=== PATIENT | female | born 1925 | race Caucasian/White ===

== ENCOUNTER 2017-01-02 14:26 | Inpatient (IN) | payer MEDICARE ==
[~2017-01-02] VITALS: Ht 165.1 cm; Wt 103.9 kg
[2017-01-02 14:00] VITALS: BP 158/62
[~2017-01-02 14:26] MED LIST: ACET500T68 PO; AMLO10TA2 PO; APIX5TAB PO; ASPI-482 PO; ASPI325T8 PO; CARV3.122 PO; CHOL100013 PO; DOCU50CA11 PO; FAMO20TA5 PO; GLIM2TAB2 PO; INSU100I17 SQ; IPRA3AMP NEB; LEVO112T4 PO; LEVO200T5 PO; LOSA100T6 PO; MELA3TAB2 PO; METF-620 PO; METF500T9 PO; METO25TA4 PO; OMEP20TA63 PO; POTASSIUM CHLO10 MEQ PO; RIVA10TA PO; SIMV20TA3 PO; TAMS0.4C2 PO; TRAM50TA PO; TRAZ50TA15 PO; VALS160T3 PO
[2017-01-02] MEDS ORDERED: 0.9 % SODIUM CHLORIDE 3ML DISP.SYRIN. IV PRN (18:30)
[2017-01-02] MEDS: oxyCODONE IR 5 MG TABLET PO PRN (18:31)
[2017-01-02] MEDS ORDERED: SILVER NITRATE STICK TP ONE (18:45)
[2017-01-02] MEDS ORDERED: BISACODYL 10 MG SUPP.RECT. PR PRN (18:45)
[2017-01-02] MEDS ORDERED: ACETAMINOPHEN 500 MG TABLET PO PRN (18:45)
[2017-01-02] MEDS ORDERED: DEXTROSE 50% 25 GM / 50ML DISP.SYRIN. IV PRN (18:45)
--- NOTE | 2017-01-02 18:54 | HP ---
ADMIT DATE: 01/02/2017 CHIEF COMPLAINT: Left lower extremity infection. HISTORY OF PRESENT ILLNESS: The patient is a pleasant elderly female who we have been caring for, for about a month now. She initially had an arterial occlusion on the left lower extremity. She went for emergent surgery. Postoperatively, she eventually developed complications, had to have a fasciotomy, now she has been over at the [facility] at [facility]. We have been doing aggressive wound care, but now she has developed an infection. She was sent here for treatment and consultation with Infectious Disease. PAST MEDICAL HISTORY: Chronic lower extremity venous arterial insufficiency, chronic anticoagulation, chronic pain, GERD, insomnia, depression, hypertension, hyperlipidemia, osteomyelitis, fibromyalgia, diabetes, hypothyroidism, appendectomy, cholecystectomy, total knee replacement. ALLERGIES: None. FAMILY HISTORY: Coronary artery disease. SOCIAL HISTORY: She does not drink, smoke or take drugs. MEDICATIONS: Reviewed, please refer to the MRAD. REVIEW OF SYSTEMS: GENERAL: No history of weight change, weakness or fevers. SKIN: No bruising, hair changes or rashes. EYES: No blurred, double or loss of vision. NOSE AND THROAT: No history of nosebleeds, hoarseness or sore throat. HEART: No history of palpitations, chest pain or shortness of breath on exertion. LUNGS: Denies cough, hemoptysis, wheezing or shortness of breath. GASTROINTESTINAL: Denies changes in appetite, nausea, vomiting, diarrhea or constipation. GENITOURINARY: No history of frequency, urgency, hesitancy or nocturia. NEUROLOGIC: Denies history of numbness, tingling, tremor or weakness. PSYCHIATRIC: No history of panic, anxiety or depression. ENDOCRINE: No history of heat or cold intolerance, polyuria or polydipsia. EXTREMITIES: She complains of left lower extremity pain and drain. PHYSICAL EXAMINATION: VITAL SIGNS: Stable. GENERAL: She is alert, cooperative. Her daughters are present. HEART: Normal S1, S2. LUNGS: Clear. ABDOMEN: Soft. EXTREMITIES: The left lower extremity has bandaging. There is odor of possible infection. ENDOCRINE: No thyromegaly. LYMPHATICS: No cervical nodes. HEMATOPOIETIC: No bruising. ASSESSMENT AND PLAN: Left lower extremity infection. The patient has been admitted. We will consult Infectious Disease. Consult her vascular surgeon, Dr. Decker. PT, OT, wound care, home meds. PROGNOSIS: Guarded. NIAL Sanchez DOW DO DR: Duke JOB#: [id number] / [id number]
[2017-01-02 19:00] VITALS: BP 138/82
[2017-01-02] MEDS: MORPHINE SULFATE 2 MG/ML DISP.SYRIN. IV PRN ×2 (21:37→23:36)
[2017-01-02] MEDS: IV NORMAL SALINE 1000ML BAG 1,000 ML IV SCH (21:43)
[2017-01-02] MEDS: ATORVASTATIN CALCIUM 10 MG TABLET. PO SCH (22:27)
[2017-01-02] MEDS: amLODIPine BESYLATE 5 MG TABLET PO SCH (22:28)
[2017-01-02] MEDS: LACTOBACILLUS RHAMNOSUS GG 1 CAPSULE. PO SCH (22:28)
[2017-01-02] MEDS: traZODone 50 MG TABLET. PO SCH (22:28)
[2017-01-02] MEDS: oxyCODONE ER 10 MG TAB.ER.12H PO SCH (22:28)
[2017-01-02] MEDS: DOCUSATE SODIUM 100 MG CAPSULE. PO SCH (22:28)
[2017-01-02] MEDS: METOPROLOL TART IMMED RELEASE 25 MG TABLET. PO SCH (22:29)
[2017-01-02 23:00] VITALS: BP 147/64
[2017-01-03] VITALS (11 sets, daily range): BP systolic 97–161; BP diastolic 50–92
[2017-01-03 05:13] LABS: INR 2.3 (0.8-1.1); PROTHROMBIN TIME PATIENT 24.2 SEC (11.7-14.0)
[2017-01-03] MEDS: MORPHINE SULFATE 2 MG/ML DISP.SYRIN. IV PRN ×7 (05:51→22:41)
[2017-01-03 05:59] LABS: ALBUMIN 1.4 g/dL (3.4-5.0); ALBUMIN/GLOBULIN RATIO 0.4 (1.0-1.7); CALCIUM 7.8 mg/dL (8.5-10.1); CREATININE 0.6 mg/dL (0.6-1.0); GFR 94.1; POTASSIUM 4.2 mmol/L (3.5-5.1); TOTAL BILIRUBIN 0.5 mg/dL (0.2-1.0); TOTAL PROTEIN 5.1 g/dL (6.4-8.2)
[2017-01-03] MEDS: LEVOTHYROXINE 112 MCG TABLET PO SCH (06:09)
[2017-01-03] MEDS ORDERED: ASPIRIN 325 MG TABLET PO SCH (08:00)
[2017-01-03] MEDS: oxyCODONE ER 10 MG TAB.ER.12H PO SCH ×2 (09:00→21:00)
[2017-01-03] MEDS: TAMSULOSIN 0.4 MG CAP.ER.24H. PO SCH (09:00)
[2017-01-03] MEDS: DOCUSATE SODIUM 100 MG CAPSULE. PO SCH ×2 (09:00→21:00)
[2017-01-03] MEDS: METOPROLOL TART IMMED RELEASE 25 MG TABLET. PO SCH ×2 (09:00→21:00)
[2017-01-03] MEDS: FAMOTIDINE 20 MG TABLET. PO SCH (09:00)
[2017-01-03] MEDS: LACTOBACILLUS RHAMNOSUS GG 1 CAPSULE. PO SCH ×2 (09:00→21:00)
[2017-01-03 09:26] LABS: BASO % 1 % (0-3); EOS % 1 % (0-3); HEMATOCRIT 27.9 % (36.0-47.0); HEMOGLOBIN 8.6 g/dL (12.0-15.5); LYMPH % 51 % (24-48); MEAN CORPUSCULAR HEMOGLOBIN 28 pg (25-35); MEAN CORPUSCULAR HGB CONC 31 g/dL (31-37); MEAN CORPUSCULAR VOLUME 92 fL (79-100); MONO % 7 % (0-9); NEUT % 40 % (31-73); PLATELET COUNT 314 x10^3/uL (140-400); RED BLOOD COUNT 3.03 x10^6/uL (3.50-5.40); RED CELL DISTRIBUTION WIDTH 17.8 % (11.5-14.5); WHITE BLOOD COUNT 7.8 x10^3/uL (4.0-11.0)
--- NOTE | 2017-01-03 09:56 | PDOC ---
Infectious Disease Note Vital Sign Vital Signs Vital Signs Date Time Temp Pulse Resp B/P (MAP) Pulse Ox O2 Delivery O2 Flow Rate FiO2 01/03/17 08:45 99 Nasal Cannula 2.0 01/03/17 03:00 98.1 77 20 138/88 (105) 98.1 Labs Lab Laboratory Tests Test 01/02/17 16:45 01/02/17 17:00 01/02/17 21:02 01/03/17 04:40 Glucose (Fingerstick) 166 mg/dL (70-99) 163 mg/dL (70-99) Nasal Screen MRSA (PCR) Negative (Negative) White Blood Count 7.8 x10^3/uL (4.0-11.0) Red Blood Count 3.03 x10^6/uL (3.50-5.40) Hemoglobin 8.6 g/dL (12.0-15.5) Hematocrit 27.9 % (36.0-47.0) Mean Corpuscular Volume 92 fL (79-100) Mean Corpuscular Hemoglobin 28 pg (25-35) Mean Corpuscular Hemoglobin Concent 31 g/dL (31-37) Red Cell Distribution Width 17.8 % (11.5-14.5) Platelet Count 314 x10^3/uL (140-400) Neutrophils (%) (Auto) 40 % (31-73) Lymphocytes (%) (Auto) 51 % (24-48) Monocytes (%) (Auto) 7 % (0-9) Eosinophils (%) (Auto) 1 % (0-3) Basophils (%) (Auto) 1 % (0-3) Neutrophils # (Auto) 3.1 x10^3uL (1.8-7.7) Lymphocytes # (Auto) 4.0 x10^3/uL (1.0-4.8) Monocytes # (Auto) 0.5 x10^3/uL (0.0-1.1) Eosinophils # (Auto) 0.1 x10^3/uL (0.0-0.7) Basophils # (Auto) 0.0 x10^3/uL (0.0-0.2) Prothrombin Time 24.2 SEC (11.7-14.0) Prothromb Time International Ratio 2.3 (0.8-1.1) Sodium Level 138 mmol/L (136-145) Potassium Level 4.2 mmol/L (3.5-5.1) Chloride Level 107 mmol/L (98-107) Carbon Dioxide Level 22 mmol/L (21-32) Anion Gap 9 (6-14) Blood Urea Nitrogen 19 mg/dL (7-20) Creatinine 0.6 mg/dL (0.6-1.0) Estimated GFR (Cockcroft-Gault) 94.1 BUN/Creatinine Ratio 32 (6-20) Glucose Level 121 mg/dL (70-99) Calcium Level 7.8 mg/dL (8.5-10.1) Total Bilirubin 0.5 mg/dL (0.2-1.0) Aspartate Amino Transf (AST/SGOT) 43 U/L (15-37) Alanine Aminotransferase (ALT/SGPT) 30 U/L (14-59) Alkaline Phosphatase 112 U/L (46-116) Total Protein 5.1 g/dL (6.4-8.2) Albumin 1.4 g/dL (3.4-5.0) Albumin/Globulin Ratio 0.4 (1.0-1.7) Test 01/03/17 07:27 Glucose (Fingerstick) 119 mg/dL (70-99) Objective Assessment Extensive left leg infection Left leg ischemia/necrotic mus and skin Obesity DM HTN Left fibular fracture CVA Plan Plan of Care zyvox and zosyn d/w daughter d/w Vascular surgery likely will need amputation ZAID LARSEN MD Jan 03, 2017 09:56
--- NOTE | 2017-01-03 10:34 | CONS ---
DATE OF CONSULTATION: 01/03/2017 REQUESTING PHYSICIAN: Dr. Luu. REASON FOR CONSULTATION: Left leg infection. HISTORY OF PRESENT ILLNESS: This is an 89-year-old female who has undergone significant problem lately. Right now the patient was transferred from [facility] for left ankle or leg infection, although before then she was at [facility] and she had original hemorrhagic CVA and subsequently she was in a nursing facility and then she had discoloration of the leg. She was found to have acute ischemia of the leg. The patient underwent revascularization, thrombectomy and she developed compartment syndrome, so that was filleted open. The patient then was transferred to [facility] with necrotic anterior left leg as well as necrotic muscle. The patient was getting local care and yesterday was found to have significant pus started coming out from the lower part of the wound just above the ankle, hence she was transferred. The patient has significant pus coming out from that area now, seen by Vascular Surgery and discussion of I and D versus amputation has been undergoing right now. The patient denies any nausea, vomiting, diarrhea. Denies any fever. Does have pain in the leg. Denies any chest pain, shortness of breath, abdominal pain. PAST MEDICAL HISTORY: As I mentioned, recent hemorrhagic stroke, also left leg compartment syndrome, status post fasciotomy with necrotic muscle still, also left leg ischemia, status post thrombectomy. The patient has obesity, atrial fibrillation, hypertension, hyperlipidemia, diabetes. SOCIAL HISTORY: Negative for smoking, alcohol, illicit drug use. ALLERGIES: No known drug allergies. CURRENT MEDICATIONS: Reviewed. ALLERGIES: She lists as allergic to HYDROCODONE, NAPROXEN and PROPOXYPHENE. ROS : as per HPI, rest neg. PHYSICAL EXAMINATION: GENERAL: Alert, oriented female, not in distress. VITAL SIGNS: Stable, afebrile. HEENT: NAD. NECK: Supple, no JVP, no lymphadenopathy. LUNGS: Clear. HEART: S1, S2 regular. ABDOMEN: Benign. EXTREMITIES: Right lower extremity is unremarkable. Left lower extremity has extensive wounds with the muscle visible and some necrotic muscle as well as the chente pus coming out just above the ankle into the hole that goes deeper into the lateral side. NEUROLOGIC: The patient is neurologically intact, although she is very weak and debilitated. She is not able to do anything much. LABORATORY DATA: White count is 7.8, hemoglobin 8.6, platelets are normal. BUN and creatinine is 19 and 0.6. Last times x-ray which showed tibiofibular fracture which is where right now the infection is. IMPRESSION: 1. Extensive infection of the left leg. 2. Devitalized necrotic muscle and skin. 3. Compartment syndrome, status post fasciotomy. 4. Ischemic leg, status post thrombectomy. 5. Obesity. 6. Diabetes. 7. Hypertension. 8. Atrial fibrillation. RECOMMENDATIONS: We will put her on Zosyn and Zyvox, supportive care, in detail discussion done with the patient's daughter at the bedside, probably this is not viable and would recommend amputation. Also discussed with Vascular Surgery, [employer]OR. They are also thinking that this is not salvageable and talking about possible amputation with the brother. The patient's son has the DPOA. He is on his way. We will discuss with him also. Thank you very much, Dr. Luu for giving me the opportunity to participate in this patient's care. ZAID LARSEN MD DR: DIONNE/gill JOB#: [id number] / [id number] ÁNGEL
[2017-01-03] MEDS ORDERED: PHYTONADIONE (VIT K1) IV 10 MG in IV DEXTROSE 5% 50 ML IV ONE (11:00)
[2017-01-03] MEDS ORDERED: FUROSEMIDE 40 MG/4 ML VIAL. IVP ONE (11:45)
[2017-01-03] MEDS ORDERED: PIPERACILLIN/TAZOBACTAM 3.375 GM in IV DEXTROSE 5% 50 ML IV SCH (12:00)
--- NOTE | 2017-01-03 12:13 | PDOC2 ---
JOANNA MONET PAROLE HEARING OFFICER 01/03/17 1213: CONSULT Date of Consult Date of Consult DATE: 01/03/17 TIME: 0845 Reason for Consult Reason for Consult: Infected fasciotomy wound to left lower extremity. Referring Physician Referring Physician: Dinh Luu M.D. Identification/Chief Complaint Chief Complaint Left lower leg infection with foul odor. Problems: Source Source: Caregiver (Daughter and son at bedside), Chart review, Patient History of Present Illness Reason for Visit: This is a 89-year-old elderly female known to [facility] with a history of an emergent left popliteal and tibial thromboembolectomy, left popliteal endarterectomy and a 4-compartment fasciotomy for acute left leg arterial embolic occlusion with thrombus propagation on 12/12/2016. The patient does have a history of atrial fibrillation but at the time of this acute event, anticoagulation was being held due to a recent hemorrhagic stroke. The patient was convalescing at a rehabilitation facility from her stroke as well as a left ankle fracture when she developed acute onset of left leg pain and left foot discoloration. She was taken to the operating room on an emergency basis for a limb-threatening ischemic arterial occlusion with compartment syndrome. The patient did require additional fasciotomy wound debridement in the operating room on 12/19/2016 with plans for ongoing wound vac therapy to these wounds. Anticoagulation was reinitiated. The patient was discharged to LTAC at [facility] where ongoing wound cares were being provided. The patient now presents with odorous, purulent draining left lower leg wound infections with marked tissue necrosis and pain. The patient denies having fever or chills, shortness of breath, cough, chest discomfort or chest pain, or abdominal pain. She does complain of pain to her left leg. Vascular Surgery has been consulted to assist with evaluation and planning of next steps in treatment of these wounds. The patient has been NPO since midnight. The RN reports that the patient's anticoagulation was held yesterday. Past Medical History Cardiovascular: AFIB, HTN, Hyperlipidemia Pulmonary: No pertinent hx CENTRAL NERVOUS SYSTEM: CVA (Hemorrhagic CVA October 2016) GI: GERD Heme/Onc: No pertinent hx Hepatobiliary: No pertinent hx Psych: No pertinent hx Musculoskeletal: Other (Fracture left ankle October 2016) Rheumatologic: Fibromyalgia Infectious disease: No pertinent hx Renal/: No pertinent hx Endocrine: Diabetes, Hypothyroidism Past Surgical History Past Surgical History 1. 12/12/2016 - Left popliteal and tibial selective thromboembolectomy; left popliteal endarterectomy; 4-compartment fasciotomy. 2. 12/19/2016 - left leg fasciotomy wound debridement. 3. Left total knee replacement. Family History Family History Non-contributory Social History No ALCOHOL: none Drugs: None Lives: [place] (Currently at a [facility] facily) Current Problem List Problem List 1. Peripheral arterial disease. 2. Acute cellulitis with tissue necrosis to left lower extremity. 3. Morbid obesity. 4. Fracture of left ankle. 5. Severe lymphedema. Current Medications Current Medications Current Medications Oxycodone HCl (Roxicodone) 5 mg PRN Q4HRS PRN PO PAIN Last administered on 18:31; Start 01/02/17 at 18:15 Oxycodone HCl (OxyCONTIN) 10 mg Q12HR PO Last administered on 01/02/17 22:28 ; Start 01/02/17 at 21:00 Amlodipine Besylate (Norvasc) 5 mg HS PO Last administered on 01/02/17 22:28 ; Start 01/02/17 at 21:00 Tamsulosin HCl (Flomax) 0.4 mg DAILY PO ; Start 01/03/17 at 09:00 Polyethylene Glycol (miraLAX PACKET) 17 gm PRN DAILY PRN PO CONSTIPATION; Start 01/02/17 at 18:30 Ondansetron HCl (Zofran) 4 mg PRN Q6HRS PRN IV NAUSEA/VOMITING; Start at 18:30 Lorazepam (Ativan) 2 mg PRN Q12HR PRN IV ANXIETY / AGITATION; Start 01/02/17 at 18:30 Metoprolol Tartrate (Lopressor) 25 mg BID PO Last administered on 01/02/17 22 :29; Start 01/02/17 at 21:00 Silver Nitrate/ Potassium Nitrate 1 each 1X ONCE TP ; Start 01/02/17 at 18:45 ; Stop 01/02/17 at 18:46; Status DC Famotidine (Pepcid) 20 mg DAILY PO ; Start 01/03/17 at 09:00 Trazodone HCl (Desyrel) 50 mg QHS PO Last administered on 01/02/17 22:28; Start 01/02/17 at 21:00 Levothyroxine Sodium (Synthroid) 112 mcg DAILY07 PO ; Start 01/03/17 at 07:00 Lactobacillus Rhamnosus (Culturelle) 1 cap BID PO Last administered on 22:28; Start 01/02/17 at 21:00 Sodium Chloride 1,000 ml @ 50 mls/hr Q20H IV Last administered on 01/02/17 21:43; Start 01/02/17 at 19:00 Sodium Chloride (Normal Saline Flush 3ml) 10 ml PRN Q12HRS PRN IV AFTER MEDS AND BLOOD DRAWS; Start 01/02/17 at 18:30 Insulin Aspart (NovoLOG) 0-9 UNITS TIDWMEALS SQ ; Start 01/03/17 at 19:00 Dextrose (Dextrose 50%-Water Syringe) 12.5 gm PRN Q15MIN PRN IV SEE COMMENTS; Start 01/02/17 at 18:45 Docusate Sodium (Colace) 100 mg BID PO Last administered on 01/02/17 22:28; Start 01/02/17 at 21:00 Bisacodyl (Dulcolax Supp) 10 mg PRN DAILY PRN ID CONSTIPATION; Start 01/02/17 at 18:45 Atorvastatin Calcium (Lipitor) 10 mg QHS PO Last administered on 01/02/17 22: 27; Start 01/02/17 at 21:00 Aspirin (Lucas Aspirin) 325 mg DAILYWBKFT PO ; Start 01/03/17 at 08:00 Acetaminophen (Tylenol) 500 mg PRN Q6HRS PRN PO MILD PAIN / TEMP; Start at 18:45 Morphine Sulfate 2 mg PRN Q2HR PRN IV PAIN Last administered on 01/03/17 09: 34; Start 01/02/17 at 21:15 Morphine Sulfate 4 mg PRN Q2HR PRN IV PAIN; Start 01/02/17 at 21:15 Piperacillin Sod/ Tazobactam Sod 3.375 gm/Dextrose 50 ml @ 100 mls/hr Q6HRS IV ; Start 01/03/17 at 12:00; Status UNV Linezolid 300 ml @ 300 mls/hr Q12HR IV ; Start 01/03/17 at 11:00 Phytonadione 10 mg/Dextrose 51 ml @ 102 mls/hr 1X ONCE IV ; Start 01/03/17 at 11:00; Stop 01/03/17 at 11:29 Piperacillin Sod/ Tazobactam Sod (Zosyn) 3.375 gm Q6HRS IVP ; Start 01/03/17 at 12:00 Active Scripts Active Tramadol Hcl 50 Mg Tablet 50 Mg PO PRN Q6HRS PRN Reported Novolog Flexpen (Insulin Aspart) 100 Unit/1 Ml Insuln.pen 1 Unit SQ PRN TID PRN Duoneb 0.5-3(2.5) Mg/3 Ml (Albuterol/Ipratropium) 3 Ml Ampul.neb 3 Ml NEB PRN Q4HRS PRN Famotidine 20 Mg Tablet 20 Mg PO HS Trazodone Hcl 50 Mg Tablet 1 Tab PO QHS Tamsulosin Hcl 0.4 Mg Cap.er.24h 0.4 Mg PO DAILY Metoprolol Tartrate 25 Mg Tablet 1 Tab PO BID Melatonin 3 Mg Tablet 1 Tab PO QHS Losartan Potassium 100 Mg Tablet 100 Mg PO DAILY Colace Clear (Docusate Sodium) 50 Mg Capsule 50 Mg PO PRN DAILY PRN Aspirin 325 Mg Tablet 1 Tab PO DAILY Acetaminophen 500 Mg Tablet 500 Mg PO PRN Q6HRS PRN Vitamin D (Cholecalciferol (Vitamin D3)) 1,000 Unit Capsule 1 Cap PO DAILY Levothyroxine Sodium 112 Mcg Tablet 2 Tab PO HS Xarelto (Rivaroxaban) 10 Mg Tablet 1 Tab PO DAILY Prilosec Otc (Omeprazole Magnesium) 20 Mg Tablet.dr 1 Tab PO DAILY Metformin Hcl Er (Metformin Hcl) 500 Mg Tab.er.24h 500 Mg PO BIDWMEALS Amlodipine Besylate 10 Mg Tablet 10 Mg PO HS Simvastatin 20 Mg Tablet 20 Mg PO HS Glimepiride 2 Mg Tablet 2 Mg PO DAILY Carvedilol 3.125 Mg Tablet 6.25 Mg PO BID Potassium Chloride 10 Meq Capsule.er 20 Meq PO DAILY Allergies Allergies: Coded Allergies: propoxyphene (Verified Allergy, Severe, 12/19/16) hydrocodone (Verified Allergy, Intermediate, 12/19/16) naproxen (Verified Allergy, Intermediate, 12/19/16) trimethobenzamide (Verified Allergy, Intermediate, 12/19/16) ROS General: No: Chills, Night Sweats, Appetite HEENT: No: Heacaches, Visual Changes, Hearing change, Sore Throat Respiratory: No: Cough, Shortness of breath, Wheezing Cardiovascular: yes Edema (generalized severe edmea, especially to all extremities.), No Chest Pain, No Palpitations, No Lt Headedness, No Other Gastrointestinal: No Nausea, No Vomiting, No Abdominal Pain, No Diarrhea, No Constipation Genitourinary: YES Urgency, YES Other (Chronic kellogg catheter from LTAC) Musculoskeletal: Yes Pain In: (Left lower leg), Yes Swelling In: (Generalized, especially in bilateral arms and legs) Skin: Yes Other (Odorous and draining wounds to left lower extremity.) Physical Exam General: Alert, Oriented X3, Cooperative, mild distress (Pain in left lower extremity) HEENT: Atraumatic, PERRLA Lungs: Normal air movement, Other (Crackles to left lung base. Otherwise, clear and without wheezing. Supplemental oxygen intact.) Heart: Normal S1, Normal S2, No murmurs, Other (Irregularly irregular) Abdomen: Normal bowel sounds, Soft, No tenderness Extremities: Other (Severe generalized edema. Palpable bilateral radial pulses. Palpable right femoral pulse. Not able to palpate left femoral pulse. Doppled monophasic left femoral, dorsalis pedal and post tibial pulses.) Skin: Other (Extremely foul odor to left lower extremity wounds. Purulent, copious drainage present and easily expressed from distal portion of fasciotomy wound. Necrotic, brown tissue in the majority of the base of the anterior fasciotomy wound with muscle tissue loss. Bulging muscle present from upper portion of lateral fasciotomy wound. Medial fasciotomy with moderate slough tissue in bed of wound but tissue is more healthy-appearing. Left thigh surgical incision intact and healing. Weeping serous fluid from tissues of bilateral hands.) MUSCULOSKELETAL: Other (Left ankle unstable and cracks when moved to reposition left leg/foot.) Vitals VITALS Vital Signs Date Time Temp Pulse Resp B/P (MAP) Pulse Ox O2 Delivery O2 Flow Rate FiO2 01/03/17 09:34 99 Nasal Cannula 2.0 01/03/17 07:00 97.7 86 18 97/65 (76) 97.7 Labs Labs Laboratory Tests Test 01/02/17 16:45 01/02/17 17:00 01/02/17 21:02 01/03/17 04:40 Glucose (Fingerstick) 166 mg/dL (70-99) 163 mg/dL (70-99) Nasal Screen MRSA (PCR) Negative (Negative) White Blood Count 7.8 x10^3/uL (4.0-11.0) Red Blood Count 3.03 x10^6/uL (3.50-5.40) Hemoglobin 8.6 g/dL (12.0-15.5) Hematocrit 27.9 % (36.0-47.0) Mean Corpuscular Volume 92 fL (79-100) Mean Corpuscular Hemoglobin 28 pg (25-35) Mean Corpuscular Hemoglobin Concent 31 g/dL (31-37) Red Cell Distribution Width 17.8 % (11.5-14.5) Platelet Count 314 x10^3/uL (140-400) Neutrophils (%) (Auto) 40 % (31-73) Lymphocytes (%) (Auto) 51 % (24-48) Monocytes (%) (Auto) 7 % (0-9) Eosinophils (%) (Auto) 1 % (0-3) Basophils (%) (Auto) 1 % (0-3) Neutrophils # (Auto) 3.1 x10^3uL (1.8-7.7) Lymphocytes # (Auto) 4.0 x10^3/uL (1.0-4.8) Monocytes # (Auto) 0.5 x10^3/uL (0.0-1.1) Eosinophils # (Auto) 0.1 x10^3/uL (0.0-0.7) Basophils # (Auto) 0.0 x10^3/uL (0.0-0.2) Prothrombin Time 24.2 SEC (11.7-14.0) Prothromb Time International Ratio 2.3 (0.8-1.1) Sodium Level 138 mmol/L (136-145) Potassium Level 4.2 mmol/L (3.5-5.1) Chloride Level 107 mmol/L (98-107) Carbon Dioxide Level 22 mmol/L (21-32) Anion Gap 9 (6-14) Blood Urea Nitrogen 19 mg/dL (7-20) Creatinine 0.6 mg/dL (0.6-1.0) Estimated GFR (Cockcroft-Gault) 94.1 BUN/Creatinine Ratio 32 (6-20) Glucose Level 121 mg/dL (70-99) Uric Acid 4.9 mg/dL (2.6-6.0) Calcium Level 7.8 mg/dL (8.5-10.1) Total Bilirubin 0.5 mg/dL (0.2-1.0) Aspartate Amino Transf (AST/SGOT) 43 U/L (15-37) Alanine Aminotransferase (ALT/SGPT) 30 U/L (14-59) Alkaline Phosphatase 112 U/L (46-116) Total Protein 5.1 g/dL (6.4-8.2) Albumin 1.4 g/dL (3.4-5.0) Albumin/Globulin Ratio 0.4 (1.0-1.7) Test 01/03/17 07:27 Glucose (Fingerstick) 119 mg/dL (70-99) Laboratory Tests Test 01/02/17 16:45 01/02/17 17:00 01/02/17 21:02 01/03/17 04:40 Glucose (Fingerstick) 166 mg/dL (70-99) 163 mg/dL (70-99) Nasal Screen MRSA (PCR) Negative (Negative) White Blood Count 7.8 x10^3/uL (4.0-11.0) Red Blood Count 3.03 x10^6/uL (3.50-5.40) Hemoglobin 8.6 g/dL (12.0-15.5) Hematocrit 27.9 % (36.0-47.0) Mean Corpuscular Volume 92 fL (79-100) Mean Corpuscular Hemoglobin 28 pg (25-35) Mean Corpuscular Hemoglobin Concent 31 g/dL (31-37) Red Cell Distribution Width 17.8 % (11.5-14.5) Platelet Count 314 x10^3/uL (140-400) Neutrophils (%) (Auto) 40 % (31-73) Lymphocytes (%) (Auto) 51 % (24-48) Monocytes (%) (Auto) 7 % (0-9) Eosinophils (%) (Auto) 1 % (0-3) Basophils (%) (Auto) 1 % (0-3) Neutrophils # (Auto) 3.1 x10^3uL (1.8-7.7) Lymphocytes # (Auto) 4.0 x10^3/uL (1.0-4.8) Monocytes # (Auto) 0.5 x10^3/uL (0.0-1.1) Eosinophils # (Auto) 0.1 x10^3/uL (0.0-0.7) Basophils # (Auto) 0.0 x10^3/uL (0.0-0.2) Prothrombin Time 24.2 SEC (11.7-14.0) Prothromb Time International Ratio 2.3 (0.8-1.1) Sodium Level 138 mmol/L (136-145) Potassium Level 4.2 mmol/L (3.5-5.1) Chloride Level 107 mmol/L (98-107) Carbon Dioxide Level 22 mmol/L (21-32) Anion Gap 9 (6-14) Blood Urea Nitrogen 19 mg/dL (7-20) Creatinine 0.6 mg/dL (0.6-1.0) Estimated GFR (Cockcroft-Gault) 94.1 BUN/Creatinine Ratio 32 (6-20) Glucose Level 121 mg/dL (70-99) Uric Acid 4.9 mg/dL (2.6-6.0) Calcium Level 7.8 mg/dL (8.5-10.1) Total Bilirubin 0.5 mg/dL (0.2-1.0) Aspartate Amino Transf (AST/SGOT) 43 U/L (15-37) Alanine Aminotransferase (ALT/SGPT) 30 U/L (14-59) Alkaline Phosphatase 112 U/L (46-116) Total Protein 5.1 g/dL (6.4-8.2) Albumin 1.4 g/dL (3.4-5.0) Albumin/Globulin Ratio 0.4 (1.0-1.7) Test 01/03/17 07:27 Glucose (Fingerstick) 119 mg/dL (70-99) Assessment/Plan Assessment/Plan 1. Severe infection of the left lower leg with necrotic tissue of muscle and skin, purulent drainage and foul odor. Left lower leg appears to be non- viable. The patient is non-weight bearing to the left leg due to a fractured ankle from a fall when the patient had her stroke. This ankle is quite unstable with movement, and most likely, with suspected osteomyelitis. Recommendation has been made for a left above-knee amputation. The patient has a previous history of a left knee replacement and the tissue involved in previous fasciotomy wounds and thrombectomy incisions most likely compromise adequate healthy tissue to perform a below-knee amputation. The patient, in the presence of her son and daughter, has agreed to proceed with amputation. At this time, surgery is scheduled for [address] Monet's evaluation and pending the ability to reverse anticoagulation. The patient and family were also given the option of palliative care. They declined this option and want to proceed with surgery. 2. Peripheral arterial disease with acute limb-threatening arterial thrombosis requiring emergent left popliteal and tibial thromboembolectomy and popliteal endarterectomy. Will obtain an arterial doppler to left upper leg only to evaluate arterial circulation to ensure incisional healing for amputation. 3. Atrial fibrillation on anticoagulation. Admission INR 2.3. Anticoagulation was held yesterday. FFP has been ordered to reverse INR for anticipation of surgery, hopefully today. 4. Agree with Infectious Disease Consultation to assist with antibiotic selection. Wound culture of purulent drainage has been obtained and sent prior to the agreement to proceed with amputation. 5. Obesity. Concerning for patient's operative and recovery risk. Will require PT/OT therapy and rehabilitation services. 6. Severe generalized edema with suspected malnutrition with low protein stores. Patient's weight is noted to be nearly 50 pounds higher than her previous admission. She has serous weeping from her tissues, including hands. Will give Lasix IV x1 and continue to monitor. Most likely will require dietary consultation to maximize nutrition for healing once patient able to resume a diet. 7. Hypertension. Stable on oral antihypertensive medications. Thank you for the opportunity to participate in the care of this patient. Dr. Monet will provide further evaluation and recommendations as we work through these issues. GURWINDER OMNET MD 01/03/17 1621: CONSULT Allergies Allergies: Coded Allergies: propoxyphene (Verified Allergy, Severe, 12/19/16) hydrocodone (Verified Allergy, Intermediate, 12/19/16) naproxen (Verified Allergy, Intermediate, 12/19/16) trimethobenzamide (Verified Allergy, Intermediate, 12/19/16) Assessment/Plan Assessment/Plan Agree with above assessment and plan for a left AK amputation Will need PCs, FFP and repeat labs in order to procede safely, This will take time. Now that pt. has an IV can draw lab and give products The lt AK amputation has been rescheduled for late tomorrow to be done by myself or Dr. Michaels, pt. agreeable to procede JOANNA MONET APRN Jan 03, 2017 12:13 GURWINDER MONET MD Jan 03, 2017 16:21
--- NOTE | 2017-01-03 12:20 | RAD ---
Left lower extremity arterial duplex ultrasound 01/03/2017 Indication: Up coming left [id number] amputation. Evaluate circulation Comparison study: Left lower extremity arterial duplex ultrasound 12/13/2016. Discussion: Ultrasound evaluation of the left upper extremity is performed including color Doppler imaging spectral analysis. Diffuse atherosclerotic vascular disease is noted. Monophasic flow is seen in the left common femoral artery which can be the result of inflow disease/aortoiliac stenosis. Profunda artery is grossly patent. The proximal and mid left superficial femoral artery are patent. The distal SFA demonstrates some visual narrowing and monophasic flow. No definitive focal area of increased velocity suggesting a focal hemodynamically significant stenosis is identified. Impression: 1.Monophasic flow throughout the left lower extremity. Aortoiliac stenosis not excluded. If concern persists consider CTA 2. Probable mild narrowing of the distal SFA.
[2017-01-03 12:33] LABS: % EOS 2 % (0-5); ANISOCYTOSIS SLIGHT; PLT ESTIMATE ADEQUATE (ADEQUATE)
[2017-01-03 12:36] LABS: BURR CELLS FEW; HYPOCHROMIA SLIGHT
[2017-01-03] MEDS: PIPERACILLIN/TAZO IV Push 3.375 GM VIAL. IVP SCH ×2 (12:58→20:23)
--- NOTE | 2017-01-03 13:10 | PDOC ---
PROGRESS NOTES Chief Complaint Chief Complaint 1. Extensive infection of the left leg. hx fasciitis, fasciotomy 2. Devitalized necrotic muscle and skin. 3. Compartment syndrome, status post fasciotomy. 4. Ischemic leg, status post thrombectomy. 5. Obesity. 6. Diabetes. 7. Hypertension. 8. Atrial fibrillation on AC, therapeutic INR History of Present Illness History of Present Illness SMiles, family at bedside Dw VAsc sx, needs AKA today INR 2,3 VS ok WOund foul smelling, lost of weeping dc 50 lbs more in terms of weight compared to last hopsital dc GOt vitamin K and LAsix c/o vasc sx PLAN: STat FFP 2 units now then FFP 1 hr after NPO FOllow cx, labs post op, supportive care\ Family and pt does not want to go palliative and opted for AKA Vitals Vitals Vital Signs Date Time Temp Pulse Resp B/P (MAP) Pulse Ox O2 Delivery O2 Flow Rate FiO2 01/03/17 11:45 97.9 90 18 156/92 (113) 98 Room Air 97.9 01/03/17 11:44 2.0 Physical Exam General: Alert, Oriented X3, Cooperative, mild distress (Pain in left lower extremity) Heart: Normal S1, Normal S2, No murmurs, Other (Irregularly irregular) Lungs: Clear Abdomen: Normal bowel sounds, Soft, No tenderness Extremities: Other (Severe generalized edema. Palpable bilateral radial pulses. Palpable right femoral pulse. Not able to palpate left femoral pulse. Doppled monophasic left femoral, dorsalis pedal and post tibial pulses.) Skin: Other (Extremely foul odor to left lower extremity wounds. Purulent, copious drainage present and easily expressed from distal portion of fasciotomy wound. Necrotic, brown tissue in the majority of the base of the anterior fasciotomy wound with muscle tissue loss. Bulging muscle present from upper portion of lateral fasciotomy wound. Medial fasciotomy with moderate slough tissue in bed of wound but tissue is more healthy-appearing. Left thigh surgical incision intact and healing. Weeping serous fluid from tissues of bilateral hands.) Labs LABS Laboratory Tests Test 01/02/17 16:45 01/02/17 17:00 01/02/17 21:02 01/03/17 04:40 Glucose (Fingerstick) 166 mg/dL (70-99) 163 mg/dL (70-99) Nasal Screen MRSA (PCR) Negative (Negative) White Blood Count 7.8 x10^3/uL (4.0-11.0) Red Blood Count 3.03 x10^6/uL (3.50-5.40) Hemoglobin 8.6 g/dL (12.0-15.5) Hematocrit 27.9 % (36.0-47.0) Mean Corpuscular Volume 92 fL (79-100) Mean Corpuscular Hemoglobin 28 pg (25-35) Mean Corpuscular Hemoglobin Concent 31 g/dL (31-37) Red Cell Distribution Width 17.8 % (11.5-14.5) Platelet Count 314 x10^3/uL (140-400) Neutrophils (%) (Auto) 40 % (31-73) Lymphocytes (%) (Auto) 51 % (24-48) Monocytes (%) (Auto) 7 % (0-9) Eosinophils (%) (Auto) 1 % (0-3) Basophils (%) (Auto) 1 % (0-3) Neutrophils # (Auto) 3.1 x10^3uL (1.8-7.7) Lymphocytes # (Auto) 4.0 x10^3/uL (1.0-4.8) Monocytes # (Auto) 0.5 x10^3/uL (0.0-1.1) Eosinophils # (Auto) 0.1 x10^3/uL (0.0-0.7) Basophils # (Auto) 0.0 x10^3/uL (0.0-0.2) Segmented Neutrophils % 57 % (35-66) Lymphocytes % 40 % (24-48) Monocytes % 1 % (0-10) Eosinophils % 2 % (0-5) Platelet Estimate Adequate (ADEQUATE) Hypochromasia Slight Anisocytosis Slight Imperial Cells Few Prothrombin Time 24.2 SEC (11.7-14.0) Prothromb Time International Ratio 2.3 (0.8-1.1) Sodium Level 138 mmol/L (136-145) Potassium Level 4.2 mmol/L (3.5-5.1) Chloride Level 107 mmol/L (98-107) Carbon Dioxide Level 22 mmol/L (21-32) Anion Gap 9 (6-14) Blood Urea Nitrogen 19 mg/dL (7-20) Creatinine 0.6 mg/dL (0.6-1.0) Estimated GFR (Cockcroft-Gault) 94.1 BUN/Creatinine Ratio 32 (6-20) Glucose Level 121 mg/dL (70-99) Uric Acid 4.9 mg/dL (2.6-6.0) Calcium Level 7.8 mg/dL (8.5-10.1) Total Bilirubin 0.5 mg/dL (0.2-1.0) Aspartate Amino Transf (AST/SGOT) 43 U/L (15-37) Alanine Aminotransferase (ALT/SGPT) 30 U/L (14-59) Alkaline Phosphatase 112 U/L (46-116) Total Protein 5.1 g/dL (6.4-8.2) Albumin 1.4 g/dL (3.4-5.0) Albumin/Globulin Ratio 0.4 (1.0-1.7) Test 01/03/17 07:27 01/03/17 12:05 Glucose (Fingerstick) 119 mg/dL (70-99) 119 mg/dL (70-99) Review of Systems Review of Systems leg pains, all else is neg Comment Review of Relevant I have reviewed the following items madhav (where applicable) has been applied. Labs Laboratory Tests Test 01/02/17 16:45 01/02/17 17:00 01/02/17 21:02 01/03/17 04:40 Glucose (Fingerstick) 166 mg/dL (70-99) 163 mg/dL (70-99) Nasal Screen MRSA (PCR) Negative (Negative) White Blood Count 7.8 x10^3/uL (4.0-11.0) Red Blood Count 3.03 x10^6/uL (3.50-5.40) Hemoglobin 8.6 g/dL (12.0-15.5) Hematocrit 27.9 % (36.0-47.0) Mean Corpuscular Volume 92 fL (79-100) Mean Corpuscular Hemoglobin 28 pg (25-35) Mean Corpuscular Hemoglobin Concent 31 g/dL (31-37) Red Cell Distribution Width 17.8 % (11.5-14.5) Platelet Count 314 x10^3/uL (140-400) Neutrophils (%) (Auto) 40 % (31-73) Lymphocytes (%) (Auto) 51 % (24-48) Monocytes (%) (Auto) 7 % (0-9) Eosinophils (%) (Auto) 1 % (0-3) Basophils (%) (Auto) 1 % (0-3) Neutrophils # (Auto) 3.1 x10^3uL (1.8-7.7) Lymphocytes # (Auto) 4.0 x10^3/uL (1.0-4.8) Monocytes # (Auto) 0.5 x10^3/uL (0.0-1.1) Eosinophils # (Auto) 0.1 x10^3/uL (0.0-0.7) Basophils # (Auto) 0.0 x10^3/uL (0.0-0.2) Segmented Neutrophils % 57 % (35-66) Lymphocytes % 40 % (24-48) Monocytes % 1 % (0-10) Eosinophils % 2 % (0-5) Platelet Estimate Adequate (ADEQUATE) Hypochromasia Slight Anisocytosis Slight Imperial Cells Few Prothrombin Time 24.2 SEC (11.7-14.0) Prothromb Time International Ratio 2.3 (0.8-1.1) Sodium Level 138 mmol/L (136-145) Potassium Level 4.2 mmol/L (3.5-5.1) Chloride Level 107 mmol/L (98-107) Carbon Dioxide Level 22 mmol/L (21-32) Anion Gap 9 (6-14) Blood Urea Nitrogen 19 mg/dL (7-20) Creatinine 0.6 mg/dL (0.6-1.0) Estimated GFR (Cockcroft-Gault) 94.1 BUN/Creatinine Ratio 32 (6-20) Glucose Level 121 mg/dL (70-99) Uric Acid 4.9 mg/dL (2.6-6.0) Calcium Level 7.8 mg/dL (8.5-10.1) Total Bilirubin 0.5 mg/dL (0.2-1.0) Aspartate Amino Transf (AST/SGOT) 43 U/L (15-37) Alanine Aminotransferase (ALT/SGPT) 30 U/L (14-59) Alkaline Phosphatase 112 U/L (46-116) Total Protein 5.1 g/dL (6.4-8.2) Albumin 1.4 g/dL (3.4-5.0) Albumin/Globulin Ratio 0.4 (1.0-1.7) Test 01/03/17 07:27 01/03/17 12:05 Glucose (Fingerstick) 119 mg/dL (70-99) 119 mg/dL (70-99) Laboratory Tests Test 01/02/17 16:45 01/02/17 17:00 01/02/17 21:02 01/03/17 04:40 Glucose (Fingerstick) 166 mg/dL (70-99) 163 mg/dL (70-99) Nasal Screen MRSA (PCR) Negative (Negative) White Blood Count 7.8 x10^3/uL (4.0-11.0) Red Blood Count 3.03 x10^6/uL (3.50-5.40) Hemoglobin 8.6 g/dL (12.0-15.5) Hematocrit 27.9 % (36.0-47.0) Mean Corpuscular Volume 92 fL (79-100) Mean Corpuscular Hemoglobin 28 pg (25-35) Mean Corpuscular Hemoglobin Concent 31 g/dL (31-37) Red Cell Distribution Width 17.8 % (11.5-14.5) Platelet Count 314 x10^3/uL (140-400) Neutrophils (%) (Auto) 40 % (31-73) Lymphocytes (%) (Auto) 51 % (24-48) Monocytes (%) (Auto) 7 % (0-9) Eosinophils (%) (Auto) 1 % (0-3) Basophils (%) (Auto) 1 % (0-3) Neutrophils # (Auto) 3.1 x10^3uL (1.8-7.7) Lymphocytes # (Auto) 4.0 x10^3/uL (1.0-4.8) Monocytes # (Auto) 0.5 x10^3/uL (0.0-1.1) Eosinophils # (Auto) 0.1 x10^3/uL (0.0-0.7) Basophils # (Auto) 0.0 x10^3/uL (0.0-0.2) Segmented Neutrophils % 57 % (35-66) Lymphocytes % 40 % (24-48) Monocytes % 1 % (0-10) Eosinophils % 2 % (0-5) Platelet Estimate Adequate (ADEQUATE) Hypochromasia Slight Anisocytosis Slight Thor Cells Few Prothrombin Time 24.2 SEC (11.7-14.0) Prothromb Time International Ratio 2.3 (0.8-1.1) Sodium Level 138 mmol/L (136-145) Potassium Level 4.2 mmol/L (3.5-5.1) Chloride Level 107 mmol/L (98-107) Carbon Dioxide Level 22 mmol/L (21-32) Anion Gap 9 (6-14) Blood Urea Nitrogen 19 mg/dL (7-20) Creatinine 0.6 mg/dL (0.6-1.0) Estimated GFR (Cockcroft-Gault) 94.1 BUN/Creatinine Ratio 32 (6-20) Glucose Level 121 mg/dL (70-99) Uric Acid 4.9 mg/dL (2.6-6.0) Calcium Level 7.8 mg/dL (8.5-10.1) Total Bilirubin 0.5 mg/dL (0.2-1.0) Aspartate Amino Transf (AST/SGOT) 43 U/L (15-37) Alanine Aminotransferase (ALT/SGPT) 30 U/L (14-59) Alkaline Phosphatase 112 U/L (46-116) Total Protein 5.1 g/dL (6.4-8.2) Albumin 1.4 g/dL (3.4-5.0) Albumin/Globulin Ratio 0.4 (1.0-1.7) Test 01/03/17 07:27 01/03/17 12:05 Glucose (Fingerstick) 119 mg/dL (70-99) 119 mg/dL (70-99) Medications Current Medications Oxycodone HCl (Roxicodone) 5 mg PRN Q4HRS PRN PO PAIN Last administered on 18:31; Start 01/02/17 at 18:15 Oxycodone HCl (OxyCONTIN) 10 mg Q12HR PO Last administered on 01/02/17 22:28 ; Start 01/02/17 at 21:00 Amlodipine Besylate (Norvasc) 5 mg HS PO Last administered on 01/02/17 22:28 ; Start 01/02/17 at 21:00 Tamsulosin HCl (Flomax) 0.4 mg DAILY PO ; Start 01/03/17 at 09:00 Polyethylene Glycol (miraLAX PACKET) 17 gm PRN DAILY PRN PO CONSTIPATION; Start 01/02/17 at 18:30 Ondansetron HCl (Zofran) 4 mg PRN Q6HRS PRN IV NAUSEA/VOMITING; Start at 18:30 Lorazepam (Ativan) 2 mg PRN Q12HR PRN IV ANXIETY / AGITATION; Start 01/02/17 at 18:30 Metoprolol Tartrate (Lopressor) 25 mg BID PO Last administered on 01/02/17 22 :29; Start 01/02/17 at 21:00 Silver Nitrate/ Potassium Nitrate 1 each 1X ONCE TP ; Start 01/02/17 at 18:45 ; Stop 01/02/17 at 18:46; Status DC Famotidine (Pepcid) 20 mg DAILY PO ; Start 01/03/17 at 09:00 Trazodone HCl (Desyrel) 50 mg QHS PO Last administered on 01/02/17 22:28; Start 01/02/17 at 21:00 Levothyroxine Sodium (Synthroid) 112 mcg DAILY07 PO ; Start 01/03/17 at 07:00 Lactobacillus Rhamnosus (Culturelle) 1 cap BID PO Last administered on 22:28; Start 01/02/17 at 21:00 Sodium Chloride 1,000 ml @ 50 mls/hr Q20H IV Last administered on 01/02/17 21:43; Start 01/02/17 at 19:00 Sodium Chloride (Normal Saline Flush 3ml) 10 ml PRN Q12HRS PRN IV AFTER MEDS AND BLOOD DRAWS; Start 01/02/17 at 18:30 Insulin Aspart (NovoLOG) 0-9 UNITS TIDWMEALS SQ ; Start 01/03/17 at 19:00 Dextrose (Dextrose 50%-Water Syringe) 12.5 gm PRN Q15MIN PRN IV SEE COMMENTS; Start 01/02/17 at 18:45 Docusate Sodium (Colace) 100 mg BID PO Last administered on 01/02/17 22:28; Start 01/02/17 at 21:00 Bisacodyl (Dulcolax Supp) 10 mg PRN DAILY PRN OK CONSTIPATION; Start 01/02/17 at 18:45 Atorvastatin Calcium (Lipitor) 10 mg QHS PO Last administered on 01/02/17 22: 27; Start 01/02/17 at 21:00 Aspirin (Lucas Aspirin) 325 mg DAILYWBKFT PO ; Start 01/03/17 at 08:00 Acetaminophen (Tylenol) 500 mg PRN Q6HRS PRN PO MILD PAIN / TEMP; Start at 18:45 Morphine Sulfate 2 mg PRN Q2HR PRN IV PAIN Last administered on 01/03/17 11: 44; Start 01/02/17 at 21:15 Morphine Sulfate 4 mg PRN Q2HR PRN IV PAIN; Start 01/02/17 at 21:15 Piperacillin Sod/ Tazobactam Sod 3.375 gm/Dextrose 50 ml @ 100 mls/hr Q6HRS IV ; Start 01/03/17 at 12:00; Status UNV Linezolid 300 ml @ 300 mls/hr Q12HR IV Last administered on 01/03/17 11:45; Start 01/03/17 at 11:00 Phytonadione 10 mg/Dextrose 51 ml @ 102 mls/hr 1X ONCE IV ; Start 01/03/17 at 11:00; Stop 01/03/17 at 11:00; Status DC Piperacillin Sod/ Tazobactam Sod (Zosyn) 3.375 gm Q6HRS IVP Last administered on 01/03/17 12:58; Start 01/03/17 at 12:00 Furosemide (Lasix) 40 mg 1X ONCE IVP Last administered on 01/03/17 11:44; Start 01/03/17 at 11:45; Stop 01/03/17 at 11:46; Status DC Active Scripts Active Tramadol Hcl 50 Mg Tablet 50 Mg PO PRN Q6HRS PRN Reported Novolog Flexpen (Insulin Aspart) 100 Unit/1 Ml Insuln.pen 1 Unit SQ PRN TID PRN Duoneb 0.5-3(2.5) Mg/3 Ml (Albuterol/Ipratropium) 3 Ml Ampul.neb 3 Ml NEB PRN Q4HRS PRN Famotidine 20 Mg Tablet 20 Mg PO HS Trazodone Hcl 50 Mg Tablet 1 Tab PO QHS Tamsulosin Hcl 0.4 Mg Cap.er.24h 0.4 Mg PO DAILY Metoprolol Tartrate 25 Mg Tablet 1 Tab PO BID Melatonin 3 Mg Tablet 1 Tab PO QHS Losartan Potassium 100 Mg Tablet 100 Mg PO DAILY Colace Clear (Docusate Sodium) 50 Mg Capsule 50 Mg PO PRN DAILY PRN Aspirin 325 Mg Tablet 1 Tab PO DAILY Acetaminophen 500 Mg Tablet 500 Mg PO PRN Q6HRS PRN Vitamin D (Cholecalciferol (Vitamin D3)) 1,000 Unit Capsule 1 Cap PO DAILY Levothyroxine Sodium 112 Mcg Tablet 2 Tab PO HS Xarelto (Rivaroxaban) 10 Mg Tablet 1 Tab PO DAILY Prilosec Otc (Omeprazole Magnesium) 20 Mg Tablet.dr 1 Tab PO DAILY Metformin Hcl Er (Metformin Hcl) 500 Mg Tab.er.24h 500 Mg PO BIDWMEALS Amlodipine Besylate 10 Mg Tablet 10 Mg PO HS Simvastatin 20 Mg Tablet 20 Mg PO HS Glimepiride 2 Mg Tablet 2 Mg PO DAILY Carvedilol 3.125 Mg Tablet 6.25 Mg PO BID Potassium Chloride 10 Meq Capsule.er 20 Meq PO DAILY Vitals/I & O Vital Sign - Last 24 Hours 01/02/17 01/02/17 01/02/17 01/02/17 14:00 14:00 14:40 18:31 Temp 96.1 96.1 96.1 96.1 Pulse 74 74 Resp 18 18 B/P (MAP) 158/62 (94) 158/62 (94) Pulse Ox 94 94 94 O2 Delivery Room Air Room Air Nasal Cannula Nasal Cannula O2 Flow Rate 2.0 2.0 01/02/17 01/02/17 01/02/17 01/02/17 19:00 19:20 19:50 21:37 Temp 98.3 98.3 Pulse 72 Resp 18 B/P (MAP) 138/82 (100) Pulse Ox 95 94 O2 Delivery Room Air Nasal Cannula Nasal Cannula Room Air O2 Flow Rate 2.0 2.0 01/02/17 01/02/17 01/02/17 01/02/17 22:28 22:28 22:29 23:00 Temp 98.4 98.4 Pulse 72 72 75 Resp 18 B/P (MAP) 138/82 138/82 147/64 (91) Pulse Ox 97 O2 Delivery Nasal Cannula Room Air 01/02/17 01/03/17 01/03/17 01/03/17 23:36 02:12 03:00 05:51 Temp 98.1 98.1 Pulse 77 Resp 20 B/P (MAP) 138/88 (105) Pulse Ox 99 O2 Delivery Room Air Nasal Cannula Room Air Nasal Cannula 01/03/17 01/03/17 01/03/17 01/03/17 07:00 07:30 08:45 09:34 Temp 97.7 97.7 Pulse 86 Resp 18 B/P (MAP) 97/65 (76) Pulse Ox 94 99 99 O2 Delivery Room Air Nasal Cannula Nasal Cannula Nasal Cannula O2 Flow Rate 2.0 2.0 2.0 01/03/17 01/03/17 01/03/17 10:15 11:44 11:45 Temp 97.9 97.9 Pulse 90 Resp 18 B/P (MAP) 156/92 (113) Pulse Ox 99 99 98 O2 Delivery Nasal Cannula Nasal Cannula Room Air O2 Flow Rate 2.0 2.0 Intake and Output 01/02/17 01/02/17 01/03/17 15:00 23:00 07:00 Intake Total 520 ml Output Total 240 ml 550 ml Balance -240 ml -30 ml THEODORA CHRISTIANSEN MD Jan 03, 2017 13:10
[2017-01-03] MEDS ORDERED: LIDOCAINE 1% / SOD BICARB 8.4% 20 ML VIAL. IJ ONE ×3 (14:59→15:45)
--- NOTE | 2017-01-03 16:08 | RAD ---
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 Informed consent was obtained. A timeout procedure was performed. All elements of maximal sterile barrier technique including the use of a cap, mask, sterile gown, sterile gloves, large sterile sheet, appropriate hand hygiene, and 2% chlorhexidine for cutaneous antisepsis (or acceptable alternative antiseptic per current guidelines) were followed for this procedure. The patient was prepped and draped in the usual sterile fashion. Ultrasound interrogation of the right neck revealed patency and compressibility of the right internal jugular vein. A 21-gauge micropuncture was then used to gain access to this vein under ultrasound guidance. A hard copy ultrasound image was recorded. A guidewire was advanced centrally. 5 Macedonian sheath was placed. Over a wire following dilatation, a triple-lumen central venous catheter was advanced centrally. Catheter was found to flush and aspirate normally. Fluoroscopic imaging confirmed position with tip at the cavoatrial junction. Catheter secured in place and a sterile dressing was applied. No immediate complications were identified. Fluoroscopy time 0.1 MINUTES Dose area product 1 Gycm2 Impression: Successful fluoroscopically and ultrasound-guided placement of right internal jugular triple-lumen central venous catheter
--- NOTE | 2017-01-03 16:23 | PDOC ---
Provider Note Provider Note Vascular F/U Wrote addendum to Nimisha Youngblood's consult Agree, surgery rescheduled for late tomorrow in order to get coags , Hct, etc. in shape for the surgery now that pt. has a central line for access. GURWINDER YOUNGBLOOD MD Jan 03, 2017 16:23
[2017-01-03] MEDS ORDERED: PHYTONADIONE 10 MG/ML AMPUL. SQ ONE (16:30)
[2017-01-03 17:26] LABS: INR 2.2 (0.8-1.1); PROTHROMBIN TIME PATIENT 23.2 SEC (11.7-14.0)
[2017-01-03] MEDS: INSULIN ASPART 300 UNITS/3 ML INSULN.PEN SQ SCH (19:00)
[2017-01-03] MEDS: amLODIPine BESYLATE 5 MG TABLET PO SCH (21:00)
[2017-01-03] MEDS: traZODone 50 MG TABLET. PO SCH (21:00)
[2017-01-03] MEDS: ATORVASTATIN CALCIUM 10 MG TABLET. PO SCH (21:00)
[2017-01-03] MEDS ORDERED: MORPHINE SULFATE 4 MG/ML DISP.SYRIN. IV PRN (23:30)
[2017-01-04] VITALS (22 sets, daily range): BP systolic 110–151; BP diastolic 39–86
[2017-01-04] MEDS: MORPHINE SULFATE 4 MG/ML DISP.SYRIN. IV PRN ×8 (00:01→21:34)
[2017-01-04 00:07] LABS: PROTHROMBIN TIME PATIENT 21.7 SEC (11.7-14.0)
[2017-01-04] MEDS: PIPERACILLIN/TAZO IV Push 3.375 GM VIAL. IVP SCH ×4 (01:28→20:53)
[2017-01-04 05:18] LABS: INR 1.8 (0.8-1.1); PROTHROMBIN TIME PATIENT 19.9 SEC (11.7-14.0)
[2017-01-04] MEDS: IV NORMAL SALINE 1000ML BAG 1,000 ML IV SCH ×2 (05:30→21:05)
[2017-01-04 06:11] LABS: CALCIUM 7.7 mg/dL (8.5-10.1); CREATININE 0.5 mg/dL (0.6-1.0); GFR 116.2; POTASSIUM 3.7 mmol/L (3.5-5.1)
[2017-01-04 06:13] LABS: BASO % 0 % (0-3); EOS % 2 % (0-3); HEMATOCRIT 24.4 % (36.0-47.0); HEMOGLOBIN 7.5 g/dL (12.0-15.5); LYMPH # 3.2 x10^3/uL (1.0-4.8); LYMPH % 48 % (24-48); MEAN CORPUSCULAR HEMOGLOBIN 28 pg (25-35); MEAN CORPUSCULAR HGB CONC 31 g/dL (31-37); MEAN CORPUSCULAR VOLUME 91 fL (79-100); MONO % 7 % (0-9); NEUT % 43 % (31-73); PLATELET COUNT 270 x10^3/uL (140-400); RED BLOOD COUNT 2.69 x10^6/uL (3.50-5.40); RED CELL DISTRIBUTION WIDTH 16.7 % (11.5-14.5); WHITE BLOOD COUNT 6.5 x10^3/uL (4.0-11.0)
[2017-01-04] MEDS: LEVOTHYROXINE 112 MCG TABLET PO SCH ×2 (07:00→21:18)
[2017-01-04] MEDS ORDERED: ONDANSETRON PF 4 MG/2 ML VIAL. IV PRN (07:00)
[2017-01-04] MEDS ORDERED: IV RINGERS,LACTATED 1000ML 1,000 ML IV SCH (07:00)
[2017-01-04] MEDS ORDERED: PROCHLORPERAZINE 10 MG/2 ML VIAL. IV PRN (07:00)
[2017-01-04] MEDS ORDERED: fentaNYL PF VIAL 100 MCG/2 ML VIAL IV PRN ×2 (07:00)
[2017-01-04] MEDS ORDERED: LIDOCAINE 1% PF 2 ML VIAL. ID PRN (07:00)
[2017-01-04] MEDS: LACTOBACILLUS RHAMNOSUS GG 1 CAPSULE. PO SCH ×2 (07:59→21:17)
[2017-01-04] MEDS: TAMSULOSIN 0.4 MG CAP.ER.24H. PO SCH (07:59)
[2017-01-04] MEDS: DOCUSATE SODIUM 100 MG CAPSULE. PO SCH ×3 (07:59→21:16)
[2017-01-04] MEDS: FAMOTIDINE 20 MG TABLET. PO SCH ×2 (07:59→21:17)
[2017-01-04] MEDS: INSULIN ASPART 300 UNITS/3 ML INSULN.PEN SQ SCH ×3 (08:00→18:22)
[2017-01-04] MEDS ORDERED: IPRATRPIUM/ALBUTEROL 0.5/2.5MG 3 ML NEBU. NEB PRN (08:00)
[2017-01-04] MEDS ORDERED: ACETAMINOPHEN 500 MG TABLET PO PRN (08:00)
[2017-01-04] MEDS: POTASSIUM CHLORIDE 20 MEQ TABLET.ER. PO SCH (08:30)
--- NOTE | 2017-01-04 08:36 | PDOC ---
PROGRESS NOTES Chief Complaint Chief Complaint 1. Extensive infection of the left leg. hx fasciitis, fasciotomy 2. Devitalized necrotic muscle and skin. 3. Compartment syndrome, status post fasciotomy. 4. Ischemic leg, status post thrombectomy. 5. Obesity. 6. Diabetes. 7. Hypertension. 8. Atrial fibrillation on AC, therapeutic INR History of Present Illness History of Present Illness INR 1.8 after 2 FFP and VItamin K IV and vitamin K 10 SQ SMiles, no pain, VS ok SOn at bedside PLAN: TRansfsue 1 more FFP (was on xarelto prior to admit for a fib) OR 4 pm later POst or labs Dw RN and son Vitals Vitals Vital Signs Date Time Temp Pulse Resp B/P (MAP) Pulse Ox O2 Delivery O2 Flow Rate FiO2 01/04/17 07:00 97.9 63 18 151/60 (90) 94 Nasal Cannula 2.0 97.9 Physical Exam General: Alert, Oriented X3, Cooperative, mild distress (Pain in left lower extremity) Heart: Normal S1, Normal S2, No murmurs, Other (Irregularly irregular) Lungs: Clear Abdomen: Normal bowel sounds, Soft, No tenderness Extremities: Other (Severe generalized edema. Palpable bilateral radial pulses. Palpable right femoral pulse. Not able to palpate left femoral pulse. Doppled monophasic left femoral, dorsalis pedal and post tibial pulses.) Skin: Other (Extremely foul odor to left lower extremity wounds. Purulent, copious drainage present and easily expressed from distal portion of fasciotomy wound. Necrotic, brown tissue in the majority of the base of the anterior fasciotomy wound with muscle tissue loss. Bulging muscle present from upper portion of lateral fasciotomy wound. Medial fasciotomy with moderate slough tissue in bed of wound but tissue is more healthy-appearing. Left thigh surgical incision intact and healing. Weeping serous fluid from tissues of bilateral hands.) Labs LABS Laboratory Tests Test 01/03/17 12:05 01/03/17 17:05 01/03/17 18:06 01/03/17 20:40 Glucose (Fingerstick) 119 mg/dL (70-99) 110 mg/dL (70-99) 107 mg/dL (70-99) Prothrombin Time 23.2 SEC (11.7-14.0) Prothromb Time International Ratio 2.2 (0.8-1.1) Test 01/03/17 23:45 01/04/17 04:43 01/04/17 05:35 01/04/17 07:40 Prothrombin Time 21.7 SEC (11.7-14.0) 19.9 SEC (11.7-14.0) Prothromb Time International Ratio 2.0 (0.8-1.1) 1.8 (0.8-1.1) White Blood Count 6.5 x10^3/uL (4.0-11.0) Red Blood Count 2.69 x10^6/uL (3.50-5.40) Hemoglobin 7.5 g/dL (12.0-15.5) Hematocrit 24.4 % (36.0-47.0) Mean Corpuscular Volume 91 fL (79-100) Mean Corpuscular Hemoglobin 28 pg (25-35) Mean Corpuscular Hemoglobin Concent 31 g/dL (31-37) Red Cell Distribution Width 16.7 % (11.5-14.5) Platelet Count 270 x10^3/uL (140-400) Neutrophils (%) (Auto) 43 % (31-73) Lymphocytes (%) (Auto) 48 % (24-48) Monocytes (%) (Auto) 7 % (0-9) Eosinophils (%) (Auto) 2 % (0-3) Basophils (%) (Auto) 0 % (0-3) Neutrophils # (Auto) 2.8 x10^3uL (1.8-7.7) Lymphocytes # (Auto) 3.2 x10^3/uL (1.0-4.8) Monocytes # (Auto) 0.5 x10^3/uL (0.0-1.1) Eosinophils # (Auto) 0.1 x10^3/uL (0.0-0.7) Basophils # (Auto) 0.0 x10^3/uL (0.0-0.2) Sodium Level 142 mmol/L (136-145) Potassium Level 3.7 mmol/L (3.5-5.1) Chloride Level 108 mmol/L (98-107) Carbon Dioxide Level 29 mmol/L (21-32) Anion Gap 5 (6-14) Blood Urea Nitrogen 16 mg/dL (7-20) Creatinine 0.5 mg/dL (0.6-1.0) Estimated GFR (Cockcroft-Gault) 116.2 Glucose Level 92 mg/dL (70-99) Calcium Level 7.7 mg/dL (8.5-10.1) Glucose (Fingerstick) 91 mg/dL (70-99) Review of Systems Review of Systems denies 14 pt reviewed with him Comment Review of Relevant I have reviewed the following items madhav (where applicable) has been applied. Labs Laboratory Tests Test 01/02/17 16:45 01/02/17 17:00 01/02/17 21:02 01/03/17 04:40 Glucose (Fingerstick) 166 mg/dL (70-99) 163 mg/dL (70-99) Nasal Screen MRSA (PCR) Negative (Negative) White Blood Count 7.8 x10^3/uL (4.0-11.0) Red Blood Count 3.03 x10^6/uL (3.50-5.40) Hemoglobin 8.6 g/dL (12.0-15.5) Hematocrit 27.9 % (36.0-47.0) Mean Corpuscular Volume 92 fL (79-100) Mean Corpuscular Hemoglobin 28 pg (25-35) Mean Corpuscular Hemoglobin Concent 31 g/dL (31-37) Red Cell Distribution Width 17.8 % (11.5-14.5) Platelet Count 314 x10^3/uL (140-400) Neutrophils (%) (Auto) 40 % (31-73) Lymphocytes (%) (Auto) 51 % (24-48) Monocytes (%) (Auto) 7 % (0-9) Eosinophils (%) (Auto) 1 % (0-3) Basophils (%) (Auto) 1 % (0-3) Neutrophils # (Auto) 3.1 x10^3uL (1.8-7.7) Lymphocytes # (Auto) 4.0 x10^3/uL (1.0-4.8) Monocytes # (Auto) 0.5 x10^3/uL (0.0-1.1) Eosinophils # (Auto) 0.1 x10^3/uL (0.0-0.7) Basophils # (Auto) 0.0 x10^3/uL (0.0-0.2) Segmented Neutrophils % 57 % (35-66) Lymphocytes % 40 % (24-48) Monocytes % 1 % (0-10) Eosinophils % 2 % (0-5) Platelet Estimate Adequate (ADEQUATE) Hypochromasia Slight Anisocytosis Slight [place] Cells Few Prothrombin Time 24.2 SEC (11.7-14.0) Prothromb Time International Ratio 2.3 (0.8-1.1) Sodium Level 138 mmol/L (136-145) Potassium Level 4.2 mmol/L (3.5-5.1) Chloride Level 107 mmol/L (98-107) Carbon Dioxide Level 22 mmol/L (21-32) Anion Gap 9 (6-14) Blood Urea Nitrogen 19 mg/dL (7-20) Creatinine 0.6 mg/dL (0.6-1.0) Estimated GFR (Cockcroft-Gault) 94.1 BUN/Creatinine Ratio 32 (6-20) Glucose Level 121 mg/dL (70-99) Uric Acid 4.9 mg/dL (2.6-6.0) Calcium Level 7.8 mg/dL (8.5-10.1) Total Bilirubin 0.5 mg/dL (0.2-1.0) Aspartate Amino Transf (AST/SGOT) 43 U/L (15-37) Alanine Aminotransferase (ALT/SGPT) 30 U/L (14-59) Alkaline Phosphatase 112 U/L (46-116) Total Protein 5.1 g/dL (6.4-8.2) Albumin 1.4 g/dL (3.4-5.0) Albumin/Globulin Ratio 0.4 (1.0-1.7) Test 01/03/17 07:27 01/03/17 12:05 01/03/17 17:05 01/03/17 18:06 Glucose (Fingerstick) 119 mg/dL (70-99) 119 mg/dL (70-99) 110 mg/dL (70-99) Prothrombin Time 23.2 SEC (11.7-14.0) Prothromb Time International Ratio 2.2 (0.8-1.1) Test 01/03/17 20:40 01/03/17 23:45 01/04/17 04:43 01/04/17 05:35 Glucose (Fingerstick) 107 mg/dL (70-99) Prothrombin Time 21.7 SEC (11.7-14.0) 19.9 SEC (11.7-14.0) Prothromb Time International Ratio 2.0 (0.8-1.1) 1.8 (0.8-1.1) White Blood Count 6.5 x10^3/uL (4.0-11.0) Red Blood Count 2.69 x10^6/uL (3.50-5.40) Hemoglobin 7.5 g/dL (12.0-15.5) Hematocrit 24.4 % (36.0-47.0) Mean Corpuscular Volume 91 fL (79-100) Mean Corpuscular Hemoglobin 28 pg (25-35) Mean Corpuscular Hemoglobin Concent 31 g/dL (31-37) Red Cell Distribution Width 16.7 % (11.5-14.5) Platelet Count 270 x10^3/uL (140-400) Neutrophils (%) (Auto) 43 % (31-73) Lymphocytes (%) (Auto) 48 % (24-48) Monocytes (%) (Auto) 7 % (0-9) Eosinophils (%) (Auto) 2 % (0-3) Basophils (%) (Auto) 0 % (0-3) Neutrophils # (Auto) 2.8 x10^3uL (1.8-7.7) Lymphocytes # (Auto) 3.2 x10^3/uL (1.0-4.8) Monocytes # (Auto) 0.5 x10^3/uL (0.0-1.1) Eosinophils # (Auto) 0.1 x10^3/uL (0.0-0.7) Basophils # (Auto) 0.0 x10^3/uL (0.0-0.2) Sodium Level 142 mmol/L (136-145) Potassium Level 3.7 mmol/L (3.5-5.1) Chloride Level 108 mmol/L (98-107) Carbon Dioxide Level 29 mmol/L (21-32) Anion Gap 5 (6-14) Blood Urea Nitrogen 16 mg/dL (7-20) Creatinine 0.5 mg/dL (0.6-1.0) Estimated GFR (Cockcroft-Gault) 116.2 Glucose Level 92 mg/dL (70-99) Calcium Level 7.7 mg/dL (8.5-10.1) Test 01/04/17 07:40 Glucose (Fingerstick) 91 mg/dL (70-99) Laboratory Tests Test 01/03/17 12:05 01/03/17 17:05 01/03/17 18:06 01/03/17 20:40 Glucose (Fingerstick) 119 mg/dL (70-99) 110 mg/dL (70-99) 107 mg/dL (70-99) Prothrombin Time 23.2 SEC (11.7-14.0) Prothromb Time International Ratio 2.2 (0.8-1.1) Test 01/03/17 23:45 01/04/17 04:43 01/04/17 05:35 01/04/17 07:40 Prothrombin Time 21.7 SEC (11.7-14.0) 19.9 SEC (11.7-14.0) Prothromb Time International Ratio 2.0 (0.8-1.1) 1.8 (0.8-1.1) White Blood Count 6.5 x10^3/uL (4.0-11.0) Red Blood Count 2.69 x10^6/uL (3.50-5.40) Hemoglobin 7.5 g/dL (12.0-15.5) Hematocrit 24.4 % (36.0-47.0) Mean Corpuscular Volume 91 fL (79-100) Mean Corpuscular Hemoglobin 28 pg (25-35) Mean Corpuscular Hemoglobin Concent 31 g/dL (31-37) Red Cell Distribution Width 16.7 % (11.5-14.5) Platelet Count 270 x10^3/uL (140-400) Neutrophils (%) (Auto) 43 % (31-73) Lymphocytes (%) (Auto) 48 % (24-48) Monocytes (%) (Auto) 7 % (0-9) Eosinophils (%) (Auto) 2 % (0-3) Basophils (%) (Auto) 0 % (0-3) Neutrophils # (Auto) 2.8 x10^3uL (1.8-7.7) Lymphocytes # (Auto) 3.2 x10^3/uL (1.0-4.8) Monocytes # (Auto) 0.5 x10^3/uL (0.0-1.1) Eosinophils # (Auto) 0.1 x10^3/uL (0.0-0.7) Basophils # (Auto) 0.0 x10^3/uL (0.0-0.2) Sodium Level 142 mmol/L (136-145) Potassium Level 3.7 mmol/L (3.5-5.1) Chloride Level 108 mmol/L (98-107) Carbon Dioxide Level 29 mmol/L (21-32) Anion Gap 5 (6-14) Blood Urea Nitrogen 16 mg/dL (7-20) Creatinine 0.5 mg/dL (0.6-1.0) Estimated GFR (Cockcroft-Gault) 116.2 Glucose Level 92 mg/dL (70-99) Calcium Level 7.7 mg/dL (8.5-10.1) Glucose (Fingerstick) 91 mg/dL (70-99) Microbiology 01/03/17 Gram Stain - Final, Complete Medications Current Medications Oxycodone HCl (Roxicodone) 5 mg PRN Q4HRS PRN PO PAIN Last administered on 18:31; Start 01/02/17 at 18:15 Oxycodone HCl (OxyCONTIN) 10 mg Q12HR PO Last administered on 01/02/17 22:28 ; Start 01/02/17 at 21:00 Amlodipine Besylate (Norvasc) 5 mg HS PO Last administered on 01/02/17 22:28 ; Start 01/02/17 at 21:00; Stop 01/04/17 at 08:03; Status DC Tamsulosin HCl (Flomax) 0.4 mg DAILY PO ; Start 01/03/17 at 09:00 Polyethylene Glycol (miraLAX PACKET) 17 gm PRN DAILY PRN PO CONSTIPATION; Start 01/02/17 at 18:30 Ondansetron HCl (Zofran) 4 mg PRN Q6HRS PRN IV NAUSEA/VOMITING; Start at 18:30 Lorazepam (Ativan) 2 mg PRN Q12HR PRN IV ANXIETY / AGITATION; Start 01/02/17 at 18:30 Metoprolol Tartrate (Lopressor) 25 mg BID PO Last administered on 01/02/17 22 :29; Start 01/02/17 at 21:00; Stop 01/04/17 at 08:03; Status DC Silver Nitrate/ Potassium Nitrate 1 each 1X ONCE TP ; Start 01/02/17 at 18:45 ; Stop 01/02/17 at 18:46; Status DC Famotidine (Pepcid) 20 mg DAILY PO ; Start 01/03/17 at 09:00; Stop 01/04/17 at 08:05; Status DC Trazodone HCl (Desyrel) 50 mg QHS PO Last administered on 01/02/17 22:28; Start 01/02/17 at 21:00; Stop 01/04/17 at 08:04; Status DC Levothyroxine Sodium (Synthroid) 112 mcg DAILY07 PO ; Start 01/03/17 at 07:00; Stop 01/04/17 at 08:05; Status DC Lactobacillus Rhamnosus (Culturelle) 1 cap BID PO Last administered on 22:28; Start 01/02/17 at 21:00 Sodium Chloride 1,000 ml @ 75 mls/hr [id number] IV Last administered on 05:30; Start 01/02/17 at 19:00 Sodium Chloride (Normal Saline Flush 3ml) 10 ml PRN Q12HRS PRN IV AFTER MEDS AND BLOOD DRAWS; Start 01/02/17 at 18:30 Insulin Aspart (NovoLOG) 0-9 UNITS TIDWMEALS SQ ; Start 01/03/17 at 19:00 Dextrose (Dextrose 50%-Water Syringe) 12.5 gm PRN Q15MIN PRN IV SEE COMMENTS; Start 01/02/17 at 18:45 Docusate Sodium (Colace) 100 mg BID PO Last administered on 01/02/17 22:28; Start 01/02/17 at 21:00 Bisacodyl (Dulcolax Supp) 10 mg PRN DAILY PRN [place] CONSTIPATION; Start 01/02/17 at 18:45 Atorvastatin Calcium (Lipitor) 10 mg QHS PO Last administered on 01/02/17 22: 27; Start 01/02/17 at 21:00 Aspirin (Lucas Aspirin) 325 mg DAILYWBKFT PO ; Start 01/03/17 at 08:00; Stop 01/03/17 at 16:35; Status DC Acetaminophen (Tylenol) 500 mg PRN Q6HRS PRN PO MILD PAIN / TEMP; Start at 18:45 Morphine Sulfate 2 mg PRN Q2HR PRN IV PAIN Last administered on 01/03/17 22: 41; Start 01/02/17 at 21:15; Stop 01/03/17 at 23:26; Status DC Morphine Sulfate 4 mg PRN Q2HR PRN IV PAIN Last administered on 01/03/17 20: 22; Start 01/02/17 at 21:15; Stop 01/03/17 at 23:56; Status DC Piperacillin Sod/ Tazobactam Sod 3.375 gm/Dextrose 50 ml @ 100 mls/hr Q6HRS IV ; Start 01/03/17 at 12:00; Status UNV Linezolid 300 ml @ 300 mls/hr Q12HR IV Last administered on 01/03/17 22:22; Start 01/03/17 at 11:00 Phytonadione 10 mg/Dextrose 51 ml @ 102 mls/hr 1X ONCE IV ; Start 01/03/17 at 11:00; Stop 01/03/17 at 11:00; Status DC Piperacillin Sod/ Tazobactam Sod (Zosyn) 3.375 gm Q6HRS IVP Last administered on 01/04/17 05:27; Start 01/03/17 at 12:00 Furosemide (Lasix) 40 mg 1X ONCE IVP Last administered on 01/03/17 11:44; Start 01/03/17 at 11:45; Stop 01/03/17 at 11:46; Status DC Lidocaine/Sodium Bicarbonate (Buffered Lidocaine 1%) 3 ml 1X ONCE IJ Last administered on 01/03/17 15:57; Start 01/03/17 at 15:30; Stop 01/03/17 at 15 :31; Status DC Lidocaine/Sodium Bicarbonate (Buffered Lidocaine 1%) 3 ml 1X ONCE IJ ; Start 01/03/17 at 15:45; Stop 01/03/17 at 15:46; Status DC Phytonadione (Vitamin K Ampule) 10 mg 1X ONCE SQ Last administered on 17:56; Start 01/03/17 at 16:30; Stop 01/03/17 at 16:35; Status DC Ondansetron HCl (Zofran) 4 mg PRN Q6HRS PRN IV NAUSEA/VOMITING; Start at 07:00; Stop 01/05/17 at 06:59 Fentanyl Citrate (Fentanyl 2ml Vial) 25 mcg PRN Q5MIN PRN IV MILD PAIN; Start 01/04/17 at 07:00; Stop 01/05/17 at 06:59 Fentanyl Citrate (Fentanyl 2ml Vial) 50 mcg PRN Q5MIN PRN IV MODERATE PAIN; Start 01/04/17 at 07:00; Stop 01/05/17 at 06:59 Ringer's Solution 1,000 ml @ 30 mls/hr Q24H IV ; Start 01/04/17 at 07:00; Stop 01/04/17 at 18:59 Lidocaine HCl (Xylocaine-Mpf 1% Vial) 2 ml PRN 1X PRN ID PRIOR TO IV START; Start 01/04/17 at 07:00; Stop 01/05/17 at 06:59 Prochlorperazine Edisylate (Compazine) 5 mg PACU PRN PRN IV NAUSEA, MRX1; Start 01/04/17 at 07:00; Stop 01/05/17 at 06:59 Morphine Sulfate 2 mg PRN Q2HR PRN IV PAIN; Start 01/03/17 at 23:30 Morphine Sulfate 4 mg PRN Q2HR PRN IV PAIN Last administered on 01/04/17t 06: 27; Start 01/03/17 at 23:56 Acetaminophen (Tylenol) 500 mg PRN Q6HRS PRN PO MILD PAIN; Start 01/04/17 at 08:00 Amlodipine Besylate (Norvasc) 10 mg HS PO ; Start 01/04/17 at 21:00 Carvedilol (Coreg) 6.25 mg BIDWMEALS PO ; Start 01/04/17 at 09:00; Status Cancel Famotidine (Pepcid) 20 mg HS PO ; Start 01/04/17 at 21:00 Albuterol/ Ipratropium (Duoneb) 3 ml PRN Q4HRS PRN NEB SHORTNESS OF BREATH; Start 01/04/17 at 08:00 Levothyroxine Sodium (Synthroid) 224 mcg HS PO ; Start 01/04/17 at 21:00 Metoprolol Tartrate (Lopressor) 25 mg BID PO ; Start 01/04/17 at 09:00; Status Cancel Simvastatin (Zocor) 20 mg HS PO ; Start 01/04/17 at 21:00; Status UNV Tamsulosin HCl (Flomax) 0.4 mg DAILY PO ; Start 01/04/17 at 09:00; Status UNV Tramadol HCl (Ultram) 50 mg PRN Q6HRS PRN PO PAIN; Start 01/04/17 at 08:00 Trazodone HCl (Desyrel) 50 mg QHS PO ; Start 01/04/17 at 21:00 Vitamin D (Vitamin D3) 1,000 unit DAILY PO ; Start 01/04/17 at 09:00 Docusate Sodium (Colace) 100 mg PRN DAILY PRN PO CONSTIPATION; Start 01/04/17 at 09:00 Losartan Potassium (Cozaar) 100 mg DAILY PO ; Start 01/04/17 at 09:00 Non-Formulary Medication 1 tab QHS PO ; Start 01/04/17 at 21:00; Status UNV Non-Formulary Medication 1 tab DAILY PO ; Start 01/04/17 at 09:00; Status UNV Potassium Chloride (Klor-Con) 20 meq DAILYWBKFT PO ; Start 01/04/17 at 08:30 Carvedilol (Coreg) 6.25 mg BIDWMEALS PO ; Start 01/04/17 at 09:00 Active Scripts Active Tramadol Hcl 50 Mg Tablet 50 Mg PO PRN Q6HRS PRN Reported Novolog Flexpen (Insulin Aspart) 100 Unit/1 Ml Insuln.pen 1 Unit SQ PRN TID PRN Duoneb 0.5-3(2.5) Mg/3 Ml (Albuterol/Ipratropium) 3 Ml Ampul.neb 3 Ml NEB PRN Q4HRS PRN Famotidine 20 Mg Tablet 20 Mg PO HS Trazodone Hcl 50 Mg Tablet 1 Tab PO QHS Tamsulosin Hcl 0.4 Mg Cap.er.24h 0.4 Mg PO DAILY Melatonin 3 Mg Tablet 1 Tab PO QHS Losartan Potassium 100 Mg Tablet 100 Mg PO DAILY Colace Clear (Docusate Sodium) 50 Mg Capsule 50 Mg PO PRN DAILY PRN Aspirin 325 Mg Tablet 1 Tab PO DAILY Acetaminophen 500 Mg Tablet 500 Mg PO PRN Q6HRS PRN Vitamin D (Cholecalciferol (Vitamin D3)) 1,000 Unit Capsule 1 Cap PO DAILY Levothyroxine Sodium 112 Mcg Tablet 2 Tab PO HS Xarelto (Rivaroxaban) 10 Mg Tablet 1 Tab PO DAILY Prilosec Otc (Omeprazole Magnesium) 20 Mg Tablet.dr 1 Tab PO DAILY Metformin Hcl Er (Metformin Hcl) 500 Mg Tab.er.24h 500 Mg PO BIDWMEALS Amlodipine Besylate 10 Mg Tablet 10 Mg PO HS Simvastatin 20 Mg Tablet 20 Mg PO HS Glimepiride 2 Mg Tablet 2 Mg PO DAILY Carvedilol 3.125 Mg Tablet 6.25 Mg PO BID Potassium Chloride 10 Meq Capsule.er 20 Meq PO DAILY Vitals/I & O Vital Sign - Last 24 Hours 01/03/17 01/03/17 01/03/17 01/03/17 08:45 09:34 11:44 11:45 Temp 97.9 97.9 Pulse 90 Resp 18 B/P (MAP) 156/92 (113) Pulse Ox 99 99 99 98 O2 Delivery Nasal Cannula Nasal Cannula Nasal Cannula Room Air O2 Flow Rate 2.0 2.0 2.0 01/03/17 01/03/17 01/03/17 01/03/17 12:10 16:46 19:00 20:00 Temp 98.7 98.7 98.7 98.7 Pulse 100 100 Resp 18 18 B/P (MAP) 148/78 (101) 148/78 Pulse Ox 98 98 96 O2 Delivery Nasal Cannula Nasal Cannula Room Air O2 Flow Rate 2.0 2.0 01/03/17 01/03/17 01/03/17 01/03/17 20:05 20:15 20:22 20:30 Temp 98.1 97.7 98.1 97.7 Pulse 90 82 Resp 18 20 B/P (MAP) 161/82 145/78 Pulse Ox 96 O2 Delivery Nasal Cannula Nasal Cannula O2 Flow Rate 2.0 2.0 01/03/17 01/03/17 01/03/17 01/03/17 20:45 21:00 22:00 22:41 Temp 97.7 97.6 97.6 97.7 97.6 97.6 Pulse 83 80 83 Resp 18 18 18 18 B/P (MAP) 139/80 136/78 136/76 O2 Delivery Nasal Cannula O2 Flow Rate 2.0 01/03/17 01/04/17 01/04/17 11/22/17 23:00 00:01 00:04 01:00 Temp 97.5 97.5 97.7 97.5 97.5 97.7 Pulse 71 71 80 Resp 18 20 18 20 B/P (MAP) 142/50 (80) 142/50 (80) 127/40 Pulse Ox 92 92 O2 Delivery Room Air Nasal Cannula Room Air 01/04/17 01/04/17 01/04/17 01/04/17 01:15 01:23 01:30 01:45 Temp 97.6 97.6 97.7 97.6 97.6 97.6 97.7 97.6 Pulse 82 66 80 75 Resp 18 18 18 20 B/P (MAP) 127/52 126/39 (68) 126/39 132/75 Pulse Ox 96 O2 Delivery Room Air 01/04/17 01/04/17 01/04/17 01/04/17 02:00 02:09 03:00 03:00 Temp 97.7 97.5 97.5 97.7 97.5 97.5 Pulse 76 69 69 Resp 18 18 18 B/P (MAP) 129/69 137/41 137/41 (73) Pulse Ox 97 O2 Delivery Nasal Cannula Room Air 01/04/17 01/04/17 01/04/17 01/04/17 04:22 06:27 07:00 07:00 Temp 97.9 97.9 Pulse 63 Resp 18 18 18 18 B/P (MAP) 151/60 (90) Pulse Ox 94 O2 Delivery Nasal Cannula Nasal Cannula Nasal Cannula Nasal Cannula O2 Flow Rate 2.0 2.0 Intake and Output 01/03/17 01/03/17 01/04/17 15:00 23:00 07:00 Intake Total 100 ml 1078.3 ml Output Total 1100 ml 350 ml Balance -1000 ml 728.3 ml Nutrition Consultation Dietary Evaluation: Recommendations by RD: Increase Calorie Intake, Protein supplementation Comments: added ensure supplements to diet order with hx poor po intake since stroke pt to have surgery soon, may need ppn , will monitor Expected Outcomes/Goals: to meet > 75% est nutr needs Malnutrition Findings: Malnutrition related to morbid: Weight 200% of ideal wt Malnutrition related to morbid: Yes Weight Status: Morbidly Obese THEODORA CHRISTIANSEN MD Jan 04, 2017 08:36
[2017-01-04] MEDS: CHOLECALCIFEROL (VITAMIN D3) 1,000 UNIT TABLET PO SCH (08:46)
[2017-01-04] MEDS ORDERED: METOPROLOL TART IMMED RELEASE 25 MG TABLET. PO SCH (09:00)
[2017-01-04] MEDS ORDERED: TAMSULOSIN 0.4 MG CAP.ER.24H. PO SCH (09:00)
[2017-01-04] MEDS ORDERED: DOCUSATE SODIUM 100 MG CAPSULE. PO PRN (09:00)
[2017-01-04] MEDS ORDERED: NON FORMULARY ITEM (Omeprazole Magnesium (Prilosec Otc) 1 TAB) PO SCH (09:00)
[2017-01-04] MEDS ORDERED: CARVEDILOL 6.25 MG TABLET. PO SCH (09:00)
--- NOTE | 2017-01-04 09:02 | PDOC ---
Infectious Disease Note Subjective Subjective feeling better, surgery today ROS ROS GEN: Denies fevers, chills, sweats HEENT: Denies blurred vision, sore throat CV: Denies chest pain RESP: Denies shortness of air, cough GI: Denies n/v/d NEURO: Denies confusion, dizziness Vital Sign Vital Signs Vital Signs Date Time Temp Pulse Resp B/P (MAP) Pulse Ox O2 Delivery O2 Flow Rate FiO2 01/04/17 07:00 97.9 63 18 151/60 (90) 94 Nasal Cannula 2.0 97.9 Physical Exam PHYSICAL EXAM GENERAL: Alert, oriented female, not in distress. VITAL SIGNS: Stable, afebrile. HEENT: NAD. NECK: Supple, no JVP, no lymphadenopathy. LUNGS: Clear. HEART: S1, S2 regular. ABDOMEN: Benign. EXTREMITIES: Right lower extremity is unremarkable. Left lower extremity has extensive wounds with the muscle visible and some necrotic muscle as well as the chente pus coming out just above the ankle into the hole that goes deeper into the lateral side. NEUROLOGIC: The patient is neurologically intact, although she is very weak and debilitated. She is not able to do anything much. Labs Lab Laboratory Tests Test 01/03/17 12:05 01/03/17 17:05 01/03/17 18:06 01/03/17 20:40 Glucose (Fingerstick) 119 mg/dL (70-99) 110 mg/dL (70-99) 107 mg/dL (70-99) Prothrombin Time 23.2 SEC (11.7-14.0) Prothromb Time International Ratio 2.2 (0.8-1.1) Test 01/03/17 23:45 01/04/17 04:43 01/04/17 05:35 01/04/17 07:40 Prothrombin Time 21.7 SEC (11.7-14.0) 19.9 SEC (11.7-14.0) Prothromb Time International Ratio 2.0 (0.8-1.1) 1.8 (0.8-1.1) White Blood Count 6.5 x10^3/uL (4.0-11.0) Red Blood Count 2.69 x10^6/uL (3.50-5.40) Hemoglobin 7.5 g/dL (12.0-15.5) Hematocrit 24.4 % (36.0-47.0) Mean Corpuscular Volume 91 fL (79-100) Mean Corpuscular Hemoglobin 28 pg (25-35) Mean Corpuscular Hemoglobin Concent 31 g/dL (31-37) Red Cell Distribution Width 16.7 % (11.5-14.5) Platelet Count 270 x10^3/uL (140-400) Neutrophils (%) (Auto) 43 % (31-73) Lymphocytes (%) (Auto) 48 % (24-48) Monocytes (%) (Auto) 7 % (0-9) Eosinophils (%) (Auto) 2 % (0-3) Basophils (%) (Auto) 0 % (0-3) Neutrophils # (Auto) 2.8 x10^3uL (1.8-7.7) Lymphocytes # (Auto) 3.2 x10^3/uL (1.0-4.8) Monocytes # (Auto) 0.5 x10^3/uL (0.0-1.1) Eosinophils # (Auto) 0.1 x10^3/uL (0.0-0.7) Basophils # (Auto) 0.0 x10^3/uL (0.0-0.2) Sodium Level 142 mmol/L (136-145) Potassium Level 3.7 mmol/L (3.5-5.1) Chloride Level 108 mmol/L (98-107) Carbon Dioxide Level 29 mmol/L (21-32) Anion Gap 5 (6-14) Blood Urea Nitrogen 16 mg/dL (7-20) Creatinine 0.5 mg/dL (0.6-1.0) Estimated GFR (Cockcroft-Gault) 116.2 Glucose Level 92 mg/dL (70-99) Calcium Level 7.7 mg/dL (8.5-10.1) Glucose (Fingerstick) 91 mg/dL (70-99) Micro GRAM STAIN Final WBCS MODERATE RBCS MODERATE GRAM POSITIVE COCCI MANY COMMENTS MOD GRAM NEG COCCI-BACILLI Objective Assessment Extensive left leg infection Left leg ischemia/necrotic muscle and skin Obesity DM HTN Left fibular fracture CVA Plan Plan of Care zyvox and zosyn d/w son d/w Vascular surgery amputation planned for today ZAID LARSEN MD Jan 04, 2017 09:02
[2017-01-04] MEDS: LOSARTAN POTASSIUM 50 MG TABLET. PO SCH (09:22)
[2017-01-04] MEDS: oxyCODONE ER 10 MG TAB.ER.12H PO SCH ×2 (09:22→21:17)
[2017-01-04] MEDS: CARVEDILOL 6.25 MG TABLET. PO SCH ×2 (09:23→21:18)
[2017-01-04 13:57] LABS: INR 1.6 (0.8-1.1); PROTHROMBIN TIME PATIENT 17.9 SEC (11.7-14.0)
[2017-01-04] MEDS ORDERED: IOHEXOL 300 MG/ML 100ML VIAL. ONE (13:57)
[2017-01-04] MEDS ORDERED: HEPARIN SODIUM 5,000 UNIT in IV NORMAL SALINE 500ML BAG 500 ML IRR ONE (14:30)
[2017-01-04] MEDS ORDERED: DEXAMETHASONE SOD PHOS 20 MG/5 ML VIAL. ONE (14:49)
[2017-01-04] MEDS ORDERED: ONDANSETRON PF 4 MG/2 ML VIAL. ONE (14:49)
[2017-01-04] MEDS ORDERED: LIDOCAINE 2% PF Vial for OR 5 ML VIAL. ONE (14:49)
[2017-01-04] MEDS ORDERED: fentaNYL PF VIAL 100 MCG/2 ML VIAL ONE (14:49)
[2017-01-04] MEDS ORDERED: PROPOFOL 20 ML IV ONE (14:49)
[2017-01-04] MEDS ORDERED: ALBUMIN HUMAN 25% 100 ML IV ONE ×2 (16:00)
[2017-01-04] MEDS ORDERED: FUROSEMIDE 40 MG/4 ML VIAL. IVP ONE (16:00)
[2017-01-04] MEDS ORDERED: FUROSEMIDE 20 MG/2 ML VIAL. ONE (16:30)
[2017-01-04] MEDS ORDERED: SEVOFLURANE > 120 MINUTES. IH ONE (17:42)
--- NOTE | 2017-01-04 18:29 | PDOC ---
BRIEF OPERATIVE NOTE Date: Jan 04, 2017 Pre-Op Diagnosis Non healable lt lower , morbid obesity, edema, PVD Post-Op Diagnosis same Procedure Performed Lt AK amputation Surgeon Jessica Youngblood Upper Extremity Surgeon Merle Anesthesiologist Celestino Anesthesia Type: General Blood Loss 200 Specimens Obtained lt lower leg Findings good pulse in lt SFA Complications none Operative Note 1JP drain GURWINDER YOUNGBLOOD MD Jan 04, 2017 18:29
[2017-01-04] MEDS ORDERED: FUROSEMIDE 20 MG/2 ML VIAL. IVP ONE (18:45)
--- NOTE | 2017-01-04 19:09 | OP ---
DATE OF SURGERY: 01/04/2017 PREOPERATIVE DIAGNOSES: Necrotic and nonhealable left lower extremity with severe peripheral vascular disease, status post thrombectomies and fasciotomies plus left ankle fracture. Morbid obesity and severe diffuse and especially left lower extremity edema. POSTOPERATIVE DIAGNOSES: Necrotic and nonhealable left lower extremity with severe peripheral vascular disease, status post thrombectomies and fasciotomies plus left ankle fracture. Morbid obesity and severe diffuse and especially left lower extremity edema. PROCEDURE PERFORMED: Left above knee amputation. SURGEON: See Youngblood MD ANESTHETIC: General. INDICATIONS: This is a morbidly obese female who had ischemic leg, developed a month or so ago, had to have fasciotomies and thrombectomies and then when she went to rehab, she fell and fractured her left ankle. She was readmitted with necrosis of the muscle bed, all fasciotomy sites and a severe infection in the lower leg. She also had severe edema. DESCRIPTION OF THE PROCEDURE: After general endotracheal anesthetic, prepping and draping, a fish mouth type incision was made around the lower left thigh. The surgery was extremely made more difficult because of her morbid obesity state, her adipose tissue between the skin and the anterior muscles at least 4 or 5 inches deep and the edema which made cautery dissection very difficult as well. Subcutaneous tissue eventually divided circumferentially with a cautery and crossing veins divided between Hemoclips. The fascia was also divided circumferentially. The anterior compartment muscles were divided with the cautery and some of the crossing vessels there were also controlled with Hemoclips. The femur was identified, exposed. The saw was used to cut through the femur. The bone hook was then used to angulate the leg anteriorly while the posterior muscle structures were divided with the cautery clamping the major vessels between Hemoclips and then dividing the rest of the tissue with a knife. The leg was then removed from the field and pressure was held with a lap pad to control bleeding and then the clamped vessels were controlled with Vicryl suture ligatures. The femoral artery there had a strong pulse and so I did not feel there was a need to do any further evaluation of that. Other bleeding areas controlled with cautery or Hemoclips or the Vicryl suture ligatures. The wound was then irrigated. A 10 mm Tom-Castillo drain placed into the wound and brought through a separate stab incision. The incision was irrigated and closed with subcutaneous and fascial reapproximation with interrupted 2-0 Vicryl and then richard for the skin. Sterile dressings were applied. She tolerated the procedure well. EBL, a couple 100 mL. She left the operating room in a stable condition, extubated. SEE YOUNGBLOOD MD DR: BRONSON/gill JOB#: [id number] / [id number]
[2017-01-04] MEDS ORDERED: SIMVASTATIN 20 MG TABLET PO SCH (21:00)
[2017-01-04] MEDS ORDERED: NON FORMULARY ITEM (Melatonin 1 TAB) PO SCH (21:00)
[2017-01-04] MEDS: amLODIPine BESYLATE 10 MG TABLET PO SCH (21:17)
[2017-01-04] MEDS: ATORVASTATIN CALCIUM 10 MG TABLET. PO SCH (21:17)
[2017-01-04] MEDS: traZODone 50 MG TABLET. PO SCH (21:22)
[2017-01-05] MEDS: PIPERACILLIN/TAZO IV Push 3.375 GM VIAL. IVP SCH ×4 (00:07→17:11)
[2017-01-05 03:12] VITALS: BP 144/62
[2017-01-05] MEDS: MORPHINE SULFATE 4 MG/ML DISP.SYRIN. IV PRN ×5 (04:13→22:28)
[2017-01-05 04:54] LABS: BASO % 0 % (0-3); EOS % 0 % (0-3); HEMATOCRIT 28.3 % (36.0-47.0); HEMOGLOBIN 9.1 g/dL (12.0-15.5); LYMPH # 2.7 x10^3/uL (1.0-4.8); LYMPH % 37 % (24-48); MEAN CORPUSCULAR HEMOGLOBIN 29 pg (25-35); MEAN CORPUSCULAR HGB CONC 32 g/dL (31-37); MEAN CORPUSCULAR VOLUME 90 fL (79-100); MONO % 3 % (0-9); NEUT % 60 % (31-73); PLATELET COUNT 224 x10^3/uL (140-400); RED BLOOD COUNT 3.16 x10^6/uL (3.50-5.40); RED CELL DISTRIBUTION WIDTH 17.2 % (11.5-14.5); WHITE BLOOD COUNT 7.3 x10^3/uL (4.0-11.0)
[2017-01-05 05:02] LABS: INR 1.5 (0.8-1.1); PROTHROMBIN TIME PATIENT 16.8 SEC (11.7-14.0)
[2017-01-05 05:42] LABS: CALCIUM 7.4 mg/dL (8.5-10.1); CREATININE 0.7 mg/dL (0.6-1.0); GFR 78.8; POTASSIUM 3.6 mmol/L (3.5-5.1)
[2017-01-05] MEDS ORDERED: 0.9 % SODIUM CHLORIDE 10 ML DISP.SYRIN. IV PRN (05:45)
[2017-01-05 07:00] VITALS: BP 118/85
[2017-01-05] MEDS: oxyCODONE IR 5 MG TABLET PO PRN ×4 (07:22→22:28)
--- NOTE | 2017-01-05 07:50 | PDOC ---
Infectious Disease Note Subjective Subjective feeling better, does have leg pain ROS ROS GEN: Denies fevers, chills, sweats HEENT: Denies blurred vision, sore throat CV: Denies chest pain RESP: Denies shortness of air, cough GI: Denies n/v/d NEURO: Denies confusion, dizziness Vital Sign Vital Signs Vital Signs Date Time Temp Pulse Resp B/P (MAP) Pulse Ox O2 Delivery O2 Flow Rate FiO2 01/05/17 07:22 20 95 Nasal Cannula 2.0 01/05/17 03:12 97.6 49 144/62 (89) 97.6 Physical Exam PHYSICAL EXAM GENERAL: NAD, Alert HEENT: PERRL, OC/OP NECK: Supple, no JVD, no LN LUNGS: Clear HEART: S1S2, no gallop, no murmur ABD: Soft, NT, no organomegaly, no rebound EXT: No edema, no cyanosis,, left AKA [employer]: Alert, oriented x 3, no focal neurologic deficit SKIN: No rash IV: ok Labs Lab Laboratory Tests Test 01/04/17 11:07 01/04/17 13:40 01/04/17 15:55 01/04/17 18:21 Glucose (Fingerstick) 111 mg/dL (70-99) 99 mg/dL (70-99) 105 mg/dL (70-99) Prothrombin Time 17.9 SEC (11.7-14.0) Prothromb Time International Ratio 1.6 (0.8-1.1) Test 01/04/17 20:51 01/05/17 04:45 Glucose (Fingerstick) 127 mg/dL (70-99) White Blood Count 7.3 x10^3/uL (4.0-11.0) Red Blood Count 3.16 x10^6/uL (3.50-5.40) Hemoglobin 9.1 g/dL (12.0-15.5) Hematocrit 28.3 % (36.0-47.0) Mean Corpuscular Volume 90 fL (79-100) Mean Corpuscular Hemoglobin 29 pg (25-35) Mean Corpuscular Hemoglobin Concent 32 g/dL (31-37) Red Cell Distribution Width 17.2 % (11.5-14.5) Platelet Count 224 x10^3/uL (140-400) Neutrophils (%) (Auto) 60 % (31-73) Lymphocytes (%) (Auto) 37 % (24-48) Monocytes (%) (Auto) 3 % (0-9) Eosinophils (%) (Auto) 0 % (0-3) Basophils (%) (Auto) 0 % (0-3) Neutrophils # (Auto) 4.4 x10^3uL (1.8-7.7) Lymphocytes # (Auto) 2.7 x10^3/uL (1.0-4.8) Monocytes # (Auto) 0.2 x10^3/uL (0.0-1.1) Eosinophils # (Auto) 0.0 x10^3/uL (0.0-0.7) Basophils # (Auto) 0.0 x10^3/uL (0.0-0.2) Prothrombin Time 16.8 SEC (11.7-14.0) Prothromb Time International Ratio 1.5 (0.8-1.1) Sodium Level 143 mmol/L (136-145) Potassium Level 3.6 mmol/L (3.5-5.1) Chloride Level 107 mmol/L (98-107) Carbon Dioxide Level 25 mmol/L (21-32) Anion Gap 11 (6-14) Blood Urea Nitrogen 16 mg/dL (7-20) Creatinine 0.7 mg/dL (0.6-1.0) Estimated GFR (Cockcroft-Gault) 78.8 Glucose Level 175 mg/dL (70-99) Calcium Level 7.4 mg/dL (8.5-10.1) Micro GRAM STAIN Final WBCS MODERATE RBCS MODERATE GRAM POSITIVE COCCI MANY COMMENTS MOD GRAM NEG COCCI-BACILLI Objective Assessment Extensive left leg infection s/p AKA Left leg ischemia/necrotic muscle and skin Obesity DM HTN Left fibular fracture CVA Plan Plan of Care zyvox and zosyn d/w son soon to d/c antibiotics ZAID LARSEN MD Jan 05, 2017 07:49
[2017-01-05] MEDS: CARVEDILOL 6.25 MG TABLET. PO SCH ×2 (08:00→16:15)
[2017-01-05] MEDS: INSULIN ASPART 300 UNITS/3 ML INSULN.PEN SQ SCH ×3 (08:00→17:10)
--- NOTE | 2017-01-05 08:09 | PDOC ---
Provider Note Provider Note POD # 1 Post op lt AK amp. Pt. alert seems comfortable Dressing dry. little out drain Rooke boot on rt. leg as ordered Lab: H/H 9.1/, Pt 16.8, INR 1.5. K 3.6. Creat. 0.7 Imp: doing well Plan: SS eval for placement OK to restart coumadin GURWINDER MONET MD Jan 05, 2017 08:09
[2017-01-05] MEDS: IV NORMAL SALINE 1000ML BAG 1,000 ML IV SCH ×2 (09:31→20:52)
[2017-01-05] MEDS: LOSARTAN POTASSIUM 50 MG TABLET. PO SCH (09:34)
[2017-01-05] MEDS: TAMSULOSIN 0.4 MG CAP.ER.24H. PO SCH (09:34)
[2017-01-05] MEDS: POTASSIUM CHLORIDE 20 MEQ TABLET.ER. PO SCH (09:34)
[2017-01-05] MEDS: LACTOBACILLUS RHAMNOSUS GG 1 CAPSULE. PO SCH ×2 (09:35→20:50)
[2017-01-05] MEDS: DOCUSATE SODIUM 100 MG CAPSULE. PO SCH ×2 (09:35→20:51)
[2017-01-05] MEDS: CHOLECALCIFEROL (VITAMIN D3) 1,000 UNIT TABLET PO SCH (09:35)
[2017-01-05] MEDS: oxyCODONE ER 10 MG TAB.ER.12H PO SCH ×2 (09:36→20:51)
[2017-01-05 11:10] VITALS: BP 128/53
--- NOTE | 2017-01-05 11:14 | PDOC ---
PROGRESS NOTES Chief Complaint Chief Complaint 1. Extensive infection of the left leg. hx fasciitis, fasciotomy 2. Devitalized necrotic muscle and skin. 3. Compartment syndrome, status post fasciotomy. 4. Ischemic leg, status post thrombectomy. 5. Obesity. 6. Diabetes. 7. Hypertension. 8. Atrial fibrillation on AC, therapeutic INR History of Present Illness History of Present Illness Pt. seen and examined at bedside pt denies any pain and says she feels better today Incision C/D/I, s/p AK amputation INR 1.5 and PT 16.8 today, FFPx3 and Vit. K IV and vitamin K 10 SQ Vitals Vitals Vital Signs Date Time Temp Pulse Resp B/P (MAP) Pulse Ox O2 Delivery O2 Flow Rate FiO2 01/05/17 09:36 20 95 Nasal Cannula 2.0 01/05/17 09:34 65 118/85 01/05/17 07:00 97.3 97.3 Physical Exam General: Alert, Oriented X3, Cooperative, No acute distress Heart: Normal S1, Normal S2, No murmurs, Other (Irregularly irregular) Lungs: Clear, Other (No wheezes or crackles ) Abdomen: Normal bowel sounds, Soft, No tenderness Extremities: Other (Generalized edema. Palpable bilateral radial pulses. ) Skin: No rashes, Other ( Left thigh surgical incision intact and healing. ) Labs LABS Laboratory Tests Test 01/04/17 13:40 01/04/17 15:55 01/04/17 18:21 01/04/17 20:51 Prothrombin Time 17.9 SEC (11.7-14.0) Prothromb Time International Ratio 1.6 (0.8-1.1) Glucose (Fingerstick) 99 mg/dL (70-99) 105 mg/dL (70-99) 127 mg/dL (70-99) Test 01/05/17 04:45 01/05/17 08:03 White Blood Count 7.3 x10^3/uL (4.0-11.0) Red Blood Count 3.16 x10^6/uL (3.50-5.40) Hemoglobin 9.1 g/dL (12.0-15.5) Hematocrit 28.3 % (36.0-47.0) Mean Corpuscular Volume 90 fL (79-100) Mean Corpuscular Hemoglobin 29 pg (25-35) Mean Corpuscular Hemoglobin Concent 32 g/dL (31-37) Red Cell Distribution Width 17.2 % (11.5-14.5) Platelet Count 224 x10^3/uL (140-400) Neutrophils (%) (Auto) 60 % (31-73) Lymphocytes (%) (Auto) 37 % (24-48) Monocytes (%) (Auto) 3 % (0-9) Eosinophils (%) (Auto) 0 % (0-3) Basophils (%) (Auto) 0 % (0-3) Neutrophils # (Auto) 4.4 x10^3uL (1.8-7.7) Lymphocytes # (Auto) 2.7 x10^3/uL (1.0-4.8) Monocytes # (Auto) 0.2 x10^3/uL (0.0-1.1) Eosinophils # (Auto) 0.0 x10^3/uL (0.0-0.7) Basophils # (Auto) 0.0 x10^3/uL (0.0-0.2) Prothrombin Time 16.8 SEC (11.7-14.0) Prothromb Time International Ratio 1.5 (0.8-1.1) Sodium Level 143 mmol/L (136-145) Potassium Level 3.6 mmol/L (3.5-5.1) Chloride Level 107 mmol/L (98-107) Carbon Dioxide Level 25 mmol/L (21-32) Anion Gap 11 (6-14) Blood Urea Nitrogen 16 mg/dL (7-20) Creatinine 0.7 mg/dL (0.6-1.0) Estimated GFR (Cockcroft-Gault) 78.8 Glucose Level 175 mg/dL (70-99) Calcium Level 7.4 mg/dL (8.5-10.1) Glucose (Fingerstick) 158 mg/dL (70-99) Review of Systems Review of Systems Denies any F/C or N/V. Assessment and Plan Assessmemt and Plan Assessment: 1. Extensive infection of the left leg. hx fasciitis, fasciotomy 2. Devitalized necrotic muscle and skin. 3. Compartment syndrome, status post fasciotomy. 4. Ischemic leg, status post thrombectomy. 5. Obesity. 6. Diabetes. 7. Hypertension. 8. Atrial fibrillation on AC, therapeutic INR Plan: Continue wound care Continue abx per ID Continue home medications Recheck labs in am PT/OT consulted Problems: Comment Review of Relevant I have reviewed the following items madhav (where applicable) has been applied. Labs Laboratory Tests Test 01/03/17 12:05 01/03/17 17:05 01/03/17 18:06 01/03/17 20:40 Glucose (Fingerstick) 119 mg/dL (70-99) 110 mg/dL (70-99) 107 mg/dL (70-99) Prothrombin Time 23.2 SEC (11.7-14.0) Prothromb Time International Ratio 2.2 (0.8-1.1) Test 01/03/17 23:45 01/04/17 04:43 01/04/17 05:35 01/04/17 07:40 Prothrombin Time 21.7 SEC (11.7-14.0) 19.9 SEC (11.7-14.0) Prothromb Time International Ratio 2.0 (0.8-1.1) 1.8 (0.8-1.1) White Blood Count 6.5 x10^3/uL (4.0-11.0) Red Blood Count 2.69 x10^6/uL (3.50-5.40) Hemoglobin 7.5 g/dL (12.0-15.5) Hematocrit 24.4 % (36.0-47.0) Mean Corpuscular Volume 91 fL (79-100) Mean Corpuscular Hemoglobin 28 pg (25-35) Mean Corpuscular Hemoglobin Concent 31 g/dL (31-37) Red Cell Distribution Width 16.7 % (11.5-14.5) Platelet Count 270 x10^3/uL (140-400) Neutrophils (%) (Auto) 43 % (31-73) Lymphocytes (%) (Auto) 48 % (24-48) Monocytes (%) (Auto) 7 % (0-9) Eosinophils (%) (Auto) 2 % (0-3) Basophils (%) (Auto) 0 % (0-3) Neutrophils # (Auto) 2.8 x10^3uL (1.8-7.7) Lymphocytes # (Auto) 3.2 x10^3/uL (1.0-4.8) Monocytes # (Auto) 0.5 x10^3/uL (0.0-1.1) Eosinophils # (Auto) 0.1 x10^3/uL (0.0-0.7) Basophils # (Auto) 0.0 x10^3/uL (0.0-0.2) Sodium Level 142 mmol/L (136-145) Potassium Level 3.7 mmol/L (3.5-5.1) Chloride Level 108 mmol/L (98-107) Carbon Dioxide Level 29 mmol/L (21-32) Anion Gap 5 (6-14) Blood Urea Nitrogen 16 mg/dL (7-20) Creatinine 0.5 mg/dL (0.6-1.0) Estimated GFR (Cockcroft-Gault) 116.2 Glucose Level 92 mg/dL (70-99) Calcium Level 7.7 mg/dL (8.5-10.1) Glucose (Fingerstick) 91 mg/dL (70-99) Test 01/04/17 11:07 01/04/17 13:40 01/04/17 15:55 01/04/17 18:21 Glucose (Fingerstick) 111 mg/dL (70-99) 99 mg/dL (70-99) 105 mg/dL (70-99) Prothrombin Time 17.9 SEC (11.7-14.0) Prothromb Time International Ratio 1.6 (0.8-1.1) Test 01/04/17 20:51 01/05/17 04:45 01/05/17 08:03 Glucose (Fingerstick) 127 mg/dL (70-99) 158 mg/dL (70-99) White Blood Count 7.3 x10^3/uL (4.0-11.0) Red Blood Count 3.16 x10^6/uL (3.50-5.40) Hemoglobin 9.1 g/dL (12.0-15.5) Hematocrit 28.3 % (36.0-47.0) Mean Corpuscular Volume 90 fL (79-100) Mean Corpuscular Hemoglobin 29 pg (25-35) Mean Corpuscular Hemoglobin Concent 32 g/dL (31-37) Red Cell Distribution Width 17.2 % (11.5-14.5) Platelet Count 224 x10^3/uL (140-400) Neutrophils (%) (Auto) 60 % (31-73) Lymphocytes (%) (Auto) 37 % (24-48) Monocytes (%) (Auto) 3 % (0-9) Eosinophils (%) (Auto) 0 % (0-3) Basophils (%) (Auto) 0 % (0-3) Neutrophils # (Auto) 4.4 x10^3uL (1.8-7.7) Lymphocytes # (Auto) 2.7 x10^3/uL (1.0-4.8) Monocytes # (Auto) 0.2 x10^3/uL (0.0-1.1) Eosinophils # (Auto) 0.0 x10^3/uL (0.0-0.7) Basophils # (Auto) 0.0 x10^3/uL (0.0-0.2) Prothrombin Time 16.8 SEC (11.7-14.0) Prothromb Time International Ratio 1.5 (0.8-1.1) Sodium Level 143 mmol/L (136-145) Potassium Level 3.6 mmol/L (3.5-5.1) Chloride Level 107 mmol/L (98-107) Carbon Dioxide Level 25 mmol/L (21-32) Anion Gap 11 (6-14) Blood Urea Nitrogen 16 mg/dL (7-20) Creatinine 0.7 mg/dL (0.6-1.0) Estimated GFR (Cockcroft-Gault) 78.8 Glucose Level 175 mg/dL (70-99) Calcium Level 7.4 mg/dL (8.5-10.1) Laboratory Tests Test 01/04/17 13:40 01/04/17 15:55 01/04/17 18:21 01/04/17 20:51 Prothrombin Time 17.9 SEC (11.7-14.0) Prothromb Time International Ratio 1.6 (0.8-1.1) Glucose (Fingerstick) 99 mg/dL (70-99) 105 mg/dL (70-99) 127 mg/dL (70-99) Test 01/05/17 04:45 01/05/17 08:03 White Blood Count 7.3 x10^3/uL (4.0-11.0) Red Blood Count 3.16 x10^6/uL (3.50-5.40) Hemoglobin 9.1 g/dL (12.0-15.5) Hematocrit 28.3 % (36.0-47.0) Mean Corpuscular Volume 90 fL (79-100) Mean Corpuscular Hemoglobin 29 pg (25-35) Mean Corpuscular Hemoglobin Concent 32 g/dL (31-37) Red Cell Distribution Width 17.2 % (11.5-14.5) Platelet Count 224 x10^3/uL (140-400) Neutrophils (%) (Auto) 60 % (31-73) Lymphocytes (%) (Auto) 37 % (24-48) Monocytes (%) (Auto) 3 % (0-9) Eosinophils (%) (Auto) 0 % (0-3) Basophils (%) (Auto) 0 % (0-3) Neutrophils # (Auto) 4.4 x10^3uL (1.8-7.7) Lymphocytes # (Auto) 2.7 x10^3/uL (1.0-4.8) Monocytes # (Auto) 0.2 x10^3/uL (0.0-1.1) Eosinophils # (Auto) 0.0 x10^3/uL (0.0-0.7) Basophils # (Auto) 0.0 x10^3/uL (0.0-0.2) Prothrombin Time 16.8 SEC (11.7-14.0) Prothromb Time International Ratio 1.5 (0.8-1.1) Sodium Level 143 mmol/L (136-145) Potassium Level 3.6 mmol/L (3.5-5.1) Chloride Level 107 mmol/L (98-107) Carbon Dioxide Level 25 mmol/L (21-32) Anion Gap 11 (6-14) Blood Urea Nitrogen 16 mg/dL (7-20) Creatinine 0.7 mg/dL (0.6-1.0) Estimated GFR (Cockcroft-Gault) 78.8 Glucose Level 175 mg/dL (70-99) Calcium Level 7.4 mg/dL (8.5-10.1) Glucose (Fingerstick) 158 mg/dL (70-99) Microbiology 01/03/17 Gram Stain - Final, Complete Medications Current Medications Oxycodone HCl (Roxicodone) 5 mg PRN Q4HRS PRN PO PAIN Last administered on 07:22; Start 01/02/17 at 18:15 Oxycodone HCl (OxyCONTIN) 10 mg Q12HR PO Last administered on 01/05/17 09:36 ; Start 01/02/17 at 21:00 Amlodipine Besylate (Norvasc) 5 mg HS PO Last administered on 01/02/17 22:28 ; Start 01/02/17 at 21:00; Stop 01/04/17 at 08:03; Status DC Tamsulosin HCl (Flomax) 0.4 mg DAILY PO Last administered on 01/05/17 09:34; Start 01/03/17 at 09:00 Polyethylene Glycol (miraLAX PACKET) 17 gm PRN DAILY PRN PO CONSTIPATION; Start 01/02/17 at 18:30 Ondansetron HCl (Zofran) 4 mg PRN Q6HRS PRN IV NAUSEA/VOMITING; Start at 18:30 Lorazepam (Ativan) 2 mg PRN Q12HR PRN IV ANXIETY / AGITATION; Start 01/02/17 at 18:30 Metoprolol Tartrate (Lopressor) 25 mg BID PO Last administered on 01/02/17 22 :29; Start 01/02/17 at 21:00; Stop 01/04/17 at 08:03; Status DC Silver Nitrate/ Potassium Nitrate 1 each 1X ONCE TP ; Start 01/02/17 at 18:45 ; Stop 01/02/17 at 18:46; Status DC Famotidine (Pepcid) 20 mg DAILY PO ; Start 01/03/17 at 09:00; Stop 01/04/17 at 08:05; Status DC Trazodone HCl (Desyrel) 50 mg QHS PO Last administered on 01/02/17 22:28; Start 01/02/17 at 21:00; Stop 01/04/17 at 08:04; Status DC Levothyroxine Sodium (Synthroid) 112 mcg DAILY07 PO ; Start 01/03/17 at 07:00; Stop 01/04/17 at 08:05; Status DC Lactobacillus Rhamnosus (Culturelle) 1 cap BID PO Last administered on 09:35; Start 01/02/17 at 21:00 Sodium Chloride 1,000 ml @ 75 mls/hr [id number] IV Last administered on 09:31; Start 01/02/17 at 19:00 Sodium Chloride (Normal Saline Flush 3ml) 10 ml PRN Q12HRS PRN IV AFTER MEDS AND BLOOD DRAWS; Start 01/02/17 at 18:30; Stop 01/05/17 at 05:38; Status DC Insulin Aspart (NovoLOG) 0-9 UNITS TIDWMEALS SQ ; Start 01/03/17 at 19:00 Dextrose (Dextrose 50%-Water Syringe) 12.5 gm PRN Q15MIN PRN IV SEE COMMENTS; Start 01/02/17 at 18:45 Docusate Sodium (Colace) 100 mg BID PO Last administered on 01/05/17 09:35; Start 01/02/17 at 21:00 Bisacodyl (Dulcolax Supp) 10 mg PRN DAILY PRN MS CONSTIPATION; Start 01/02/17 at 18:45 Atorvastatin Calcium (Lipitor) 10 mg QHS PO Last administered on 01/04/17 21: 17; Start 01/02/17 at 21:00 Aspirin (Lucas Aspirin) 325 mg DAILYWBKFT PO ; Start 01/03/17 at 08:00; Stop 01/03/17 at 16:35; Status DC Acetaminophen (Tylenol) 500 mg PRN Q6HRS PRN PO MILD PAIN / TEMP; Start at 18:45; Stop 01/04/17 at 12:28; Status DC Morphine Sulfate 2 mg PRN Q2HR PRN IV PAIN Last administered on 01/03/17 22: 41; Start 01/02/17 at 21:15; Stop 01/03/17 at 23:26; Status DC Morphine Sulfate 4 mg PRN Q2HR PRN IV PAIN Last administered on 01/03/17 20: 22; Start 01/02/17 at 21:15; Stop 01/03/17 at 23:56; Status DC Piperacillin Sod/ Tazobactam Sod 3.375 gm/Dextrose 50 ml @ 100 mls/hr Q6HRS IV ; Start 01/03/17 at 12:00; Status UNV Linezolid 300 ml @ 300 mls/hr Q12HR IV Last administered on 01/05/17 09:31; Start 01/03/17 at 11:00 Phytonadione 10 mg/Dextrose 51 ml @ 102 mls/hr 1X ONCE IV ; Start 01/03/17 at 11:00; Stop 01/03/17 at 11:00; Status DC Piperacillin Sod/ Tazobactam Sod (Zosyn) 3.375 gm Q6HRS IVP Last administered on 01/05/17 05:10; Start 01/03/17 at 12:00 Furosemide (Lasix) 40 mg 1X ONCE IVP Last administered on 01/03/17 11:44; Start 01/03/17 at 11:45; Stop 01/03/17 at 11:46; Status DC Lidocaine/Sodium Bicarbonate (Buffered Lidocaine 1%) 3 ml 1X ONCE IJ Last administered on 01/03/17 15:57; Start 01/03/17 at 15:30; Stop 01/03/17 at 15 :31; Status DC Lidocaine/Sodium Bicarbonate (Buffered Lidocaine 1%) 3 ml 1X ONCE IJ ; Start 01/03/17 at 15:45; Stop 01/03/17 at 15:46; Status DC Phytonadione (Vitamin K Ampule) 10 mg 1X ONCE SQ Last administered on 17:56; Start 01/03/17 at 16:30; Stop 01/03/17 at 16:35; Status DC Ondansetron HCl (Zofran) 4 mg PRN Q6HRS PRN IV NAUSEA/VOMITING; Start at 07:00; Stop 01/05/17 at 06:59; Status DC Fentanyl Citrate (Fentanyl 2ml Vial) 25 mcg PRN Q5MIN PRN IV MILD PAIN; Start 01/04/17 at 07:00; Stop 01/05/17 at 06:59; Status DC Fentanyl Citrate (Fentanyl 2ml Vial) 50 mcg PRN Q5MIN PRN IV MODERATE PAIN; Start 01/04/17 at 07:00; Stop 01/05/17 at 06:59; Status DC Ringer's Solution 1,000 ml @ 30 mls/hr Q24H IV Last administered on 09:24; Start 01/04/17 at 07:00; Stop 01/04/17 at 18:59; Status DC Lidocaine HCl (Xylocaine-Mpf 1% Vial) 2 ml PRN 1X PRN ID PRIOR TO IV START; Start 01/04/17 at 07:00; Stop 01/05/17 at 06:59; Status DC Prochlorperazine Edisylate (Compazine) 5 mg PACU PRN PRN IV NAUSEA, MRX1; Start 01/04/17 at 07:00; Stop 01/05/17 at 06:59; Status DC Morphine Sulfate 2 mg PRN Q2HR PRN IV PAIN; Start 01/03/17 at 23:30 Morphine Sulfate 4 mg PRN Q2HR PRN IV PAIN Last administered on 01/05/17 06: 18; Start 01/03/17 at 23:56 Acetaminophen (Tylenol) 500 mg PRN Q6HRS PRN PO MILD PAIN; Start 01/04/17 at 08:00 Amlodipine Besylate (Norvasc) 10 mg HS PO Last administered on 01/04/17 21:17 ; Start 01/04/17 at 21:00 Carvedilol (Coreg) 6.25 mg BIDWMEALS PO ; Start 01/04/17 at 09:00; Status Cancel Famotidine (Pepcid) 20 mg HS PO Last administered on 01/04/17 21:17; Start 01/04/17 at 21:00 Albuterol/ Ipratropium (Duoneb) 3 ml PRN Q4HRS PRN NEB SHORTNESS OF BREATH; Start 01/04/17 at 08:00 Levothyroxine Sodium (Synthroid) 224 mcg HS PO Last administered on 01/04/17 21:18; Start 01/04/17 at 21:00 Metoprolol Tartrate (Lopressor) 25 mg BID PO ; Start 01/04/17 at 09:00; Status Cancel Simvastatin (Zocor) 20 mg HS PO ; Start 01/04/17 at 21:00; Status UNV Tamsulosin HCl (Flomax) 0.4 mg DAILY PO ; Start 01/04/17 at 09:00; Status UNV Tramadol HCl (Ultram) 50 mg PRN Q6HRS PRN PO PAIN; Start 01/04/17 at 08:00 Trazodone HCl (Desyrel) 50 mg QHS PO Last administered on 01/04/17 21:22; Start 01/04/17 at 21:00 Vitamin D (Vitamin D3) 1,000 unit DAILY PO Last administered on 01/05/17 09: 35; Start 01/04/17 at 09:00 Docusate Sodium (Colace) 100 mg PRN DAILY PRN PO CONSTIPATION; Start 01/04/17 at 09:00 Losartan Potassium (Cozaar) 100 mg DAILY PO Last administered on 01/05/17 09: 34; Start 01/04/17 at 09:00 Non-Formulary Medication 1 tab QHS PO ; Start 01/04/17 at 21:00; Status UNV Non-Formulary Medication 1 tab DAILY PO ; Start 01/04/17 at 09:00; Status UNV Potassium Chloride (Klor-Con) 20 meq DAILYWBKFT PO Last administered on 09:34; Start 01/04/17 at 08:30 Carvedilol (Coreg) 6.25 mg BIDWMEALS PO Last administered on 01/04/17 21:18; Start 01/04/17 at 09:00 Cefazolin Sodium 1 gm/Sodium Chloride 500 ml @ 500 mls/hr 1X PERIOP ONCE IRR Last administered on 01/04/17 16:38; Start 01/04/17 at 14:30; Stop 01/04/17 at 15:29; Status DC Heparin Sodium (Porcine) 5000 unit/Sodium Chloride 505 ml @ 505 mls/hr 1X PERIOP ONCE IRR Last administered on 01/04/17 16:38; Start 01/04/17 at 14: 30; Stop 01/04/17 at 15:29; Status DC Furosemide (Lasix) 40 mg 1X ONCE IVP ; Start 01/04/17 at 16:00; Stop at 16:01; Status DC Albumin Human 100 ml @ 100 mls/hr 1X ONCE IV Last administered on 01/04/17 18:52; Start 01/04/17 at 16:00; Stop 01/04/17 at 16:59; Status DC Albumin Human 100 ml @ 100 mls/hr 1X ONCE IV Last administered on 01/04/17 19:16; Start 01/04/17 at 16:00; Stop 01/04/17 at 16:59; Status DC Furosemide (Lasix) 20 mg 1X ONCE IVP Last administered on 01/04/17t 21:16; Start 01/04/17 at 18:45; Stop 01/04/17 at 18:46; Status DC Sodium Chloride (Normal Saline Flush) 10 ml QSHIFT PRN IV AFTER MEDS AND BLOOD DRAWS; Start 01/05/17 at 05:45 Active Scripts Active Tramadol Hcl 50 Mg Tablet 50 Mg PO PRN Q6HRS PRN Reported Novolog Flexpen (Insulin Aspart) 100 Unit/1 Ml Insuln.pen 1 Unit SQ PRN TID PRN Duoneb 0.5-3(2.5) Mg/3 Ml (Albuterol/Ipratropium) 3 Ml Ampul.neb 3 Ml NEB PRN Q4HRS PRN Famotidine 20 Mg Tablet 20 Mg PO HS Trazodone Hcl 50 Mg Tablet 1 Tab PO QHS Tamsulosin Hcl 0.4 Mg Cap.er.24h 0.4 Mg PO DAILY Melatonin 3 Mg Tablet 1 Tab PO QHS Losartan Potassium 100 Mg Tablet 100 Mg PO DAILY Colace Clear (Docusate Sodium) 50 Mg Capsule 50 Mg PO PRN DAILY PRN Aspirin 325 Mg Tablet 1 Tab PO DAILY Acetaminophen 500 Mg Tablet 500 Mg PO PRN Q6HRS PRN Vitamin D (Cholecalciferol (Vitamin D3)) 1,000 Unit Capsule 1 Cap PO DAILY Levothyroxine Sodium 112 Mcg Tablet 2 Tab PO HS Xarelto (Rivaroxaban) 10 Mg Tablet 1 Tab PO DAILY Prilosec Otc (Omeprazole Magnesium) 20 Mg Tablet.dr 1 Tab PO DAILY Metformin Hcl Er (Metformin Hcl) 500 Mg Tab.er.24h 500 Mg PO BIDWMEALS Amlodipine Besylate 10 Mg Tablet 10 Mg PO HS Simvastatin 20 Mg Tablet 20 Mg PO HS Glimepiride 2 Mg Tablet 2 Mg PO DAILY Carvedilol 3.125 Mg Tablet 6.25 Mg PO BID Potassium Chloride 10 Meq Capsule.er 20 Meq PO DAILY Vitals/I & O Vital Sign - Last 24 Hours 01/04/17 01/04/17 01/04/17 01/04/17 11:15 12:10 14:20 14:56 Temp 97.2 97.5 97.8 97.2 97.5 97.8 Pulse 57 67 59 Resp 16 16 18 B/P (MAP) 125/67 110/46 135/42 (73) Pulse Ox 95 O2 Delivery Nasal Cannula Nasal Cannula O2 Flow Rate 2.0 2.0 01/04/17 01/04/17 01/04/17 01/04/17 15:00 15:20 15:45 18:07 Temp 97.5 97.7 97.7 97.5 97.7 97.7 Pulse 51 59 56 Resp 16 20 20 B/P (MAP) 123/41 117/49 111/46 Pulse Ox 96 O2 Delivery Nasal Cannula Mask O2 Flow Rate 3 10 01/04/17 01/04/17 01/04/17 01/04/17 18:07 18:30 18:45 19:00 Pulse 54 58 56 91 Resp 20 18 20 20 B/P (MAP) 116/57 133/65 153/70 173/91 Pulse Ox 99 98 98 96 O2 Delivery Simple Mask Nasal Cannula Nasal Cannula Nasal Cannula O2 Flow Rate 10 3 3 3 01/04/17 01/04/17 01/04/17 01/04/17 19:15 19:15 19:30 19:55 Temp 98.7 98.5 98.7 98.5 Pulse 60 65 60 Resp 20 20 20 B/P (MAP) 145/65 186/73 145/86 (105) Pulse Ox 96 96 95 O2 Delivery Nasal Cannula Nasal Cannula Nasal Cannula Nasal Cannula O2 Flow Rate 3 3 3 2.0 01/04/17 01/04/17 01/04/17 01/04/17 20:00 20:09 20:10 20:40 Temp 98.5 98.5 Pulse 78 56 62 Resp 20 20 20 B/P (MAP) 145/86 (105) 151/70 (97) 127/50 (75) Pulse Ox 95 97 94 O2 Delivery Nasal Cannula Nasal Cannula Nasal Cannula Nasal Cannula O2 Flow Rate 2.0 2.0 2.0 2.0 01/04/17 01/04/17 01/04/17 01/04/17 21:17 21:17 21:18 21:34 Pulse 56 56 Resp 20 20 B/P (MAP) 154/66 154/66 Pulse Ox 95 95 O2 Delivery Nasal Cannula Nasal Cannula O2 Flow Rate 2.0 2.0 01/04/17 01/04/17 01/05/17 01/05/17 21:40 23:18 01:17 03:12 Temp 97.6 97.6 97.6 97.6 Pulse 66 63 49 Resp 20 20 20 20 B/P (MAP) 149/67 (94) 134/61 (85) 144/62 (89) Pulse Ox 93 95 95 O2 Delivery Nasal Cannula Nasal Cannula Nasal Cannula Nasal Cannula O2 Flow Rate 2.0 2.0 2.0 2.0 01/05/17 01/05/17 01/05/17 01/05/17 04:13 06:18 06:48 07:00 Temp 97.3 97.3 Pulse 65 Resp 20 20 20 16 B/P (MAP) 118/85 (96) Pulse Ox 95 95 95 96 O2 Delivery Nasal Cannula Nasal Cannula Nasal Cannula Nasal Cannula O2 Flow Rate 2.0 2.0 2.0 2.0 01/05/17 01/05/17 01/05/17 01/05/17 07:22 08:00 08:25 09:34 Pulse 65 65 Resp 20 20 B/P (MAP) 118/85 118/85 Pulse Ox 95 95 O2 Delivery Nasal Cannula Nasal Cannula O2 Flow Rate 2.0 2.0 01/05/17 09:36 Resp 20 Pulse Ox 95 O2 Delivery Nasal Cannula O2 Flow Rate 2.0 Intake and Output 01/04/17 01/04/17 01/05/17 15:00 23:00 07:00 Intake Total 624 ml 2400 ml 130 ml Output Total 235 ml 155 ml Balance 624 ml 2165 ml -25 ml Nutrition Consultation Dietary Evaluation: Recommendations by RD: Increase Calorie Intake, Protein supplementation Comments: added ensure supplements to diet order with hx poor po intake since stroke pt to have surgery soon, may need ppn , will monitor Expected Outcomes/Goals: to meet > 75% est nutr needs Malnutrition Findings: Malnutrition related to morbid: Weight 200% of ideal wt Malnutrition related to morbid: Yes Weight Status: Morbidly Obese MANDI DOW III DO Jan 05, 2017 11:14
[2017-01-05 15:30] VITALS: BP 108/51
[2017-01-05] MEDS ORDERED: WARFARIN 5 MG TABLET. PO ONE (17:00)
[2017-01-05 19:00] VITALS: BP 98/62
[2017-01-05] MEDS: traZODone 50 MG TABLET. PO SCH (20:50)
[2017-01-05] MEDS: amLODIPine BESYLATE 10 MG TABLET PO SCH (20:50)
[2017-01-05] MEDS: FAMOTIDINE 20 MG TABLET. PO SCH (20:50)
[2017-01-05] MEDS: ATORVASTATIN CALCIUM 10 MG TABLET. PO SCH (20:50)
[2017-01-05] MEDS: LEVOTHYROXINE 112 MCG TABLET PO SCH (20:50)
[2017-01-05 23:00] VITALS: BP 113/52
[2017-01-06] MEDS: PIPERACILLIN/TAZO IV Push 3.375 GM VIAL. IVP SCH ×5 (00:31→23:09)
[2017-01-06] MEDS: MORPHINE SULFATE 4 MG/ML DISP.SYRIN. IV PRN ×4 (01:29→19:44)
[2017-01-06 03:00] VITALS: BP 112/58
[2017-01-06 06:03] LABS: BASO % 1 % (0-3); EOS % 1 % (0-3); HEMATOCRIT 29.1 % (36.0-47.0); HEMOGLOBIN 9.5 g/dL (12.0-15.5); LYMPH # 2.4 x10^3/uL (1.0-4.8); LYMPH % 37 % (24-48); MEAN CORPUSCULAR HEMOGLOBIN 29 pg (25-35); MEAN CORPUSCULAR HGB CONC 33 g/dL (31-37); MEAN CORPUSCULAR VOLUME 89 fL (79-100); MONO % 6 % (0-9); NEUT % 56 % (31-73); PLATELET COUNT 209 x10^3/uL (140-400); RED BLOOD COUNT 3.27 x10^6/uL (3.50-5.40); RED CELL DISTRIBUTION WIDTH 16.7 % (11.5-14.5); WHITE BLOOD COUNT 6.5 x10^3/uL (4.0-11.0)
--- NOTE | 2017-01-06 06:04 | PDOC ---
Provider Note Provider Note AF VSS awake left AKA dressing dry, NICA in place with serosanginous fluid, no bleeding A/P POD#2 left AKA - will change dressing tomorrow - will leave drain 1-2 more days - antibiotics IV per ID BRET CONLEY MD Jan 06, 2017 06:04
[2017-01-06 06:12] LABS: CREATININE 0.7 mg/dL (0.6-1.0); GFR 78.8; POTASSIUM 3.1 mmol/L (3.5-5.1)
[2017-01-06 07:00] VITALS: BP 126/52
[2017-01-06] MEDS: INSULIN ASPART 300 UNITS/3 ML INSULN.PEN SQ SCH ×3 (08:00→17:00)
[2017-01-06 08:04] LABS: INR 1.7 (0.8-1.1); PROTHROMBIN TIME PATIENT 19.1 SEC (11.7-14.0)
--- NOTE | 2017-01-06 08:29 | PDOC ---
PROGRESS NOTES Chief Complaint Chief Complaint Left leg infection Ischemic leg Compartment syndrome Obesity Diabetes Hypertension Atrial fibrillation History of Present Illness History of Present Illness Pt. was seen at the bedside. She was laying down, dressed in hospital attire, in moderate distress from pain in her back from moving around. Vitals Vitals Vital Signs Date Time Temp Pulse Resp B/P (MAP) Pulse Ox O2 Delivery O2 Flow Rate FiO2 01/06/17 07:00 97.4 56 16 126/52 (76) 95 Nasal Cannula 2.0 97.4 Physical Exam Physical Exam Eyes: PERRL, sclera anicteric General: Alert, Cooperative, moderate distress Heart: Regular rate (Distant S1 and S2), Normal S1, Normal S2, No murmurs Lungs: Clear, Other (No wheezes or crackles ) Abdomen: Soft, No tenderness Extremities: Other (Generalized non-pitting edema, more prominent in her left arm) Skin: No rashes, Other (pale) Labs LABS Laboratory Tests Test 01/05/17 11:46 01/05/17 16:20 01/05/17 21:15 01/06/17 05:45 Glucose (Fingerstick) 217 mg/dL (70-99) 204 mg/dL (70-99) 111 mg/dL (70-99) White Blood Count 6.5 x10^3/uL (4.0-11.0) Red Blood Count 3.27 x10^6/uL (3.50-5.40) Hemoglobin 9.5 g/dL (12.0-15.5) Hematocrit 29.1 % (36.0-47.0) Mean Corpuscular Volume 89 fL (79-100) Mean Corpuscular Hemoglobin 29 pg (25-35) Mean Corpuscular Hemoglobin Concent 33 g/dL (31-37) Red Cell Distribution Width 16.7 % (11.5-14.5) Platelet Count 209 x10^3/uL (140-400) Neutrophils (%) (Auto) 56 % (31-73) Lymphocytes (%) (Auto) 37 % (24-48) Monocytes (%) (Auto) 6 % (0-9) Eosinophils (%) (Auto) 1 % (0-3) Basophils (%) (Auto) 1 % (0-3) Neutrophils # (Auto) 3.6 x10^3uL (1.8-7.7) Lymphocytes # (Auto) 2.4 x10^3/uL (1.0-4.8) Monocytes # (Auto) 0.4 x10^3/uL (0.0-1.1) Eosinophils # (Auto) 0.0 x10^3/uL (0.0-0.7) Basophils # (Auto) 0.0 x10^3/uL (0.0-0.2) Sodium Level 142 mmol/L (136-145) Potassium Level 3.1 mmol/L (3.5-5.1) Chloride Level 108 mmol/L (98-107) Carbon Dioxide Level 28 mmol/L (21-32) Anion Gap 6 (6-14) Blood Urea Nitrogen 16 mg/dL (7-20) Creatinine 0.7 mg/dL (0.6-1.0) Estimated GFR (Cockcroft-Gault) 78.8 Glucose Level 86 mg/dL (70-99) Calcium Level 7.0 mg/dL (8.5-10.1) Test 01/06/17 07:20 01/06/17 08:11 Prothrombin Time 19.1 SEC (11.7-14.0) Prothromb Time International Ratio 1.7 (0.8-1.1) Glucose (Fingerstick) 83 mg/dL (70-99) Review of Systems Review of Systems Admits to back/neck/rt-sided face pain. Denies chest pain and shortness of breath. Assessment and Plan Assessmemt and Plan ASSESSMENT: Left leg infection Ischemic leg Compartment syndrome Obesity Diabetes Hypertension Atrial fibrillation PLAN: Discussed with RN Consult Pulmonology for chronic cough Hold carvedilol Continue Wu Consult PT/OT Problems: Comment Review of Relevant I have reviewed the following items madhav (where applicable) has been applied. Labs Laboratory Tests Test 01/04/17 11:07 01/04/17 13:40 01/04/17 15:55 01/04/17 18:21 Glucose (Fingerstick) 111 mg/dL (70-99) 99 mg/dL (70-99) 105 mg/dL (70-99) Prothrombin Time 17.9 SEC (11.7-14.0) Prothromb Time International Ratio 1.6 (0.8-1.1) Test 01/04/17 20:51 01/05/17 04:45 01/05/17 08:03 01/05/17 11:46 Glucose (Fingerstick) 127 mg/dL (70-99) 158 mg/dL (70-99) 217 mg/dL (70-99) White Blood Count 7.3 x10^3/uL (4.0-11.0) Red Blood Count 3.16 x10^6/uL (3.50-5.40) Hemoglobin 9.1 g/dL (12.0-15.5) Hematocrit 28.3 % (36.0-47.0) Mean Corpuscular Volume 90 fL (79-100) Mean Corpuscular Hemoglobin 29 pg (25-35) Mean Corpuscular Hemoglobin Concent 32 g/dL (31-37) Red Cell Distribution Width 17.2 % (11.5-14.5) Platelet Count 224 x10^3/uL (140-400) Neutrophils (%) (Auto) 60 % (31-73) Lymphocytes (%) (Auto) 37 % (24-48) Monocytes (%) (Auto) 3 % (0-9) Eosinophils (%) (Auto) 0 % (0-3) Basophils (%) (Auto) 0 % (0-3) Neutrophils # (Auto) 4.4 x10^3uL (1.8-7.7) Lymphocytes # (Auto) 2.7 x10^3/uL (1.0-4.8) Monocytes # (Auto) 0.2 x10^3/uL (0.0-1.1) Eosinophils # (Auto) 0.0 x10^3/uL (0.0-0.7) Basophils # (Auto) 0.0 x10^3/uL (0.0-0.2) Prothrombin Time 16.8 SEC (11.7-14.0) Prothromb Time International Ratio 1.5 (0.8-1.1) Sodium Level 143 mmol/L (136-145) Potassium Level 3.6 mmol/L (3.5-5.1) Chloride Level 107 mmol/L (98-107) Carbon Dioxide Level 25 mmol/L (21-32) Anion Gap 11 (6-14) Blood Urea Nitrogen 16 mg/dL (7-20) Creatinine 0.7 mg/dL (0.6-1.0) Estimated GFR (Cockcroft-Gault) 78.8 Glucose Level 175 mg/dL (70-99) Calcium Level 7.4 mg/dL (8.5-10.1) Test 01/05/17 16:20 01/05/17 21:15 01/06/17 05:45 01/06/17 07:20 Glucose (Fingerstick) 204 mg/dL (70-99) 111 mg/dL (70-99) White Blood Count 6.5 x10^3/uL (4.0-11.0) Red Blood Count 3.27 x10^6/uL (3.50-5.40) Hemoglobin 9.5 g/dL (12.0-15.5) Hematocrit 29.1 % (36.0-47.0) Mean Corpuscular Volume 89 fL (79-100) Mean Corpuscular Hemoglobin 29 pg (25-35) Mean Corpuscular Hemoglobin Concent 33 g/dL (31-37) Red Cell Distribution Width 16.7 % (11.5-14.5) Platelet Count 209 x10^3/uL (140-400) Neutrophils (%) (Auto) 56 % (31-73) Lymphocytes (%) (Auto) 37 % (24-48) Monocytes (%) (Auto) 6 % (0-9) Eosinophils (%) (Auto) 1 % (0-3) Basophils (%) (Auto) 1 % (0-3) Neutrophils # (Auto) 3.6 x10^3uL (1.8-7.7) Lymphocytes # (Auto) 2.4 x10^3/uL (1.0-4.8) Monocytes # (Auto) 0.4 x10^3/uL (0.0-1.1) Eosinophils # (Auto) 0.0 x10^3/uL (0.0-0.7) Basophils # (Auto) 0.0 x10^3/uL (0.0-0.2) Sodium Level 142 mmol/L (136-145) Potassium Level 3.1 mmol/L (3.5-5.1) Chloride Level 108 mmol/L (98-107) Carbon Dioxide Level 28 mmol/L (21-32) Anion Gap 6 (6-14) Blood Urea Nitrogen 16 mg/dL (7-20) Creatinine 0.7 mg/dL (0.6-1.0) Estimated GFR (Cockcroft-Gault) 78.8 Glucose Level 86 mg/dL (70-99) Calcium Level 7.0 mg/dL (8.5-10.1) Prothrombin Time 19.1 SEC (11.7-14.0) Prothromb Time International Ratio 1.7 (0.8-1.1) Test 01/06/17 08:11 Glucose (Fingerstick) 83 mg/dL (70-99) Laboratory Tests Test 01/05/17 11:46 01/05/17 16:20 01/05/17 21:15 01/06/17 05:45 Glucose (Fingerstick) 217 mg/dL (70-99) 204 mg/dL (70-99) 111 mg/dL (70-99) White Blood Count 6.5 x10^3/uL (4.0-11.0) Red Blood Count 3.27 x10^6/uL (3.50-5.40) Hemoglobin 9.5 g/dL (12.0-15.5) Hematocrit 29.1 % (36.0-47.0) Mean Corpuscular Volume 89 fL (79-100) Mean Corpuscular Hemoglobin 29 pg (25-35) Mean Corpuscular Hemoglobin Concent 33 g/dL (31-37) Red Cell Distribution Width 16.7 % (11.5-14.5) Platelet Count 209 x10^3/uL (140-400) Neutrophils (%) (Auto) 56 % (31-73) Lymphocytes (%) (Auto) 37 % (24-48) Monocytes (%) (Auto) 6 % (0-9) Eosinophils (%) (Auto) 1 % (0-3) Basophils (%) (Auto) 1 % (0-3) Neutrophils # (Auto) 3.6 x10^3uL (1.8-7.7) Lymphocytes # (Auto) 2.4 x10^3/uL (1.0-4.8) Monocytes # (Auto) 0.4 x10^3/uL (0.0-1.1) Eosinophils # (Auto) 0.0 x10^3/uL (0.0-0.7) Basophils # (Auto) 0.0 x10^3/uL (0.0-0.2) Sodium Level 142 mmol/L (136-145) Potassium Level 3.1 mmol/L (3.5-5.1) Chloride Level 108 mmol/L (98-107) Carbon Dioxide Level 28 mmol/L (21-32) Anion Gap 6 (6-14) Blood Urea Nitrogen 16 mg/dL (7-20) Creatinine 0.7 mg/dL (0.6-1.0) Estimated GFR (Cockcroft-Gault) 78.8 Glucose Level 86 mg/dL (70-99) Calcium Level 7.0 mg/dL (8.5-10.1) Test 01/06/17 07:20 01/06/17 08:11 Prothrombin Time 19.1 SEC (11.7-14.0) Prothromb Time International Ratio 1.7 (0.8-1.1) Glucose (Fingerstick) 83 mg/dL (70-99) Microbiology 01/03/17 Gram Stain - Final, Complete Medications Current Medications Oxycodone HCl (Roxicodone) 5 mg PRN Q4HRS PRN PO PAIN Last administered on 22:28; Start 01/02/17 at 18:15 Oxycodone HCl (OxyCONTIN) 10 mg Q12HR PO Last administered on 01/05/17 20:51 ; Start 01/02/17 at 21:00 Amlodipine Besylate (Norvasc) 5 mg HS PO Last administered on 01/02/17 22:28 ; Start 01/02/17 at 21:00; Stop 01/04/17 at 08:03; Status DC Tamsulosin HCl (Flomax) 0.4 mg DAILY PO Last administered on 01/05/17 09:34; Start 01/03/17 at 09:00 Polyethylene Glycol (miraLAX PACKET) 17 gm PRN DAILY PRN PO CONSTIPATION; Start 01/02/17 at 18:30 Ondansetron HCl (Zofran) 4 mg PRN Q6HRS PRN IV NAUSEA/VOMITING; Start at 18:30 Lorazepam (Ativan) 2 mg PRN Q12HR PRN IV ANXIETY / AGITATION Last administered on 01/06/17 03:14; Start 01/02/17 at 18:30 Metoprolol Tartrate (Lopressor) 25 mg BID PO Last administered on 01/02/17 22 :29; Start 01/02/17 at 21:00; Stop 01/04/17 at 08:03; Status DC Silver Nitrate/ Potassium Nitrate 1 each 1X ONCE TP ; Start 01/02/17 at 18:45 ; Stop 01/02/17 at 18:46; Status DC Famotidine (Pepcid) 20 mg DAILY PO ; Start 01/03/17 at 09:00; Stop 01/04/17 at 08:05; Status DC Trazodone HCl (Desyrel) 50 mg QHS PO Last administered on 01/02/17 22:28; Start 01/02/17 at 21:00; Stop 01/04/17 at 08:04; Status DC Levothyroxine Sodium (Synthroid) 112 mcg DAILY07 PO ; Start 01/03/17 at 07:00; Stop 01/04/17 at 08:05; Status DC Lactobacillus Rhamnosus (Culturelle) 1 cap BID PO Last administered on 20:50; Start 01/02/17 at 21:00 Sodium Chloride 1,000 ml @ 75 mls/hr [id number] IV Last administered on 20:52; Start 01/02/17 at 19:00 Sodium Chloride (Normal Saline Flush 3ml) 10 ml PRN Q12HRS PRN IV AFTER MEDS AND BLOOD DRAWS; Start 01/02/17 at 18:30; Stop 01/05/17 at 05:38; Status DC Insulin Aspart (NovoLOG) 0-9 UNITS TIDWMEALS SQ Last administered on 17:10; Start 01/03/17 at 19:00 Dextrose (Dextrose 50%-Water Syringe) 12.5 gm PRN Q15MIN PRN IV SEE COMMENTS; Start 01/02/17 at 18:45 Docusate Sodium (Colace) 100 mg BID PO Last administered on 01/05/17 20:51; Start 01/02/17 at 21:00 Bisacodyl (Dulcolax Supp) 10 mg PRN DAILY PRN NV CONSTIPATION; Start 01/02/17 at 18:45 Atorvastatin Calcium (Lipitor) 10 mg QHS PO Last administered on 01/05/17 20: 50; Start 01/02/17 at 21:00 Aspirin (Lucas Aspirin) 325 mg DAILYWBKFT PO ; Start 01/03/17 at 08:00; Stop 01/03/17 at 16:35; Status DC Acetaminophen (Tylenol) 500 mg PRN Q6HRS PRN PO MILD PAIN / TEMP; Start at 18:45; Stop 01/04/17 at 12:28; Status DC Morphine Sulfate 2 mg PRN Q2HR PRN IV PAIN Last administered on 01/03/17 22: 41; Start 01/02/17 at 21:15; Stop 01/03/17 at 23:26; Status DC Morphine Sulfate 4 mg PRN Q2HR PRN IV PAIN Last administered on 01/03/17 20: 22; Start 01/02/17 at 21:15; Stop 01/03/17 at 23:56; Status DC Piperacillin Sod/ Tazobactam Sod 3.375 gm/Dextrose 50 ml @ 100 mls/hr Q6HRS IV ; Start 01/03/17 at 12:00; Status UNV Linezolid 300 ml @ 300 mls/hr Q12HR IV Last administered on 01/05/17 20:49; Start 01/03/17 at 11:00 Phytonadione 10 mg/Dextrose 51 ml @ 102 mls/hr 1X ONCE IV ; Start 01/03/17 at 11:00; Stop 01/03/17 at 11:00; Status DC Piperacillin Sod/ Tazobactam Sod (Zosyn) 3.375 gm Q6HRS IVP Last administered on 01/06/17 06:00; Start 01/03/17 at 12:00 Furosemide (Lasix) 40 mg 1X ONCE IVP Last administered on 01/03/17 11:44; Start 01/03/17 at 11:45; Stop 01/03/17 at 11:46; Status DC Lidocaine/Sodium Bicarbonate (Buffered Lidocaine 1%) 3 ml 1X ONCE IJ Last administered on 01/03/17 15:57; Start 01/03/17 at 15:30; Stop 01/03/17 at 15 :31; Status DC Lidocaine/Sodium Bicarbonate (Buffered Lidocaine 1%) 3 ml 1X ONCE IJ ; Start 01/03/17 at 15:45; Stop 01/03/17 at 15:46; Status DC Phytonadione (Vitamin K Ampule) 10 mg 1X ONCE SQ Last administered on 17:56; Start 01/03/17 at 16:30; Stop 01/03/17 at 16:35; Status DC Ondansetron HCl (Zofran) 4 mg PRN Q6HRS PRN IV NAUSEA/VOMITING; Start at 07:00; Stop 01/05/17 at 06:59; Status DC Fentanyl Citrate (Fentanyl 2ml Vial) 25 mcg PRN Q5MIN PRN IV MILD PAIN; Start 01/04/17 at 07:00; Stop 01/05/17 at 06:59; Status DC Fentanyl Citrate (Fentanyl 2ml Vial) 50 mcg PRN Q5MIN PRN IV MODERATE PAIN; Start 01/04/17 at 07:00; Stop 01/05/17 at 06:59; Status DC Ringer's Solution 1,000 ml @ 30 mls/hr Q24H IV Last administered on 09:24; Start 01/04/17 at 07:00; Stop 01/04/17 at 18:59; Status DC Lidocaine HCl (Xylocaine-Mpf 1% Vial) 2 ml PRN 1X PRN ID PRIOR TO IV START; Start 01/04/17 at 07:00; Stop 01/05/17 at 06:59; Status DC Prochlorperazine Edisylate (Compazine) 5 mg PACU PRN PRN IV NAUSEA, MRX1; Start 01/04/17 at 07:00; Stop 01/05/17 at 06:59; Status DC Morphine Sulfate 2 mg PRN Q2HR PRN IV PAIN; Start 01/03/17 at 23:30 Morphine Sulfate 4 mg PRN Q2HR PRN IV PAIN Last administered on 01/06/17 01: 29; Start 01/03/17 at 23:56 Acetaminophen (Tylenol) 500 mg PRN Q6HRS PRN PO MILD PAIN; Start 01/04/17 at 08:00 Amlodipine Besylate (Norvasc) 10 mg HS PO Last administered on 01/04/17 21:17 ; Start 01/04/17 at 21:00 Carvedilol (Coreg) 6.25 mg BIDWMEALS PO ; Start 01/04/17 at 09:00; Status Cancel Famotidine (Pepcid) 20 mg HS PO Last administered on 01/05/17 20:50; Start 01/04/17 at 21:00 Albuterol/ Ipratropium (Duoneb) 3 ml PRN Q4HRS PRN NEB SHORTNESS OF BREATH; Start 01/04/17 at 08:00 Levothyroxine Sodium (Synthroid) 224 mcg HS PO Last administered on 01/05/17 20:50; Start 01/04/17 at 21:00 Metoprolol Tartrate (Lopressor) 25 mg BID PO ; Start 01/04/17 at 09:00; Status Cancel Simvastatin (Zocor) 20 mg HS PO ; Start 01/04/17 at 21:00; Status UNV Tamsulosin HCl (Flomax) 0.4 mg DAILY PO ; Start 01/04/17 at 09:00; Status UNV Tramadol HCl (Ultram) 50 mg PRN Q6HRS PRN PO PAIN; Start 01/04/17 at 08:00 Trazodone HCl (Desyrel) 50 mg QHS PO Last administered on 01/05/17 20:50; Start 01/04/17 at 21:00 Vitamin D (Vitamin D3) 1,000 unit DAILY PO Last administered on 01/05/17 09: 35; Start 01/04/17 at 09:00 Docusate Sodium (Colace) 100 mg PRN DAILY PRN PO CONSTIPATION; Start 01/04/17 at 09:00 Losartan Potassium (Cozaar) 100 mg DAILY PO Last administered on 01/05/17 09: 34; Start 01/04/17 at 09:00 Non-Formulary Medication 1 tab QHS PO ; Start 01/04/17 at 21:00; Status UNV Non-Formulary Medication 1 tab DAILY PO ; Start 01/04/17 at 09:00; Status UNV Potassium Chloride (Klor-Con) 20 meq DAILYWBKFT PO Last administered on 09:34; Start 01/04/17 at 08:30 Carvedilol (Coreg) 6.25 mg BIDWMEALS PO Last administered on 01/04/17 21:18; Start 01/04/17 at 09:00 Cefazolin Sodium 1 gm/Sodium Chloride 500 ml @ 500 mls/hr 1X PERIOP ONCE IRR Last administered on 01/04/17 16:38; Start 01/04/17 at 14:30; Stop 01/04/17 at 15:29; Status DC Heparin Sodium (Porcine) 5000 unit/Sodium Chloride 505 ml @ 505 mls/hr 1X PERIOP ONCE IRR Last administered on 01/04/17 16:38; Start 01/04/17 at 14: 30; Stop 01/04/17 at 15:29; Status DC Furosemide (Lasix) 40 mg 1X ONCE IVP ; Start 01/04/17 at 16:00; Stop at 16:01; Status DC Albumin Human 100 ml @ 100 mls/hr 1X ONCE IV Last administered on 01/04/17 18:52; Start 01/04/17 at 16:00; Stop 01/04/17 at 16:59; Status DC Albumin Human 100 ml @ 100 mls/hr 1X ONCE IV Last administered on 01/04/17 19:16; Start 01/04/17 at 16:00; Stop 01/04/17 at 16:59; Status DC Furosemide (Lasix) 20 mg 1X ONCE IVP Last administered on 01/04/17 21:16; Start 01/04/17 at 18:45; Stop 01/04/17 at 18:46; Status DC Sodium Chloride (Normal Saline Flush) 10 ml QSHIFT PRN IV AFTER MEDS AND BLOOD DRAWS; Start 01/05/17 at 05:45 Warfarin Sodium (Coumadin Per Pharmacy) 1 each PRN DAILY PRN MC SEE COMMENTS Last administered on 01/05/17 16:46; Start 01/05/17 at 16:45 Warfarin Sodium (Coumadin) 5 mg 1X WARF ONCE PO Last administered on 17:02; Start 01/05/17 at 17:00; Stop 01/05/17 at 17:01; Status DC Potassium Chloride 50 ml @ 50 mls/hr Q1H IV ; Start 01/06/17 at 07:30; Stop at 09:29 Active Scripts Active Tramadol Hcl 50 Mg Tablet 50 Mg PO PRN Q6HRS PRN Reported Novolog Flexpen (Insulin Aspart) 100 Unit/1 Ml Insuln.pen 1 Unit SQ PRN TID PRN Duoneb 0.5-3(2.5) Mg/3 Ml (Albuterol/Ipratropium) 3 Ml Ampul.neb 3 Ml NEB PRN Q4HRS PRN Famotidine 20 Mg Tablet 20 Mg PO HS Trazodone Hcl 50 Mg Tablet 1 Tab PO QHS Tamsulosin Hcl 0.4 Mg Cap.er.24h 0.4 Mg PO DAILY Melatonin 3 Mg Tablet 1 Tab PO QHS Losartan Potassium 100 Mg Tablet 100 Mg PO DAILY Colace Clear (Docusate Sodium) 50 Mg Capsule 50 Mg PO PRN DAILY PRN Aspirin 325 Mg Tablet 1 Tab PO DAILY Acetaminophen 500 Mg Tablet 500 Mg PO PRN Q6HRS PRN Vitamin D (Cholecalciferol (Vitamin D3)) 1,000 Unit Capsule 1 Cap PO DAILY Levothyroxine Sodium 112 Mcg Tablet 2 Tab PO HS Xarelto (Rivaroxaban) 10 Mg Tablet 1 Tab PO DAILY Prilosec Otc (Omeprazole Magnesium) 20 Mg Tablet.dr 1 Tab PO DAILY Metformin Hcl Er (Metformin Hcl) 500 Mg Tab.er.24h 500 Mg PO BIDWMEALS Amlodipine Besylate 10 Mg Tablet 10 Mg PO HS Simvastatin 20 Mg Tablet 20 Mg PO HS Glimepiride 2 Mg Tablet 2 Mg PO DAILY Carvedilol 3.125 Mg Tablet 6.25 Mg PO BID Potassium Chloride 10 Meq Capsule.er 20 Meq PO DAILY Vitals/I & O Vital Sign - Last 24 Hours 01/05/17 01/05/17 01/05/17 01/05/17 09:34 09:36 11:10 11:43 Pulse 65 56 Resp 20 18 18 B/P (MAP) 118/85 128/53 (78) Pulse Ox 95 98 98 O2 Delivery Nasal Cannula Nasal Cannula Nasal Cannula O2 Flow Rate 2.0 2.0 2.0 01/05/17 01/05/17 01/05/17 01/05/17 13:40 15:30 16:15 16:15 Temp 97.3 97.3 Pulse 54 54 Resp 18 20 18 B/P (MAP) 108/51 (70) Pulse Ox 99 99 O2 Delivery Nasal Cannula Nasal Cannula O2 Flow Rate 2.0 2.0 01/05/17 01/05/17 01/05/17 01/05/17 17:11 18:36 19:00 19:53 Temp 97.8 97.8 Pulse 50 Resp 18 18 24 B/P (MAP) 98/62 (74) Pulse Ox 99 99 O2 Delivery Nasal Cannula Nasal Cannula Nasal Cannula O2 Flow Rate 2.0 2.0 01/05/17 01/05/17 01/05/17 01/05/17 20:38 20:50 20:51 22:28 Pulse 50 B/P (MAP) 98/62 Pulse Ox 99 99 99 O2 Delivery Nasal Cannula Nasal Cannula Nasal Cannula O2 Flow Rate 2.0 2.0 2.0 01/05/17 01/05/17 01/05/17 01/06/17 22:28 23:00 23:28 00:51 Temp 98.0 98.0 Pulse 46 Resp 20 B/P (MAP) 113/52 (72) Pulse Ox 99 99 99 99 O2 Delivery Nasal Cannula Nasal Cannula Nasal Cannula Nasal Cannula O2 Flow Rate 2.0 2.0 2.0 2.0 01/06/17 01/06/17 01/06/17 01/06/17 01:29 01:59 03:00 07:00 Temp 98.8 97.4 98.8 97.4 Pulse 78 56 Resp 20 16 B/P (MAP) 112/58 (76) 126/52 (76) Pulse Ox 99 99 94 95 O2 Delivery Nasal Cannula Nasal Cannula Nasal Cannula Nasal Cannula O2 Flow Rate 2.0 2.0 2.0 2.0 Intake and Output 01/05/17 01/05/17 01/06/17 14:59 22:59 06:59 Intake Total 300 ml 520 ml 2190 ml Output Total 50 ml 485 ml 310 ml Balance 250 ml 35 ml 1880 ml Nutrition Consultation Dietary Evaluation: Recommendations by RD: Increase Calorie Intake, Protein supplementation Comments: added ensure supplements to diet order with hx poor po intake since stroke pt to have surgery soon, may need ppn , will monitor Expected Outcomes/Goals: to meet > 75% est nutr needs Malnutrition Findings: Malnutrition related to morbid: Weight 200% of ideal wt Malnutrition related to morbid: Yes Weight Status: Morbidly Obese MANDI DOW III DO Jan 06, 2017 08:29
--- NOTE | 2017-01-06 08:44 | PDOC ---
Infectious Disease Note Subjective Subjective feeling better, does have leg pain ROS ROS GEN: Denies fevers, chills, sweats HEENT: Denies blurred vision, sore throat CV: Denies chest pain RESP: Denies shortness of air, cough GI: Denies n/v/d NEURO: Denies confusion, dizziness MSK: Denies weakness, joint pain/swelling Vital Sign Vital Signs Vital Signs Date Time Temp Pulse Resp B/P (MAP) Pulse Ox O2 Delivery O2 Flow Rate FiO2 01/06/17 07:00 97.4 56 16 126/52 (76) 95 Nasal Cannula 2.0 97.4 Physical Exam PHYSICAL EXAM GENERAL: NAD, Alert HEENT: PERRL, OC/OP NECK: Supple, no JVD, no LN LUNGS: Clear HEART: S1S2, no gallop, no murmur ABD: Soft, NT, no organomegaly, no rebound EXT: No edema, no cyanosis [employer]PER[employer] HELPER: Alert, oriented x 3, no focal neurologic deficit SKIN: No rash IV: ok Labs Lab Laboratory Tests Test 01/05/17 11:46 01/05/17 16:20 01/05/17 21:15 01/06/17 05:45 Glucose (Fingerstick) 217 mg/dL (70-99) 204 mg/dL (70-99) 111 mg/dL (70-99) White Blood Count 6.5 x10^3/uL (4.0-11.0) Red Blood Count 3.27 x10^6/uL (3.50-5.40) Hemoglobin 9.5 g/dL (12.0-15.5) Hematocrit 29.1 % (36.0-47.0) Mean Corpuscular Volume 89 fL (79-100) Mean Corpuscular Hemoglobin 29 pg (25-35) Mean Corpuscular Hemoglobin Concent 33 g/dL (31-37) Red Cell Distribution Width 16.7 % (11.5-14.5) Platelet Count 209 x10^3/uL (140-400) Neutrophils (%) (Auto) 56 % (31-73) Lymphocytes (%) (Auto) 37 % (24-48) Monocytes (%) (Auto) 6 % (0-9) Eosinophils (%) (Auto) 1 % (0-3) Basophils (%) (Auto) 1 % (0-3) Neutrophils # (Auto) 3.6 x10^3uL (1.8-7.7) Lymphocytes # (Auto) 2.4 x10^3/uL (1.0-4.8) Monocytes # (Auto) 0.4 x10^3/uL (0.0-1.1) Eosinophils # (Auto) 0.0 x10^3/uL (0.0-0.7) Basophils # (Auto) 0.0 x10^3/uL (0.0-0.2) Sodium Level 142 mmol/L (136-145) Potassium Level 3.1 mmol/L (3.5-5.1) Chloride Level 108 mmol/L (98-107) Carbon Dioxide Level 28 mmol/L (21-32) Anion Gap 6 (6-14) Blood Urea Nitrogen 16 mg/dL (7-20) Creatinine 0.7 mg/dL (0.6-1.0) Estimated GFR (Cockcroft-Gault) 78.8 Glucose Level 86 mg/dL (70-99) Calcium Level 7.0 mg/dL (8.5-10.1) Test 01/06/17 07:20 01/06/17 08:11 Prothrombin Time 19.1 SEC (11.7-14.0) Prothromb Time International Ratio 1.7 (0.8-1.1) Glucose (Fingerstick) 83 mg/dL (70-99) Micro ANAEROBIC-AEROBIC CULTURE PENDING ANAEROBIC RES 1 PENDING AEROBIC CULT Preliminary Preliminary report AEROBIC RES 1 Preliminary Comment Pseudomonas aeruginosa Moderate growth ANTIMICROBIAL SUSCEPTIBILITY Preliminary Comment S = Susceptible; I = Intermediate; R = Resistant P = Positive; N = Negative MICS are expressed in micrograms per mL Antibiotic RSLT#1 RSLT#2 RSLT#3 RSLT#4 Amikacin S Cefepime R Ceftazidime I Ciprofloxacin S Gentamicin S Imipenem R Levofloxacin I Meropenem R Piperacillin S Ticarcillin R Tobramycin S Performed at: [address] [id number] Professor Of Journalism: Yumiko Marte MD, Phone: [phone] Objective Assessment Extensive left leg infection s/p AKA Left leg ischemia/necrotic muscle and skin Obesity DM HTN Left fibular fracture CVA Plan Plan of Care zyvox and zosyn d/w son soon to d/c antibiotics ZAID LARSEN MD Jan 06, 2017 08:44
[2017-01-06] MEDS: POTASSIUM CHLORIDE 20 MEQ TABLET.ER. PO SCH (08:45)
[2017-01-06] MEDS: POTASSIUM CHLORIDE 20MEQ 50 ML IV SCH ×2 (08:48→12:28)
[2017-01-06] MEDS: oxyCODONE ER 10 MG TAB.ER.12H PO SCH ×2 (08:57→20:48)
[2017-01-06] MEDS: LOSARTAN POTASSIUM 50 MG TABLET. PO SCH (08:57)
[2017-01-06] MEDS: DOCUSATE SODIUM 100 MG CAPSULE. PO SCH ×2 (08:58→20:47)
[2017-01-06] MEDS: CHOLECALCIFEROL (VITAMIN D3) 1,000 UNIT TABLET PO SCH (08:58)
[2017-01-06] MEDS: CARVEDILOL 6.25 MG TABLET. PO SCH (08:58)
[2017-01-06] MEDS: TAMSULOSIN 0.4 MG CAP.ER.24H. PO SCH (08:58)
[2017-01-06] MEDS: LACTOBACILLUS RHAMNOSUS GG 1 CAPSULE. PO SCH ×2 (09:01→20:47)
[2017-01-06 10:41] VITALS: BP 105/51
[2017-01-06] MEDS: oxyCODONE IR 5 MG TABLET PO PRN (13:45)
[2017-01-06 15:00] VITALS: BP 127/67
[2017-01-06] MEDS ORDERED: WARFARIN 4 MG TABLET. PO ONE (16:00)
--- NOTE | 2017-01-06 17:37 | PDOC ---
PULMONARY PROGRESS NOTES Vitals Vital Signs Date Time Temp Pulse Resp B/P (MAP) Pulse Ox O2 Delivery O2 Flow Rate FiO2 01/06/17 16:27 96 Nasal Cannula 2.0 01/06/17 10:41 97.4 58 18 105/51 (69) 97.4 Lungs: Clear, Other (No wheezes or crackles ) Labs Laboratory Tests Test 01/04/17 18:21 01/04/17 20:51 01/05/17 04:45 01/05/17 08:03 Glucose (Fingerstick) 105 mg/dL (70-99) 127 mg/dL (70-99) 158 mg/dL (70-99) White Blood Count 7.3 x10^3/uL (4.0-11.0) Red Blood Count 3.16 x10^6/uL (3.50-5.40) Hemoglobin 9.1 g/dL (12.0-15.5) Hematocrit 28.3 % (36.0-47.0) Mean Corpuscular Volume 90 fL (79-100) Mean Corpuscular Hemoglobin 29 pg (25-35) Mean Corpuscular Hemoglobin Concent 32 g/dL (31-37) Red Cell Distribution Width 17.2 % (11.5-14.5) Platelet Count 224 x10^3/uL (140-400) Neutrophils (%) (Auto) 60 % (31-73) Lymphocytes (%) (Auto) 37 % (24-48) Monocytes (%) (Auto) 3 % (0-9) Eosinophils (%) (Auto) 0 % (0-3) Basophils (%) (Auto) 0 % (0-3) Neutrophils # (Auto) 4.4 x10^3uL (1.8-7.7) Lymphocytes # (Auto) 2.7 x10^3/uL (1.0-4.8) Monocytes # (Auto) 0.2 x10^3/uL (0.0-1.1) Eosinophils # (Auto) 0.0 x10^3/uL (0.0-0.7) Basophils # (Auto) 0.0 x10^3/uL (0.0-0.2) Prothrombin Time 16.8 SEC (11.7-14.0) Prothromb Time International Ratio 1.5 (0.8-1.1) Sodium Level 143 mmol/L (136-145) Potassium Level 3.6 mmol/L (3.5-5.1) Chloride Level 107 mmol/L (98-107) Carbon Dioxide Level 25 mmol/L (21-32) Anion Gap 11 (6-14) Blood Urea Nitrogen 16 mg/dL (7-20) Creatinine 0.7 mg/dL (0.6-1.0) Estimated GFR (Cockcroft-Gault) 78.8 Glucose Level 175 mg/dL (70-99) Calcium Level 7.4 mg/dL (8.5-10.1) Test 01/05/17 11:46 01/05/17 16:20 01/05/17 21:15 01/06/17 05:45 Glucose (Fingerstick) 217 mg/dL (70-99) 204 mg/dL (70-99) 111 mg/dL (70-99) White Blood Count 6.5 x10^3/uL (4.0-11.0) Red Blood Count 3.27 x10^6/uL (3.50-5.40) Hemoglobin 9.5 g/dL (12.0-15.5) Hematocrit 29.1 % (36.0-47.0) Mean Corpuscular Volume 89 fL (79-100) Mean Corpuscular Hemoglobin 29 pg (25-35) Mean Corpuscular Hemoglobin Concent 33 g/dL (31-37) Red Cell Distribution Width 16.7 % (11.5-14.5) Platelet Count 209 x10^3/uL (140-400) Neutrophils (%) (Auto) 56 % (31-73) Lymphocytes (%) (Auto) 37 % (24-48) Monocytes (%) (Auto) 6 % (0-9) Eosinophils (%) (Auto) 1 % (0-3) Basophils (%) (Auto) 1 % (0-3) Neutrophils # (Auto) 3.6 x10^3uL (1.8-7.7) Lymphocytes # (Auto) 2.4 x10^3/uL (1.0-4.8) Monocytes # (Auto) 0.4 x10^3/uL (0.0-1.1) Eosinophils # (Auto) 0.0 x10^3/uL (0.0-0.7) Basophils # (Auto) 0.0 x10^3/uL (0.0-0.2) Sodium Level 142 mmol/L (136-145) Potassium Level 3.1 mmol/L (3.5-5.1) Chloride Level 108 mmol/L (98-107) Carbon Dioxide Level 28 mmol/L (21-32) Anion Gap 6 (6-14) Blood Urea Nitrogen 16 mg/dL (7-20) Creatinine 0.7 mg/dL (0.6-1.0) Estimated GFR (Cockcroft-Gault) 78.8 Glucose Level 86 mg/dL (70-99) Calcium Level 7.0 mg/dL (8.5-10.1) Test 01/06/17 07:20 01/06/17 08:11 01/06/17 11:01 Prothrombin Time 19.1 SEC (11.7-14.0) Prothromb Time International Ratio 1.7 (0.8-1.1) Glucose (Fingerstick) 83 mg/dL (70-99) 106 mg/dL (70-99) Laboratory Tests Test 01/05/17 21:15 01/06/17 05:45 01/06/17 07:20 01/06/17 08:11 Glucose (Fingerstick) 111 mg/dL (70-99) 83 mg/dL (70-99) White Blood Count 6.5 x10^3/uL (4.0-11.0) Red Blood Count 3.27 x10^6/uL (3.50-5.40) Hemoglobin 9.5 g/dL (12.0-15.5) Hematocrit 29.1 % (36.0-47.0) Mean Corpuscular Volume 89 fL (79-100) Mean Corpuscular Hemoglobin 29 pg (25-35) Mean Corpuscular Hemoglobin Concent 33 g/dL (31-37) Red Cell Distribution Width 16.7 % (11.5-14.5) Platelet Count 209 x10^3/uL (140-400) Neutrophils (%) (Auto) 56 % (31-73) Lymphocytes (%) (Auto) 37 % (24-48) Monocytes (%) (Auto) 6 % (0-9) Eosinophils (%) (Auto) 1 % (0-3) Basophils (%) (Auto) 1 % (0-3) Neutrophils # (Auto) 3.6 x10^3uL (1.8-7.7) Lymphocytes # (Auto) 2.4 x10^3/uL (1.0-4.8) Monocytes # (Auto) 0.4 x10^3/uL (0.0-1.1) Eosinophils # (Auto) 0.0 x10^3/uL (0.0-0.7) Basophils # (Auto) 0.0 x10^3/uL (0.0-0.2) Sodium Level 142 mmol/L (136-145) Potassium Level 3.1 mmol/L (3.5-5.1) Chloride Level 108 mmol/L (98-107) Carbon Dioxide Level 28 mmol/L (21-32) Anion Gap 6 (6-14) Blood Urea Nitrogen 16 mg/dL (7-20) Creatinine 0.7 mg/dL (0.6-1.0) Estimated GFR (Cockcroft-Gault) 78.8 Glucose Level 86 mg/dL (70-99) Calcium Level 7.0 mg/dL (8.5-10.1) Prothrombin Time 19.1 SEC (11.7-14.0) Prothromb Time International Ratio 1.7 (0.8-1.1) Test 01/06/17 11:01 Glucose (Fingerstick) 106 mg/dL (70-99) Medications Active Scripts Medications Dose Route/Sig Max Daily Dose Days Date Category Novolog Flexpen (Insulin Aspart) 100 Unit/1 Ml Insuln.pen 1 Unit SQ PRN TID PRN 12/13/16 Reported Duoneb 0.5-3(2.5) Mg/3 Ml (Albuterol/Ipratropium) 3 Ml Ampul.neb 3 Ml NEB PRN Q4HRS PRN 12/13/16 Reported Famotidine 20 Mg Tablet 20 Mg PO HS 12/13/16 Reported Trazodone Hcl 50 Mg Tablet 1 Tab PO QHS 12/12/16 Reported Tamsulosin Hcl 0.4 Mg Cap.er.24h 0.4 Mg PO DAILY 12/12/16 Reported Melatonin 3 Mg Tablet 1 Tab PO QHS 12/12/16 Reported Losartan Potassium 100 Mg Tablet 100 Mg PO DAILY 12/12/16 Reported Colace Clear (Docusate Sodium) 50 Mg Capsule 50 Mg PO PRN DAILY PRN 12/12/16 Reported Aspirin 325 Mg Tablet 1 Tab PO DAILY 12/12/16 Reported Acetaminophen 500 Mg Tablet 500 Mg PO PRN Q6HRS PRN 12/12/16 Reported Tramadol Hcl 50 Mg Tablet 50 Mg PO PRN Q6HRS PRN 11/25/16 Rx Vitamin D (Cholecalciferol (Vitamin D3)) 1,000 Unit Capsule 1 Cap PO DAILY 11/21/16 Reported Levothyroxine Sodium 112 Mcg Tablet 2 Tab PO HS 11/21/16 Reported Xarelto (Rivaroxaban) 10 Mg Tablet 1 Tab PO DAILY 11/21/16 Reported Prilosec Otc (Omeprazole Magnesium) 20 Mg Tablet.dr 1 Tab PO DAILY 11/21/16 Reported Metformin Hcl Er (Metformin Hcl) 500 Mg Tab.er.24h 500 Mg PO BIDWMEALS 11/21/16 Reported Amlodipine Besylate 10 Mg Tablet 10 Mg PO HS 12/06/13 Reported Simvastatin 20 Mg Tablet 20 Mg PO HS 12/06/13 Reported Glimepiride 2 Mg Tablet 2 Mg PO DAILY 12/06/13 Reported Carvedilol 3.125 Mg Tablet 6.25 Mg PO BID 12/06/13 Reported Potassium Chloride 10 Meq Capsule.er 20 Meq PO DAILY 12/06/13 Reported Impression . PERSISTENT COUGH SUSPECT MILD ASPIRATION AND EDEMA SEE ORDERS CALEB PASCUAL MD Jan 06, 2017 17:37
[2017-01-06] MEDS ORDERED: FUROSEMIDE 40 MG/4 ML VIAL. IVP ONE (18:00)
[2017-01-06] MEDS ORDERED: POTASSIUM CHLORIDE 20 MEQ/15 ML ORAL LIQUID. PO ONE (18:00)
[2017-01-06] MEDS: IV NORMAL SALINE 1000ML BAG 1,000 ML IV SCH ×2 (18:54→23:32)
[2017-01-06 19:20] VITALS: BP 127/57
[2017-01-06] MEDS: LEVOTHYROXINE 112 MCG TABLET PO SCH (20:47)
[2017-01-06] MEDS: ATORVASTATIN CALCIUM 10 MG TABLET. PO SCH (20:47)
[2017-01-06] MEDS: amLODIPine BESYLATE 10 MG TABLET PO SCH (20:47)
[2017-01-06] MEDS: FAMOTIDINE 20 MG TABLET. PO SCH (20:48)
[2017-01-06] MEDS: traZODone 50 MG TABLET. PO SCH (21:00)
[2017-01-06 22:18] VITALS: BP 100/52
--- NOTE | 2017-01-06 23:21 | CONS ---
DATE OF CONSULTATION: 01/06/2017 ATTENDING PHYSICIAN: Dinh Luu DO REASON FOR CONSULTATION: The patient seen in pulmonary consultation at the request of Dr. Luu for persistent cough. HISTORY OF PRESENT ILLNESS: The patient is an 89-year-old that suffered a hemorrhagic CVA several months ago. Subsequently, she went to a nursing facility had discoloration of the leg, was found to have acute ischemic leg. She underwent revascularization, then developed compartment syndrome and had a necrotic anterior left leg necrotic muscle. The patient eventually underwent an amputation. She is currently being treated for extensive infection of the left leg. She had a cough, mostly nonproductive. She has had some difficulty with dysphagia ever since a stroke. There is no history of smoking. No history of asthma as a young adult. She does wheeze at times. I reviewed her medication list. There is nothing on the list that would be contributing to her cough. PAST MEDICAL HISTORY: Otherwise remarkable for recent CVA, left leg compartment syndrome, status post above-knee amputation. She has had some thyroid problems, chronic AFib, hypertension, hyperlipidemia, diabetes. PAST SURGICAL HISTORY: As above. SOCIAL HISTORY: She has never smoked. ALLERGIES: Multiple allergies including HYDROCODONE, NAPROSYN, PROPOXYPHENE, AND TRIMETHOBENZAMIDE. REVIEW OF SYSTEMS: As indicated above, otherwise, a 10-point system was reviewed and negative. CONSTITUTIONAL: She denies fever or chills. EYES: No changes in visual acuity. HENT: No nasal congestion or sore throat. RESPIRATORY: As indicated above. CARDIOVASCULAR: No chest pain or pressure. GASTROINTESTINAL: No nausea, vomiting, diarrhea. GENITOURINARY: No dysuria or frequency. MUSCULOSKELETAL: No localized muscle aches or joint pain. SKIN: No new skin rashes. NEUROLOGIC: No new headaches, diplopia or blurred vision. PHYSICAL EXAMINATION: GENERAL: Obese individual in no respiratory distress. VITAL SIGNS: Very pleasant lady at 2 liters of oxygen supplementation. HEENT: Eyes, the sclerae were nonicteric. NECK: Jugular venous distention could not be assessed secondary to body habitus. CHEST: Full expansion. LUNGS: Anteriorly adequate airway flow. CARDIOVASCULAR: Regular rate and rhythm with S1, S2, no S3. ABDOMEN: Soft, nontender, obese. EXTREMITIES: No clubbing or cyanosis. Evidence of previous above-knee amputation on the left. NEUROLOGIC: The patient was awake, alert, following commands. A detailed neuro exam was not performed. LABORATORY DATA: Reviewed. White count was normal, hemoglobin and hematocrit were noted. Electrolytes were noted. BUN and creatinine noted. Chest x-ray was obtained. There was some increased lung markings compatible with edema and cardiomegaly. IMPRESSION: 1. Persistent cough, suspect combination of dysphagia with possible aspiration, also related to vascular congestion and postnasal drainage. 2. Chronic atrial fibrillation. 3. Peripheral vascular disease, status post left amputation. 4. Obesity. 5. Hypertension. PLAN: 1. The patient indicates that at times, she is having some difficulty with swallowing. We will consult Speech. 2. She also states that at times, she wheezes, p.r.n. nebulized treatments. 3. Recommend diuresis. 4. We will obtain BNP. 5. Repeat chest x-ray in several days. I do appreciate the privilege in sharing in the patient's care. CALEB PASCUAL MD DR: BATSHEVA/gill JOB#: [id number] / [id number]
[2017-01-07 03:00] VITALS: BP 140/68
[2017-01-07] MEDS: PIPERACILLIN/TAZO IV Push 3.375 GM VIAL. IVP SCH ×3 (05:29→18:26)
[2017-01-07 05:54] LABS: BASO % 1 % (0-3); EOS % 2 % (0-3); HEMATOCRIT 31.3 % (36.0-47.0); LYMPH # 2.6 x10^3/uL (1.0-4.8); LYMPH % 38 % (24-48); MEAN CORPUSCULAR HEMOGLOBIN 29 pg (25-35); MEAN CORPUSCULAR HGB CONC 32 g/dL (31-37); MEAN CORPUSCULAR VOLUME 90 fL (79-100); MONO % 5 % (0-9); NEUT % 54 % (31-73); PLATELET COUNT 200 x10^3/uL (140-400); RED BLOOD COUNT 3.47 x10^6/uL (3.50-5.40); RED CELL DISTRIBUTION WIDTH 16.8 % (11.5-14.5); WHITE BLOOD COUNT 6.7 x10^3/uL (4.0-11.0)
[2017-01-07 06:11] LABS: INR 1.5 (0.8-1.1); PROTHROMBIN TIME PATIENT 17.1 SEC (11.7-14.0)
[2017-01-07 06:31] LABS: CALCIUM 7.1 mg/dL (8.5-10.1); CREATININE 0.6 mg/dL (0.6-1.0); GFR 94.1
[2017-01-07 07:00] VITALS: BP 125/62
--- NOTE | 2017-01-07 07:23 | PDOC ---
Provider Note Provider Note POD # [address] op [place] amp Some pain with dressing change Incision clean, drain pulled, redressed Imp: Stable with nicely healing incision so far Plan QOD dressing changes with xeroform. 4x4s and NIMCO OK to transfer to rehab will F/U in office to remove richard in1 mo. GURWINDER MONET MD Jan 07, 2017 07:23
[2017-01-07] MEDS: MORPHINE SULFATE 4 MG/ML DISP.SYRIN. IV PRN ×2 (07:27→15:46)
--- NOTE | 2017-01-07 07:34 | RAD ---
Single view chest History:Cough, shortness of breath, weakness, left leg amputation An AP view of the chest is submitted. Comparison: 12/12/2016. Findings: There is again enlargement of the pericardial cardiac silhouette. There is now right internal jugular venous catheter with the tip in the superior vena cava. No pneumothorax is identified. Trace pleural effusions are possible. Central pulmonary vasculature appears very slightly more prominent. Impression: 1. Trace pleural effusions are possible. Central pulmonary vasculature appears slightly more prominent which could be due to central pulmonary edema.
[2017-01-07] MEDS: INSULIN ASPART 300 UNITS/3 ML INSULN.PEN SQ SCH ×3 (08:00→17:00)
[2017-01-07] MEDS: CHOLECALCIFEROL (VITAMIN D3) 1,000 UNIT TABLET PO SCH (09:00)
[2017-01-07] MEDS: IV NORMAL SALINE 1000ML BAG 1,000 ML IV SCH (09:23)
[2017-01-07] MEDS: LACTOBACILLUS RHAMNOSUS GG 1 CAPSULE. PO SCH ×2 (09:25→20:48)
[2017-01-07] MEDS: POTASSIUM CHLORIDE 20 MEQ TABLET.ER. PO SCH (09:25)
[2017-01-07] MEDS: TAMSULOSIN 0.4 MG CAP.ER.24H. PO SCH (09:26)
[2017-01-07] MEDS: oxyCODONE ER 10 MG TAB.ER.12H PO SCH ×2 (09:32→20:50)
[2017-01-07] MEDS: LOSARTAN POTASSIUM 50 MG TABLET. PO SCH (09:34)
[2017-01-07] MEDS: DOCUSATE SODIUM 100 MG CAPSULE. PO SCH ×2 (09:35→21:00)
[2017-01-07 11:00] VITALS: BP 118/58
--- NOTE | 2017-01-07 12:45 | PDOC ---
PROGRESS NOTES Chief Complaint Chief Complaint Left leg infection Ischemic leg Compartment syndrome Obesity Diabetes Hypertension Atrial fibrillation History of Present Illness History of Present Illness Pt. was seen at the bedside. She was laying down, dressed in hospital attire, in moderate distress from pain in her back from moving around. Vitals Vitals Vital Signs Date Time Temp Pulse Resp B/P (MAP) Pulse Ox O2 Delivery O2 Flow Rate FiO2 01/07/17 11:00 97.5 57 16 118/58 (78) 97 Nasal Cannula 2.0 97.5 Physical Exam Physical Exam Eyes: no conjunctival injection, sclera anicteric HENT: Tongue dry, no throat erythema Neuro: pole maker II-XII grossly intact b/l General: Alert, Cooperative, No acute distress Heart: Regular rate, Normal S1, Normal S2, No murmurs Lungs: Clear, Other (No wheezes or crackles ) Extremities: No cyanosis, Other (Generalized non-pitting edema, more prominent in her left arm) Skin: No rashes, No significant lesion Labs LABS Laboratory Tests Test 01/07/17 05:41 01/07/17 08:03 01/07/17 11:47 White Blood Count 6.7 x10^3/uL (4.0-11.0) Red Blood Count 3.47 x10^6/uL (3.50-5.40) Hemoglobin 10.0 g/dL (12.0-15.5) Hematocrit 31.3 % (36.0-47.0) Mean Corpuscular Volume 90 fL (79-100) Mean Corpuscular Hemoglobin 29 pg (25-35) Mean Corpuscular Hemoglobin Concent 32 g/dL (31-37) Red Cell Distribution Width 16.8 % (11.5-14.5) Platelet Count 200 x10^3/uL (140-400) Neutrophils (%) (Auto) 54 % (31-73) Lymphocytes (%) (Auto) 38 % (24-48) Monocytes (%) (Auto) 5 % (0-9) Eosinophils (%) (Auto) 2 % (0-3) Basophils (%) (Auto) 1 % (0-3) Neutrophils # (Auto) 3.6 x10^3uL (1.8-7.7) Lymphocytes # (Auto) 2.6 x10^3/uL (1.0-4.8) Monocytes # (Auto) 0.4 x10^3/uL (0.0-1.1) Eosinophils # (Auto) 0.1 x10^3/uL (0.0-0.7) Basophils # (Auto) 0.0 x10^3/uL (0.0-0.2) Prothrombin Time 17.1 SEC (11.7-14.0) Prothromb Time International Ratio 1.5 (0.8-1.1) Sodium Level 143 mmol/L (136-145) Potassium Level 4.0 mmol/L (3.5-5.1) Chloride Level 110 mmol/L (98-107) Carbon Dioxide Level 26 mmol/L (21-32) Anion Gap 7 (6-14) Blood Urea Nitrogen 14 mg/dL (7-20) Creatinine 0.6 mg/dL (0.6-1.0) Estimated GFR (Cockcroft-Gault) 94.1 Glucose Level 107 mg/dL (70-99) Calcium Level 7.1 mg/dL (8.5-10.1) VQ-Reg-T-Type Natriuretic Peptide 5670 pg/mL (0-449) Glucose (Fingerstick) 100 mg/dL (70-99) 118 mg/dL (70-99) Review of Systems Review of Systems Admits to dysphagia, and 5/10 left leg pain. Denies fever, chills, or odynophagia. Assessment and Plan Assessmemt and Plan ASSESSMENT: Left leg infection Ischemic leg Compartment syndrome Obesity Diabetes Hypertension Atrial fibrillation PLAN: Continue current medications PT/OT for possible lymphedema Appreciate subspecialist input Awaiting input from speech therapy for difficulty swallowing Discharge dispo. to [facility] on monday Problems: Comment Review of Relevant I have reviewed the following items madhav (where applicable) has been applied. Labs Laboratory Tests Test 01/05/17 16:20 01/05/17 21:15 01/06/17 05:45 01/06/17 07:20 Glucose (Fingerstick) 204 mg/dL (70-99) 111 mg/dL (70-99) White Blood Count 6.5 x10^3/uL (4.0-11.0) Red Blood Count 3.27 x10^6/uL (3.50-5.40) Hemoglobin 9.5 g/dL (12.0-15.5) Hematocrit 29.1 % (36.0-47.0) Mean Corpuscular Volume 89 fL (79-100) Mean Corpuscular Hemoglobin 29 pg (25-35) Mean Corpuscular Hemoglobin Concent 33 g/dL (31-37) Red Cell Distribution Width 16.7 % (11.5-14.5) Platelet Count 209 x10^3/uL (140-400) Neutrophils (%) (Auto) 56 % (31-73) Lymphocytes (%) (Auto) 37 % (24-48) Monocytes (%) (Auto) 6 % (0-9) Eosinophils (%) (Auto) 1 % (0-3) Basophils (%) (Auto) 1 % (0-3) Neutrophils # (Auto) 3.6 x10^3uL (1.8-7.7) Lymphocytes # (Auto) 2.4 x10^3/uL (1.0-4.8) Monocytes # (Auto) 0.4 x10^3/uL (0.0-1.1) Eosinophils # (Auto) 0.0 x10^3/uL (0.0-0.7) Basophils # (Auto) 0.0 x10^3/uL (0.0-0.2) Sodium Level 142 mmol/L (136-145) Potassium Level 3.1 mmol/L (3.5-5.1) Chloride Level 108 mmol/L (98-107) Carbon Dioxide Level 28 mmol/L (21-32) Anion Gap 6 (6-14) Blood Urea Nitrogen 16 mg/dL (7-20) Creatinine 0.7 mg/dL (0.6-1.0) Estimated GFR (Cockcroft-Gault) 78.8 Glucose Level 86 mg/dL (70-99) Calcium Level 7.0 mg/dL (8.5-10.1) Prothrombin Time 19.1 SEC (11.7-14.0) Prothromb Time International Ratio 1.7 (0.8-1.1) Test 01/06/17 08:11 01/06/17 11:01 01/07/17 05:41 01/07/17 08:03 Glucose (Fingerstick) 83 mg/dL (70-99) 106 mg/dL (70-99) 100 mg/dL (70-99) White Blood Count 6.7 x10^3/uL (4.0-11.0) Red Blood Count 3.47 x10^6/uL (3.50-5.40) Hemoglobin 10.0 g/dL (12.0-15.5) Hematocrit 31.3 % (36.0-47.0) Mean Corpuscular Volume 90 fL (79-100) Mean Corpuscular Hemoglobin 29 pg (25-35) Mean Corpuscular Hemoglobin Concent 32 g/dL (31-37) Red Cell Distribution Width 16.8 % (11.5-14.5) Platelet Count 200 x10^3/uL (140-400) Neutrophils (%) (Auto) 54 % (31-73) Lymphocytes (%) (Auto) 38 % (24-48) Monocytes (%) (Auto) 5 % (0-9) Eosinophils (%) (Auto) 2 % (0-3) Basophils (%) (Auto) 1 % (0-3) Neutrophils # (Auto) 3.6 x10^3uL (1.8-7.7) Lymphocytes # (Auto) 2.6 x10^3/uL (1.0-4.8) Monocytes # (Auto) 0.4 x10^3/uL (0.0-1.1) Eosinophils # (Auto) 0.1 x10^3/uL (0.0-0.7) Basophils # (Auto) 0.0 x10^3/uL (0.0-0.2) Prothrombin Time 17.1 SEC (11.7-14.0) Prothromb Time International Ratio 1.5 (0.8-1.1) Sodium Level 143 mmol/L (136-145) Potassium Level 4.0 mmol/L (3.5-5.1) Chloride Level 110 mmol/L (98-107) Carbon Dioxide Level 26 mmol/L (21-32) Anion Gap 7 (6-14) Blood Urea Nitrogen 14 mg/dL (7-20) Creatinine 0.6 mg/dL (0.6-1.0) Estimated GFR (Cockcroft-Gault) 94.1 Glucose Level 107 mg/dL (70-99) Calcium Level 7.1 mg/dL (8.5-10.1) PJ-Djt-D-Type Natriuretic Peptide 5670 pg/mL (0-449) Test 01/07/17 11:47 Glucose (Fingerstick) 118 mg/dL (70-99) Laboratory Tests Test 01/07/17 05:41 01/07/17 08:03 01/07/17 11:47 White Blood Count 6.7 x10^3/uL (4.0-11.0) Red Blood Count 3.47 x10^6/uL (3.50-5.40) Hemoglobin 10.0 g/dL (12.0-15.5) Hematocrit 31.3 % (36.0-47.0) Mean Corpuscular Volume 90 fL (79-100) Mean Corpuscular Hemoglobin 29 pg (25-35) Mean Corpuscular Hemoglobin Concent 32 g/dL (31-37) Red Cell Distribution Width 16.8 % (11.5-14.5) Platelet Count 200 x10^3/uL (140-400) Neutrophils (%) (Auto) 54 % (31-73) Lymphocytes (%) (Auto) 38 % (24-48) Monocytes (%) (Auto) 5 % (0-9) Eosinophils (%) (Auto) 2 % (0-3) Basophils (%) (Auto) 1 % (0-3) Neutrophils # (Auto) 3.6 x10^3uL (1.8-7.7) Lymphocytes # (Auto) 2.6 x10^3/uL (1.0-4.8) Monocytes # (Auto) 0.4 x10^3/uL (0.0-1.1) Eosinophils # (Auto) 0.1 x10^3/uL (0.0-0.7) Basophils # (Auto) 0.0 x10^3/uL (0.0-0.2) Prothrombin Time 17.1 SEC (11.7-14.0) Prothromb Time International Ratio 1.5 (0.8-1.1) Sodium Level 143 mmol/L (136-145) Potassium Level 4.0 mmol/L (3.5-5.1) Chloride Level 110 mmol/L (98-107) Carbon Dioxide Level 26 mmol/L (21-32) Anion Gap 7 (6-14) Blood Urea Nitrogen 14 mg/dL (7-20) Creatinine 0.6 mg/dL (0.6-1.0) Estimated GFR (Cockcroft-Gault) 94.1 Glucose Level 107 mg/dL (70-99) Calcium Level 7.1 mg/dL (8.5-10.1) SY-Vck-X-Type Natriuretic Peptide 5670 pg/mL (0-449) Glucose (Fingerstick) 100 mg/dL (70-99) 118 mg/dL (70-99) Microbiology 01/03/17 Gram Stain - Final, Complete Medications Current Medications Oxycodone HCl (Roxicodone) 5 mg PRN Q4HRS PRN PO PAIN Last administered on 13:45; Start 01/02/17 at 18:15 Oxycodone HCl (OxyCONTIN) 10 mg Q12HR PO Last administered on 01/07/17 09:32 ; Start 01/02/17 at 21:00 Amlodipine Besylate (Norvasc) 5 mg HS PO Last administered on 01/02/17 22:28 ; Start 01/02/17 at 21:00; Stop 01/04/17 at 08:03; Status DC Tamsulosin HCl (Flomax) 0.4 mg DAILY PO Last administered on 01/07/17 09:26; Start 01/03/17 at 09:00 Polyethylene Glycol (miraLAX PACKET) 17 gm PRN DAILY PRN PO CONSTIPATION; Start 01/02/17 at 18:30 Ondansetron HCl (Zofran) 4 mg PRN Q6HRS PRN IV NAUSEA/VOMITING; Start at 18:30 Lorazepam (Ativan) 2 mg PRN Q12HR PRN IV ANXIETY / AGITATION Last administered on 01/06/17 22:42; Start 01/02/17 at 18:30 Metoprolol Tartrate (Lopressor) 25 mg BID PO Last administered on 01/02/17 22 :29; Start 01/02/17 at 21:00; Stop 01/04/17 at 08:03; Status DC Silver Nitrate/ Potassium Nitrate 1 each 1X ONCE TP ; Start 01/02/17 at 18:45 ; Stop 01/02/17 at 18:46; Status DC Famotidine (Pepcid) 20 mg DAILY PO ; Start 01/03/17 at 09:00; Stop 01/04/17 at 08:05; Status DC Trazodone HCl (Desyrel) 50 mg QHS PO Last administered on 01/02/17 22:28; Start 01/02/17 at 21:00; Stop 01/04/17 at 08:04; Status DC Levothyroxine Sodium (Synthroid) 112 mcg DAILY07 PO ; Start 01/03/17 at 07:00; Stop 01/04/17 at 08:05; Status DC Lactobacillus Rhamnosus (Culturelle) 1 cap BID PO Last administered on 09:25; Start 01/02/17 at 21:00 Sodium Chloride 1,000 ml @ 75 mls/hr [id number] IV Last administered on 09:23; Start 01/02/17 at 19:00 Sodium Chloride (Normal Saline Flush 3ml) 10 ml PRN Q12HRS PRN IV AFTER MEDS AND BLOOD DRAWS; Start 01/02/17 at 18:30; Stop 01/05/17 at 05:38; Status DC Insulin Aspart (NovoLOG) 0-9 UNITS TIDWMEALS SQ Last administered on 17:10; Start 01/03/17 at 19:00 Dextrose (Dextrose 50%-Water Syringe) 12.5 gm PRN Q15MIN PRN IV SEE COMMENTS; Start 01/02/17 at 18:45 Docusate Sodium (Colace) 100 mg BID PO Last administered on 01/07/17 09:35; Start 01/02/17 at 21:00 Bisacodyl (Dulcolax Supp) 10 mg PRN DAILY PRN [place] CONSTIPATION; Start 01/02/17 at 18:45 Atorvastatin Calcium (Lipitor) 10 mg QHS PO Last administered on 01/06/17 20: 47; Start 01/02/17 at 21:00 Aspirin (Lucas Aspirin) 325 mg DAILYWBKFT PO ; Start 01/03/17 at 08:00; Stop 01/03/17 at 16:35; Status DC Acetaminophen (Tylenol) 500 mg PRN Q6HRS PRN PO MILD PAIN / TEMP; Start at 18:45; Stop 01/04/17 at 12:28; Status DC Morphine Sulfate 2 mg PRN Q2HR PRN IV PAIN Last administered on 01/03/17 22: 41; Start 01/02/17 at 21:15; Stop 01/03/17 at 23:26; Status DC Morphine Sulfate 4 mg PRN Q2HR PRN IV PAIN Last administered on 01/03/17 20: 22; Start 01/02/17 at 21:15; Stop 01/03/17 at 23:56; Status DC Piperacillin Sod/ Tazobactam Sod 3.375 gm/Dextrose 50 ml @ 100 mls/hr Q6HRS IV ; Start 01/03/17 at 12:00; Status UNV Linezolid 300 ml @ 300 mls/hr Q12HR IV Last administered on 01/07/17 09:29; Start 01/03/17 at 11:00 Phytonadione 10 mg/Dextrose 51 ml @ 102 mls/hr 1X ONCE IV ; Start 01/03/17 at 11:00; Stop 01/03/17 at 11:00; Status DC Piperacillin Sod/ Tazobactam Sod (Zosyn) 3.375 gm Q6HRS IVP Last administered on 01/07/17 05:29; Start 01/03/17 at 12:00 Furosemide (Lasix) 40 mg 1X ONCE IVP Last administered on 01/03/17 11:44; Start 01/03/17 at 11:45; Stop 01/03/17 at 11:46; Status DC Lidocaine/Sodium Bicarbonate (Buffered Lidocaine 1%) 3 ml 1X ONCE IJ Last administered on 01/03/17 15:57; Start 01/03/17 at 15:30; Stop 01/03/17 at 15 :31; Status DC Lidocaine/Sodium Bicarbonate (Buffered Lidocaine 1%) 3 ml 1X ONCE IJ ; Start 01/03/17 at 15:45; Stop 01/03/17 at 15:46; Status DC Phytonadione (Vitamin K Ampule) 10 mg 1X ONCE SQ Last administered on 17:56; Start 01/03/17 at 16:30; Stop 01/03/17 at 16:35; Status DC Ondansetron HCl (Zofran) 4 mg PRN Q6HRS PRN IV NAUSEA/VOMITING; Start at 07:00; Stop 01/05/17 at 06:59; Status DC Fentanyl Citrate (Fentanyl 2ml Vial) 25 mcg PRN Q5MIN PRN IV MILD PAIN; Start 01/04/17 at 07:00; Stop 01/05/17 at 06:59; Status DC Fentanyl Citrate (Fentanyl 2ml Vial) 50 mcg PRN Q5MIN PRN IV MODERATE PAIN; Start 01/04/17 at 07:00; Stop 01/05/17 at 06:59; Status DC Ringer's Solution 1,000 ml @ 30 mls/hr Q24H IV Last administered on 09:24; Start 01/04/17 at 07:00; Stop 01/04/17 at 18:59; Status DC Lidocaine HCl (Xylocaine-Mpf 1% Vial) 2 ml PRN 1X PRN ID PRIOR TO IV START; Start 01/04/17 at 07:00; Stop 01/05/17 at 06:59; Status DC Prochlorperazine Edisylate (Compazine) 5 mg PACU PRN PRN IV NAUSEA, MRX1; Start 01/04/17 at 07:00; Stop 01/05/17 at 06:59; Status DC Morphine Sulfate 2 mg PRN Q2HR PRN IV PAIN; Start 01/03/17 at 23:30 Morphine Sulfate 4 mg PRN Q2HR PRN IV PAIN Last administered on 01/07/17 07: 27; Start 01/03/17 at 23:56 Acetaminophen (Tylenol) 500 mg PRN Q6HRS PRN PO MILD PAIN; Start 01/04/17 at 08:00 Amlodipine Besylate (Norvasc) 10 mg HS PO Last administered on 01/06/17 20:47 ; Start 01/04/17 at 21:00 Carvedilol (Coreg) 6.25 mg BIDWMEALS PO ; Start 01/04/17 at 09:00; Status Cancel Famotidine (Pepcid) 20 mg HS PO Last administered on 01/06/17 20:48; Start 01/04/17 at 21:00 Albuterol/ Ipratropium (Duoneb) 3 ml PRN Q4HRS PRN NEB SHORTNESS OF BREATH; Start 01/04/17 at 08:00 Levothyroxine Sodium (Synthroid) 224 mcg HS PO Last administered on 01/06/17 20:47; Start 01/04/17 at 21:00 Metoprolol Tartrate (Lopressor) 25 mg BID PO ; Start 01/04/17 at 09:00; Status Cancel Simvastatin (Zocor) 20 mg HS PO ; Start 01/04/17 at 21:00; Status UNV Tamsulosin HCl (Flomax) 0.4 mg DAILY PO ; Start 01/04/17 at 09:00; Status UNV Tramadol HCl (Ultram) 50 mg PRN Q6HRS PRN PO PAIN; Start 01/04/17 at 08:00 Trazodone HCl (Desyrel) 50 mg QHS PO Last administered on 01/06/17 21:00; Start 01/04/17 at 21:00 Vitamin D (Vitamin D3) 1,000 unit DAILY PO Last administered on 01/06/17 08: 58; Start 01/04/17 at 09:00 Docusate Sodium (Colace) 100 mg PRN DAILY PRN PO CONSTIPATION; Start 01/04/17 at 09:00 Losartan Potassium (Cozaar) 100 mg DAILY PO Last administered on 01/07/17 09: 34; Start 01/04/17 at 09:00 Non-Formulary Medication 1 tab QHS PO ; Start 01/04/17 at 21:00; Status UNV Non-Formulary Medication 1 tab DAILY PO ; Start 01/04/17 at 09:00; Status UNV Potassium Chloride (Klor-Con) 20 meq DAILYWBKFT PO Last administered on 09:25; Start 01/04/17 at 08:30 Carvedilol (Coreg) 6.25 mg BIDWMEALS PO Last administered on 01/06/17 08:58; Start 01/04/17 at 09:00; Stop 01/06/17 at 12:28; Status DC Cefazolin Sodium 1 gm/Sodium Chloride 500 ml @ 500 mls/hr 1X PERIOP ONCE IRR Last administered on 01/04/17 16:38; Start 01/04/17 at 14:30; Stop 01/04/17 at 15:29; Status DC Heparin Sodium (Porcine) 5000 unit/Sodium Chloride 505 ml @ 505 mls/hr 1X PERIOP ONCE IRR Last administered on 01/04/17 16:38; Start 01/04/17 at 14: 30; Stop 01/04/17 at 15:29; Status DC Furosemide (Lasix) 40 mg 1X ONCE IVP ; Start 01/04/17 at 16:00; Stop at 16:01; Status DC Albumin Human 100 ml @ 100 mls/hr 1X ONCE IV Last administered on 01/04/17 18:52; Start 01/04/17 at 16:00; Stop 01/04/17 at 16:59; Status DC Albumin Human 100 ml @ 100 mls/hr 1X ONCE IV Last administered on 01/04/17 19:16; Start 01/04/17 at 16:00; Stop 01/04/17 at 16:59; Status DC Furosemide (Lasix) 20 mg 1X ONCE IVP Last administered on 01/04/17 21:16; Start 01/04/17 at 18:45; Stop 01/04/17 at 18:46; Status DC Sodium Chloride (Normal Saline Flush) 10 ml QSHIFT PRN IV AFTER MEDS AND BLOOD DRAWS; Start 01/05/17 at 05:45 Warfarin Sodium (Coumadin Per Pharmacy) 1 each PRN DAILY PRN MC SEE COMMENTS Last administered on 01/07/17 09:34; Start 01/05/17 at 16:45 Warfarin Sodium (Coumadin) 5 mg 1X WARF ONCE PO Last administered on 17:02; Start 01/05/17 at 17:00; Stop 01/05/17 at 17:01; Status DC Potassium Chloride 50 ml @ 50 mls/hr Q1H IV Last administered on 01/06/17 12: 28; Start 01/06/17 at 07:30; Stop 01/06/17 at 09:29; Status DC Warfarin Sodium (Coumadin) 4 mg 1X WARF ONCE PO Last administered on 15:48; Start 01/06/17 at 16:00; Stop 01/06/17 at 16:01; Status DC Potassium Chloride (KCl Oral Soln) 40 meq 1X ONCE PO Last administered on 18:51; Start 01/06/17 at 18:00; Stop 01/06/17 at 18:01; Status DC Furosemide (Lasix) 40 mg 1X ONCE IVP Last administered on 11/24/17at 18:47; Start 01/06/17 at 18:00; Stop 01/06/17 at 18:01; Status DC Warfarin Sodium (Coumadin) 5 mg 1X WARF ONCE PO ; Start 01/07/17 at 16:00; Stop 01/07/17 at 16:01 Active Scripts Active Tramadol Hcl 50 Mg Tablet 50 Mg PO PRN Q6HRS PRN Reported Novolog Flexpen (Insulin Aspart) 100 Unit/1 Ml Insuln.pen 1 Unit SQ PRN TID PRN Duoneb 0.5-3(2.5) Mg/3 Ml (Albuterol/Ipratropium) 3 Ml Ampul.neb 3 Ml NEB PRN Q4HRS PRN Famotidine 20 Mg Tablet 20 Mg PO HS Trazodone Hcl 50 Mg Tablet 1 Tab PO QHS Tamsulosin Hcl 0.4 Mg Cap.er.24h 0.4 Mg PO DAILY Melatonin 3 Mg Tablet 1 Tab PO QHS Losartan Potassium 100 Mg Tablet 100 Mg PO DAILY Colace Clear (Docusate Sodium) 50 Mg Capsule 50 Mg PO PRN DAILY PRN Aspirin 325 Mg Tablet 1 Tab PO DAILY Acetaminophen 500 Mg Tablet 500 Mg PO PRN Q6HRS PRN Vitamin D (Cholecalciferol (Vitamin D3)) 1,000 Unit Capsule 1 Cap PO DAILY Levothyroxine Sodium 112 Mcg Tablet 2 Tab PO HS Xarelto (Rivaroxaban) 10 Mg Tablet 1 Tab PO DAILY Prilosec Otc (Omeprazole Magnesium) 20 Mg Tablet.dr 1 Tab PO DAILY Metformin Hcl Er (Metformin Hcl) 500 Mg Tab.er.24h 500 Mg PO BIDWMEALS Amlodipine Besylate 10 Mg Tablet 10 Mg PO HS Simvastatin 20 Mg Tablet 20 Mg PO HS Glimepiride 2 Mg Tablet 2 Mg PO DAILY Carvedilol 3.125 Mg Tablet 6.25 Mg PO BID Potassium Chloride 10 Meq Capsule.er 20 Meq PO DAILY Vitals/I & O Vital Sign - Last 24 Hours 01/06/17 01/06/17 01/06/17 01/06/17 13:45 15:00 16:00 16:27 Temp 98.0 98.0 Pulse 54 Resp 16 B/P (MAP) 127/67 (87) Pulse Ox 97 96 O2 Delivery Nasal Cannula Nasal Cannula Nasal Cannula Nasal Cannula O2 Flow Rate 2.0 2.0 2.0 2.0 01/06/17 01/06/17 01/06/17 01/06/17 19:14 19:20 19:44 20:14 Temp 97.4 97.4 Pulse 55 Resp 20 20 B/P (MAP) 127/57 (80) Pulse Ox 96 94 94 O2 Delivery Nasal Cannula Nasal Cannula Nasal Cannula O2 Flow Rate 2.0 2.0 2.0 01/06/17 01/06/17 01/06/17 01/07/17 20:47 20:48 22:18 00:48 Temp 97.7 97.7 Pulse 55 76 Resp 20 20 20 B/P (MAP) 127/57 100/52 (68) Pulse Ox 97 96 99 O2 Delivery Nasal Cannula Nasal Cannula Nasal Cannula O2 Flow Rate 2.0 2.0 2.0 01/07/17 01/07/17 01/07/17 01/07/17 03:00 07:00 07:27 08:00 Temp 97.4 97.5 97.4 97.5 Pulse 78 61 Resp 20 18 B/P (MAP) 140/68 (92) 125/62 (83) Pulse Ox 95 O2 Delivery Nasal Cannula Nasal Cannula Nasal Cannula Nasal Cannula O2 Flow Rate 2.0 2.0 2.0 2.0 01/07/17 01/07/17 01/07/17 01/07/17 08:00 08:00 09:32 09:34 Pulse 61 B/P (MAP) 125/62 O2 Delivery Nasal Cannula Nasal Cannula Nasal Cannula O2 Flow Rate 2.0 2.0 2.0 01/07/17 11:00 Temp 97.5 97.5 Pulse 57 Resp 16 B/P (MAP) 118/58 (78) Pulse Ox 97 O2 Delivery Nasal Cannula O2 Flow Rate 2.0 Intake and Output 01/06/17 01/06/17 01/07/17 14:59 22:59 06:59 Intake Total 650 ml 1540 ml 1350 ml Output Total 30 ml 260 ml 795 ml Balance 620 ml 1280 ml 555 ml Nutrition Consultation Dietary Evaluation: Recommendations by RD: Increase Calorie Intake, Protein supplementation Comments: added ensure supplements to diet order with hx poor po intake since stroke Expected Outcomes/Goals: to meet > 75% est nutr needs Malnutrition Findings: Malnutrition related to morbid: Weight 200% of ideal wt Malnutrition related to morbid: Yes Weight Status: Morbidly Obese MANDI DOW III DO Jan 07, 2017 12:45
[2017-01-07] MEDS: oxyCODONE IR 5 MG TABLET PO PRN (12:55)
--- NOTE | 2017-01-07 12:59 | PDOC ---
Infectious Disease Note Subjective Subjective + hoarse, difficulty swallowing, cough Denies SOA/CP Recent dose morphine No BM ROS ROS GEN: Denies fevers, chills, sweats GI: Denies n/v Vital Sign Vital Signs Vital Signs Date Time Temp Pulse Resp B/P (MAP) Pulse Ox O2 Delivery O2 Flow Rate FiO2 01/07/17 11:00 97.5 57 16 118/58 (78) 97 Nasal Cannula 2.0 97.5 Physical Exam PHYSICAL EXAM GENERAL: Propped up in bed, drowsy, NAD HEENT: Oral cavity dry LUNGS: Clear anteriorly, nonlabored HEART: S1S2 ABD: Obese, soft, NT EXT: RLE 3+ edematous; left AKA drsg dry and intact [employer] INSTRUCTOR: Oriented, responds appropriately SKIN: No rash RIJ. clean Labs Lab Laboratory Tests Test 01/07/17 05:41 01/07/17 08:03 01/07/17 11:47 White Blood Count 6.7 x10^3/uL (4.0-11.0) Red Blood Count 3.47 x10^6/uL (3.50-5.40) Hemoglobin 10.0 g/dL (12.0-15.5) Hematocrit 31.3 % (36.0-47.0) Mean Corpuscular Volume 90 fL (79-100) Mean Corpuscular Hemoglobin 29 pg (25-35) Mean Corpuscular Hemoglobin Concent 32 g/dL (31-37) Red Cell Distribution Width 16.8 % (11.5-14.5) Platelet Count 200 x10^3/uL (140-400) Neutrophils (%) (Auto) 54 % (31-73) Lymphocytes (%) (Auto) 38 % (24-48) Monocytes (%) (Auto) 5 % (0-9) Eosinophils (%) (Auto) 2 % (0-3) Basophils (%) (Auto) 1 % (0-3) Neutrophils # (Auto) 3.6 x10^3uL (1.8-7.7) Lymphocytes # (Auto) 2.6 x10^3/uL (1.0-4.8) Monocytes # (Auto) 0.4 x10^3/uL (0.0-1.1) Eosinophils # (Auto) 0.1 x10^3/uL (0.0-0.7) Basophils # (Auto) 0.0 x10^3/uL (0.0-0.2) Prothrombin Time 17.1 SEC (11.7-14.0) Prothromb Time International Ratio 1.5 (0.8-1.1) Sodium Level 143 mmol/L (136-145) Potassium Level 4.0 mmol/L (3.5-5.1) Chloride Level 110 mmol/L (98-107) Carbon Dioxide Level 26 mmol/L (21-32) Anion Gap 7 (6-14) Blood Urea Nitrogen 14 mg/dL (7-20) Creatinine 0.6 mg/dL (0.6-1.0) Estimated GFR (Cockcroft-Gault) 94.1 Glucose Level 107 mg/dL (70-99) Calcium Level 7.1 mg/dL (8.5-10.1) EX-Azu-H-Type Natriuretic Peptide 5670 pg/mL (0-449) Glucose (Fingerstick) 100 mg/dL (70-99) 118 mg/dL (70-99) Single view chest History:Cough, shortness of breath, weakness, left leg amputation Comparison: 12/12/2016. Findings: There is again enlargement of the pericardial cardiac silhouette. There is now right internal jugular venous catheter with the tip in the superior vena cava. No pneumothorax is identified. Trace pleural effusions are possible. Central pulmonary vasculature appears very slightly more prominent. Impression: 1. Trace pleural effusions are possible. Central pulmonary vasculature appears slightly more prominent which could be due to central pulmonary edema. Micro left leg, 01/03 AEROBIC RES 1 Final Pseudomonas aeruginosa AEROBIC RES 2 Final Morganella morganii AEROBIC RES 3 Final Staphylococcus aureus AEROBIC RES 4 Final Mixed skin mihaela Antibiotic RSLT#1 RSLT#2 RSLT#3 Amikacin =S =S Ampicillin/Sulbactam =R Cefepime =R =S Cefotaxime =S Ceftazidime =I =S Ceftriaxone =S Ciprofloxacin =S =I =S Clindamycin =S Erythromycin =S Gentamicin =S =R =S Imipenem =R Levofloxacin =I =I =S Linezolid =S Meropenem =R =S Moxifloxacin =S Oxacillin =S Penicillin =R Piperacillin =S =S Quinupristin/Dalfopristin =S Rifampin =S Tetracycline =R Ticarcillin =R Tobramycin =S Trimethoprim/Sulfa =R =S Vancomycin =S Objective Assessment Extensive left leg infection s/p AKA, 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 aspiration Obesity DM HTN Left fibular fracture CVA Plan Plan of Care Continue Zosyn, wean soon d/c Zyvox Await bedside swallow study PT/OT D/w son, Payam and RN f/u appt vascular 01/30 Patient seen examined. Chart reviewed in detail. Case discussed with BAG REPAIRER. Agree with above HENRY CHUNG APRN Jan 07, 2017 12:59 BITA MIRANDA MD Jan 07, 2017 17:59
--- NOTE | 2017-01-07 14:50 | PDOC ---
PULMONARY PROGRESS NOTES Subjective PT WITH LESS COUGH NOT MORE SOA Vitals Vital Signs Date Time Temp Pulse Resp B/P (MAP) Pulse Ox O2 Delivery O2 Flow Rate FiO2 01/07/17 12:55 Nasal Cannula 2.0 01/07/17 11:00 97.5 57 16 118/58 (78) 97 97.5 ROS: No Nausea, No Chest Pain, No Abdominal Pain, No Increase Cough General: Alert Lungs: Clear, Other (No wheezes or crackles ) Cardiovascular: S1, S2 Abdomen: Soft Neuro Exam: Alert Extremities: Other (NO CHANGE) Skin: Warm Labs Laboratory Tests Test 01/05/17 16:20 01/05/17 21:15 01/06/17 05:45 01/06/17 07:20 Glucose (Fingerstick) 204 mg/dL (70-99) 111 mg/dL (70-99) White Blood Count 6.5 x10^3/uL (4.0-11.0) Red Blood Count 3.27 x10^6/uL (3.50-5.40) Hemoglobin 9.5 g/dL (12.0-15.5) Hematocrit 29.1 % (36.0-47.0) Mean Corpuscular Volume 89 fL (79-100) Mean Corpuscular Hemoglobin 29 pg (25-35) Mean Corpuscular Hemoglobin Concent 33 g/dL (31-37) Red Cell Distribution Width 16.7 % (11.5-14.5) Platelet Count 209 x10^3/uL (140-400) Neutrophils (%) (Auto) 56 % (31-73) Lymphocytes (%) (Auto) 37 % (24-48) Monocytes (%) (Auto) 6 % (0-9) Eosinophils (%) (Auto) 1 % (0-3) Basophils (%) (Auto) 1 % (0-3) Neutrophils # (Auto) 3.6 x10^3uL (1.8-7.7) Lymphocytes # (Auto) 2.4 x10^3/uL (1.0-4.8) Monocytes # (Auto) 0.4 x10^3/uL (0.0-1.1) Eosinophils # (Auto) 0.0 x10^3/uL (0.0-0.7) Basophils # (Auto) 0.0 x10^3/uL (0.0-0.2) Sodium Level 142 mmol/L (136-145) Potassium Level 3.1 mmol/L (3.5-5.1) Chloride Level 108 mmol/L (98-107) Carbon Dioxide Level 28 mmol/L (21-32) Anion Gap 6 (6-14) Blood Urea Nitrogen 16 mg/dL (7-20) Creatinine 0.7 mg/dL (0.6-1.0) Estimated GFR (Cockcroft-Gault) 78.8 Glucose Level 86 mg/dL (70-99) Calcium Level 7.0 mg/dL (8.5-10.1) Prothrombin Time 19.1 SEC (11.7-14.0) Prothromb Time International Ratio 1.7 (0.8-1.1) Test 01/06/17 08:11 01/06/17 11:01 01/07/17 05:41 01/07/17 08:03 Glucose (Fingerstick) 83 mg/dL (70-99) 106 mg/dL (70-99) 100 mg/dL (70-99) White Blood Count 6.7 x10^3/uL (4.0-11.0) Red Blood Count 3.47 x10^6/uL (3.50-5.40) Hemoglobin 10.0 g/dL (12.0-15.5) Hematocrit 31.3 % (36.0-47.0) Mean Corpuscular Volume 90 fL (79-100) Mean Corpuscular Hemoglobin 29 pg (25-35) Mean Corpuscular Hemoglobin Concent 32 g/dL (31-37) Red Cell Distribution Width 16.8 % (11.5-14.5) Platelet Count 200 x10^3/uL (140-400) Neutrophils (%) (Auto) 54 % (31-73) Lymphocytes (%) (Auto) 38 % (24-48) Monocytes (%) (Auto) 5 % (0-9) Eosinophils (%) (Auto) 2 % (0-3) Basophils (%) (Auto) 1 % (0-3) Neutrophils # (Auto) 3.6 x10^3uL (1.8-7.7) Lymphocytes # (Auto) 2.6 x10^3/uL (1.0-4.8) Monocytes # (Auto) 0.4 x10^3/uL (0.0-1.1) Eosinophils # (Auto) 0.1 x10^3/uL (0.0-0.7) Basophils # (Auto) 0.0 x10^3/uL (0.0-0.2) Prothrombin Time 17.1 SEC (11.7-14.0) Prothromb Time International Ratio 1.5 (0.8-1.1) Sodium Level 143 mmol/L (136-145) Potassium Level 4.0 mmol/L (3.5-5.1) Chloride Level 110 mmol/L (98-107) Carbon Dioxide Level 26 mmol/L (21-32) Anion Gap 7 (6-14) Blood Urea Nitrogen 14 mg/dL (7-20) Creatinine 0.6 mg/dL (0.6-1.0) Estimated GFR (Cockcroft-Gault) 94.1 Glucose Level 107 mg/dL (70-99) Calcium Level 7.1 mg/dL (8.5-10.1) XV-Xvk-B-Type Natriuretic Peptide 5670 pg/mL (0-449) Test 01/07/17 11:47 Glucose (Fingerstick) 118 mg/dL (70-99) Laboratory Tests Test 01/07/17 05:41 01/07/17 08:03 01/07/17 11:47 White Blood Count 6.7 x10^3/uL (4.0-11.0) Red Blood Count 3.47 x10^6/uL (3.50-5.40) Hemoglobin 10.0 g/dL (12.0-15.5) Hematocrit 31.3 % (36.0-47.0) Mean Corpuscular Volume 90 fL (79-100) Mean Corpuscular Hemoglobin 29 pg (25-35) Mean Corpuscular Hemoglobin Concent 32 g/dL (31-37) Red Cell Distribution Width 16.8 % (11.5-14.5) Platelet Count 200 x10^3/uL (140-400) Neutrophils (%) (Auto) 54 % (31-73) Lymphocytes (%) (Auto) 38 % (24-48) Monocytes (%) (Auto) 5 % (0-9) Eosinophils (%) (Auto) 2 % (0-3) Basophils (%) (Auto) 1 % (0-3) Neutrophils # (Auto) 3.6 x10^3uL (1.8-7.7) Lymphocytes # (Auto) 2.6 x10^3/uL (1.0-4.8) Monocytes # (Auto) 0.4 x10^3/uL (0.0-1.1) Eosinophils # (Auto) 0.1 x10^3/uL (0.0-0.7) Basophils # (Auto) 0.0 x10^3/uL (0.0-0.2) Prothrombin Time 17.1 SEC (11.7-14.0) Prothromb Time International Ratio 1.5 (0.8-1.1) Sodium Level 143 mmol/L (136-145) Potassium Level 4.0 mmol/L (3.5-5.1) Chloride Level 110 mmol/L (98-107) Carbon Dioxide Level 26 mmol/L (21-32) Anion Gap 7 (6-14) Blood Urea Nitrogen 14 mg/dL (7-20) Creatinine 0.6 mg/dL (0.6-1.0) Estimated GFR (Cockcroft-Gault) 94.1 Glucose Level 107 mg/dL (70-99) Calcium Level 7.1 mg/dL (8.5-10.1) BT-Pbm-Q-Type Natriuretic Peptide 5670 pg/mL (0-449) Glucose (Fingerstick) 100 mg/dL (70-99) 118 mg/dL (70-99) Medications Active Scripts Medications Dose Route/Sig Max Daily Dose Days Date Category Novolog Flexpen (Insulin Aspart) 100 Unit/1 Ml Insuln.pen 1 Unit SQ PRN TID PRN 12/13/16 Reported Duoneb 0.5-3(2.5) Mg/3 Ml (Albuterol/Ipratropium) 3 Ml Ampul.neb 3 Ml NEB PRN Q4HRS PRN 12/13/16 Reported Famotidine 20 Mg Tablet 20 Mg PO HS 12/13/16 Reported Trazodone Hcl 50 Mg Tablet 1 Tab PO QHS 12/12/16 Reported Tamsulosin Hcl 0.4 Mg Cap.er.24h 0.4 Mg PO DAILY 12/12/16 Reported Melatonin 3 Mg Tablet 1 Tab PO QHS 12/12/16 Reported Losartan Potassium 100 Mg Tablet 100 Mg PO DAILY 12/12/16 Reported Colace Clear (Docusate Sodium) 50 Mg Capsule 50 Mg PO PRN DAILY PRN 12/12/16 Reported Aspirin 325 Mg Tablet 1 Tab PO DAILY 12/12/16 Reported Acetaminophen 500 Mg Tablet 500 Mg PO PRN Q6HRS PRN 12/12/16 Reported Tramadol Hcl 50 Mg Tablet 50 Mg PO PRN Q6HRS PRN 11/25/16 Rx Vitamin D (Cholecalciferol (Vitamin D3)) 1,000 Unit Capsule 1 Cap PO DAILY 11/21/16 Reported Levothyroxine Sodium 112 Mcg Tablet 2 Tab PO HS 11/21/16 Reported Xarelto (Rivaroxaban) 10 Mg Tablet 1 Tab PO DAILY 11/21/16 Reported Prilosec Otc (Omeprazole Magnesium) 20 Mg Tablet.dr 1 Tab PO DAILY 11/21/16 Reported Metformin Hcl Er (Metformin Hcl) 500 Mg Tab.er.24h 500 Mg PO BIDWMEALS 11/21/16 Reported Amlodipine Besylate 10 Mg Tablet 10 Mg PO HS 12/06/13 Reported Simvastatin 20 Mg Tablet 20 Mg PO HS 12/06/13 Reported Glimepiride 2 Mg Tablet 2 Mg PO DAILY 12/06/13 Reported Carvedilol 3.125 Mg Tablet 6.25 Mg PO BID 12/06/13 Reported Potassium Chloride 10 Meq Capsule.er 20 Meq PO DAILY 12/06/13 Reported Impression . 1. Persistent cough, suspect combination of dysphagia with possible aspiration, also related to vascular congestion and postnasal drainage. 2. Chronic atrial fibrillation. 3. Peripheral vascular disease, status post left amputation. 4. Obesity. 5. Hypertension. Plan . DIURESED YESTEREDAY NOW BETTER WILL CONTINUE THE SAME FOLLOW SPEECH INPUT 1. The patient indicates that at times, she is having some difficulty with swallowing 2. She also states that at times, she wheezes, p.r.n. nebulized treatments. 3. Recommend diuresis. 4. We will obtain BNP. 5. Repeat chest x-ray in several days. CALEB PASCUAL MD Jan 07, 2017 14:50
--- NOTE | 2017-01-07 14:54 | PDOC2 ---
GI CONSULT Reason For Consult: Dysphagia HPI: HPI: 89 y/o female we are asked to see re: dysphagia. She relates food sticking in the substernal area frequently; unclear if this is universal. She offers that when home, she does better when taking Prilosec; currently she is receiving famotidine once daily at HS. She knows of no prior EGD. Symptoms are I think worse with solids than liquids. There is a h/o heartburn. She denies PUD, GB, liver or pancreatic history. No tobacco or alcohol use. Currently on ASA 81mg daily and warfarin, no NSAIDs. Recent constipation during hospitalizations; receiving docusate and started Miralax today. No overt blood in stool or melena. No diarrhea. No prior colonoscopy. Seen by [employer] last month; video swallow with delayed oral phase, but no aspiration. Also has cough, usually non-productive. Does not really describe choking on food. PMH: PMH: PVD, CVA, HLP, Afib, HTN, FMS, OA, DM, Hypothyroidism, left ankle fx. S/p left TKR, left BKA for ischemia, left AKA after due to compartment syndrome, recent debridement of AKA, ORIF left ankle. FH: Family History: No pertinent hx Social History: Smoke: No ALCOHOL: none Drugs: None ROS: GEN: Denies fevers, chills, sweats HEENT: Denies blurred vision, sore throat CV: Denies chest pain RESP: Denies shortness of air on O2. GI: Per HPI : Denies hematuria, dysuria ENDO: Denies weight changes NEURO: Denies confusion, dizziness MSK: Denies weakness, joint pain/swelling SKIN: Denies jaundice, pruritus Vitals: Vitals: Vital Signs Date Time Temp Pulse Resp B/P (MAP) Pulse Ox O2 Delivery O2 Flow Rate FiO2 01/07/17 12:55 Nasal Cannula 2.0 01/07/17 11:00 97.5 57 16 118/58 (78) 97 97.5 Labs: Labs: Laboratory Tests Test 01/07/17 05:41 01/07/17 08:03 01/07/17 11:47 White Blood Count 6.7 x10^3/uL (4.0-11.0) Red Blood Count 3.47 x10^6/uL (3.50-5.40) Hemoglobin 10.0 g/dL (12.0-15.5) Hematocrit 31.3 % (36.0-47.0) Mean Corpuscular Volume 90 fL (79-100) Mean Corpuscular Hemoglobin 29 pg (25-35) Mean Corpuscular Hemoglobin Concent 32 g/dL (31-37) Red Cell Distribution Width 16.8 % (11.5-14.5) Platelet Count 200 x10^3/uL (140-400) Neutrophils (%) (Auto) 54 % (31-73) Lymphocytes (%) (Auto) 38 % (24-48) Monocytes (%) (Auto) 5 % (0-9) Eosinophils (%) (Auto) 2 % (0-3) Basophils (%) (Auto) 1 % (0-3) Neutrophils # (Auto) 3.6 x10^3uL (1.8-7.7) Lymphocytes # (Auto) 2.6 x10^3/uL (1.0-4.8) Monocytes # (Auto) 0.4 x10^3/uL (0.0-1.1) Eosinophils # (Auto) 0.1 x10^3/uL (0.0-0.7) Basophils # (Auto) 0.0 x10^3/uL (0.0-0.2) Prothrombin Time 17.1 SEC (11.7-14.0) Prothromb Time International Ratio 1.5 (0.8-1.1) Sodium Level 143 mmol/L (136-145) Potassium Level 4.0 mmol/L (3.5-5.1) Chloride Level 110 mmol/L (98-107) Carbon Dioxide Level 26 mmol/L (21-32) Anion Gap 7 (6-14) Blood Urea Nitrogen 14 mg/dL (7-20) Creatinine 0.6 mg/dL (0.6-1.0) Estimated GFR (Cockcroft-Gault) 94.1 Glucose Level 107 mg/dL (70-99) Calcium Level 7.1 mg/dL (8.5-10.1) QO-Hhb-B-Type Natriuretic Peptide 5670 pg/mL (0-449) Glucose (Fingerstick) 100 mg/dL (70-99) 118 mg/dL (70-99) Normocytic anemia with elevated RDW suggestive of early DIAZ; has only developed since vascular/orthopedic surgeries. Allergies: Coded Allergies: propoxyphene (Verified Allergy, Severe, 12/19/16) hydrocodone (Verified Allergy, Intermediate, 12/19/16) naproxen (Verified Allergy, Intermediate, 12/19/16) trimethobenzamide (Verified Allergy, Intermediate, 12/19/16) Medications: Current Medications Medications (Trade) Dose Ordered Sig/Taty Route PRN Reason Start Time Stop Time Status Last Admin Dose Admin Warfarin Sodium (Coumadin) 4 mg 1X WARF ONCE PO 01/06/17 16:00 01/06/17 16:01 DC 01/06/17 15:48 Potassium Chloride (KCl Oral Soln) 40 meq 1X ONCE PO 01/06/17 18:00 01/06/17 18:01 DC 01/06/17 18:51 Furosemide (Lasix) 40 mg 1X ONCE IVP 01/06/17 18:00 01/06/17 18:01 DC 01/06/17 18:47 PE: GEN: Seems in some mild respiratory distress. HEENT: Atraumatic, PERRLA LUNGS: CTAB HEART: IRR, no murmurs ABD: NABS, S/ND/NT, no masses EXTREMITY: No edema, s/p left AKA SKIN: No rashes, no jaundice NEURO/PSYCH: A & O 3 A/P: A/P: IMP: Dysphagia. History suggests not likely neurogenic, though mild issues in this area on past video swallow ([employer] has seen again/note pending). Stricture possible or reflux-induced dysmotility as historically responds to antisecretory. Anemia with elevated RDW. This would suggest early iron deficiency, though has only developed this fall and may be surgically related. REC: Empiric PPI and stop famotidine. Await speech note. esophagram. --other pending. Thanks. GURWINDER GONCALVES MD Jan 07, 2017 14:54
[2017-01-07 15:00] VITALS: BP 127/50
[2017-01-07] MEDS ORDERED: WARFARIN 5 MG TABLET. PO ONE (16:00)
[2017-01-07] MEDS: PANTOPRAZOLE 40 MG TABLET.DR. PO SCH (18:25)
[2017-01-07 19:40] VITALS: BP 127/68
[2017-01-07] MEDS: traZODone 50 MG TABLET. PO SCH (20:48)
[2017-01-07] MEDS: ATORVASTATIN CALCIUM 10 MG TABLET. PO SCH (20:49)
[2017-01-07] MEDS: LEVOTHYROXINE 112 MCG TABLET PO SCH (20:51)
[2017-01-07] MEDS: amLODIPine BESYLATE 10 MG TABLET PO SCH (20:55)
[2017-01-07 22:36] VITALS: BP 134/54
[2017-01-08] MEDS: IV NORMAL SALINE 1000ML BAG 1,000 ML IV SCH ×2 (00:06→14:53)
[2017-01-08 02:43] VITALS: BP 156/81
[2017-01-08] MEDS: MORPHINE SULFATE 4 MG/ML DISP.SYRIN. IV PRN ×4 (05:55→20:12)
[2017-01-08] MEDS: PIPERACILLIN/TAZO IV Push 3.375 GM VIAL. IVP SCH ×2 (06:09)
[2017-01-08 06:38] LABS: BASO % 0 % (0-3); EOS % 1 % (0-3); HEMATOCRIT 33.3 % (36.0-47.0); HEMOGLOBIN 10.4 g/dL (12.0-15.5); LYMPH # 3.8 x10^3/uL (1.0-4.8); LYMPH % 49 % (24-48); MEAN CORPUSCULAR HEMOGLOBIN 28 pg (25-35); MEAN CORPUSCULAR HGB CONC 31 g/dL (31-37); MEAN CORPUSCULAR VOLUME 90 fL (79-100); MONO % 4 % (0-9); NEUT % 45 % (31-73); PLATELET COUNT 187 x10^3/uL (140-400); RED BLOOD COUNT 3.72 x10^6/uL (3.50-5.40); WHITE BLOOD COUNT 7.7 x10^3/uL (4.0-11.0)
[2017-01-08] MEDS: oxyCODONE IR 5 MG TABLET PO PRN ×3 (06:45→23:02)
[2017-01-08 06:46] LABS: CALCIUM 7.2 mg/dL (8.5-10.1); CREATININE 0.5 mg/dL (0.6-1.0); GFR 116.2
[2017-01-08 06:47] LABS: INR 1.8 (0.8-1.1); PROTHROMBIN TIME PATIENT 19.7 SEC (11.7-14.0)
[2017-01-08 07:00] VITALS: BP 110/83
[2017-01-08] MEDS ORDERED: BARIUM SULFATE 60% 355 ML SUSP PO ONE (07:30)
[2017-01-08] MEDS ORDERED: BARIUM SULFATE 340 GM SUSPENSION. PO ONE (07:30)
[2017-01-08] MEDS ORDERED: SIMETHICONE/SOD BICARB/CITRIC ACID PACKET. PO ONE (07:30)
--- NOTE | 2017-01-08 07:47 | PDOC ---
Provider Note Provider Note POD # 4 Post op lt AK amp Comfortable, Dressed changed yesterday, still dry Imp: stable and doing well Plan QOD dressing changes, OK for rehab GURWINDER MONET MD Jan 08, 2017 07:47
[2017-01-08] MEDS: INSULIN ASPART 300 UNITS/3 ML INSULN.PEN SQ SCH ×3 (08:00→17:00)
[2017-01-08] MEDS: oxyCODONE ER 10 MG TAB.ER.12H PO SCH ×2 (08:56→20:10)
--- NOTE | 2017-01-08 08:58 | RAD ---
Single view chest History:CHF An AP view of the chest is submitted. Comparison: 01/06/2017. Findings: There is some residual barium in the esophagus from recent esophagram. Pericardial cardiac silhouette is again enlarged. There is again right internal jugular venous catheter with the tip in the superior aspect of the superior vena cava. There is no pneumothorax. There is again probable very small right pleural effusion, left pleural effusion not clearly apparent on this exam. There is mild interstitial and reticular opacity at the lung bases stable to somewhat decreased. Impression: There is probable small residual right pleural effusion. There is improved aeration of the lung bases. Cardiac silhouette is again enlarged.
--- NOTE | 2017-01-08 09:05 | RAD ---
ESOPHAGRAM/BARIUM SWALLOW History:dysphagia Comparison: None Findings:Barium esophagram was performed. Patient could not stand. Imaging was performed with patient in prone oblique position. There were tertiary contractions of the mid to distal esophagus with poor propulsion of the contrast bolus into the distal esophagus. There was reflux of the contrast bolus from the mid esophagus into the proximal esophagus with subsequent vomiting. There is a small hiatal hernia. There is associated stricture formation with somewhat irregular margins with probable moderate luminal diameter reduction, suboptimal distention of the distal esophagus. Patient could not drink more barium for further imaging of the distal esophagus. Fluoroscopy time 0.8 minutes, 32 images. Impression: 1.Exam is limited as stated. There is a small hiatal hernia with associated stricture formation with somewhat irregular margins for which endoscopy is recommended.
[2017-01-08] MEDS: PANTOPRAZOLE 40 MG TABLET.DR. PO SCH (09:06)
[2017-01-08] MEDS: TAMSULOSIN 0.4 MG CAP.ER.24H. PO SCH (09:06)
[2017-01-08] MEDS: LOSARTAN POTASSIUM 50 MG TABLET. PO SCH (09:06)
[2017-01-08] MEDS: POTASSIUM CHLORIDE 20 MEQ TABLET.ER. PO SCH (09:07)
[2017-01-08] MEDS: LACTOBACILLUS RHAMNOSUS GG 1 CAPSULE. PO SCH ×2 (09:07→20:09)
[2017-01-08] MEDS: DOCUSATE SODIUM 100 MG CAPSULE. PO SCH ×2 (09:08→20:11)
[2017-01-08] MEDS: CHOLECALCIFEROL (VITAMIN D3) 1,000 UNIT TABLET PO SCH (09:08)
[2017-01-08] MEDS: POLYETHYLENE GLYCOL 3350 17 GM PACKET. PO PRN (09:36)
--- NOTE | 2017-01-08 09:43 | PDOC ---
PULMONARY PROGRESS NOTES Subjective PT HAD ESOPHAGRAM , HAD SOME EMESIS WITH PROCEDURE Vitals Vital Signs Date Time Temp Pulse Resp B/P (MAP) Pulse Ox O2 Delivery O2 Flow Rate FiO2 01/08/17 08:00 91 Nasal Cannula 2.0 01/08/17 07:00 97.8 96 22 110/83 (92) 97.8 ROS: No Nausea, No Chest Pain, No Abdominal Pain, No Increase Cough General: Alert Lungs: Clear, Other Cardiovascular: S1, S2 Abdomen: Soft Neuro Exam: Alert Extremities: Other (NO CHANGE) Skin: Warm Labs Laboratory Tests Test 01/06/17 11:01 01/07/17 05:41 01/07/17 08:03 01/07/17 11:47 Glucose (Fingerstick) 106 mg/dL (70-99) 100 mg/dL (70-99) 118 mg/dL (70-99) White Blood Count 6.7 x10^3/uL (4.0-11.0) Red Blood Count 3.47 x10^6/uL (3.50-5.40) Hemoglobin 10.0 g/dL (12.0-15.5) Hematocrit 31.3 % (36.0-47.0) Mean Corpuscular Volume 90 fL (79-100) Mean Corpuscular Hemoglobin 29 pg (25-35) Mean Corpuscular Hemoglobin Concent 32 g/dL (31-37) Red Cell Distribution Width 16.8 % (11.5-14.5) Platelet Count 200 x10^3/uL (140-400) Neutrophils (%) (Auto) 54 % (31-73) Lymphocytes (%) (Auto) 38 % (24-48) Monocytes (%) (Auto) 5 % (0-9) Eosinophils (%) (Auto) 2 % (0-3) Basophils (%) (Auto) 1 % (0-3) Neutrophils # (Auto) 3.6 x10^3uL (1.8-7.7) Lymphocytes # (Auto) 2.6 x10^3/uL (1.0-4.8) Monocytes # (Auto) 0.4 x10^3/uL (0.0-1.1) Eosinophils # (Auto) 0.1 x10^3/uL (0.0-0.7) Basophils # (Auto) 0.0 x10^3/uL (0.0-0.2) Prothrombin Time 17.1 SEC (11.7-14.0) Prothromb Time International Ratio 1.5 (0.8-1.1) Sodium Level 143 mmol/L (136-145) Potassium Level 4.0 mmol/L (3.5-5.1) Chloride Level 110 mmol/L (98-107) Carbon Dioxide Level 26 mmol/L (21-32) Anion Gap 7 (6-14) Blood Urea Nitrogen 14 mg/dL (7-20) Creatinine 0.6 mg/dL (0.6-1.0) Estimated GFR (Cockcroft-Gault) 94.1 Glucose Level 107 mg/dL (70-99) Calcium Level 7.1 mg/dL (8.5-10.1) QY-Pmc-R-Type Natriuretic Peptide 5670 pg/mL (0-449) Test 01/07/17 17:29 01/07/17 20:41 01/08/17 06:15 01/08/17 07:58 Glucose (Fingerstick) 122 mg/dL (70-99) 101 mg/dL (70-99) 79 mg/dL (70-99) White Blood Count 7.7 x10^3/uL (4.0-11.0) Red Blood Count 3.72 x10^6/uL (3.50-5.40) Hemoglobin 10.4 g/dL (12.0-15.5) Hematocrit 33.3 % (36.0-47.0) Mean Corpuscular Volume 90 fL (79-100) Mean Corpuscular Hemoglobin 28 pg (25-35) Mean Corpuscular Hemoglobin Concent 31 g/dL (31-37) Red Cell Distribution Width 17.0 % (11.5-14.5) Platelet Count 187 x10^3/uL (140-400) Neutrophils (%) (Auto) 45 % (31-73) Lymphocytes (%) (Auto) 49 % (24-48) Monocytes (%) (Auto) 4 % (0-9) Eosinophils (%) (Auto) 1 % (0-3) Basophils (%) (Auto) 0 % (0-3) Neutrophils # (Auto) 3.5 x10^3uL (1.8-7.7) Lymphocytes # (Auto) 3.8 x10^3/uL (1.0-4.8) Monocytes # (Auto) 0.3 x10^3/uL (0.0-1.1) Eosinophils # (Auto) 0.1 x10^3/uL (0.0-0.7) Basophils # (Auto) 0.0 x10^3/uL (0.0-0.2) Prothrombin Time 19.7 SEC (11.7-14.0) Prothromb Time International Ratio 1.8 (0.8-1.1) Sodium Level 142 mmol/L (136-145) Potassium Level 4.0 mmol/L (3.5-5.1) Chloride Level 110 mmol/L (98-107) Carbon Dioxide Level 26 mmol/L (21-32) Anion Gap 6 (6-14) Blood Urea Nitrogen 13 mg/dL (7-20) Creatinine 0.5 mg/dL (0.6-1.0) Estimated GFR (Cockcroft-Gault) 116.2 Glucose Level 87 mg/dL (70-99) Calcium Level 7.2 mg/dL (8.5-10.1) Laboratory Tests Test 01/07/17 11:47 01/07/17 17:29 01/07/17 20:41 01/08/17 06:15 Glucose (Fingerstick) 118 mg/dL (70-99) 122 mg/dL (70-99) 101 mg/dL (70-99) White Blood Count 7.7 x10^3/uL (4.0-11.0) Red Blood Count 3.72 x10^6/uL (3.50-5.40) Hemoglobin 10.4 g/dL (12.0-15.5) Hematocrit 33.3 % (36.0-47.0) Mean Corpuscular Volume 90 fL (79-100) Mean Corpuscular Hemoglobin 28 pg (25-35) Mean Corpuscular Hemoglobin Concent 31 g/dL (31-37) Red Cell Distribution Width 17.0 % (11.5-14.5) Platelet Count 187 x10^3/uL (140-400) Neutrophils (%) (Auto) 45 % (31-73) Lymphocytes (%) (Auto) 49 % (24-48) Monocytes (%) (Auto) 4 % (0-9) Eosinophils (%) (Auto) 1 % (0-3) Basophils (%) (Auto) 0 % (0-3) Neutrophils # (Auto) 3.5 x10^3uL (1.8-7.7) Lymphocytes # (Auto) 3.8 x10^3/uL (1.0-4.8) Monocytes # (Auto) 0.3 x10^3/uL (0.0-1.1) Eosinophils # (Auto) 0.1 x10^3/uL (0.0-0.7) Basophils # (Auto) 0.0 x10^3/uL (0.0-0.2) Prothrombin Time 19.7 SEC (11.7-14.0) Prothromb Time International Ratio 1.8 (0.8-1.1) Sodium Level 142 mmol/L (136-145) Potassium Level 4.0 mmol/L (3.5-5.1) Chloride Level 110 mmol/L (98-107) Carbon Dioxide Level 26 mmol/L (21-32) Anion Gap 6 (6-14) Blood Urea Nitrogen 13 mg/dL (7-20) Creatinine 0.5 mg/dL (0.6-1.0) Estimated GFR (Cockcroft-Gault) 116.2 Glucose Level 87 mg/dL (70-99) Calcium Level 7.2 mg/dL (8.5-10.1) Test 01/08/17 07:58 Glucose (Fingerstick) 79 mg/dL (70-99) Medications Active Scripts Medications Dose Route/Sig Max Daily Dose Days Date Category Novolog Flexpen (Insulin Aspart) 100 Unit/1 Ml Insuln.pen 1 Unit SQ PRN TID PRN 12/13/16 Reported Duoneb 0.5-3(2.5) Mg/3 Ml (Albuterol/Ipratropium) 3 Ml Ampul.neb 3 Ml NEB PRN Q4HRS PRN 12/13/16 Reported Famotidine 20 Mg Tablet 20 Mg PO HS 12/13/16 Reported Trazodone Hcl 50 Mg Tablet 1 Tab PO QHS 12/12/16 Reported Tamsulosin Hcl 0.4 Mg Cap.er.24h 0.4 Mg PO DAILY 12/12/16 Reported Melatonin 3 Mg Tablet 1 Tab PO QHS 12/12/16 Reported Losartan Potassium 100 Mg Tablet 100 Mg PO DAILY 12/12/16 Reported Colace Clear (Docusate Sodium) 50 Mg Capsule 50 Mg PO PRN DAILY PRN 12/12/16 Reported Aspirin 325 Mg Tablet 1 Tab PO DAILY 12/12/16 Reported Acetaminophen 500 Mg Tablet 500 Mg PO PRN Q6HRS PRN 12/12/16 Reported Tramadol Hcl 50 Mg Tablet 50 Mg PO PRN Q6HRS PRN 11/25/16 Rx Vitamin D (Cholecalciferol (Vitamin D3)) 1,000 Unit Capsule 1 Cap PO DAILY 11/21/16 Reported Levothyroxine Sodium 112 Mcg Tablet 2 Tab PO HS 11/21/16 Reported Xarelto (Rivaroxaban) 10 Mg Tablet 1 Tab PO DAILY 11/21/16 Reported Prilosec Otc (Omeprazole Magnesium) 20 Mg Tablet.dr 1 Tab PO DAILY 11/21/16 Reported Metformin Hcl Er (Metformin Hcl) 500 Mg Tab.er.24h 500 Mg PO BIDWMEALS 11/21/16 Reported Amlodipine Besylate 10 Mg Tablet 10 Mg PO HS 12/06/13 Reported Simvastatin 20 Mg Tablet 20 Mg PO HS 12/06/13 Reported Glimepiride 2 Mg Tablet 2 Mg PO DAILY 12/06/13 Reported Carvedilol 3.125 Mg Tablet 6.25 Mg PO BID 12/06/13 Reported Potassium Chloride 10 Meq Capsule.er 20 Meq PO DAILY 12/06/13 Reported Impression . 1. Persistent cough, suspect combination of dysphagia with possible aspiration , also related to vascular congestion and postnasal drainage. 2. Chronic atrial fibrillation. 3. Peripheral vascular disease, status post left amputation. 4. Obesity. 5. Hypertension. 6. Dysphagia Impression: There is probable small residual right pleural effusion. There is improved aeration of the lung bases. Cardiac silhouette is again enlarged. Plan . DIURESED 01/06 NOW BETTER CXR IS BETTER WILL CONTINUE THE SAME FOLLOW SPEECH INPUT 1. The patient indicates that at times, she is having some difficulty with swallowing 2. She also states that at times, she wheezes, p.r.n. nebulized treatments. 3. Recommend diuresis, prn 4. BNP HIGH CALEB PASCUAL MD Jan 08, 2017 09:43
--- NOTE | 2017-01-08 09:51 | PDOC ---
G I PROGRESS NOTE Subjective No major complaints. Seems to tolerate current diet. Physical Exam Lungs clear anteriorly. IRR Abdomen soft, not tender nor distended. Review of Relevant I have reviewed the following items madhav (where applicable) has been applied. Labs Laboratory Tests Test 01/06/17 11:01 01/07/17 05:41 01/07/17 08:03 01/07/17 11:47 Glucose (Fingerstick) 106 mg/dL (70-99) 100 mg/dL (70-99) 118 mg/dL (70-99) White Blood Count 6.7 x10^3/uL (4.0-11.0) Red Blood Count 3.47 x10^6/uL (3.50-5.40) Hemoglobin 10.0 g/dL (12.0-15.5) Hematocrit 31.3 % (36.0-47.0) Mean Corpuscular Volume 90 fL (79-100) Mean Corpuscular Hemoglobin 29 pg (25-35) Mean Corpuscular Hemoglobin Concent 32 g/dL (31-37) Red Cell Distribution Width 16.8 % (11.5-14.5) Platelet Count 200 x10^3/uL (140-400) Neutrophils (%) (Auto) 54 % (31-73) Lymphocytes (%) (Auto) 38 % (24-48) Monocytes (%) (Auto) 5 % (0-9) Eosinophils (%) (Auto) 2 % (0-3) Basophils (%) (Auto) 1 % (0-3) Neutrophils # (Auto) 3.6 x10^3uL (1.8-7.7) Lymphocytes # (Auto) 2.6 x10^3/uL (1.0-4.8) Monocytes # (Auto) 0.4 x10^3/uL (0.0-1.1) Eosinophils # (Auto) 0.1 x10^3/uL (0.0-0.7) Basophils # (Auto) 0.0 x10^3/uL (0.0-0.2) Prothrombin Time 17.1 SEC (11.7-14.0) Prothromb Time International Ratio 1.5 (0.8-1.1) Sodium Level 143 mmol/L (136-145) Potassium Level 4.0 mmol/L (3.5-5.1) Chloride Level 110 mmol/L (98-107) Carbon Dioxide Level 26 mmol/L (21-32) Anion Gap 7 (6-14) Blood Urea Nitrogen 14 mg/dL (7-20) Creatinine 0.6 mg/dL (0.6-1.0) Estimated GFR (Cockcroft-Gault) 94.1 Glucose Level 107 mg/dL (70-99) Calcium Level 7.1 mg/dL (8.5-10.1) IC-Pbg-Q-Type Natriuretic Peptide 5670 pg/mL (0-449) Test 01/07/17 17:29 01/07/17 20:41 01/08/17 06:15 01/08/17 07:58 Glucose (Fingerstick) 122 mg/dL (70-99) 101 mg/dL (70-99) 79 mg/dL (70-99) White Blood Count 7.7 x10^3/uL (4.0-11.0) Red Blood Count 3.72 x10^6/uL (3.50-5.40) Hemoglobin 10.4 g/dL (12.0-15.5) Hematocrit 33.3 % (36.0-47.0) Mean Corpuscular Volume 90 fL (79-100) Mean Corpuscular Hemoglobin 28 pg (25-35) Mean Corpuscular Hemoglobin Concent 31 g/dL (31-37) Red Cell Distribution Width 17.0 % (11.5-14.5) Platelet Count 187 x10^3/uL (140-400) Neutrophils (%) (Auto) 45 % (31-73) Lymphocytes (%) (Auto) 49 % (24-48) Monocytes (%) (Auto) 4 % (0-9) Eosinophils (%) (Auto) 1 % (0-3) Basophils (%) (Auto) 0 % (0-3) Neutrophils # (Auto) 3.5 x10^3uL (1.8-7.7) Lymphocytes # (Auto) 3.8 x10^3/uL (1.0-4.8) Monocytes # (Auto) 0.3 x10^3/uL (0.0-1.1) Eosinophils # (Auto) 0.1 x10^3/uL (0.0-0.7) Basophils # (Auto) 0.0 x10^3/uL (0.0-0.2) Prothrombin Time 19.7 SEC (11.7-14.0) Prothromb Time International Ratio 1.8 (0.8-1.1) Sodium Level 142 mmol/L (136-145) Potassium Level 4.0 mmol/L (3.5-5.1) Chloride Level 110 mmol/L (98-107) Carbon Dioxide Level 26 mmol/L (21-32) Anion Gap 6 (6-14) Blood Urea Nitrogen 13 mg/dL (7-20) Creatinine 0.5 mg/dL (0.6-1.0) Estimated GFR (Cockcroft-Gault) 116.2 Glucose Level 87 mg/dL (70-99) Calcium Level 7.2 mg/dL (8.5-10.1) Laboratory Tests Test 01/07/17 11:47 01/07/17 17:29 01/07/17 20:41 01/08/17 06:15 Glucose (Fingerstick) 118 mg/dL (70-99) 122 mg/dL (70-99) 101 mg/dL (70-99) White Blood Count 7.7 x10^3/uL (4.0-11.0) Red Blood Count 3.72 x10^6/uL (3.50-5.40) Hemoglobin 10.4 g/dL (12.0-15.5) Hematocrit 33.3 % (36.0-47.0) Mean Corpuscular Volume 90 fL (79-100) Mean Corpuscular Hemoglobin 28 pg (25-35) Mean Corpuscular Hemoglobin Concent 31 g/dL (31-37) Red Cell Distribution Width 17.0 % (11.5-14.5) Platelet Count 187 x10^3/uL (140-400) Neutrophils (%) (Auto) 45 % (31-73) Lymphocytes (%) (Auto) 49 % (24-48) Monocytes (%) (Auto) 4 % (0-9) Eosinophils (%) (Auto) 1 % (0-3) Basophils (%) (Auto) 0 % (0-3) Neutrophils # (Auto) 3.5 x10^3uL (1.8-7.7) Lymphocytes # (Auto) 3.8 x10^3/uL (1.0-4.8) Monocytes # (Auto) 0.3 x10^3/uL (0.0-1.1) Eosinophils # (Auto) 0.1 x10^3/uL (0.0-0.7) Basophils # (Auto) 0.0 x10^3/uL (0.0-0.2) Prothrombin Time 19.7 SEC (11.7-14.0) Prothromb Time International Ratio 1.8 (0.8-1.1) Sodium Level 142 mmol/L (136-145) Potassium Level 4.0 mmol/L (3.5-5.1) Chloride Level 110 mmol/L (98-107) Carbon Dioxide Level 26 mmol/L (21-32) Anion Gap 6 (6-14) Blood Urea Nitrogen 13 mg/dL (7-20) Creatinine 0.5 mg/dL (0.6-1.0) Estimated GFR (Cockcroft-Gault) 116.2 Glucose Level 87 mg/dL (70-99) Calcium Level 7.2 mg/dL (8.5-10.1) Test 01/08/17 07:58 Glucose (Fingerstick) 79 mg/dL (70-99) Microbiology 01/03/17 Gram Stain - Final, Complete Protime inching up. Medications Current Medications Oxycodone HCl (Roxicodone) 5 mg PRN Q4HRS PRN PO PAIN Last administered on 06:45; Start 01/02/17 at 18:15 Oxycodone HCl (OxyCONTIN) 10 mg Q12HR PO Last administered on 01/07/17 20:50 ; Start 01/02/17 at 21:00 Amlodipine Besylate (Norvasc) 5 mg HS PO Last administered on 01/02/17 22:28 ; Start 01/02/17 at 21:00; Stop 01/04/17 at 08:03; Status DC Tamsulosin HCl (Flomax) 0.4 mg DAILY PO Last administered on 01/07/17 09:26; Start 01/03/17 at 09:00 Polyethylene Glycol (miraLAX PACKET) 17 gm PRN DAILY PRN PO CONSTIPATION; Start 01/02/17 at 18:30 Ondansetron HCl (Zofran) 4 mg PRN Q6HRS PRN IV NAUSEA/VOMITING; Start at 18:30 Lorazepam (Ativan) 2 mg PRN Q12HR PRN IV ANXIETY / AGITATION Last administered on 01/06/17 22:42; Start 01/02/17 at 18:30 Metoprolol Tartrate (Lopressor) 25 mg BID PO Last administered on 01/02/17 22 :29; Start 01/02/17 at 21:00; Stop 01/04/17 at 08:03; Status DC Silver Nitrate/ Potassium Nitrate 1 each 1X ONCE TP ; Start 01/02/17 at 18:45 ; Stop 01/02/17 at 18:46; Status DC Famotidine (Pepcid) 20 mg DAILY PO ; Start 01/03/17 at 09:00; Stop 01/04/17 at 08:05; Status DC Trazodone HCl (Desyrel) 50 mg QHS PO Last administered on 01/02/17 22:28; Start 01/02/17 at 21:00; Stop 01/04/17 at 08:04; Status DC Levothyroxine Sodium (Synthroid) 112 mcg DAILY07 PO ; Start 01/03/17 at 07:00; Stop 01/04/17 at 08:05; Status DC Lactobacillus Rhamnosus (Culturelle) 1 cap BID PO Last administered on 20:48; Start 01/02/17 at 21:00 Sodium Chloride 1,000 ml @ 75 mls/hr [id number] IV Last administered on 00:06; Start 01/02/17 at 19:00 Sodium Chloride (Normal Saline Flush 3ml) 10 ml PRN Q12HRS PRN IV AFTER MEDS AND BLOOD DRAWS; Start 01/02/17 at 18:30; Stop 01/05/17 at 05:38; Status DC Insulin Aspart (NovoLOG) 0-9 UNITS TIDWMEALS SQ Last administered on 17:10; Start 01/03/17 at 19:00 Dextrose (Dextrose 50%-Water Syringe) 12.5 gm PRN Q15MIN PRN IV SEE COMMENTS; Start 01/02/17 at 18:45 Docusate Sodium (Colace) 100 mg BID PO Last administered on 01/07/17 21:00; Start 01/02/17 at 21:00 Bisacodyl (Dulcolax Supp) 10 mg PRN DAILY PRN [place] CONSTIPATION; Start 01/02/17 at 18:45 Atorvastatin Calcium (Lipitor) 10 mg QHS PO Last administered on 01/07/17 20: 49; Start 01/02/17 at 21:00 Aspirin (Lucas Aspirin) 325 mg DAILYWBKFT PO ; Start 01/03/17 at 08:00; Stop 01/03/17 at 16:35; Status DC Acetaminophen (Tylenol) 500 mg PRN Q6HRS PRN PO MILD PAIN / TEMP; Start at 18:45; Stop 01/04/17 at 12:28; Status DC Morphine Sulfate 2 mg PRN Q2HR PRN IV PAIN Last administered on 01/03/17 22: 41; Start 01/02/17 at 21:15; Stop 01/03/17 at 23:26; Status DC Morphine Sulfate 4 mg PRN Q2HR PRN IV PAIN Last administered on 01/03/17 20: 22; Start 01/02/17 at 21:15; Stop 01/03/17 at 23:56; Status DC Piperacillin Sod/ Tazobactam Sod 3.375 gm/Dextrose 50 ml @ 100 mls/hr Q6HRS IV ; Start 01/03/17 at 12:00; Status UNV Linezolid 300 ml @ 300 mls/hr Q12HR IV Last administered on 01/07/17 09:29; Start 01/03/17 at 11:00; Stop 01/07/17 at 12:55; Status DC Phytonadione 10 mg/Dextrose 51 ml @ 102 mls/hr 1X ONCE IV ; Start 01/03/17 at 11:00; Stop 01/03/17 at 11:00; Status DC Piperacillin Sod/ Tazobactam Sod (Zosyn) 3.375 gm Q6HRS IVP Last administered on 01/08/17 06:09; Start 01/03/17 at 12:00 Furosemide (Lasix) 40 mg 1X ONCE IVP Last administered on 01/03/17 11:44; Start 01/03/17 at 11:45; Stop 01/03/17 at 11:46; Status DC Lidocaine/Sodium Bicarbonate (Buffered Lidocaine 1%) 3 ml 1X ONCE IJ Last administered on 01/03/17 15:57; Start 01/03/17 at 15:30; Stop 01/03/17 at 15 :31; Status DC Lidocaine/Sodium Bicarbonate (Buffered Lidocaine 1%) 3 ml 1X ONCE IJ ; Start 01/03/17 at 15:45; Stop 01/03/17 at 15:46; Status DC Phytonadione (Vitamin K Ampule) 10 mg 1X ONCE SQ Last administered on 17:56; Start 01/03/17 at 16:30; Stop 01/03/17 at 16:35; Status DC Ondansetron HCl (Zofran) 4 mg PRN Q6HRS PRN IV NAUSEA/VOMITING; Start at 07:00; Stop 01/05/17 at 06:59; Status DC Fentanyl Citrate (Fentanyl 2ml Vial) 25 mcg PRN Q5MIN PRN IV MILD PAIN; Start 01/04/17 at 07:00; Stop 01/05/17 at 06:59; Status DC Fentanyl Citrate (Fentanyl 2ml Vial) 50 mcg PRN Q5MIN PRN IV MODERATE PAIN; Start 01/04/17 at 07:00; Stop 01/05/17 at 06:59; Status DC Ringer's Solution 1,000 ml @ 30 mls/hr Q24H IV Last administered on 09:24; Start 01/04/17 at 07:00; Stop 01/04/17 at 18:59; Status DC Lidocaine HCl (Xylocaine-Mpf 1% Vial) 2 ml PRN 1X PRN ID PRIOR TO IV START; Start 01/04/17 at 07:00; Stop 01/05/17 at 06:59; Status DC Prochlorperazine Edisylate (Compazine) 5 mg PACU PRN PRN IV NAUSEA, MRX1; Start 01/04/17 at 07:00; Stop 01/05/17 at 06:59; Status DC Morphine Sulfate 2 mg PRN Q2HR PRN IV PAIN; Start 01/03/17 at 23:30 Morphine Sulfate 4 mg PRN Q2HR PRN IV PAIN Last administered on 01/08/17 05: 55; Start 01/03/17 at 23:56 Acetaminophen (Tylenol) 500 mg PRN Q6HRS PRN PO MILD PAIN; Start 01/04/17 at 08:00 Amlodipine Besylate (Norvasc) 10 mg HS PO Last administered on 01/07/17 20:55 ; Start 01/04/17 at 21:00 Carvedilol (Coreg) 6.25 mg BIDWMEALS PO ; Start 01/04/17 at 09:00; Status Cancel Famotidine (Pepcid) 20 mg HS PO Last administered on 01/06/17 20:48; Start 01/04/17 at 21:00; Stop 01/07/17 at 14:56; Status DC Albuterol/ Ipratropium (Duoneb) 3 ml PRN Q4HRS PRN NEB SHORTNESS OF BREATH; Start 01/04/17 at 08:00 Levothyroxine Sodium (Synthroid) 224 mcg HS PO Last administered on 01/07/17 20:51; Start 01/04/17 at 21:00 Metoprolol Tartrate (Lopressor) 25 mg BID PO ; Start 01/04/17 at 09:00; Status Cancel Simvastatin (Zocor) 20 mg HS PO ; Start 01/04/17 at 21:00; Status UNV Tamsulosin HCl (Flomax) 0.4 mg DAILY PO ; Start 01/04/17 at 09:00; Status UNV Tramadol HCl (Ultram) 50 mg PRN Q6HRS PRN PO PAIN; Start 01/04/17 at 08:00 Trazodone HCl (Desyrel) 50 mg QHS PO Last administered on 01/07/17 20:48; Start 01/04/17 at 21:00 Vitamin D (Vitamin D3) 1,000 unit DAILY PO Last administered on 01/06/17 08: 58; Start 01/04/17 at 09:00 Docusate Sodium (Colace) 100 mg PRN DAILY PRN PO CONSTIPATION; Start 01/04/17 at 09:00 Losartan Potassium (Cozaar) 100 mg DAILY PO Last administered on 01/07/17 09: 34; Start 01/04/17 at 09:00 Non-Formulary Medication 1 tab QHS PO ; Start 01/04/17 at 21:00; Status UNV Non-Formulary Medication 1 tab DAILY PO ; Start 01/04/17 at 09:00; Status UNV Potassium Chloride (Klor-Con) 20 meq DAILYWBKFT PO Last administered on 09:25; Start 01/04/17 at 08:30 Carvedilol (Coreg) 6.25 mg BIDWMEALS PO Last administered on 01/06/17 08:58; Start 01/04/17 at 09:00; Stop 01/06/17 at 12:28; Status DC Cefazolin Sodium 1 gm/Sodium Chloride 500 ml @ 500 mls/hr 1X PERIOP ONCE IRR Last administered on 01/04/17 16:38; Start 01/04/17 at 14:30; Stop 01/04/17 at 15:29; Status DC Heparin Sodium (Porcine) 5000 unit/Sodium Chloride 505 ml @ 505 mls/hr 1X PERIOP ONCE IRR Last administered on 01/04/17 16:38; Start 01/04/17 at 14: 30; Stop 01/04/17 at 15:29; Status DC Furosemide (Lasix) 40 mg 1X ONCE IVP ; Start 01/04/17 at 16:00; Stop at 16:01; Status DC Albumin Human 100 ml @ 100 mls/hr 1X ONCE IV Last administered on 01/04/17 18:52; Start 01/04/17 at 16:00; Stop 01/04/17 at 16:59; Status DC Albumin Human 100 ml @ 100 mls/hr 1X ONCE IV Last administered on 01/04/17 19:16; Start 01/04/17 at 16:00; Stop 01/04/17 at 16:59; Status DC Furosemide (Lasix) 20 mg 1X ONCE IVP Last administered on 01/04/17 21:16; Start 01/04/17 at 18:45; Stop 01/04/17 at 18:46; Status DC Sodium Chloride (Normal Saline Flush) 10 ml QSHIFT PRN IV AFTER MEDS AND BLOOD DRAWS; Start 01/05/17 at 05:45 Warfarin Sodium (Coumadin Per Pharmacy) 1 each PRN DAILY PRN MC SEE COMMENTS Last administered on 01/08/17 07:43; Start 01/05/17 at 16:45 Warfarin Sodium (Coumadin) 5 mg 1X WARF ONCE PO Last administered on 17:02; Start 01/05/17 at 17:00; Stop 01/05/17 at 17:01; Status DC Potassium Chloride 50 ml @ 50 mls/hr Q1H IV Last administered on 01/06/17 12: 28; Start 01/06/17 at 07:30; Stop 01/06/17 at 09:29; Status DC Warfarin Sodium (Coumadin) 4 mg 1X WARF ONCE PO Last administered on 15:48; Start 01/06/17 at 16:00; Stop 01/06/17 at 16:01; Status DC Potassium Chloride (KCl Oral Soln) 40 meq 1X ONCE PO Last administered on 18:51; Start 01/06/17 at 18:00; Stop 01/06/17 at 18:01; Status DC Furosemide (Lasix) 40 mg 1X ONCE IVP Last administered on 01/06/17 18:47; Start 01/06/17 at 18:00; Stop 01/06/17 at 18:01; Status DC Warfarin Sodium (Coumadin) 5 mg 1X WARF ONCE PO Last administered on 15:46; Start 01/07/17 at 16:00; Stop 01/07/17 at 16:01; Status DC Pantoprazole Sodium (Protonix) 40 mg DAILYAC PO Last administered on 18:25; Start 01/07/17 at 16:30 Barium Sulfate (Liquid E-Z Paque) 355 ml 1X ONCE PO Last administered on 01/08 08:35; Start 01/08/17 at 07:30; Stop 01/08/17 at 07:31; Status DC Barium Sulfate (E-Z-Hd) 340 gm 1X ONCE PO ; Start 01/08/17 at 07:30; Stop at 07:31; Status DC Simethicone/ Sodium Bicarb/ Citric Ac (E-Z-Gas) 1 packet 1X ONCE PO ; Start at 07:30; Stop 01/08/17 at 07:31; Status DC Warfarin Sodium (Coumadin) 5 mg 1X WARF ONCE PO ; Start 01/08/17 at 16:00; Stop 01/08/17 at 16:01 Active Scripts Active Tramadol Hcl 50 Mg Tablet 50 Mg PO PRN Q6HRS PRN Reported Novolog Flexpen (Insulin Aspart) 100 Unit/1 Ml Insuln.pen 1 Unit SQ PRN TID PRN Duoneb 0.5-3(2.5) Mg/3 Ml (Albuterol/Ipratropium) 3 Ml Ampul.neb 3 Ml NEB PRN Q4HRS PRN Famotidine 20 Mg Tablet 20 Mg PO HS Trazodone Hcl 50 Mg Tablet 1 Tab PO QHS Tamsulosin Hcl 0.4 Mg Cap.er.24h 0.4 Mg PO DAILY Melatonin 3 Mg Tablet 1 Tab PO QHS Losartan Potassium 100 Mg Tablet 100 Mg PO DAILY Colace Clear (Docusate Sodium) 50 Mg Capsule 50 Mg PO PRN DAILY PRN Aspirin 325 Mg Tablet 1 Tab PO DAILY Acetaminophen 500 Mg Tablet 500 Mg PO PRN Q6HRS PRN Vitamin D (Cholecalciferol (Vitamin D3)) 1,000 Unit Capsule 1 Cap PO DAILY Levothyroxine Sodium 112 Mcg Tablet 2 Tab PO HS Xarelto (Rivaroxaban) 10 Mg Tablet 1 Tab PO DAILY Prilosec Otc (Omeprazole Magnesium) 20 Mg Tablet.dr 1 Tab PO DAILY Metformin Hcl Er (Metformin Hcl) 500 Mg Tab.er.24h 500 Mg PO BIDWMEALS Amlodipine Besylate 10 Mg Tablet 10 Mg PO HS Simvastatin 20 Mg Tablet 20 Mg PO HS Glimepiride 2 Mg Tablet 2 Mg PO DAILY Carvedilol 3.125 Mg Tablet 6.25 Mg PO BID Potassium Chloride 10 Meq Capsule.er 20 Meq PO DAILY Vitals/I & O Vital Sign - Last 24 Hours 01/07/17 01/07/17 01/07/17 01/07/17 11:00 12:55 15:00 15:46 Temp 97.5 97.4 97.5 97.4 Pulse 57 53 Resp 16 18 B/P (MAP) 118/58 (78) 127/50 (75) Pulse Ox 97 98 O2 Delivery Nasal Cannula Nasal Cannula Nasal Cannula Nasal Cannula O2 Flow Rate 2.0 2.0 2.0 2.0 01/07/17 01/07/17 01/07/17 01/07/17 19:40 20:20 20:50 20:55 Temp 97.9 97.9 Pulse 86 98 Resp 20 20 B/P (MAP) 127/68 (87) 127/68 Pulse Ox 98 98 O2 Delivery Nasal Cannula Nasal Cannula Nasal Cannula O2 Flow Rate 2.0 2.0 2.0 01/07/17 01/08/17 01/08/17 01/08/17 22:36 00:50 02:43 05:55 Temp 97.9 97.6 97.9 97.6 Pulse 65 83 Resp 16 20 16 24 B/P (MAP) 134/54 (80) 156/81 (106) Pulse Ox 98 98 98 98 O2 Delivery Nasal Cannula Nasal Cannula Nasal Cannula Nasal Cannula O2 Flow Rate 2.0 2.0 2.0 2.0 01/08/17 01/08/17 01/08/17 01/08/17 06:30 06:45 07:00 08:00 Temp 97.8 97.8 Pulse 96 Resp 20 22 22 B/P (MAP) 110/83 (92) Pulse Ox 98 98 98 91 O2 Delivery Nasal Cannula Nasal Cannula Nasal Cannula Nasal Cannula O2 Flow Rate 2.0 2.0 2.0 2.0 Intake and Output 01/07/17 01/07/17 01/08/17 15:00 23:00 07:00 Intake Total 1380 ml 120 ml 1100 ml Output Total 450 ml 250 ml Balance 1380 ml -330 ml 850 ml Images On esophagram: Findings:Barium esophagram was performed. Patient could not stand. Imaging was performed with patient in prone oblique position. There were tertiary contractions of the mid to distal esophagus with poor propulsion of the contrast bolus into the distal esophagus. There was reflux of the contrast bolus from the mid esophagus into the proximal esophagus with subsequent vomiting. There is a small hiatal hernia. There is associated stricture formation with somewhat irregular margins with probable moderate luminal diameter reduction, suboptimal distention of the distal esophagus. Patient could not drink more barium for further imaging of the distal esophagus. Fluoroscopy time 0.8 minutes, 32 images. Impression: 1.Exam is limited as stated. There is a small hiatal hernia with associated stricture formation with somewhat irregular margins for which endoscopy is recommended. --and presbyesophagus Assessment Stricture plus poor motility. Doesn't look particularly malignant on x-ray. Merits investigation. Not clear how she would tolerate, particularly if dilation needed. Plan of Care Note Will tentatively set up for EGD tomorrow afternoon; if protime too generous or other issues, can cancel. Hold warfarin today. GURWINDER GONCALVES MD Jan 08, 2017 09:51
[2017-01-08 11:00] VITALS: BP 142/86
--- NOTE | 2017-01-08 11:25 | PDOC ---
Infectious Disease Note Subjective Subjective Less hoarse and cough Denies SOA/CP ROS ROS GEN: Denies fevers, chills, sweats HEENT: Denies blurred vision, sore throat CV: Denies chest pain RESP: Denies shortness of air, cough GI: Denies n/v/d NEURO: Denies confusion, dizziness MSK: Denies weakness, joint pain/swelling Vital Sign Vital Signs Vital Signs Date Time Temp Pulse Resp B/P (MAP) Pulse Ox O2 Delivery O2 Flow Rate FiO2 01/08/17 09:30 Nasal Cannula 2.0 01/08/17 09:06 75 110/83 01/08/17 09:05 91 01/08/17 07:00 97.8 22 97.8 Physical Exam PHYSICAL EXAM GENERAL: Propped up in bed, smiling, NAD HEENT: Oral cavity dry LUNGS: Clear anteriorly, nonlabored HEART: S1S2 ABD: Obese, soft, NT EXT: RLE 3+ edematous; left AKA drsg dry and intact [employer]: Alert, oriented, responds appropriately SKIN: No rash RIJ. minimal bleeding Labs Lab Laboratory Tests Test 01/07/17 11:47 01/07/17 17:29 01/07/17 20:41 01/08/17 06:15 Glucose (Fingerstick) 118 mg/dL (70-99) 122 mg/dL (70-99) 101 mg/dL (70-99) White Blood Count 7.7 x10^3/uL (4.0-11.0) Red Blood Count 3.72 x10^6/uL (3.50-5.40) Hemoglobin 10.4 g/dL (12.0-15.5) Hematocrit 33.3 % (36.0-47.0) Mean Corpuscular Volume 90 fL (79-100) Mean Corpuscular Hemoglobin 28 pg (25-35) Mean Corpuscular Hemoglobin Concent 31 g/dL (31-37) Red Cell Distribution Width 17.0 % (11.5-14.5) Platelet Count 187 x10^3/uL (140-400) Neutrophils (%) (Auto) 45 % (31-73) Lymphocytes (%) (Auto) 49 % (24-48) Monocytes (%) (Auto) 4 % (0-9) Eosinophils (%) (Auto) 1 % (0-3) Basophils (%) (Auto) 0 % (0-3) Neutrophils # (Auto) 3.5 x10^3uL (1.8-7.7) Lymphocytes # (Auto) 3.8 x10^3/uL (1.0-4.8) Monocytes # (Auto) 0.3 x10^3/uL (0.0-1.1) Eosinophils # (Auto) 0.1 x10^3/uL (0.0-0.7) Basophils # (Auto) 0.0 x10^3/uL (0.0-0.2) Prothrombin Time 19.7 SEC (11.7-14.0) Prothromb Time International Ratio 1.8 (0.8-1.1) Sodium Level 142 mmol/L (136-145) Potassium Level 4.0 mmol/L (3.5-5.1) Chloride Level 110 mmol/L (98-107) Carbon Dioxide Level 26 mmol/L (21-32) Anion Gap 6 (6-14) Blood Urea Nitrogen 13 mg/dL (7-20) Creatinine 0.5 mg/dL (0.6-1.0) Estimated GFR (Cockcroft-Gault) 116.2 Glucose Level 87 mg/dL (70-99) Calcium Level 7.2 mg/dL (8.5-10.1) Test 01/08/17 07:58 Glucose (Fingerstick) 79 mg/dL (70-99) CXR Impression: There is probable small residual right pleural effusion. There is improved aeration of the lung bases. Cardiac silhouette is again enlarged. ESOPHAGRAM/BARIUM SWALLOW Impression: 1.Exam is limited as stated. There is a small hiatal hernia with associated stricture formation with somewhat irregular margins for which endoscopy is recommended. Micro left leg, 01/03 AEROBIC RES 1 Final Pseudomonas aeruginosa AEROBIC RES 2 Final Morganella morganii AEROBIC RES 3 Final Staphylococcus aureus AEROBIC RES 4 Final Mixed skin mihaela Antibiotic RSLT#1 RSLT#2 RSLT#3 Amikacin =S =S Ampicillin/Sulbactam =R Cefepime =R =S Cefotaxime =S Ceftazidime =I =S Ceftriaxone =S Ciprofloxacin =S =I =S Clindamycin =S Erythromycin =S Gentamicin =S =R =S Imipenem =R Levofloxacin =I =I =S Linezolid =S Meropenem =R =S Moxifloxacin =S Oxacillin =S Penicillin =R Piperacillin =S =S Quinupristin/Dalfopristin =S Rifampin =S Tetracycline =R Ticarcillin =R Tobramycin =S Trimethoprim/Sulfa =R =S Vancomycin =S Objective Assessment Extensive left leg infection s/p AKA, 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 aspiration Obesity DM HTN Left fibular fracture CVA Plan Plan of Care D/c Zosyn EGD possible tomorrow PT/OT D/w daughter f/u appt vascular 01/30 Patient seen and examined. Case discussed with [employer]. Chart reviewed in [place]. Agree with above plan. HENRY CHUNG APRN Jan 08, 2017 11:25 BITA MIRANDA MD Jan 08, 2017 16:24
[2017-01-08] MEDS ORDERED: SODIUM PHOSPHATES 19/7GM 133 ML ENEMA. PR ONE (14:30)
--- NOTE | 2017-01-08 14:49 | PDOC ---
PROGRESS NOTES Chief Complaint Chief Complaint Left leg infection Ischemic leg Compartment syndrome Dysphagia - possible aspiration Obesity Diabetes Hypertension Atrial fibrillation CVA History of Present Illness History of Present Illness Pt. was seen and examined at the bedside. Pt sitting upright, dressed in hospital attire Pt smiling and pleasant, some hoarseness and dry cough present Vitals Vitals Vital Signs Date Time Temp Pulse Resp B/P (MAP) Pulse Ox O2 Delivery O2 Flow Rate FiO2 01/08/17 13:00 Nasal Cannula 2.0 01/08/17 11:00 97.9 82 22 142/86 (104) 98 97.9 Physical Exam Physical Exam Eyes: no conjunctival injection, sclera anicteric Neuro: recharger II-XII grossly intact b/l General: Alert, Cooperative, No acute distress Heart: Regular rate, Normal S1, Normal S2, No murmurs Lungs: Clear, Other (No Wheezes or crackles ) Abdomen: Normal bowel sounds, Soft Extremities: No cyanosis, Other (Generalized non-pitting edema, more prominent in her left arm) Skin: No rashes, No significant lesion Labs LABS Laboratory Tests Test 01/07/17 17:29 01/07/17 20:41 01/08/17 06:15 01/08/17 07:58 Glucose (Fingerstick) 122 mg/dL (70-99) 101 mg/dL (70-99) 79 mg/dL (70-99) White Blood Count 7.7 x10^3/uL (4.0-11.0) Red Blood Count 3.72 x10^6/uL (3.50-5.40) Hemoglobin 10.4 g/dL (12.0-15.5) Hematocrit 33.3 % (36.0-47.0) Mean Corpuscular Volume 90 fL (79-100) Mean Corpuscular Hemoglobin 28 pg (25-35) Mean Corpuscular Hemoglobin Concent 31 g/dL (31-37) Red Cell Distribution Width 17.0 % (11.5-14.5) Platelet Count 187 x10^3/uL (140-400) Neutrophils (%) (Auto) 45 % (31-73) Lymphocytes (%) (Auto) 49 % (24-48) Monocytes (%) (Auto) 4 % (0-9) Eosinophils (%) (Auto) 1 % (0-3) Basophils (%) (Auto) 0 % (0-3) Neutrophils # (Auto) 3.5 x10^3uL (1.8-7.7) Lymphocytes # (Auto) 3.8 x10^3/uL (1.0-4.8) Monocytes # (Auto) 0.3 x10^3/uL (0.0-1.1) Eosinophils # (Auto) 0.1 x10^3/uL (0.0-0.7) Basophils # (Auto) 0.0 x10^3/uL (0.0-0.2) Prothrombin Time 19.7 SEC (11.7-14.0) Prothromb Time International Ratio 1.8 (0.8-1.1) Sodium Level 142 mmol/L (136-145) Potassium Level 4.0 mmol/L (3.5-5.1) Chloride Level 110 mmol/L (98-107) Carbon Dioxide Level 26 mmol/L (21-32) Anion Gap 6 (6-14) Blood Urea Nitrogen 13 mg/dL (7-20) Creatinine 0.5 mg/dL (0.6-1.0) Estimated GFR (Cockcroft-Gault) 116.2 Glucose Level 87 mg/dL (70-99) Calcium Level 7.2 mg/dL (8.5-10.1) Test 01/08/17 11:59 Glucose (Fingerstick) 100 mg/dL (70-99) Review of Systems Review of Systems General: Admits to fatigue Heart: denies any chest pain Lungs: denies any SOB GI: denies any N/V Assessment and Plan Assessmemt and Plan Assessment: Plan: Lasix 20mg qday ordered Procalamine 50/hr Consult dietitian Continue PT/OT Continue home medications Continue abx Recheck labs in am Problems: Comment Review of Relevant I have reviewed the following items madhav (where applicable) has been applied. Labs Laboratory Tests Test 01/07/17 05:41 01/07/17 08:03 01/07/17 11:47 01/07/17 17:29 White Blood Count 6.7 x10^3/uL (4.0-11.0) Red Blood Count 3.47 x10^6/uL (3.50-5.40) Hemoglobin 10.0 g/dL (12.0-15.5) Hematocrit 31.3 % (36.0-47.0) Mean Corpuscular Volume 90 fL (79-100) Mean Corpuscular Hemoglobin 29 pg (25-35) Mean Corpuscular Hemoglobin Concent 32 g/dL (31-37) Red Cell Distribution Width 16.8 % (11.5-14.5) Platelet Count 200 x10^3/uL (140-400) Neutrophils (%) (Auto) 54 % (31-73) Lymphocytes (%) (Auto) 38 % (24-48) Monocytes (%) (Auto) 5 % (0-9) Eosinophils (%) (Auto) 2 % (0-3) Basophils (%) (Auto) 1 % (0-3) Neutrophils # (Auto) 3.6 x10^3uL (1.8-7.7) Lymphocytes # (Auto) 2.6 x10^3/uL (1.0-4.8) Monocytes # (Auto) 0.4 x10^3/uL (0.0-1.1) Eosinophils # (Auto) 0.1 x10^3/uL (0.0-0.7) Basophils # (Auto) 0.0 x10^3/uL (0.0-0.2) Prothrombin Time 17.1 SEC (11.7-14.0) Prothromb Time International Ratio 1.5 (0.8-1.1) Sodium Level 143 mmol/L (136-145) Potassium Level 4.0 mmol/L (3.5-5.1) Chloride Level 110 mmol/L (98-107) Carbon Dioxide Level 26 mmol/L (21-32) Anion Gap 7 (6-14) Blood Urea Nitrogen 14 mg/dL (7-20) Creatinine 0.6 mg/dL (0.6-1.0) Estimated GFR (Cockcroft-Gault) 94.1 Glucose Level 107 mg/dL (70-99) Calcium Level 7.1 mg/dL (8.5-10.1) EL-Lcq-X-Type Natriuretic Peptide 5670 pg/mL (0-449) Glucose (Fingerstick) 100 mg/dL (70-99) 118 mg/dL (70-99) 122 mg/dL (70-99) Test 01/07/17 20:41 01/08/17 06:15 01/08/17 07:58 01/08/17 11:59 Glucose (Fingerstick) 101 mg/dL (70-99) 79 mg/dL (70-99) 100 mg/dL (70-99) White Blood Count 7.7 x10^3/uL (4.0-11.0) Red Blood Count 3.72 x10^6/uL (3.50-5.40) Hemoglobin 10.4 g/dL (12.0-15.5) Hematocrit 33.3 % (36.0-47.0) Mean Corpuscular Volume 90 fL (79-100) Mean Corpuscular Hemoglobin 28 pg (25-35) Mean Corpuscular Hemoglobin Concent 31 g/dL (31-37) Red Cell Distribution Width 17.0 % (11.5-14.5) Platelet Count 187 x10^3/uL (140-400) Neutrophils (%) (Auto) 45 % (31-73) Lymphocytes (%) (Auto) 49 % (24-48) Monocytes (%) (Auto) 4 % (0-9) Eosinophils (%) (Auto) 1 % (0-3) Basophils (%) (Auto) 0 % (0-3) Neutrophils # (Auto) 3.5 x10^3uL (1.8-7.7) Lymphocytes # (Auto) 3.8 x10^3/uL (1.0-4.8) Monocytes # (Auto) 0.3 x10^3/uL (0.0-1.1) Eosinophils # (Auto) 0.1 x10^3/uL (0.0-0.7) Basophils # (Auto) 0.0 x10^3/uL (0.0-0.2) Prothrombin Time 19.7 SEC (11.7-14.0) Prothromb Time International Ratio 1.8 (0.8-1.1) Sodium Level 142 mmol/L (136-145) Potassium Level 4.0 mmol/L (3.5-5.1) Chloride Level 110 mmol/L (98-107) Carbon Dioxide Level 26 mmol/L (21-32) Anion Gap 6 (6-14) Blood Urea Nitrogen 13 mg/dL (7-20) Creatinine 0.5 mg/dL (0.6-1.0) Estimated GFR (Cockcroft-Gault) 116.2 Glucose Level 87 mg/dL (70-99) Calcium Level 7.2 mg/dL (8.5-10.1) Laboratory Tests Test 01/07/17 17:29 01/07/17 20:41 01/08/17 06:15 01/08/17 07:58 Glucose (Fingerstick) 122 mg/dL (70-99) 101 mg/dL (70-99) 79 mg/dL (70-99) White Blood Count 7.7 x10^3/uL (4.0-11.0) Red Blood Count 3.72 x10^6/uL (3.50-5.40) Hemoglobin 10.4 g/dL (12.0-15.5) Hematocrit 33.3 % (36.0-47.0) Mean Corpuscular Volume 90 fL (79-100) Mean Corpuscular Hemoglobin 28 pg (25-35) Mean Corpuscular Hemoglobin Concent 31 g/dL (31-37) Red Cell Distribution Width 17.0 % (11.5-14.5) Platelet Count 187 x10^3/uL (140-400) Neutrophils (%) (Auto) 45 % (31-73) Lymphocytes (%) (Auto) 49 % (24-48) Monocytes (%) (Auto) 4 % (0-9) Eosinophils (%) (Auto) 1 % (0-3) Basophils (%) (Auto) 0 % (0-3) Neutrophils # (Auto) 3.5 x10^3uL (1.8-7.7) Lymphocytes # (Auto) 3.8 x10^3/uL (1.0-4.8) Monocytes # (Auto) 0.3 x10^3/uL (0.0-1.1) Eosinophils # (Auto) 0.1 x10^3/uL (0.0-0.7) Basophils # (Auto) 0.0 x10^3/uL (0.0-0.2) Prothrombin Time 19.7 SEC (11.7-14.0) Prothromb Time International Ratio 1.8 (0.8-1.1) Sodium Level 142 mmol/L (136-145) Potassium Level 4.0 mmol/L (3.5-5.1) Chloride Level 110 mmol/L (98-107) Carbon Dioxide Level 26 mmol/L (21-32) Anion Gap 6 (6-14) Blood Urea Nitrogen 13 mg/dL (7-20) Creatinine 0.5 mg/dL (0.6-1.0) Estimated GFR (Cockcroft-Gault) 116.2 Glucose Level 87 mg/dL (70-99) Calcium Level 7.2 mg/dL (8.5-10.1) Test 01/08/17 11:59 Glucose (Fingerstick) 100 mg/dL (70-99) Microbiology 01/03/17 Gram Stain - Final, Complete Medications Current Medications Oxycodone HCl (Roxicodone) 5 mg PRN Q4HRS PRN PO PAIN Last administered on 11:58; Start 01/02/17 at 18:15 Oxycodone HCl (OxyCONTIN) 10 mg Q12HR PO Last administered on 01/08/17 08:56 ; Start 01/02/17 at 21:00 Amlodipine Besylate (Norvasc) 5 mg HS PO Last administered on 01/02/17 22:28 ; Start 01/02/17 at 21:00; Stop 01/04/17 at 08:03; Status DC Tamsulosin HCl (Flomax) 0.4 mg DAILY PO Last administered on 01/08/17 09:06; Start 01/03/17 at 09:00 Polyethylene Glycol (miraLAX PACKET) 17 gm PRN DAILY PRN PO CONSTIPATION Last administered on 01/08/17 09:36; Start 01/02/17 at 18:30 Ondansetron HCl (Zofran) 4 mg PRN Q6HRS PRN IV NAUSEA/VOMITING; Start at 18:30 Lorazepam (Ativan) 2 mg PRN Q12HR PRN IV ANXIETY / AGITATION Last administered on 01/06/17 22:42; Start 01/02/17 at 18:30 Metoprolol Tartrate (Lopressor) 25 mg BID PO Last administered on 01/02/17 22 :29; Start 01/02/17 at 21:00; Stop 01/04/17 at 08:03; Status DC Silver Nitrate/ Potassium Nitrate 1 each 1X ONCE TP ; Start 01/02/17 at 18:45 ; Stop 01/02/17 at 18:46; Status DC Famotidine (Pepcid) 20 mg DAILY PO ; Start 01/03/17 at 09:00; Stop 01/04/17 at 08:05; Status DC Trazodone HCl (Desyrel) 50 mg QHS PO Last administered on 01/02/17 22:28; Start 01/02/17 at 21:00; Stop 01/04/17 at 08:04; Status DC Levothyroxine Sodium (Synthroid) 112 mcg DAILY07 PO ; Start 01/03/17 at 07:00; Stop 01/04/17 at 08:05; Status DC Lactobacillus Rhamnosus (Culturelle) 1 cap BID PO Last administered on 09:07; Start 01/02/17 at 21:00 Sodium Chloride 1,000 ml @ 75 mls/hr [id number] IV Last administered on 00:06; Start 01/02/17 at 19:00 Sodium Chloride (Normal Saline Flush 3ml) 10 ml PRN Q12HRS PRN IV AFTER MEDS AND BLOOD DRAWS; Start 01/02/17 at 18:30; Stop 01/05/17 at 05:38; Status DC Insulin Aspart (NovoLOG) 0-9 UNITS TIDWMEALS SQ Last administered on 17:10; Start 01/03/17 at 19:00 Dextrose (Dextrose 50%-Water Syringe) 12.5 gm PRN Q15MIN PRN IV SEE COMMENTS; Start 01/02/17 at 18:45 Docusate Sodium (Colace) 100 mg BID PO Last administered on 01/08/17 09:08; Start 01/02/17 at 21:00 Bisacodyl (Dulcolax Supp) 10 mg PRN DAILY PRN [place] CONSTIPATION; Start 01/02/17 at 18:45 Atorvastatin Calcium (Lipitor) 10 mg QHS PO Last administered on 01/07/17 20: 49; Start 01/02/17 at 21:00 Aspirin (Lucas Aspirin) 325 mg DAILYWBKFT PO ; Start 01/03/17 at 08:00; Stop 01/03/17 at 16:35; Status DC Acetaminophen (Tylenol) 500 mg PRN Q6HRS PRN PO MILD PAIN / TEMP; Start at 18:45; Stop 01/04/17 at 12:28; Status DC Morphine Sulfate 2 mg PRN Q2HR PRN IV PAIN Last administered on 01/03/17 22: 41; Start 01/02/17 at 21:15; Stop 01/03/17 at 23:26; Status DC Morphine Sulfate 4 mg PRN Q2HR PRN IV PAIN Last administered on 01/03/17 20: 22; Start 01/02/17 at 21:15; Stop 01/03/17 at 23:56; Status DC Piperacillin Sod/ Tazobactam Sod 3.375 gm/Dextrose 50 ml @ 100 mls/hr Q6HRS IV ; Start 01/03/17 at 12:00; Status UNV Linezolid 300 ml @ 300 mls/hr Q12HR IV Last administered on 01/07/17 09:29; Start 01/03/17 at 11:00; Stop 01/07/17 at 12:55; Status DC Phytonadione 10 mg/Dextrose 51 ml @ 102 mls/hr 1X ONCE IV ; Start 01/03/17 at 11:00; Stop 01/03/17 at 11:00; Status DC Piperacillin Sod/ Tazobactam Sod (Zosyn) 3.375 gm Q6HRS IVP Last administered on 01/08/17 06:09; Start 01/03/17 at 12:00; Stop 01/08/17 at 11:26; Status DC Furosemide (Lasix) 40 mg 1X ONCE IVP Last administered on 01/03/17 11:44; Start 01/03/17 at 11:45; Stop 01/03/17 at 11:46; Status DC Lidocaine/Sodium Bicarbonate (Buffered Lidocaine 1%) 3 ml 1X ONCE IJ Last administered on 01/03/17 15:57; Start 01/03/17 at 15:30; Stop 01/03/17 at 15 :31; Status DC Lidocaine/Sodium Bicarbonate (Buffered Lidocaine 1%) 3 ml 1X ONCE IJ ; Start 01/03/17 at 15:45; Stop 01/03/17 at 15:46; Status DC Phytonadione (Vitamin K Ampule) 10 mg 1X ONCE SQ Last administered on 11/21/ 17at 17:56; Start 01/03/17 at 16:30; Stop 01/03/17 at 16:35; Status DC Ondansetron HCl (Zofran) 4 mg PRN Q6HRS PRN IV NAUSEA/VOMITING; Start at 07:00; Stop 01/05/17 at 06:59; Status DC Fentanyl Citrate (Fentanyl 2ml Vial) 25 mcg PRN Q5MIN PRN IV MILD PAIN; Start 01/04/17 at 07:00; Stop 01/05/17 at 06:59; Status DC Fentanyl Citrate (Fentanyl 2ml Vial) 50 mcg PRN Q5MIN PRN IV MODERATE PAIN; Start 01/04/17 at 07:00; Stop 01/05/17 at 06:59; Status DC Ringer's Solution 1,000 ml @ 30 mls/hr Q24H IV Last administered on 09:24; Start 01/04/17 at 07:00; Stop 01/04/17 at 18:59; Status DC Lidocaine HCl (Xylocaine-Mpf 1% Vial) 2 ml PRN 1X PRN ID PRIOR TO IV START; Start 01/04/17 at 07:00; Stop 01/05/17 at 06:59; Status DC Prochlorperazine Edisylate (Compazine) 5 mg PACU PRN PRN IV NAUSEA, MRX1; Start 01/04/17 at 07:00; Stop 01/05/17 at 06:59; Status DC Morphine Sulfate 2 mg PRN Q2HR PRN IV PAIN; Start 01/03/17 at 23:30 Morphine Sulfate 4 mg PRN Q2HR PRN IV PAIN Last administered on 01/08/17 09: 05; Start 01/03/17 at 23:56 Acetaminophen (Tylenol) 500 mg PRN Q6HRS PRN PO MILD PAIN; Start 01/04/17 at 08:00 Amlodipine Besylate (Norvasc) 10 mg HS PO Last administered on 01/07/17 20:55 ; Start 01/04/17 at 21:00 Carvedilol (Coreg) 6.25 mg BIDWMEALS PO ; Start 01/04/17 at 09:00; Status Cancel Famotidine (Pepcid) 20 mg HS PO Last administered on 01/06/17 20:48; Start 01/04/17 at 21:00; Stop 01/07/17 at 14:56; Status DC Albuterol/ Ipratropium (Duoneb) 3 ml PRN Q4HRS PRN NEB SHORTNESS OF BREATH; Start 01/04/17 at 08:00 Levothyroxine Sodium (Synthroid) 224 mcg HS PO Last administered on 01/07/17 20:51; Start 01/04/17 at 21:00 Metoprolol Tartrate (Lopressor) 25 mg BID PO ; Start 01/04/17 at 09:00; Status Cancel Simvastatin (Zocor) 20 mg HS PO ; Start 01/04/17 at 21:00; Status UNV Tamsulosin HCl (Flomax) 0.4 mg DAILY PO ; Start 01/04/17 at 09:00; Status UNV Tramadol HCl (Ultram) 50 mg PRN Q6HRS PRN PO PAIN; Start 01/04/17 at 08:00 Trazodone HCl (Desyrel) 50 mg QHS PO Last administered on 01/07/17 20:48; Start 01/04/17 at 21:00 Vitamin D (Vitamin D3) 1,000 unit DAILY PO Last administered on 01/08/17 09: 08; Start 01/04/17 at 09:00 Docusate Sodium (Colace) 100 mg PRN DAILY PRN PO CONSTIPATION; Start 01/04/17 at 09:00 Losartan Potassium (Cozaar) 100 mg DAILY PO Last administered on 01/08/17 09: 06; Start 01/04/17 at 09:00 Non-Formulary Medication 1 tab QHS PO ; Start 01/04/17 at 21:00; Status UNV Non-Formulary Medication 1 tab DAILY PO ; Start 01/04/17 at 09:00; Status UNV Potassium Chloride (Klor-Con) 20 meq DAILYWBKFT PO Last administered on 09:07; Start 01/04/17 at 08:30 Carvedilol (Coreg) 6.25 mg BIDWMEALS PO Last administered on 01/06/17 08:58; Start 01/04/17 at 09:00; Stop 01/06/17 at 12:28; Status DC Cefazolin Sodium 1 gm/Sodium Chloride 500 ml @ 500 mls/hr 1X PERIOP ONCE IRR Last administered on 01/04/17 16:38; Start 01/04/17 at 14:30; Stop 01/04/17 at 15:29; Status DC Heparin Sodium (Porcine) 5000 unit/Sodium Chloride 505 ml @ 505 mls/hr 1X PERIOP ONCE IRR Last administered on 01/04/17 16:38; Start 01/04/17 at 14: 30; Stop 01/04/17 at 15:29; Status DC Furosemide (Lasix) 40 mg 1X ONCE IVP ; Start 01/04/17 at 16:00; Stop at 16:01; Status DC Albumin Human 100 ml @ 100 mls/hr 1X ONCE IV Last administered on 01/04/17 18:52; Start 01/04/17 at 16:00; Stop 01/04/17 at 16:59; Status DC Albumin Human 100 ml @ 100 mls/hr 1X ONCE IV Last administered on 01/04/17 19:16; Start 01/04/17 at 16:00; Stop 01/04/17 at 16:59; Status DC Furosemide (Lasix) 20 mg 1X ONCE IVP Last administered on 01/04/17 21:16; Start 01/04/17 at 18:45; Stop 01/04/17 at 18:46; Status DC Sodium Chloride (Normal Saline Flush) 10 ml QSHIFT PRN IV AFTER MEDS AND BLOOD DRAWS; Start 01/05/17 at 05:45 Warfarin Sodium (Coumadin Per Pharmacy) 1 each PRN DAILY PRN MC SEE COMMENTS Last administered on 01/08/17 07:43; Start 01/05/17 at 16:45 Warfarin Sodium (Coumadin) 5 mg 1X WARF ONCE PO Last administered on 17:02; Start 01/05/17 at 17:00; Stop 01/05/17 at 17:01; Status DC Potassium Chloride 50 ml @ 50 mls/hr Q1H IV Last administered on 01/06/17 12: 28; Start 01/06/17 at 07:30; Stop 01/06/17 at 09:29; Status DC Warfarin Sodium (Coumadin) 4 mg 1X WARF ONCE PO Last administered on 15:48; Start 01/06/17 at 16:00; Stop 01/06/17 at 16:01; Status DC Potassium Chloride (KCl Oral Soln) 40 meq 1X ONCE PO Last administered on 18:51; Start 01/06/17 at 18:00; Stop 01/06/17 at 18:01; Status DC Furosemide (Lasix) 40 mg 1X ONCE IVP Last administered on 01/06/17 18:47; Start 01/06/17 at 18:00; Stop 01/06/17 at 18:01; Status DC Warfarin Sodium (Coumadin) 5 mg 1X WARF ONCE PO Last administered on 15:46; Start 01/07/17 at 16:00; Stop 01/07/17 at 16:01; Status DC Pantoprazole Sodium (Protonix) 40 mg DAILYAC PO Last administered on 09:06; Start 01/07/17 at 16:30 Barium Sulfate (Liquid E-Z Paque) 355 ml 1X ONCE PO Last administered on 01/08 08:35; Start 01/08/17 at 07:30; Stop 01/08/17 at 07:31; Status DC Barium Sulfate (E-Z-Hd) 340 gm 1X ONCE PO ; Start 01/08/17 at 07:30; Stop at 07:31; Status DC Simethicone/ Sodium Bicarb/ Citric Ac (E-Z-Gas) 1 packet 1X ONCE PO ; Start at 07:30; Stop 01/08/17 at 07:31; Status DC Warfarin Sodium (Coumadin) 5 mg 1X WARF ONCE PO ; Start 01/08/17 at 16:00; Stop 01/08/17 at 16:01 Sodium Monofluorophosphate (Fleet Adult) 133 ml 1X ONCE [facility] ; Start 01/08/17 at 14:30; Stop 01/08/17 at 14:34; Status DC Active Scripts Active Tramadol Hcl 50 Mg Tablet 50 Mg PO PRN Q6HRS PRN Reported Novolog Flexpen (Insulin Aspart) 100 Unit/1 Ml Insuln.pen 1 Unit SQ PRN TID PRN Duoneb 0.5-3(2.5) Mg/3 Ml (Albuterol/Ipratropium) 3 Ml Ampul.neb 3 Ml NEB PRN Q4HRS PRN Famotidine 20 Mg Tablet 20 Mg PO HS Trazodone Hcl 50 Mg Tablet 1 Tab PO QHS Tamsulosin Hcl 0.4 Mg Cap.er.24h 0.4 Mg PO DAILY Melatonin 3 Mg Tablet 1 Tab PO QHS Losartan Potassium 100 Mg Tablet 100 Mg PO DAILY Colace Clear (Docusate Sodium) 50 Mg Capsule 50 Mg PO PRN DAILY PRN Aspirin 325 Mg Tablet 1 Tab PO DAILY Acetaminophen 500 Mg Tablet 500 Mg PO PRN Q6HRS PRN Vitamin D (Cholecalciferol (Vitamin D3)) 1,000 Unit Capsule 1 Cap PO DAILY Levothyroxine Sodium 112 Mcg Tablet 2 Tab PO HS Xarelto (Rivaroxaban) 10 Mg Tablet 1 Tab PO DAILY Prilosec Otc (Omeprazole Magnesium) 20 Mg Tablet.dr 1 Tab PO DAILY Metformin Hcl Er (Metformin Hcl) 500 Mg Tab.er.24h 500 Mg PO BIDWMEALS Amlodipine Besylate 10 Mg Tablet 10 Mg PO HS Simvastatin 20 Mg Tablet 20 Mg PO HS Glimepiride 2 Mg Tablet 2 Mg PO DAILY Carvedilol 3.125 Mg Tablet 6.25 Mg PO BID Potassium Chloride 10 Meq Capsule.er 20 Meq PO DAILY Vitals/I & O Vital Sign - Last 24 Hours 01/07/17 01/07/17 01/07/17 01/07/17 15:00 15:46 19:40 20:20 Temp 97.4 97.9 97.4 97.9 Pulse 53 86 Resp 18 20 B/P (MAP) 127/50 (75) 127/68 (87) Pulse Ox 98 98 O2 Delivery Nasal Cannula Nasal Cannula Nasal Cannula Nasal Cannula O2 Flow Rate 2.0 2.0 2.0 2.0 01/07/17 01/07/17 01/07/17 01/08/17 20:50 20:55 22:36 00:50 Temp 97.9 97.9 Pulse 98 65 Resp 20 16 20 B/P (MAP) 127/68 134/54 (80) Pulse Ox 98 98 98 O2 Delivery Nasal Cannula Nasal Cannula O2 Flow Rate 2.0 2.0 01/08/17 01/08/17 01/08/17 01/08/17 02:43 05:55 06:30 06:45 Temp 97.6 97.6 Pulse 83 Resp 16 24 20 22 B/P (MAP) 156/81 (106) Pulse Ox 98 98 98 98 O2 Delivery Nasal Cannula Nasal Cannula Nasal Cannula O2 Flow Rate 2.0 2.0 2.0 01/08/17 01/08/17 01/08/17 01/08/17 07:00 08:00 08:05 08:56 Temp 97.8 97.8 Pulse 96 Resp 22 B/P (MAP) 110/83 (92) Pulse Ox 98 91 91 O2 Delivery Nasal Cannula Nasal Cannula Nasal Cannula O2 Flow Rate 2.0 2.0 2.0 01/08/17 01/08/17 01/08/17 01/08/17 09:05 09:06 09:30 11:00 Temp 97.9 97.9 Pulse 75 82 Resp 22 B/P (MAP) 110/83 142/86 (104) Pulse Ox 91 98 O2 Delivery Nasal Cannula Nasal Cannula Nasal Cannula O2 Flow Rate 2.0 2.0 2.0 01/08/17 01/08/17 01/08/17 11:58 13:00 13:00 O2 Delivery Nasal Cannula Nasal Cannula Nasal Cannula O2 Flow Rate 2.0 2.0 2.0 Intake and Output 01/07/17 01/07/17 01/08/17 15:00 23:00 07:00 Intake Total 1380 ml 120 ml 1100 ml Output Total 450 ml 250 ml Balance 1380 ml -330 ml 850 ml Nutrition Consultation Dietary Evaluation: Recommendations by RD: Increase Calorie Intake, Protein supplementation Comments: added ensure supplements to diet order with hx poor po intake since stroke Expected Outcomes/Goals: to meet > 75% est nutr needs Malnutrition Findings: Malnutrition related to morbid: Weight 200% of ideal wt Malnutrition related to morbid: Yes Weight Status: Morbidly Obese MANDI DOW III DO Jan 08, 2017 14:49
[2017-01-08] MEDS: FUROSEMIDE 20 MG/2 ML VIAL. IVP SCH (15:02)
[2017-01-08] MEDS: AMINO AC 3%/ELECTROLYTE/GLYCER 1,000 ML IV SCH (15:03)
[2017-01-08 15:09] VITALS: BP 146/78
[2017-01-08 15:37] LABS: ALBUMIN 1.6 g/dL (3.4-5.0); ALBUMIN/GLOBULIN RATIO 0.5 (1.0-1.7); CREATININE 0.6 mg/dL (0.6-1.0); GFR 94.1; POTASSIUM 3.8 mmol/L (3.5-5.1); TOTAL BILIRUBIN 0.5 mg/dL (0.2-1.0); TOTAL PROTEIN 4.7 g/dL (6.4-8.2)
[2017-01-08] MEDS ORDERED: WARFARIN 5 MG TABLET. PO ONE (16:00)
[2017-01-08] MEDS: ONDANSETRON PF 4 MG/2 ML VIAL. IV PRN (18:29)
[2017-01-08 19:20] VITALS: BP 145/68
[2017-01-08] MEDS: ATORVASTATIN CALCIUM 10 MG TABLET. PO SCH (20:09)
[2017-01-08] MEDS: amLODIPine BESYLATE 10 MG TABLET PO SCH (20:10)
[2017-01-08] MEDS: LEVOTHYROXINE 112 MCG TABLET PO SCH (20:11)
[2017-01-08] MEDS: traZODone 50 MG TABLET. PO SCH (20:11)
[2017-01-08 23:00] VITALS: BP 127/76
[2017-01-09] MEDS: MORPHINE SULFATE 4 MG/ML DISP.SYRIN. IV PRN ×2 (01:33→06:12)
[2017-01-09 02:45] VITALS: BP 159/87
[2017-01-09 03:12] LABS: BASO % 0 % (0-3); EOS % 1 % (0-3); HEMATOCRIT 31.3 % (36.0-47.0); HEMOGLOBIN 10.1 g/dL (12.0-15.5); LYMPH # 5.4 x10^3/uL (1.0-4.8); LYMPH % 56 % (24-48); MEAN CORPUSCULAR HEMOGLOBIN 29 pg (25-35); MEAN CORPUSCULAR HGB CONC 32 g/dL (31-37); MEAN CORPUSCULAR VOLUME 90 fL (79-100); MONO % 4 % (0-9); NEUT % 39 % (31-73); PLATELET COUNT 171 x10^3/uL (140-400); RED BLOOD COUNT 3.48 x10^6/uL (3.50-5.40); RED CELL DISTRIBUTION WIDTH 16.8 % (11.5-14.5); WHITE BLOOD COUNT 9.6 x10^3/uL (4.0-11.0)
[2017-01-09 03:21] LABS: INR 1.9 (0.8-1.1); PROTHROMBIN TIME PATIENT 20.5 SEC (11.7-14.0)
[2017-01-09 03:24] LABS: CALCIUM 7.2 mg/dL (8.5-10.1); CREATININE 0.5 mg/dL (0.6-1.0); GFR 116.2
[2017-01-09] MEDS: IV NORMAL SALINE 1000ML BAG 1,000 ML IV SCH (04:52)
[2017-01-09 07:00] VITALS: BP 147/75
[2017-01-09] MEDS: INSULIN ASPART 300 UNITS/3 ML INSULN.PEN SQ SCH ×3 (08:00→18:12)
[2017-01-09] MEDS: DOCUSATE SODIUM 100 MG CAPSULE. PO SCH ×2 (08:33→21:46)
[2017-01-09] MEDS: oxyCODONE ER 10 MG TAB.ER.12H PO SCH ×2 (08:33→21:00)
[2017-01-09] MEDS: TAMSULOSIN 0.4 MG CAP.ER.24H. PO SCH (08:33)
[2017-01-09] MEDS: LACTOBACILLUS RHAMNOSUS GG 1 CAPSULE. PO SCH ×2 (08:33→21:47)
[2017-01-09] MEDS: LOSARTAN POTASSIUM 50 MG TABLET. PO SCH (08:33)
[2017-01-09] MEDS: PANTOPRAZOLE 40 MG TABLET.DR. PO SCH (08:33)
[2017-01-09] MEDS: CHOLECALCIFEROL (VITAMIN D3) 1,000 UNIT TABLET PO SCH (08:33)
[2017-01-09] MEDS: FUROSEMIDE 20 MG/2 ML VIAL. IVP SCH (08:34)
[2017-01-09] MEDS: POTASSIUM CHLORIDE 20 MEQ TABLET.ER. PO SCH (08:34)
--- NOTE | 2017-01-09 09:47 | PDOC ---
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, 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 SKIN: No gen rash line looks ok Labs Lab Laboratory Tests Test 01/08/17 11:59 01/08/17 15:10 01/08/17 16:51 01/08/17 20:40 Glucose (Fingerstick) 100 mg/dL (70-99) 111 mg/dL (70-99) 140 mg/dL (70-99) Sodium Level 144 mmol/L (136-145) Potassium Level 3.8 mmol/L (3.5-5.1) Chloride Level 110 mmol/L (98-107) Carbon Dioxide Level 26 mmol/L (21-32) Anion Gap 8 (6-14) Blood Urea Nitrogen 13 mg/dL (7-20) Creatinine 0.6 mg/dL (0.6-1.0) Estimated GFR (Cockcroft-Gault) 94.1 BUN/Creatinine Ratio 22 (6-20) Glucose Level 104 mg/dL (70-99) Calcium Level 7.0 mg/dL (8.5-10.1) Total Bilirubin 0.5 mg/dL (0.2-1.0) Aspartate Amino Transf (AST/SGOT) 26 U/L (15-37) Alanine Aminotransferase (ALT/SGPT) 15 U/L (14-59) Alkaline Phosphatase 95 U/L (46-116) Total Protein 4.7 g/dL (6.4-8.2) Albumin 1.6 g/dL (3.4-5.0) Albumin/Globulin Ratio 0.5 (1.0-1.7) Test 01/09/17 03:00 01/09/17 07:33 White Blood Count 9.6 x10^3/uL (4.0-11.0) Red Blood Count 3.48 x10^6/uL (3.50-5.40) Hemoglobin 10.1 g/dL (12.0-15.5) Hematocrit 31.3 % (36.0-47.0) Mean Corpuscular Volume 90 fL (79-100) Mean Corpuscular Hemoglobin 29 pg (25-35) Mean Corpuscular Hemoglobin Concent 32 g/dL (31-37) Red Cell Distribution Width 16.8 % (11.5-14.5) Platelet Count 171 x10^3/uL (140-400) Neutrophils (%) (Auto) 39 % (31-73) Lymphocytes (%) (Auto) 56 % (24-48) Monocytes (%) (Auto) 4 % (0-9) Eosinophils (%) (Auto) 1 % (0-3) Basophils (%) (Auto) 0 % (0-3) Neutrophils # (Auto) 3.8 x10^3uL (1.8-7.7) Lymphocytes # (Auto) 5.4 x10^3/uL (1.0-4.8) Monocytes # (Auto) 0.4 x10^3/uL (0.0-1.1) Eosinophils # (Auto) 0.1 x10^3/uL (0.0-0.7) Basophils # (Auto) 0.0 x10^3/uL (0.0-0.2) Prothrombin Time 20.5 SEC (11.7-14.0) Prothromb Time International Ratio 1.9 (0.8-1.1) Sodium Level 141 mmol/L (136-145) Potassium Level 4.0 mmol/L (3.5-5.1) Chloride Level 109 mmol/L (98-107) Carbon Dioxide Level 27 mmol/L (21-32) Anion Gap 5 (6-14) Blood Urea Nitrogen 12 mg/dL (7-20) Creatinine 0.5 mg/dL (0.6-1.0) Estimated GFR (Cockcroft-Gault) 116.2 Glucose Level 126 mg/dL (70-99) Calcium Level 7.2 mg/dL (8.5-10.1) Glucose (Fingerstick) 113 mg/dL (70-99) RADIOLOGY CXR REVIEWED BARIUM STUDY Impression: 1.Exam is limited as stated. There is a small hiatal hernia with associated stricture formation with somewhat irregular margins for which endoscopy is recommended. Micro RUN DATE: 01/07/17 PAGE 1 RUN TIME: 1110 [facility] [address] [place] [address] Ger Melo M.D., [employer] PATIENT: JIGNA CRESPO I ACCT: [id number] LOC: [address] [place] [address] U : [id number] AGE/SX: 89/F ROOM: [facility] REG : 01/02/[address]: ZAHIRA KEYES MD : [id number] BED: 1 DIS : STATUS: ADM IN TLOC: SPEC #: [id number] FAROOQ: 01/03/17 STATUS: RES REQ #: [id number] RECD: 01/03/[address]: ZAHIRA KEYES MD SOURCE: LEG ENTR: 01/03/17-[address] [facility] [address]: ZAKI ALBA II, MD [facility]: CHRISTY BANDA MD, GLENN A MD ORDERED: ANAER-AERO CULT Procedure Result ANAEROBIC-AEROBIC CULTURE PENDING ANAEROBIC RES 1 PENDING AEROBIC CULT Final Final report AEROBIC RES 1 Final Comment Pseudomonas aeruginosa Moderate growth AEROBIC RES 2 Final Morganella morganii Moderate growth AEROBIC RES 3 Final Staphylococcus aureus Heavy growth Based on resistance to penicillin and susceptibility to oxacillin this isolate would be susceptible to: * Penicillinase-stable penicillins; such as: Cloxacillin Dicloxacillin Nafcillin * Beta-lactam/beta-lactamase inhibitor combinations; such as: Amoxicillin-clavulanic acid Ampicillin-sulbactam * Antistaphylococcal cephems; such as: Cefaclor Cefuroxime * Antistaphylococcal carbapenems; such as: Imipenem Objective Assessment Extensive left leg infection s/p AKA, 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 aspiration Obesity DM HTN Left fibular fracture CVA Plan Plan of Care Off antibiotics zosyn monitor off antibiotics Awaiting EGD f/u appt vascular 01/30 maintain aspiration precautions GERMAN LARSEN MD Jan 09, 2017 09:47
--- NOTE | 2017-01-09 10:33 | PDOC ---
SURGICAL PROGRESS NOTE Subjective comfortable, no complaints. Vital Signs Vital Signs Date Time Temp Pulse Resp B/P (MAP) Pulse Ox O2 Delivery O2 Flow Rate FiO2 01/09/17 08:33 78 147/75 01/09/17 08:33 96 Nasal Cannula 2.0 01/09/17 07:00 97.9 19 97.9 I&O Intake and Output 01/09/17 07:00 Intake Total 1893 ml Output Total 601 ml Balance 1292 ml Intake Oral 800 ml IV Total 1093 ml Output Urine Total 600 ml Stool Total 1 ml # Bowel Movements 2 Extremities: Other (left above knee amputation incision well healed. ; left arm very swollen) Labs Laboratory Tests Test 01/07/17 11:47 01/07/17 17:29 01/07/17 20:41 01/08/17 06:15 Glucose (Fingerstick) 118 mg/dL (70-99) 122 mg/dL (70-99) 101 mg/dL (70-99) White Blood Count 7.7 x10^3/uL (4.0-11.0) Red Blood Count 3.72 x10^6/uL (3.50-5.40) Hemoglobin 10.4 g/dL (12.0-15.5) Hematocrit 33.3 % (36.0-47.0) Mean Corpuscular Volume 90 fL (79-100) Mean Corpuscular Hemoglobin 28 pg (25-35) Mean Corpuscular Hemoglobin Concent 31 g/dL (31-37) Red Cell Distribution Width 17.0 % (11.5-14.5) Platelet Count 187 x10^3/uL (140-400) Neutrophils (%) (Auto) 45 % (31-73) Lymphocytes (%) (Auto) 49 % (24-48) Monocytes (%) (Auto) 4 % (0-9) Eosinophils (%) (Auto) 1 % (0-3) Basophils (%) (Auto) 0 % (0-3) Neutrophils # (Auto) 3.5 x10^3uL (1.8-7.7) Lymphocytes # (Auto) 3.8 x10^3/uL (1.0-4.8) Monocytes # (Auto) 0.3 x10^3/uL (0.0-1.1) Eosinophils # (Auto) 0.1 x10^3/uL (0.0-0.7) Basophils # (Auto) 0.0 x10^3/uL (0.0-0.2) Prothrombin Time 19.7 SEC (11.7-14.0) Prothromb Time International Ratio 1.8 (0.8-1.1) Sodium Level 142 mmol/L (136-145) Potassium Level 4.0 mmol/L (3.5-5.1) Chloride Level 110 mmol/L (98-107) Carbon Dioxide Level 26 mmol/L (21-32) Anion Gap 6 (6-14) Blood Urea Nitrogen 13 mg/dL (7-20) Creatinine 0.5 mg/dL (0.6-1.0) Estimated GFR (Cockcroft-Gault) 116.2 Glucose Level 87 mg/dL (70-99) Calcium Level 7.2 mg/dL (8.5-10.1) Test 01/08/17 07:58 01/08/17 11:59 01/08/17 15:10 01/08/17 16:51 Glucose (Fingerstick) 79 mg/dL (70-99) 100 mg/dL (70-99) 111 mg/dL (70-99) Sodium Level 144 mmol/L (136-145) Potassium Level 3.8 mmol/L (3.5-5.1) Chloride Level 110 mmol/L (98-107) Carbon Dioxide Level 26 mmol/L (21-32) Anion Gap 8 (6-14) Blood Urea Nitrogen 13 mg/dL (7-20) Creatinine 0.6 mg/dL (0.6-1.0) Estimated GFR (Cockcroft-Gault) 94.1 BUN/Creatinine Ratio 22 (6-20) Glucose Level 104 mg/dL (70-99) Calcium Level 7.0 mg/dL (8.5-10.1) Total Bilirubin 0.5 mg/dL (0.2-1.0) Aspartate Amino Transf (AST/SGOT) 26 U/L (15-37) Alanine Aminotransferase (ALT/SGPT) 15 U/L (14-59) Alkaline Phosphatase 95 U/L (46-116) Total Protein 4.7 g/dL (6.4-8.2) Albumin 1.6 g/dL (3.4-5.0) Albumin/Globulin Ratio 0.5 (1.0-1.7) Test 01/08/17 20:40 01/09/17 03:00 01/09/17 07:33 Glucose (Fingerstick) 140 mg/dL (70-99) 113 mg/dL (70-99) White Blood Count 9.6 x10^3/uL (4.0-11.0) Red Blood Count 3.48 x10^6/uL (3.50-5.40) Hemoglobin 10.1 g/dL (12.0-15.5) Hematocrit 31.3 % (36.0-47.0) Mean Corpuscular Volume 90 fL (79-100) Mean Corpuscular Hemoglobin 29 pg (25-35) Mean Corpuscular Hemoglobin Concent 32 g/dL (31-37) Red Cell Distribution Width 16.8 % (11.5-14.5) Platelet Count 171 x10^3/uL (140-400) Neutrophils (%) (Auto) 39 % (31-73) Lymphocytes (%) (Auto) 56 % (24-48) Monocytes (%) (Auto) 4 % (0-9) Eosinophils (%) (Auto) 1 % (0-3) Basophils (%) (Auto) 0 % (0-3) Neutrophils # (Auto) 3.8 x10^3uL (1.8-7.7) Lymphocytes # (Auto) 5.4 x10^3/uL (1.0-4.8) Monocytes # (Auto) 0.4 x10^3/uL (0.0-1.1) Eosinophils # (Auto) 0.1 x10^3/uL (0.0-0.7) Basophils # (Auto) 0.0 x10^3/uL (0.0-0.2) Prothrombin Time 20.5 SEC (11.7-14.0) Prothromb Time International Ratio 1.9 (0.8-1.1) Sodium Level 141 mmol/L (136-145) Potassium Level 4.0 mmol/L (3.5-5.1) Chloride Level 109 mmol/L (98-107) Carbon Dioxide Level 27 mmol/L (21-32) Anion Gap 5 (6-14) Blood Urea Nitrogen 12 mg/dL (7-20) Creatinine 0.5 mg/dL (0.6-1.0) Estimated GFR (Cockcroft-Gault) 116.2 Glucose Level 126 mg/dL (70-99) Calcium Level 7.2 mg/dL (8.5-10.1) Laboratory Tests Test 01/08/17 11:59 01/08/17 15:10 01/08/17 16:51 01/08/17 20:40 Glucose (Fingerstick) 100 mg/dL (70-99) 111 mg/dL (70-99) 140 mg/dL (70-99) Sodium Level 144 mmol/L (136-145) Potassium Level 3.8 mmol/L (3.5-5.1) Chloride Level 110 mmol/L (98-107) Carbon Dioxide Level 26 mmol/L (21-32) Anion Gap 8 (6-14) Blood Urea Nitrogen 13 mg/dL (7-20) Creatinine 0.6 mg/dL (0.6-1.0) Estimated GFR (Cockcroft-Gault) 94.1 BUN/Creatinine Ratio 22 (6-20) Glucose Level 104 mg/dL (70-99) Calcium Level 7.0 mg/dL (8.5-10.1) Total Bilirubin 0.5 mg/dL (0.2-1.0) Aspartate Amino Transf (AST/SGOT) 26 U/L (15-37) Alanine Aminotransferase (ALT/SGPT) 15 U/L (14-59) Alkaline Phosphatase 95 U/L (46-116) Total Protein 4.7 g/dL (6.4-8.2) Albumin 1.6 g/dL (3.4-5.0) Albumin/Globulin Ratio 0.5 (1.0-1.7) Test 01/09/17 03:00 01/09/17 07:33 White Blood Count 9.6 x10^3/uL (4.0-11.0) Red Blood Count 3.48 x10^6/uL (3.50-5.40) Hemoglobin 10.1 g/dL (12.0-15.5) Hematocrit 31.3 % (36.0-47.0) Mean Corpuscular Volume 90 fL (79-100) Mean Corpuscular Hemoglobin 29 pg (25-35) Mean Corpuscular Hemoglobin Concent 32 g/dL (31-37) Red Cell Distribution Width 16.8 % (11.5-14.5) Platelet Count 171 x10^3/uL (140-400) Neutrophils (%) (Auto) 39 % (31-73) Lymphocytes (%) (Auto) 56 % (24-48) Monocytes (%) (Auto) 4 % (0-9) Eosinophils (%) (Auto) 1 % (0-3) Basophils (%) (Auto) 0 % (0-3) Neutrophils # (Auto) 3.8 x10^3uL (1.8-7.7) Lymphocytes # (Auto) 5.4 x10^3/uL (1.0-4.8) Monocytes # (Auto) 0.4 x10^3/uL (0.0-1.1) Eosinophils # (Auto) 0.1 x10^3/uL (0.0-0.7) Basophils # (Auto) 0.0 x10^3/uL (0.0-0.2) Prothrombin Time 20.5 SEC (11.7-14.0) Prothromb Time International Ratio 1.9 (0.8-1.1) Sodium Level 141 mmol/L (136-145) Potassium Level 4.0 mmol/L (3.5-5.1) Chloride Level 109 mmol/L (98-107) Carbon Dioxide Level 27 mmol/L (21-32) Anion Gap 5 (6-14) Blood Urea Nitrogen 12 mg/dL (7-20) Creatinine 0.5 mg/dL (0.6-1.0) Estimated GFR (Cockcroft-Gault) 116.2 Glucose Level 126 mg/dL (70-99) Calcium Level 7.2 mg/dL (8.5-10.1) Glucose (Fingerstick) 113 mg/dL (70-99) Assessment/Plan Imp: pt doing well following left AKA 2. left arm significant swelling Plan: 1. dry dressing to left AKA 2. check left arm venous duplex exam to r/o DVT. Cont left forearm and arm elevation. Problems: ZAKI ALBA II, MD Jan 09, 2017 10:33
[2017-01-09 11:00] VITALS: BP 136/82
--- NOTE | 2017-01-09 11:09 | RAD ---
Ultrasound venous Doppler Indication: Left arm swelling Technique: Grayscale, color Doppler and spectral waveform ultrasound images of the left extremity obtained. Medicine: None Findings: The internal jugular, subclavian, cephalic, axillary, brachial, basilic, radial and ulnar veins are compressible and demonstrate evidence of blood flow with normal respiratory variation and response to augmentation. Significant soft tissue edema is noted of the and forearm. Impression: 1. No significant evidence of acute DVT of the interrogated left axillary veins. 2. Diffuse edema of the arm and forearm.
[2017-01-09 11:11] LABS: PLT ESTIMATE ADEQUATE (ADEQUATE)
[2017-01-09] MEDS: AMINO AC 3%/ELECTROLYTE/GLYCER 1,000 ML IV SCH (11:26)
[2017-01-09] MEDS: oxyCODONE IR 5 MG TABLET PO PRN ×2 (11:26→15:37)
--- NOTE | 2017-01-09 12:06 | PDOC ---
PULMONARY PROGRESS NOTES Subjective NO SOA COUGH IS BETTER Vitals Vital Signs Date Time Temp Pulse Resp B/P (MAP) Pulse Ox O2 Delivery O2 Flow Rate FiO2 01/09/17 11:26 96 Nasal Cannula 2.0 01/09/17 08:33 78 147/75 01/09/17 07:00 97.9 19 97.9 ROS: No Nausea, No Chest Pain, No Abdominal Pain, No Increase Cough General: Alert, No acute distress Lungs: Other (No Wheezes or crackles ) Cardiovascular: S1, S2 Abdomen: Soft Neuro Exam: Alert Extremities: Other (NO CHANGE) Skin: Warm Labs Laboratory Tests Test 01/07/17 17:29 01/07/17 20:41 01/08/17 06:15 01/08/17 07:58 Glucose (Fingerstick) 122 mg/dL (70-99) 101 mg/dL (70-99) 79 mg/dL (70-99) White Blood Count 7.7 x10^3/uL (4.0-11.0) Red Blood Count 3.72 x10^6/uL (3.50-5.40) Hemoglobin 10.4 g/dL (12.0-15.5) Hematocrit 33.3 % (36.0-47.0) Mean Corpuscular Volume 90 fL (79-100) Mean Corpuscular Hemoglobin 28 pg (25-35) Mean Corpuscular Hemoglobin Concent 31 g/dL (31-37) Red Cell Distribution Width 17.0 % (11.5-14.5) Platelet Count 187 x10^3/uL (140-400) Neutrophils (%) (Auto) 45 % (31-73) Lymphocytes (%) (Auto) 49 % (24-48) Monocytes (%) (Auto) 4 % (0-9) Eosinophils (%) (Auto) 1 % (0-3) Basophils (%) (Auto) 0 % (0-3) Neutrophils # (Auto) 3.5 x10^3uL (1.8-7.7) Lymphocytes # (Auto) 3.8 x10^3/uL (1.0-4.8) Monocytes # (Auto) 0.3 x10^3/uL (0.0-1.1) Eosinophils # (Auto) 0.1 x10^3/uL (0.0-0.7) Basophils # (Auto) 0.0 x10^3/uL (0.0-0.2) Prothrombin Time 19.7 SEC (11.7-14.0) Prothromb Time International Ratio 1.8 (0.8-1.1) Sodium Level 142 mmol/L (136-145) Potassium Level 4.0 mmol/L (3.5-5.1) Chloride Level 110 mmol/L (98-107) Carbon Dioxide Level 26 mmol/L (21-32) Anion Gap 6 (6-14) Blood Urea Nitrogen 13 mg/dL (7-20) Creatinine 0.5 mg/dL (0.6-1.0) Estimated GFR (Cockcroft-Gault) 116.2 Glucose Level 87 mg/dL (70-99) Calcium Level 7.2 mg/dL (8.5-10.1) Test 01/08/17 11:59 01/08/17 15:10 01/08/17 16:51 01/08/17 20:40 Glucose (Fingerstick) 100 mg/dL (70-99) 111 mg/dL (70-99) 140 mg/dL (70-99) Sodium Level 144 mmol/L (136-145) Potassium Level 3.8 mmol/L (3.5-5.1) Chloride Level 110 mmol/L (98-107) Carbon Dioxide Level 26 mmol/L (21-32) Anion Gap 8 (6-14) Blood Urea Nitrogen 13 mg/dL (7-20) Creatinine 0.6 mg/dL (0.6-1.0) Estimated GFR (Cockcroft-Gault) 94.1 BUN/Creatinine Ratio 22 (6-20) Glucose Level 104 mg/dL (70-99) Calcium Level 7.0 mg/dL (8.5-10.1) Total Bilirubin 0.5 mg/dL (0.2-1.0) Aspartate Amino Transf (AST/SGOT) 26 U/L (15-37) Alanine Aminotransferase (ALT/SGPT) 15 U/L (14-59) Alkaline Phosphatase 95 U/L (46-116) Total Protein 4.7 g/dL (6.4-8.2) Albumin 1.6 g/dL (3.4-5.0) Albumin/Globulin Ratio 0.5 (1.0-1.7) Test 01/09/17 03:00 01/09/17 07:33 White Blood Count 9.6 x10^3/uL (4.0-11.0) Red Blood Count 3.48 x10^6/uL (3.50-5.40) Hemoglobin 10.1 g/dL (12.0-15.5) Hematocrit 31.3 % (36.0-47.0) Mean Corpuscular Volume 90 fL (79-100) Mean Corpuscular Hemoglobin 29 pg (25-35) Mean Corpuscular Hemoglobin Concent 32 g/dL (31-37) Red Cell Distribution Width 16.8 % (11.5-14.5) Platelet Count 171 x10^3/uL (140-400) Neutrophils (%) (Auto) 39 % (31-73) Lymphocytes (%) (Auto) 56 % (24-48) Monocytes (%) (Auto) 4 % (0-9) Eosinophils (%) (Auto) 1 % (0-3) Basophils (%) (Auto) 0 % (0-3) Neutrophils # (Auto) 3.8 x10^3uL (1.8-7.7) Lymphocytes # (Auto) 5.4 x10^3/uL (1.0-4.8) Monocytes # (Auto) 0.4 x10^3/uL (0.0-1.1) Eosinophils # (Auto) 0.1 x10^3/uL (0.0-0.7) Basophils # (Auto) 0.0 x10^3/uL (0.0-0.2) Segmented Neutrophils % 68 % (35-66) Band Neutrophils % 3 % (0-9) Lymphocytes % 19 % (24-48) Monocytes % 10 % (0-10) Platelet Estimate Adequate (ADEQUATE) Prothrombin Time 20.5 SEC (11.7-14.0) Prothromb Time International Ratio 1.9 (0.8-1.1) Sodium Level 141 mmol/L (136-145) Potassium Level 4.0 mmol/L (3.5-5.1) Chloride Level 109 mmol/L (98-107) Carbon Dioxide Level 27 mmol/L (21-32) Anion Gap 5 (6-14) Blood Urea Nitrogen 12 mg/dL (7-20) Creatinine 0.5 mg/dL (0.6-1.0) Estimated GFR (Cockcroft-Gault) 116.2 Glucose Level 126 mg/dL (70-99) Calcium Level 7.2 mg/dL (8.5-10.1) Glucose (Fingerstick) 113 mg/dL (70-99) Laboratory Tests Test 01/08/17 15:10 01/08/17 16:51 01/08/17 20:40 01/09/17 03:00 Sodium Level 144 mmol/L (136-145) 141 mmol/L (136-145) Potassium Level 3.8 mmol/L (3.5-5.1) 4.0 mmol/L (3.5-5.1) Chloride Level 110 mmol/L (98-107) 109 mmol/L (98-107) Carbon Dioxide Level 26 mmol/L (21-32) 27 mmol/L (21-32) Anion Gap 8 (6-14) 5 (6-14) Blood Urea Nitrogen 13 mg/dL (7-20) 12 mg/dL (7-20) Creatinine 0.6 mg/dL (0.6-1.0) 0.5 mg/dL (0.6-1.0) Estimated GFR (Cockcroft-Gault) 94.1 116.2 BUN/Creatinine Ratio 22 (6-20) Glucose Level 104 mg/dL (70-99) 126 mg/dL (70-99) Calcium Level 7.0 mg/dL (8.5-10.1) 7.2 mg/dL (8.5-10.1) Total Bilirubin 0.5 mg/dL (0.2-1.0) Aspartate Amino Transf (AST/SGOT) 26 U/L (15-37) Alanine Aminotransferase (ALT/SGPT) 15 U/L (14-59) Alkaline Phosphatase 95 U/L (46-116) Total Protein 4.7 g/dL (6.4-8.2) Albumin 1.6 g/dL (3.4-5.0) Albumin/Globulin Ratio 0.5 (1.0-1.7) Glucose (Fingerstick) 111 mg/dL (70-99) 140 mg/dL (70-99) White Blood Count 9.6 x10^3/uL (4.0-11.0) Red Blood Count 3.48 x10^6/uL (3.50-5.40) Hemoglobin 10.1 g/dL (12.0-15.5) Hematocrit 31.3 % (36.0-47.0) Mean Corpuscular Volume 90 fL (79-100) Mean Corpuscular Hemoglobin 29 pg (25-35) Mean Corpuscular Hemoglobin Concent 32 g/dL (31-37) Red Cell Distribution Width 16.8 % (11.5-14.5) Platelet Count 171 x10^3/uL (140-400) Neutrophils (%) (Auto) 39 % (31-73) Lymphocytes (%) (Auto) 56 % (24-48) Monocytes (%) (Auto) 4 % (0-9) Eosinophils (%) (Auto) 1 % (0-3) Basophils (%) (Auto) 0 % (0-3) Neutrophils # (Auto) 3.8 x10^3uL (1.8-7.7) Lymphocytes # (Auto) 5.4 x10^3/uL (1.0-4.8) Monocytes # (Auto) 0.4 x10^3/uL (0.0-1.1) Eosinophils # (Auto) 0.1 x10^3/uL (0.0-0.7) Basophils # (Auto) 0.0 x10^3/uL (0.0-0.2) Segmented Neutrophils % 68 % (35-66) Band Neutrophils % 3 % (0-9) Lymphocytes % 19 % (24-48) Monocytes % 10 % (0-10) Platelet Estimate Adequate (ADEQUATE) Prothrombin Time 20.5 SEC (11.7-14.0) Prothromb Time International Ratio 1.9 (0.8-1.1) Test 01/09/17 07:33 Glucose (Fingerstick) 113 mg/dL (70-99) Medications Active Scripts Medications Dose Route/Sig Max Daily Dose Days Date Category Novolog Flexpen (Insulin Aspart) 100 Unit/1 Ml Insuln.pen 1 Unit SQ PRN TID PRN 12/13/16 Reported Duoneb 0.5-3(2.5) Mg/3 Ml (Albuterol/Ipratropium) 3 Ml Ampul.neb 3 Ml NEB PRN Q4HRS PRN 12/13/16 Reported Famotidine 20 Mg Tablet 20 Mg PO HS 12/13/16 Reported Trazodone Hcl 50 Mg Tablet 1 Tab PO QHS 12/12/16 Reported Tamsulosin Hcl 0.4 Mg Cap.er.24h 0.4 Mg PO DAILY 12/12/16 Reported Melatonin 3 Mg Tablet 1 Tab PO QHS 12/12/16 Reported Losartan Potassium 100 Mg Tablet 100 Mg PO DAILY 12/12/16 Reported Colace Clear (Docusate Sodium) 50 Mg Capsule 50 Mg PO PRN DAILY PRN 12/12/16 Reported Aspirin 325 Mg Tablet 1 Tab PO DAILY 12/12/16 Reported Acetaminophen 500 Mg Tablet 500 Mg PO PRN Q6HRS PRN 12/12/16 Reported Tramadol Hcl 50 Mg Tablet 50 Mg PO PRN Q6HRS PRN 11/25/16 Rx Vitamin D (Cholecalciferol (Vitamin D3)) 1,000 Unit Capsule 1 Cap PO DAILY 11/21/16 Reported Levothyroxine Sodium 112 Mcg Tablet 2 Tab PO HS 11/21/16 Reported Xarelto (Rivaroxaban) 10 Mg Tablet 1 Tab PO DAILY 11/21/16 Reported Prilosec Otc (Omeprazole Magnesium) 20 Mg Tablet.dr 1 Tab PO DAILY 11/21/16 Reported Metformin Hcl Er (Metformin Hcl) 500 Mg Tab.er.24h 500 Mg PO BIDWMEALS 11/21/16 Reported Amlodipine Besylate 10 Mg Tablet 10 Mg PO HS 12/06/13 Reported Simvastatin 20 Mg Tablet 20 Mg PO HS 12/06/13 Reported Glimepiride 2 Mg Tablet 2 Mg PO DAILY 12/06/13 Reported Carvedilol 3.125 Mg Tablet 6.25 Mg PO BID 12/06/13 Reported Potassium Chloride 10 Meq Capsule.er 20 Meq PO DAILY 12/06/13 Reported Impression . 1. cough, suspect combination of dysphagia with possible aspiration, also related to vascular congestion and postnasal drainage. 2. Chronic atrial fibrillation. 3. Peripheral vascular disease, status post left amputation. 4. Obesity. 5. Hypertension. 6. Dysphagia Plan . DIURESED 01/06 NOW BETTER CXR IS BETTER WILL CONTINUE THE SAME FOLLOW SPEECH INPUT EGD WITH DILATION PENDING D/W DAUGHTER MARIANNE GOMES MD Jan 09, 2017 12:06
--- NOTE | 2017-01-09 12:09 | PATHOLOGY ---
PATHOLOGY REPORT * * * * * * * * FINAL DIAGNOSIS: Leg, left, above knee amputation: - Skin of leg with two ulcerated lesions with associated necrosis and gangrene. - Viable skin and skeletal muscle present at margin of specimen. - Marked narrowing of arteries by calcified atherosclerosis. - Peroneal vein with partially organized thrombus. - Bone marrow of femur with trilineage hematopoiesis. (SKM:pit; 01/09/2017) REPORT ELECTRONICALLY SIGNED BY: Nick Alvarado M.D. DATE/TIME: 01/09/2017 12:09 * * * * * * * * GROSS PATHOLOGY: Received fresh in a biohazard bag labeled "Jigna Rahman, left above knee amputation" and consists of a left leg that has been amputated above the knee with leg measuring 61 cm from heel to cutaneous margin and foot measuring 27.8 cm from heel to tip of great toe. There is 11 cm of femur extending above the soft tissue margin. All 5 toes are present. The skin of the leg is significant for 2 open wounds. The first is at the lateral aspect of leg and measures 30.0 x 5.5 cm. The wound is surrounded by mummified green skin. The bed of wound is glistening, red, pink, and long to focally green. The wound oozes malodorous red-purple rule out material. The second is located at the medial aspect and demonstrates a similar appearance to that at lateral and measures 15.0 x 5.5 cm. The lateral lesion clears the cutaneous margin by 16 cm and the medial by 28.0 cm. There is a gangrenous lesion at the heel that measures 4.0 x 3.0 cm. There is a recent incision at the popliteal fossa closed with metallic richard that measures 8.5 cm in length. There are no other lesions or masses identified. Sectioning the leg reveals marked underlying edema and significant muscle atrophy. The skeletal muscle shows dark red areas of discoloration. The soft tissue surrounding the popliteal and posterior tibial arteries is fibrotic and there is suture material identified, suggestive of a graft. All arteries show marked atherosclerosis. The probable peroneal vein shows a thrombus. There is orthopedic hardware identified which is consistent with a total knee replacement. The hardware appears grossly in place. There are no soft tissue masses identified. [employer] sections are submitted A1-A7. A1 gangrenous lesion A2 margin (skin and skeletal muscle) A3 popliteal artery A4 anterior and posterior tibial arteries A5 peroneal vein A6 gastrocnemius muscle A7 marrow of femur (COLTON; 01/06/2017) INITIAL CPT CODE(S): A; 72922 Professional services performed [place] [place] [address] Technical services performed by [facility] at [address] [place] [address], [facility] [address], [place] [address]. SPECIMEN(S) RECEIVED: A.Left above knee amputation CLINICAL HISTORY: Bilateral leg wounds PATIENT: ZAK JIGNA Peterson /AGE: 10 1925 (Age: 89) PATIENT #: [id number] ALT CASE #: SPECIMEN COLLECTION DATE: 01/04/2017 SPECIMEN RECEIVED DATE: 01/06/2017 [facility] - [address] [place] [address] - PHONE: [phone] * * * END OF REPORT * * *
--- NOTE | 2017-01-09 13:09 | PDOC ---
PROGRESS NOTES Chief Complaint Chief Complaint Left leg infection Ischemic leg Compartment syndrome Dysphagia Obesity Diabetes Hypertension Atrial fibrillation CVA History of Present Illness History of Present Illness Pt was seen at bedside, sitting up, dressed in hospital attire. She reports getting good sleep, has a poor appetite, had a bowel movement today, and has a Wu in place. 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 b/l General: Alert, Cooperative, No acute distress Heart: Regular rate, Normal S1, Normal S2, No murmurs Lungs: Clear, Other (No Wheezes or crackles ) Abdomen: Normal bowel sounds, Soft Extremities: No cyanosis, Other (left lwg above knee amputation ; left arm very swollen) Skin: No rashes, No significant lesion Labs LABS Laboratory Tests Test 01/08/17 15:10 01/08/17 16:51 01/08/17 20:40 01/09/17 03:00 Sodium Level 144 mmol/L (136-145) 141 mmol/L (136-145) Potassium Level 3.8 mmol/L (3.5-5.1) 4.0 mmol/L (3.5-5.1) Chloride Level 110 mmol/L (98-107) 109 mmol/L (98-107) Carbon Dioxide Level 26 mmol/L (21-32) 27 mmol/L (21-32) Anion Gap 8 (6-14) 5 (6-14) Blood Urea Nitrogen 13 mg/dL (7-20) 12 mg/dL (7-20) Creatinine 0.6 mg/dL (0.6-1.0) 0.5 mg/dL (0.6-1.0) Estimated GFR (Cockcroft-Gault) 94.1 116.2 BUN/Creatinine Ratio 22 (6-20) Glucose Level 104 mg/dL (70-99) 126 mg/dL (70-99) Calcium Level 7.0 mg/dL (8.5-10.1) 7.2 mg/dL (8.5-10.1) Total Bilirubin 0.5 mg/dL (0.2-1.0) Aspartate Amino Transf (AST/SGOT) 26 U/L (15-37) Alanine Aminotransferase (ALT/SGPT) 15 U/L (14-59) Alkaline Phosphatase 95 U/L (46-116) Total Protein 4.7 g/dL (6.4-8.2) Albumin 1.6 g/dL (3.4-5.0) Albumin/Globulin Ratio 0.5 (1.0-1.7) Glucose (Fingerstick) 111 mg/dL (70-99) 140 mg/dL (70-99) White Blood Count 9.6 x10^3/uL (4.0-11.0) Red Blood Count 3.48 x10^6/uL (3.50-5.40) Hemoglobin 10.1 g/dL (12.0-15.5) Hematocrit 31.3 % (36.0-47.0) Mean Corpuscular Volume 90 fL (79-100) Mean Corpuscular Hemoglobin 29 pg (25-35) Mean Corpuscular Hemoglobin Concent 32 g/dL (31-37) Red Cell Distribution Width 16.8 % (11.5-14.5) Platelet Count 171 x10^3/uL (140-400) Neutrophils (%) (Auto) 39 % (31-73) Lymphocytes (%) (Auto) 56 % (24-48) Monocytes (%) (Auto) 4 % (0-9) Eosinophils (%) (Auto) 1 % (0-3) Basophils (%) (Auto) 0 % (0-3) Neutrophils # (Auto) 3.8 x10^3uL (1.8-7.7) Lymphocytes # (Auto) 5.4 x10^3/uL (1.0-4.8) Monocytes # (Auto) 0.4 x10^3/uL (0.0-1.1) Eosinophils # (Auto) 0.1 x10^3/uL (0.0-0.7) Basophils # (Auto) 0.0 x10^3/uL (0.0-0.2) Segmented Neutrophils % 68 % (35-66) Band Neutrophils % 3 % (0-9) Lymphocytes % 19 % (24-48) Monocytes % 10 % (0-10) Platelet Estimate Adequate (ADEQUATE) Prothrombin Time 20.5 SEC (11.7-14.0) Prothromb Time International Ratio 1.9 (0.8-1.1) Test 01/09/17 07:33 01/09/17 12:12 Glucose (Fingerstick) 113 mg/dL (70-99) 145 mg/dL (70-99) Review of Systems Review of Systems Admits to cough, and pain the her left leg. Assessment and Plan Assessmemt and Plan ASSESSMENT: Left leg infection Ischemic leg Compartment syndrome Dysphagia Obesity Diabetes Hypertension Atrial fibrillation CVA PLAN: EGD canceled secondary to INR of 1.9 Hold Coumadin Possible EGD tomorrow Continue cardiac monitoring PT/OT Possible discharge to LTAC after EGD if ok with subspecialists Problems: Comment Review of Relevant I have reviewed the following items madhav (where applicable) has been applied. Labs Laboratory Tests Test 01/07/17 17:29 01/07/17 20:41 01/08/17 06:15 01/08/17 07:58 Glucose (Fingerstick) 122 mg/dL (70-99) 101 mg/dL (70-99) 79 mg/dL (70-99) White Blood Count 7.7 x10^3/uL (4.0-11.0) Red Blood Count 3.72 x10^6/uL (3.50-5.40) Hemoglobin 10.4 g/dL (12.0-15.5) Hematocrit 33.3 % (36.0-47.0) Mean Corpuscular Volume 90 fL (79-100) Mean Corpuscular Hemoglobin 28 pg (25-35) Mean Corpuscular Hemoglobin Concent 31 g/dL (31-37) Red Cell Distribution Width 17.0 % (11.5-14.5) Platelet Count 187 x10^3/uL (140-400) Neutrophils (%) (Auto) 45 % (31-73) Lymphocytes (%) (Auto) 49 % (24-48) Monocytes (%) (Auto) 4 % (0-9) Eosinophils (%) (Auto) 1 % (0-3) Basophils (%) (Auto) 0 % (0-3) Neutrophils # (Auto) 3.5 x10^3uL (1.8-7.7) Lymphocytes # (Auto) 3.8 x10^3/uL (1.0-4.8) Monocytes # (Auto) 0.3 x10^3/uL (0.0-1.1) Eosinophils # (Auto) 0.1 x10^3/uL (0.0-0.7) Basophils # (Auto) 0.0 x10^3/uL (0.0-0.2) Prothrombin Time 19.7 SEC (11.7-14.0) Prothromb Time International Ratio 1.8 (0.8-1.1) Sodium Level 142 mmol/L (136-145) Potassium Level 4.0 mmol/L (3.5-5.1) Chloride Level 110 mmol/L (98-107) Carbon Dioxide Level 26 mmol/L (21-32) Anion Gap 6 (6-14) Blood Urea Nitrogen 13 mg/dL (7-20) Creatinine 0.5 mg/dL (0.6-1.0) Estimated GFR (Cockcroft-Gault) 116.2 Glucose Level 87 mg/dL (70-99) Calcium Level 7.2 mg/dL (8.5-10.1) Test 01/08/17 11:59 01/08/17 15:10 01/08/17 16:51 01/08/17 20:40 Glucose (Fingerstick) 100 mg/dL (70-99) 111 mg/dL (70-99) 140 mg/dL (70-99) Sodium Level 144 mmol/L (136-145) Potassium Level 3.8 mmol/L (3.5-5.1) Chloride Level 110 mmol/L (98-107) Carbon Dioxide Level 26 mmol/L (21-32) Anion Gap 8 (6-14) Blood Urea Nitrogen 13 mg/dL (7-20) Creatinine 0.6 mg/dL (0.6-1.0) Estimated GFR (Cockcroft-Gault) 94.1 BUN/Creatinine Ratio 22 (6-20) Glucose Level 104 mg/dL (70-99) Calcium Level 7.0 mg/dL (8.5-10.1) Total Bilirubin 0.5 mg/dL (0.2-1.0) Aspartate Amino Transf (AST/SGOT) 26 U/L (15-37) Alanine Aminotransferase (ALT/SGPT) 15 U/L (14-59) Alkaline Phosphatase 95 U/L (46-116) Total Protein 4.7 g/dL (6.4-8.2) Albumin 1.6 g/dL (3.4-5.0) Albumin/Globulin Ratio 0.5 (1.0-1.7) Test 01/09/17 03:00 01/09/17 07:33 01/09/17 12:12 White Blood Count 9.6 x10^3/uL (4.0-11.0) Red Blood Count 3.48 x10^6/uL (3.50-5.40) Hemoglobin 10.1 g/dL (12.0-15.5) Hematocrit 31.3 % (36.0-47.0) Mean Corpuscular Volume 90 fL (79-100) Mean Corpuscular Hemoglobin 29 pg (25-35) Mean Corpuscular Hemoglobin Concent 32 g/dL (31-37) Red Cell Distribution Width 16.8 % (11.5-14.5) Platelet Count 171 x10^3/uL (140-400) Neutrophils (%) (Auto) 39 % (31-73) Lymphocytes (%) (Auto) 56 % (24-48) Monocytes (%) (Auto) 4 % (0-9) Eosinophils (%) (Auto) 1 % (0-3) Basophils (%) (Auto) 0 % (0-3) Neutrophils # (Auto) 3.8 x10^3uL (1.8-7.7) Lymphocytes # (Auto) 5.4 x10^3/uL (1.0-4.8) Monocytes # (Auto) 0.4 x10^3/uL (0.0-1.1) Eosinophils # (Auto) 0.1 x10^3/uL (0.0-0.7) Basophils # (Auto) 0.0 x10^3/uL (0.0-0.2) Segmented Neutrophils % 68 % (35-66) Band Neutrophils % 3 % (0-9) Lymphocytes % 19 % (24-48) Monocytes % 10 % (0-10) Platelet Estimate Adequate (ADEQUATE) Prothrombin Time 20.5 SEC (11.7-14.0) Prothromb Time International Ratio 1.9 (0.8-1.1) Sodium Level 141 mmol/L (136-145) Potassium Level 4.0 mmol/L (3.5-5.1) Chloride Level 109 mmol/L (98-107) Carbon Dioxide Level 27 mmol/L (21-32) Anion Gap 5 (6-14) Blood Urea Nitrogen 12 mg/dL (7-20) Creatinine 0.5 mg/dL (0.6-1.0) Estimated GFR (Cockcroft-Gault) 116.2 Glucose Level 126 mg/dL (70-99) Calcium Level 7.2 mg/dL (8.5-10.1) Glucose (Fingerstick) 113 mg/dL (70-99) 145 mg/dL (70-99) Laboratory Tests Test 01/08/17 15:10 01/08/17 16:51 01/08/17 20:40 01/09/17 03:00 Sodium Level 144 mmol/L (136-145) 141 mmol/L (136-145) Potassium Level 3.8 mmol/L (3.5-5.1) 4.0 mmol/L (3.5-5.1) Chloride Level 110 mmol/L (98-107) 109 mmol/L (98-107) Carbon Dioxide Level 26 mmol/L (21-32) 27 mmol/L (21-32) Anion Gap 8 (6-14) 5 (6-14) Blood Urea Nitrogen 13 mg/dL (7-20) 12 mg/dL (7-20) Creatinine 0.6 mg/dL (0.6-1.0) 0.5 mg/dL (0.6-1.0) Estimated GFR (Cockcroft-Gault) 94.1 116.2 BUN/Creatinine Ratio 22 (6-20) Glucose Level 104 mg/dL (70-99) 126 mg/dL (70-99) Calcium Level 7.0 mg/dL (8.5-10.1) 7.2 mg/dL (8.5-10.1) Total Bilirubin 0.5 mg/dL (0.2-1.0) Aspartate Amino Transf (AST/SGOT) 26 U/L (15-37) Alanine Aminotransferase (ALT/SGPT) 15 U/L (14-59) Alkaline Phosphatase 95 U/L (46-116) Total Protein 4.7 g/dL (6.4-8.2) Albumin 1.6 g/dL (3.4-5.0) Albumin/Globulin Ratio 0.5 (1.0-1.7) Glucose (Fingerstick) 111 mg/dL (70-99) 140 mg/dL (70-99) White Blood Count 9.6 x10^3/uL (4.0-11.0) Red Blood Count 3.48 x10^6/uL (3.50-5.40) Hemoglobin 10.1 g/dL (12.0-15.5) Hematocrit 31.3 % (36.0-47.0) Mean Corpuscular Volume 90 fL (79-100) Mean Corpuscular Hemoglobin 29 pg (25-35) Mean Corpuscular Hemoglobin Concent 32 g/dL (31-37) Red Cell Distribution Width 16.8 % (11.5-14.5) Platelet Count 171 x10^3/uL (140-400) Neutrophils (%) (Auto) 39 % (31-73) Lymphocytes (%) (Auto) 56 % (24-48) Monocytes (%) (Auto) 4 % (0-9) Eosinophils (%) (Auto) 1 % (0-3) Basophils (%) (Auto) 0 % (0-3) Neutrophils # (Auto) 3.8 x10^3uL (1.8-7.7) Lymphocytes # (Auto) 5.4 x10^3/uL (1.0-4.8) Monocytes # (Auto) 0.4 x10^3/uL (0.0-1.1) Eosinophils # (Auto) 0.1 x10^3/uL (0.0-0.7) Basophils # (Auto) 0.0 x10^3/uL (0.0-0.2) Segmented Neutrophils % 68 % (35-66) Band Neutrophils % 3 % (0-9) Lymphocytes % 19 % (24-48) Monocytes % 10 % (0-10) Platelet Estimate Adequate (ADEQUATE) Prothrombin Time 20.5 SEC (11.7-14.0) Prothromb Time International Ratio 1.9 (0.8-1.1) Test 01/09/17 07:33 01/09/17 12:12 Glucose (Fingerstick) 113 mg/dL (70-99) 145 mg/dL (70-99) Microbiology 01/03/17 Gram Stain - Final, Complete Medications Current Medications Oxycodone HCl (Roxicodone) 5 mg PRN Q4HRS PRN PO PAIN Last administered on 11:26; Start 01/02/17 at 18:15 Oxycodone HCl (OxyCONTIN) 10 mg Q12HR PO Last administered on 01/09/17 08:33 ; Start 01/02/17 at 21:00 Amlodipine Besylate (Norvasc) 5 mg HS PO Last administered on 01/02/17 22:28 ; Start 01/02/17 at 21:00; Stop 01/04/17 at 08:03; Status DC Tamsulosin HCl (Flomax) 0.4 mg DAILY PO Last administered on 01/09/17 08:33; Start 01/03/17 at 09:00 Polyethylene Glycol (miraLAX PACKET) 17 gm PRN DAILY PRN PO CONSTIPATION Last administered on 01/08/17 09:36; Start 01/02/17 at 18:30 Ondansetron HCl (Zofran) 4 mg PRN Q6HRS PRN IV NAUSEA/VOMITING Last administered on 01/08/17 18:29; Start 01/02/17 at 18:30 Lorazepam (Ativan) 2 mg PRN Q12HR PRN IV ANXIETY / AGITATION Last administered on 01/06/17 22:42; Start 01/02/17 at 18:30 Metoprolol Tartrate (Lopressor) 25 mg BID PO Last administered on 01/02/17 22 :29; Start 01/02/17 at 21:00; Stop 01/04/17 at 08:03; Status DC Silver Nitrate/ Potassium Nitrate 1 each 1X ONCE TP ; Start 01/02/17 at 18:45 ; Stop 01/02/17 at 18:46; Status DC Famotidine (Pepcid) 20 mg DAILY PO ; Start 01/03/17 at 09:00; Stop 01/04/17 at 08:05; Status DC Trazodone HCl (Desyrel) 50 mg QHS PO Last administered on 01/02/17 22:28; Start 01/02/17 at 21:00; Stop 01/04/17 at 08:04; Status DC Levothyroxine Sodium (Synthroid) 112 mcg DAILY07 PO ; Start 01/03/17 at 07:00; Stop 01/04/17 at 08:05; Status DC Lactobacillus Rhamnosus (Culturelle) 1 cap BID PO Last administered on 08:33; Start 01/02/17 at 21:00 Sodium Chloride 1,000 ml @ 75 mls/hr [id number] IV Last administered on 14:53; Start 01/02/17 at 19:00 Sodium Chloride (Normal Saline Flush 3ml) 10 ml PRN Q12HRS PRN IV AFTER MEDS AND BLOOD DRAWS; Start 01/02/17 at 18:30; Stop 01/05/17 at 05:38; Status DC Insulin Aspart (NovoLOG) 0-9 UNITS TIDWMEALS SQ Last administered on 17:10; Start 01/03/17 at 19:00 Dextrose (Dextrose 50%-Water Syringe) 12.5 gm PRN Q15MIN PRN IV SEE COMMENTS; Start 01/02/17 at 18:45 Docusate Sodium (Colace) 100 mg BID PO Last administered on 01/09/17 08:33; Start 01/02/17 at 21:00 Bisacodyl (Dulcolax Supp) 10 mg PRN DAILY PRN [place] CONSTIPATION; Start 01/02/17 at 18:45 Atorvastatin Calcium (Lipitor) 10 mg QHS PO Last administered on 01/08/17 20: 09; Start 01/02/17 at 21:00 Aspirin (Lucas Aspirin) 325 mg DAILYWBKFT PO ; Start 01/03/17 at 08:00; Stop 01/03/17 at 16:35; Status DC Acetaminophen (Tylenol) 500 mg PRN Q6HRS PRN PO MILD PAIN / TEMP; Start at 18:45; Stop 01/04/17 at 12:28; Status DC Morphine Sulfate 2 mg PRN Q2HR PRN IV PAIN Last administered on 01/03/17 22: 41; Start 01/02/17 at 21:15; Stop 01/03/17 at 23:26; Status DC Morphine Sulfate 4 mg PRN Q2HR PRN IV PAIN Last administered on 01/03/17 20: 22; Start 01/02/17 at 21:15; Stop 01/03/17 at 23:56; Status DC Piperacillin Sod/ Tazobactam Sod 3.375 gm/Dextrose 50 ml @ 100 mls/hr Q6HRS IV ; Start 01/03/17 at 12:00; Status UNV Linezolid 300 ml @ 300 mls/hr Q12HR IV Last administered on 01/07/17 09:29; Start 01/03/17 at 11:00; Stop 01/07/17 at 12:55; Status DC Phytonadione 10 mg/Dextrose 51 ml @ 102 mls/hr 1X ONCE IV ; Start 01/03/17 at 11:00; Stop 01/03/17 at 11:00; Status DC Piperacillin Sod/ Tazobactam Sod (Zosyn) 3.375 gm Q6HRS IVP Last administered on 01/08/17 06:09; Start 01/03/17 at 12:00; Stop 01/08/17 at 11:26; Status DC Furosemide (Lasix) 40 mg 1X ONCE IVP Last administered on 01/03/17 11:44; Start 01/03/17 at 11:45; Stop 01/03/17 at 11:46; Status DC Lidocaine/Sodium Bicarbonate (Buffered Lidocaine 1%) 3 ml 1X ONCE IJ Last administered on 01/03/17 15:57; Start 01/03/17 at 15:30; Stop 01/03/17 at 15 :31; Status DC Lidocaine/Sodium Bicarbonate (Buffered Lidocaine 1%) 3 ml 1X ONCE IJ ; Start 01/03/17 at 15:45; Stop 01/03/17 at 15:46; Status DC Phytonadione (Vitamin K Ampule) 10 mg 1X ONCE SQ Last administered on 17:56; Start 01/03/17 at 16:30; Stop 01/03/17 at 16:35; Status DC Ondansetron HCl (Zofran) 4 mg PRN Q6HRS PRN IV NAUSEA/VOMITING; Start at 07:00; Stop 01/05/17 at 06:59; Status DC Fentanyl Citrate (Fentanyl 2ml Vial) 25 mcg PRN Q5MIN PRN IV MILD PAIN; Start 01/04/17 at 07:00; Stop 01/05/17 at 06:59; Status DC Fentanyl Citrate (Fentanyl 2ml Vial) 50 mcg PRN Q5MIN PRN IV MODERATE PAIN; Start 01/04/17 at 07:00; Stop 01/05/17 at 06:59; Status DC Ringer's Solution 1,000 ml @ 30 mls/hr Q24H IV Last administered on 09:24; Start 01/04/17 at 07:00; Stop 01/04/17 at 18:59; Status DC Lidocaine HCl (Xylocaine-Mpf 1% Vial) 2 ml PRN 1X PRN ID PRIOR TO IV START; Start 01/04/17 at 07:00; Stop 01/05/17 at 06:59; Status DC Prochlorperazine Edisylate (Compazine) 5 mg PACU PRN PRN IV NAUSEA, MRX1; Start 01/04/17 at 07:00; Stop 01/05/17 at 06:59; Status DC Morphine Sulfate 2 mg PRN Q2HR PRN IV PAIN; Start 01/03/17 at 23:30 Morphine Sulfate 4 mg PRN Q2HR PRN IV PAIN Last administered on 01/09/17 06: 12; Start 01/03/17 at 23:56 Acetaminophen (Tylenol) 500 mg PRN Q6HRS PRN PO MILD PAIN; Start 01/04/17 at 08:00 Amlodipine Besylate (Norvasc) 10 mg HS PO Last administered on 01/08/17 20:10 ; Start 01/04/17 at 21:00 Carvedilol (Coreg) 6.25 mg BIDWMEALS PO ; Start 01/04/17 at 09:00; Status Cancel Famotidine (Pepcid) 20 mg HS PO Last administered on 01/06/17 20:48; Start 01/04/17 at 21:00; Stop 01/07/17 at 14:56; Status DC Albuterol/ Ipratropium (Duoneb) 3 ml PRN Q4HRS PRN NEB SHORTNESS OF BREATH; Start 01/04/17 at 08:00 Levothyroxine Sodium (Synthroid) 224 mcg HS PO Last administered on 01/08/17 20:11; Start 01/04/17 at 21:00 Metoprolol Tartrate (Lopressor) 25 mg BID PO ; Start 01/04/17 at 09:00; Status Cancel Simvastatin (Zocor) 20 mg HS PO ; Start 01/04/17 at 21:00; Status UNV Tamsulosin HCl (Flomax) 0.4 mg DAILY PO ; Start 01/04/17 at 09:00; Status UNV Tramadol HCl (Ultram) 50 mg PRN Q6HRS PRN PO PAIN; Start 01/04/17 at 08:00 Trazodone HCl (Desyrel) 50 mg QHS PO Last administered on 01/08/17 20:11; Start 01/04/17 at 21:00 Vitamin D (Vitamin D3) 1,000 unit DAILY PO Last administered on 01/09/17 08: 33; Start 01/04/17 at 09:00 Docusate Sodium (Colace) 100 mg PRN DAILY PRN PO CONSTIPATION; Start 01/04/17 at 09:00 Losartan Potassium (Cozaar) 100 mg DAILY PO Last administered on 01/09/17 08: 33; Start 01/04/17 at 09:00 Non-Formulary Medication 1 tab QHS PO ; Start 01/04/17 at 21:00; Status UNV Non-Formulary Medication 1 tab DAILY PO ; Start 01/04/17 at 09:00; Status UNV Potassium Chloride (Klor-Con) 20 meq DAILYWBKFT PO Last administered on 08:34; Start 01/04/17 at 08:30 Carvedilol (Coreg) 6.25 mg BIDWMEALS PO Last administered on 01/06/17 08:58; Start 01/04/17 at 09:00; Stop 01/06/17 at 12:28; Status DC Cefazolin Sodium 1 gm/Sodium Chloride 500 ml @ 500 mls/hr 1X PERIOP ONCE IRR Last administered on 01/04/17 16:38; Start 01/04/17 at 14:30; Stop 01/04/17 at 15:29; Status DC Heparin Sodium (Porcine) 5000 unit/Sodium Chloride 505 ml @ 505 mls/hr 1X PERIOP ONCE IRR Last administered on 01/04/17 16:38; Start 01/04/17 at 14: 30; Stop 01/04/17 at 15:29; Status DC Furosemide (Lasix) 40 mg 1X ONCE IVP ; Start 01/04/17 at 16:00; Stop at 16:01; Status DC Albumin Human 100 ml @ 100 mls/hr 1X ONCE IV Last administered on 01/04/17 18:52; Start 01/04/17 at 16:00; Stop 01/04/17 at 16:59; Status DC Albumin Human 100 ml @ 100 mls/hr 1X ONCE IV Last administered on 01/04/17 19:16; Start 01/04/17 at 16:00; Stop 01/04/17 at 16:59; Status DC Furosemide (Lasix) 20 mg 1X ONCE IVP Last administered on 01/04/17 21:16; Start 01/04/17 at 18:45; Stop 01/04/17 at 18:46; Status DC Sodium Chloride (Normal Saline Flush) 10 ml QSHIFT PRN IV AFTER MEDS AND BLOOD DRAWS; Start 01/05/17 at 05:45 Warfarin Sodium (Coumadin Per Pharmacy) 1 each PRN DAILY PRN MC SEE COMMENTS Last administered on 01/09/17 12:43; Start 01/05/17 at 16:45 Warfarin Sodium (Coumadin) 5 mg 1X WARF ONCE PO Last administered on 17:02; Start 01/05/17 at 17:00; Stop 01/05/17 at 17:01; Status DC Potassium Chloride 50 ml @ 50 mls/hr Q1H IV Last administered on 01/06/17 12: 28; Start 01/06/17 at 07:30; Stop 01/06/17 at 09:29; Status DC Warfarin Sodium (Coumadin) 4 mg 1X WARF ONCE PO Last administered on 15:48; Start 01/06/17 at 16:00; Stop 01/06/17 at 16:01; Status DC Potassium Chloride (KCl Oral Soln) 40 meq 1X ONCE PO Last administered on 18:51; Start 01/06/17 at 18:00; Stop 01/06/17 at 18:01; Status DC Furosemide (Lasix) 40 mg 1X ONCE IVP Last administered on 01/06/17 18:47; Start 01/06/17 at 18:00; Stop 01/06/17 at 18:01; Status DC Warfarin Sodium (Coumadin) 5 mg 1X WARF ONCE PO Last administered on 15:46; Start 01/07/17 at 16:00; Stop 01/07/17 at 16:01; Status DC Pantoprazole Sodium (Protonix) 40 mg DAILYAC PO Last administered on 08:33; Start 01/07/17 at 16:30 Barium Sulfate (Liquid E-Z Paque) 355 ml 1X ONCE PO Last administered on 01/08 08:35; Start 01/08/17 at 07:30; Stop 01/08/17 at 07:31; Status DC Barium Sulfate (E-Z-Hd) 340 gm 1X ONCE PO ; Start 01/08/17 at 07:30; Stop at 07:31; Status DC Simethicone/ Sodium Bicarb/ Citric Ac (E-Z-Gas) 1 packet 1X ONCE PO ; Start at 07:30; Stop 01/08/17 at 07:31; Status DC Warfarin Sodium (Coumadin) 5 mg 1X WARF ONCE PO ; Start 01/08/17 at 16:00; Stop 01/08/17 at 16:01; Status DC Sodium Monofluorophosphate (Fleet Adult) 133 ml 1X ONCE [place] Last administered on 01/08/17 14:52; Start 01/08/17 at 14:30; Stop 01/08/17 at 14:34; Status DC Amino Acids/ Glycerin/ Electrolytes 1,000 ml @ 50 mls/hr Q20H IV Last administered on 01/09/17 11:26; Start 01/08/17 at 15:00 Furosemide (Lasix) 20 mg DAILY IVP Last administered on 01/09/17 08:34; Start 01/08/17 at 15:30 Lidocaine/Sodium Bicarbonate (Buffered Lidocaine 1%) 20 ml STK-MED ONCE IJ ; Start 01/03/17 at 14:59; Stop 01/09/17 at 10:45; Status DC Iohexol (Omnipaque 300 Mg/ml) 100 ml STK-MED ONCE .ROUTE ; Start 01/04/17 at 13 :57; Stop 01/09/17 at 11:11; Status DC Propofol 20 ml @ As Directed STK-MED ONCE IV ; Start 01/04/17 at 14:49; Stop 01/09/17 at 11:12; Status DC Dexamethasone Sodium Phosphate (Decadron) 20 mg STK-MED ONCE .ROUTE ; Start at 14:49; Stop 01/09/17 at 11:12; Status DC Lidocaine HCl (Lidocaine Pf 2% Vial) 5 ml STK-MED ONCE .ROUTE ; Start 01/04/17 at 14:49; Stop 01/09/17 at 11:12; Status DC Ondansetron HCl (Zofran) 4 mg STK-MED ONCE .ROUTE ; Start 01/04/17 at 14:49; Stop 01/09/17 at 11:12; Status DC Fentanyl Citrate (Fentanyl 2ml Vial) 100 mcg STK-MED ONCE .ROUTE ; Start at 14:49; Stop 01/09/17 at 11:12; Status DC Ephedrine Sulfate (Akovaz) 50 mg STK-MED ONCE .ROUTE ; Start 01/04/17 at 16:26 ; Stop 01/09/17 at 11:13; Status DC Furosemide (Lasix) 20 mg STK-MED ONCE .ROUTE ; Start 01/04/17 at 16:30; Stop 01/09/17 at 11:13; Status DC Sevoflurane (Ultane) 90 ml STK-MED ONCE IH ; Start 01/04/17 at 17:42; Stop at 11:13; Status DC Warfarin Sodium (Coumadin) 5 mg 1X WARF ONCE PO ; Start 01/09/17 at 16:00; Stop 01/09/17 at 16:01 Active Scripts Active Tramadol Hcl 50 Mg Tablet 50 Mg PO PRN Q6HRS PRN Reported Novolog Flexpen (Insulin Aspart) 100 Unit/1 Ml Insuln.pen 1 Unit SQ PRN TID PRN Duoneb 0.5-3(2.5) Mg/3 Ml (Albuterol/Ipratropium) 3 Ml Ampul.neb 3 Ml NEB PRN Q4HRS PRN Famotidine 20 Mg Tablet 20 Mg PO HS Trazodone Hcl 50 Mg Tablet 1 Tab PO QHS Tamsulosin Hcl 0.4 Mg Cap.er.24h 0.4 Mg PO DAILY Melatonin 3 Mg Tablet 1 Tab PO QHS Losartan Potassium 100 Mg Tablet 100 Mg PO DAILY Colace Clear (Docusate Sodium) 50 Mg Capsule 50 Mg PO PRN DAILY PRN Aspirin 325 Mg Tablet 1 Tab PO DAILY Acetaminophen 500 Mg Tablet 500 Mg PO PRN Q6HRS PRN Vitamin D (Cholecalciferol (Vitamin D3)) 1,000 Unit Capsule 1 Cap PO DAILY Levothyroxine Sodium 112 Mcg Tablet 2 Tab PO HS Xarelto (Rivaroxaban) 10 Mg Tablet 1 Tab PO DAILY Prilosec Otc (Omeprazole Magnesium) 20 Mg Tablet.dr 1 Tab PO DAILY Metformin Hcl Er (Metformin Hcl) 500 Mg Tab.er.24h 500 Mg PO BIDWMEALS Amlodipine Besylate 10 Mg Tablet 10 Mg PO HS Simvastatin 20 Mg Tablet 20 Mg PO HS Glimepiride 2 Mg Tablet 2 Mg PO DAILY Carvedilol 3.125 Mg Tablet 6.25 Mg PO BID Potassium Chloride 10 Meq Capsule.er 20 Meq PO DAILY Vitals/I & O Vital Sign - Last 24 Hours 01/08/17 01/08/17 01/08/17 01/08/17 15:09 15:38 19:20 19:45 Temp 97.8 98.4 97.8 98.4 Pulse 87 78 Resp 18 20 B/P (MAP) 146/78 (100) 145/68 (93) Pulse Ox 97 95 O2 Delivery Nasal Cannula Nasal Cannula Nasal Cannula Nasal Cannula O2 Flow Rate 2.0 2.0 2.0 2.0 01/08/17 01/08/17 01/08/17 01/08/17 20:10 20:10 20:12 23:00 Temp 97.9 97.9 Pulse 78 75 Resp 20 20 18 B/P (MAP) 145/68 127/76 (93) Pulse Ox 95 95 95 O2 Delivery Nasal Cannula Nasal Cannula Nasal Cannula O2 Flow Rate 2.0 2.0 2.0 01/08/17 01/09/17 01/09/17 01/09/17 23:02 00:10 00:10 01:33 Resp 22 20 20 18 Pulse Ox 95 95 95 95 O2 Delivery Nasal Cannula Nasal Cannula Nasal Cannula Nasal Cannula O2 Flow Rate 2.0 2.0 2.0 2.0 01/09/17 01/09/17 01/09/17 01/09/17 02:45 06:12 06:45 07:00 Temp 97.9 97.9 97.9 97.9 Pulse 84 78 Resp 20 24 16 19 B/P (MAP) 159/87 (111) 147/75 (99) Pulse Ox 96 96 96 96 O2 Delivery Nasal Cannula Nasal Cannula Nasal Cannula Nasal Cannula O2 Flow Rate 2.0 2.0 2.0 2.0 01/09/17 01/09/17 01/09/17 01/09/17 08:15 08:33 08:33 11:26 Pulse 78 B/P (MAP) 147/75 Pulse Ox 96 96 O2 Delivery Nasal Cannula Nasal Cannula Nasal Cannula O2 Flow Rate 2.0 2.0 2.0 Intake and Output 01/08/17 01/08/17 01/09/17 15:00 23:00 07:00 Intake Total 300 ml 773 ml 820 ml Output Total 1 ml 600 ml Balance 300 ml 772 ml 220 ml Nutrition Consultation Dietary Evaluation: Recommendations by RD: Increase Calorie Intake, Protein supplementation Comments: added ensure supplements to diet order with hx poor po intake since stroke Expected Outcomes/Goals: to meet > 75% est nutr needs Malnutrition Findings: Malnutrition related to morbid: Weight 200% of ideal wt Malnutrition related to morbid: Yes Weight Status: Morbidly Obese MANDI DOW III, DO Jan 09, 2017 13:09
--- NOTE | 2017-01-09 13:29 | PDOC ---
Subjective: Subjective: Per family in room - two of pt's sisters had similar symptoms/dilation 20 years ago. Tolerating some bites of food and pills. Objective: Vital Signs: Vital Signs Date Time Temp Pulse Resp B/P (MAP) Pulse Ox O2 Delivery O2 Flow Rate FiO2 01/09/17 12:26 96 Nasal Cannula 2.0 01/09/17 08:33 78 147/75 01/09/17 07:00 97.9 19 97.9 Labs: Laboratory Tests Test 01/08/17 15:10 01/08/17 16:51 01/08/17 20:40 01/09/17 03:00 Sodium Level 144 mmol/L 141 mmol/L Potassium Level 3.8 mmol/L 4.0 mmol/L Chloride Level 110 mmol/L 109 mmol/L Carbon Dioxide Level 26 mmol/L 27 mmol/L Anion Gap 8 5 Blood Urea Nitrogen 13 mg/dL 12 mg/dL Creatinine 0.6 mg/dL 0.5 mg/dL Estimated GFR (Cockcroft-Gault) 94.1 116.2 BUN/Creatinine Ratio 22 Glucose Level 104 mg/dL 126 mg/dL Calcium Level 7.0 mg/dL 7.2 mg/dL Total Bilirubin 0.5 mg/dL Aspartate Amino Transf (AST/SGOT) 26 U/L Alanine Aminotransferase (ALT/SGPT) 15 U/L Alkaline Phosphatase 95 U/L Total Protein 4.7 g/dL Albumin 1.6 g/dL Albumin/Globulin Ratio 0.5 Glucose (Fingerstick) 111 mg/dL 140 mg/dL White Blood Count 9.6 x10^3/uL Red Blood Count 3.48 x10^6/uL Hemoglobin 10.1 g/dL Hematocrit 31.3 % Mean Corpuscular Volume 90 fL Mean Corpuscular Hemoglobin 29 pg Mean Corpuscular Hemoglobin Concent 32 g/dL Red Cell Distribution Width 16.8 % Platelet Count 171 x10^3/uL Neutrophils (%) (Auto) 39 % Lymphocytes (%) (Auto) 56 % Monocytes (%) (Auto) 4 % Eosinophils (%) (Auto) 1 % Basophils (%) (Auto) 0 % Neutrophils # (Auto) 3.8 x10^3uL Lymphocytes # (Auto) 5.4 x10^3/uL Monocytes # (Auto) 0.4 x10^3/uL Eosinophils # (Auto) 0.1 x10^3/uL Basophils # (Auto) 0.0 x10^3/uL Segmented Neutrophils % 68 % Band Neutrophils % 3 % Lymphocytes % 19 % Monocytes % 10 % Platelet Estimate Adequate Prothrombin Time 20.5 SEC Prothromb Time International Ratio 1.9 Test 01/09/17 07:33 01/09/17 12:12 Glucose (Fingerstick) 113 mg/dL 145 mg/dL PE: GEN: NAD LUNGS: nasal cannula HEART: RRR ABD: soft NEURO/PSYCH: asleep, did not awaken A/P: Dysphagia, esophageal stricture, presbyesophagus, h/o GERD -- EGD on hold w/ elevated INR of 1.9 (Warfarin held). PAUL RAMIREZ Jan 09, 2017 13:29
[2017-01-09 15:00] VITALS: BP 161/55
[2017-01-09] MEDS ORDERED: WARFARIN 5 MG TABLET. PO ONE (16:00)
[2017-01-09 19:45] VITALS: BP 187/80
[2017-01-09] MEDS: amLODIPine BESYLATE 10 MG TABLET PO SCH (21:47)
[2017-01-09] MEDS: ATORVASTATIN CALCIUM 10 MG TABLET. PO SCH (21:47)
[2017-01-09] MEDS: traZODone 50 MG TABLET. PO SCH (21:47)
[2017-01-09] MEDS: LEVOTHYROXINE 112 MCG TABLET PO SCH (22:03)
[2017-01-09 23:35] VITALS: BP 175/56
[2017-01-10] VITALS (9 sets, daily range): BP systolic 134–175; BP diastolic 50–83
[2017-01-10] MEDS: oxyCODONE IR 5 MG TABLET PO PRN ×3 (01:50→18:09)
[2017-01-10] MEDS: AMINO AC 3%/ELECTROLYTE/GLYCER 1,000 ML IV SCH (05:43)
[2017-01-10 07:33] LABS: BASO % 1 % (0-3); EOS % 2 % (0-3); HEMATOCRIT 30.9 % (36.0-47.0); HEMOGLOBIN 9.9 g/dL (12.0-15.5); LYMPH # 2.9 x10^3/uL (1.0-4.8); LYMPH % 42 % (24-48); MEAN CORPUSCULAR HEMOGLOBIN 29 pg (25-35); MEAN CORPUSCULAR HGB CONC 32 g/dL (31-37); MEAN CORPUSCULAR VOLUME 89 fL (79-100); MONO % 4 % (0-9); NEUT % 51 % (31-73); PLATELET COUNT 144 x10^3/uL (140-400); RED BLOOD COUNT 3.47 x10^6/uL (3.50-5.40); RED CELL DISTRIBUTION WIDTH 16.9 % (11.5-14.5); WHITE BLOOD COUNT 6.9 x10^3/uL (4.0-11.0)
[2017-01-10 07:39] LABS: CALCIUM 7.5 mg/dL (8.5-10.1); CREATININE 0.5 mg/dL (0.6-1.0); GFR 116.2; POTASSIUM 3.9 mmol/L (3.5-5.1)
[2017-01-10 07:40] LABS: INR 1.7 (0.8-1.1); PROTHROMBIN TIME PATIENT 18.5 SEC (11.7-14.0)
--- NOTE | 2017-01-10 07:56 | PDOC ---
SURGICAL PROGRESS NOTE Subjective pt awake, comfortable Vital Signs Vital Signs Date Time Temp Pulse Resp B/P (MAP) Pulse Ox O2 Delivery O2 Flow Rate FiO2 01/10/17 05:13 Nasal Cannula 2.0 01/10/17 03:25 98.0 85 16 175/71 (105) 98 98.0 I&O Intake and Output 01/10/17 07:00 Intake Total 1050 ml Output Total 350 ml Balance 700 ml Intake Oral 1050 ml Output Urine Total 350 ml # Bowel Movements 1 Extremities: Other (left above knee stump dressing dry. Wound inspected yesterday; left arm edematous, no change) Labs Laboratory Tests Test 01/08/17 07:58 01/08/17 11:59 01/08/17 15:10 01/08/17 16:51 Glucose (Fingerstick) 79 mg/dL (70-99) 100 mg/dL (70-99) 111 mg/dL (70-99) Sodium Level 144 mmol/L (136-145) Potassium Level 3.8 mmol/L (3.5-5.1) Chloride Level 110 mmol/L (98-107) Carbon Dioxide Level 26 mmol/L (21-32) Anion Gap 8 (6-14) Blood Urea Nitrogen 13 mg/dL (7-20) Creatinine 0.6 mg/dL (0.6-1.0) Estimated GFR (Cockcroft-Gault) 94.1 BUN/Creatinine Ratio 22 (6-20) Glucose Level 104 mg/dL (70-99) Calcium Level 7.0 mg/dL (8.5-10.1) Total Bilirubin 0.5 mg/dL (0.2-1.0) Aspartate Amino Transf (AST/SGOT) 26 U/L (15-37) Alanine Aminotransferase (ALT/SGPT) 15 U/L (14-59) Alkaline Phosphatase 95 U/L (46-116) Total Protein 4.7 g/dL (6.4-8.2) Albumin 1.6 g/dL (3.4-5.0) Albumin/Globulin Ratio 0.5 (1.0-1.7) Test 01/08/17 20:40 01/09/17 03:00 01/09/17 07:33 01/09/17 12:12 Glucose (Fingerstick) 140 mg/dL (70-99) 113 mg/dL (70-99) 145 mg/dL (70-99) White Blood Count 9.6 x10^3/uL (4.0-11.0) Red Blood Count 3.48 x10^6/uL (3.50-5.40) Hemoglobin 10.1 g/dL (12.0-15.5) Hematocrit 31.3 % (36.0-47.0) Mean Corpuscular Volume 90 fL (79-100) Mean Corpuscular Hemoglobin 29 pg (25-35) Mean Corpuscular Hemoglobin Concent 32 g/dL (31-37) Red Cell Distribution Width 16.8 % (11.5-14.5) Platelet Count 171 x10^3/uL (140-400) Neutrophils (%) (Auto) 39 % (31-73) Lymphocytes (%) (Auto) 56 % (24-48) Monocytes (%) (Auto) 4 % (0-9) Eosinophils (%) (Auto) 1 % (0-3) Basophils (%) (Auto) 0 % (0-3) Neutrophils # (Auto) 3.8 x10^3uL (1.8-7.7) Lymphocytes # (Auto) 5.4 x10^3/uL (1.0-4.8) Monocytes # (Auto) 0.4 x10^3/uL (0.0-1.1) Eosinophils # (Auto) 0.1 x10^3/uL (0.0-0.7) Basophils # (Auto) 0.0 x10^3/uL (0.0-0.2) Segmented Neutrophils % 68 % (35-66) Band Neutrophils % 3 % (0-9) Lymphocytes % 19 % (24-48) Monocytes % 10 % (0-10) Platelet Estimate Adequate (ADEQUATE) Prothrombin Time 20.5 SEC (11.7-14.0) Prothromb Time International Ratio 1.9 (0.8-1.1) Sodium Level 141 mmol/L (136-145) Potassium Level 4.0 mmol/L (3.5-5.1) Chloride Level 109 mmol/L (98-107) Carbon Dioxide Level 27 mmol/L (21-32) Anion Gap 5 (6-14) Blood Urea Nitrogen 12 mg/dL (7-20) Creatinine 0.5 mg/dL (0.6-1.0) Estimated GFR (Cockcroft-Gault) 116.2 Glucose Level 126 mg/dL (70-99) Calcium Level 7.2 mg/dL (8.5-10.1) Test 01/09/17 16:47 01/09/17 21:54 01/10/17 07:00 Glucose (Fingerstick) 160 mg/dL (70-99) 157 mg/dL (70-99) White Blood Count 6.9 x10^3/uL (4.0-11.0) Red Blood Count 3.47 x10^6/uL (3.50-5.40) Hemoglobin 9.9 g/dL (12.0-15.5) Hematocrit 30.9 % (36.0-47.0) Mean Corpuscular Volume 89 fL (79-100) Mean Corpuscular Hemoglobin 29 pg (25-35) Mean Corpuscular Hemoglobin Concent 32 g/dL (31-37) Red Cell Distribution Width 16.9 % (11.5-14.5) Platelet Count 144 x10^3/uL (140-400) Neutrophils (%) (Auto) 51 % (31-73) Lymphocytes (%) (Auto) 42 % (24-48) Monocytes (%) (Auto) 4 % (0-9) Eosinophils (%) (Auto) 2 % (0-3) Basophils (%) (Auto) 1 % (0-3) Neutrophils # (Auto) 3.5 x10^3uL (1.8-7.7) Lymphocytes # (Auto) 2.9 x10^3/uL (1.0-4.8) Monocytes # (Auto) 0.3 x10^3/uL (0.0-1.1) Eosinophils # (Auto) 0.1 x10^3/uL (0.0-0.7) Basophils # (Auto) 0.0 x10^3/uL (0.0-0.2) Prothrombin Time 18.5 SEC (11.7-14.0) Prothromb Time International Ratio 1.7 (0.8-1.1) Sodium Level 138 mmol/L (136-145) Potassium Level 3.9 mmol/L (3.5-5.1) Chloride Level 106 mmol/L (98-107) Carbon Dioxide Level 29 mmol/L (21-32) Anion Gap 3 (6-14) Blood Urea Nitrogen 11 mg/dL (7-20) Creatinine 0.5 mg/dL (0.6-1.0) Estimated GFR (Cockcroft-Gault) 116.2 Glucose Level 136 mg/dL (70-99) Calcium Level 7.5 mg/dL (8.5-10.1) Laboratory Tests Test 01/09/17 12:12 01/09/17 16:47 01/09/17 21:54 01/10/17 07:00 Glucose (Fingerstick) 145 mg/dL (70-99) 160 mg/dL (70-99) 157 mg/dL (70-99) White Blood Count 6.9 x10^3/uL (4.0-11.0) Red Blood Count 3.47 x10^6/uL (3.50-5.40) Hemoglobin 9.9 g/dL (12.0-15.5) Hematocrit 30.9 % (36.0-47.0) Mean Corpuscular Volume 89 fL (79-100) Mean Corpuscular Hemoglobin 29 pg (25-35) Mean Corpuscular Hemoglobin Concent 32 g/dL (31-37) Red Cell Distribution Width 16.9 % (11.5-14.5) Platelet Count 144 x10^3/uL (140-400) Neutrophils (%) (Auto) 51 % (31-73) Lymphocytes (%) (Auto) 42 % (24-48) Monocytes (%) (Auto) 4 % (0-9) Eosinophils (%) (Auto) 2 % (0-3) Basophils (%) (Auto) 1 % (0-3) Neutrophils # (Auto) 3.5 x10^3uL (1.8-7.7) Lymphocytes # (Auto) 2.9 x10^3/uL (1.0-4.8) Monocytes # (Auto) 0.3 x10^3/uL (0.0-1.1) Eosinophils # (Auto) 0.1 x10^3/uL (0.0-0.7) Basophils # (Auto) 0.0 x10^3/uL (0.0-0.2) Prothrombin Time 18.5 SEC (11.7-14.0) Prothromb Time International Ratio 1.7 (0.8-1.1) Sodium Level 138 mmol/L (136-145) Potassium Level 3.9 mmol/L (3.5-5.1) Chloride Level 106 mmol/L (98-107) Carbon Dioxide Level 29 mmol/L (21-32) Anion Gap 3 (6-14) Blood Urea Nitrogen 11 mg/dL (7-20) Creatinine 0.5 mg/dL (0.6-1.0) Estimated GFR (Cockcroft-Gault) 116.2 Glucose Level 136 mg/dL (70-99) Calcium Level 7.5 mg/dL (8.5-10.1) Assessment/Plan Imp: stable post op left AKA 2. left arm swollen. Venous duplex scan negative for DVT Plan: 1. cont. medical therapy 2. to extended care facility when able. Problems: ZAKI ALBA II, MD Jan 10, 2017 07:56
[2017-01-10] MEDS: INSULIN ASPART 300 UNITS/3 ML INSULN.PEN SQ SCH ×3 (08:00→16:47)
[2017-01-10] MEDS: oxyCODONE ER 10 MG TAB.ER.12H PO SCH ×2 (09:02→20:49)
[2017-01-10] MEDS: FUROSEMIDE 20 MG/2 ML VIAL. IVP SCH (09:03)
--- NOTE | 2017-01-10 09:24 | PDOC ---
Infectious Disease Note Subjective Subjective Pt says feels ok, Denies SOA/CP /n/v/d pain is under control ROS ROS GEN: Denies fevers, chills, sweats HEENT: Denies blurred vision, sore throat CV: Denies chest pain RESP: Denies shortness of air, cough GI: Denies n/v/d NEURO: Denies confusion, dizziness MSK: Denies weakness, joint pain/swelling Vital Sign Vital Signs Vital Signs Date Time Temp Pulse Resp B/P (MAP) Pulse Ox O2 Delivery O2 Flow Rate FiO2 01/10/17 09:02 20 98 Nasal Cannula 2.0 01/10/17 03:25 98.0 85 175/71 (105) 98.0 Physical Exam PHYSICAL EXAM GENERAL: NAD, Alert HEENT: PERRL, OC/OP NECK: Supple, no JVD, no LN LUNGS: Clear HEART: S1S2, no gallop, no murmur ABD: Soft, NT, no organomegaly, no rebound EXT: + RLE edema, no cyanosis [employer]IC: Alert, oriented x 3, nonfocal grossly SKIN: No rash IV: ok Labs Lab Laboratory Tests Test 01/09/17 12:12 01/09/17 16:47 01/09/17 21:54 01/10/17 07:00 Glucose (Fingerstick) 145 mg/dL (70-99) 160 mg/dL (70-99) 157 mg/dL (70-99) White Blood Count 6.9 x10^3/uL (4.0-11.0) Red Blood Count 3.47 x10^6/uL (3.50-5.40) Hemoglobin 9.9 g/dL (12.0-15.5) Hematocrit 30.9 % (36.0-47.0) Mean Corpuscular Volume 89 fL (79-100) Mean Corpuscular Hemoglobin 29 pg (25-35) Mean Corpuscular Hemoglobin Concent 32 g/dL (31-37) Red Cell Distribution Width 16.9 % (11.5-14.5) Platelet Count 144 x10^3/uL (140-400) Neutrophils (%) (Auto) 51 % (31-73) Lymphocytes (%) (Auto) 42 % (24-48) Monocytes (%) (Auto) 4 % (0-9) Eosinophils (%) (Auto) 2 % (0-3) Basophils (%) (Auto) 1 % (0-3) Neutrophils # (Auto) 3.5 x10^3uL (1.8-7.7) Lymphocytes # (Auto) 2.9 x10^3/uL (1.0-4.8) Monocytes # (Auto) 0.3 x10^3/uL (0.0-1.1) Eosinophils # (Auto) 0.1 x10^3/uL (0.0-0.7) Basophils # (Auto) 0.0 x10^3/uL (0.0-0.2) Prothrombin Time 18.5 SEC (11.7-14.0) Prothromb Time International Ratio 1.7 (0.8-1.1) Sodium Level 138 mmol/L (136-145) Potassium Level 3.9 mmol/L (3.5-5.1) Chloride Level 106 mmol/L (98-107) Carbon Dioxide Level 29 mmol/L (21-32) Anion Gap 3 (6-14) Blood Urea Nitrogen 11 mg/dL (7-20) Creatinine 0.5 mg/dL (0.6-1.0) Estimated GFR (Cockcroft-Gault) 116.2 Glucose Level 136 mg/dL (70-99) Calcium Level 7.5 mg/dL (8.5-10.1) Test 01/10/17 08:16 Glucose (Fingerstick) 149 mg/dL (70-99) Micro RUN DATE: 01/07/17 PAGE 1 RUN TIME: 1110 [facility] [address] [place] [address] Ger Melo M.D., Risk Lead PATIENT: JIGNA CRESPO I ACCT: [id number] LOC: [address] [place] [address] U : [id number] AGE/SX: 89/F ROOM: [address] [place] [address] : 01/02/[address]: ZAHIRA KEYES MD : [id number] BED: 1 DIS : STATUS: ADM IN TLOC: SPEC #: [id number] FAROOQ: 01/03/17 STATUS: RES REQ #: [id number] RECD: 01/03/[address]: ZAHIRA KEYES MD SOURCE: LEG ENTR: 01/03/17-[address] [facility] [address]: ZAKI ALBA II, MD SPDESC: CHRISTY BANDA MD, GLENN A MD ORDERED: ANAER-AERO CULT Procedure Result ANAEROBIC-AEROBIC CULTURE PENDING ANAEROBIC RES 1 PENDING AEROBIC CULT Final Final report AEROBIC RES 1 Final Comment Pseudomonas aeruginosa Moderate growth AEROBIC RES 2 Final Morganella morganii Moderate growth AEROBIC RES 3 Final Staphylococcus aureus Heavy growth Based on resistance to penicillin and susceptibility to oxacillin this isolate would be susceptible to: * Penicillinase-stable penicillins; such as: Cloxacillin Dicloxacillin Nafcillin * Beta-lactam/beta-lactamase inhibitor combinations; such as: Amoxicillin-clavulanic acid Ampicillin-sulbactam * Antistaphylococcal cephems; such as: Cefaclor Cefuroxime * Antistaphylococcal carbapenems; such as: Imipenem Objective Assessment Extensive left leg infection s/p AKA, 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 aspiration Obesity DM HTN Left fibular fracture CVA Plan Plan of Care Monitor Off antibiotics,off zosyn Awaiting EGD f/u appt vascular 01/30 maintain aspiration precautions GERMAN LARSEN MD Jan 10, 2017 09:24
[2017-01-10] MEDS: DOCUSATE SODIUM 100 MG CAPSULE. PO SCH ×2 (11:16→20:48)
[2017-01-10] MEDS: IV NORMAL SALINE 1000ML BAG 1,000 ML IV SCH ×3 (11:16→20:47)
[2017-01-10] MEDS ORDERED: IV RINGERS,LACTATED 1000ML 1,000 ML IV ONE (12:00)
[2017-01-10] MEDS ORDERED: PROPOFOL 20 ML IV ONE (12:36)
[2017-01-10] MEDS ORDERED: LIDOCAINE 2% PF Vial for OR 5 ML VIAL. ONE (12:36)
--- NOTE | 2017-01-10 13:07 | PDOC4 ---
PROCEDURE Procedure EGD/balloon dilation, esophagus Indication: dysphagia/stricture? on esophagram Meds: per anesthesia. Findings: E--disordered motility throughout. Healed, mild stricture at GE junction ~35 F. Dilated to 40-45F with balloon. No real bleeding. G--Normal D--Normal to second portion. Jose well. IMP: Stricture, likely healed peptic one. Presbyesophagus. REC: OK to resume diet, warfarin Would stay at soft diet; her motility probably plays a large role. Continue PPI chronically. Thanks. GURWINDER GONCALVES MD Jan 10, 2017 13:07
[2017-01-10] MEDS ORDERED: MORPHINE SULFATE 2 MG/ML DISP.SYRIN. ONE ×2 (13:08→13:10)
--- NOTE | 2017-01-10 14:12 | PDOC ---
PROGRESS NOTES Chief Complaint Chief Complaint Left leg infection Ischemic leg Compartment syndrome Dysphagia Obesity Diabetes Hypertension Atrial fibrillation CVA History of Present Illness History of Present Illness Pt was seen at bedside, sitting up, dressed in hospital attire. She reports getting good sleep, has a poor appetite, had a bowel movement today, and has a Wu in place. 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 Wound inspected yesterday; left arm edematous, no change) Skin: No rashes, No significant lesion Labs LABS Laboratory Tests Test 01/09/17 16:47 01/09/17 21:54 01/10/17 07:00 01/10/17 08:16 Glucose (Fingerstick) 160 mg/dL (70-99) 157 mg/dL (70-99) 149 mg/dL (70-99) White Blood Count 6.9 x10^3/uL (4.0-11.0) Red Blood Count 3.47 x10^6/uL (3.50-5.40) Hemoglobin 9.9 g/dL (12.0-15.5) Hematocrit 30.9 % (36.0-47.0) Mean Corpuscular Volume 89 fL (79-100) Mean Corpuscular Hemoglobin 29 pg (25-35) Mean Corpuscular Hemoglobin Concent 32 g/dL (31-37) Red Cell Distribution Width 16.9 % (11.5-14.5) Platelet Count 144 x10^3/uL (140-400) Neutrophils (%) (Auto) 51 % (31-73) Lymphocytes (%) (Auto) 42 % (24-48) Monocytes (%) (Auto) 4 % (0-9) Eosinophils (%) (Auto) 2 % (0-3) Basophils (%) (Auto) 1 % (0-3) Neutrophils # (Auto) 3.5 x10^3uL (1.8-7.7) Lymphocytes # (Auto) 2.9 x10^3/uL (1.0-4.8) Monocytes # (Auto) 0.3 x10^3/uL (0.0-1.1) Eosinophils # (Auto) 0.1 x10^3/uL (0.0-0.7) Basophils # (Auto) 0.0 x10^3/uL (0.0-0.2) Prothrombin Time 18.5 SEC (11.7-14.0) Prothromb Time International Ratio 1.7 (0.8-1.1) Sodium Level 138 mmol/L (136-145) Potassium Level 3.9 mmol/L (3.5-5.1) Chloride Level 106 mmol/L (98-107) Carbon Dioxide Level 29 mmol/L (21-32) Anion Gap 3 (6-14) Blood Urea Nitrogen 11 mg/dL (7-20) Creatinine 0.5 mg/dL (0.6-1.0) Estimated GFR (Cockcroft-Gault) 116.2 Glucose Level 136 mg/dL (70-99) Calcium Level 7.5 mg/dL (8.5-10.1) Test 01/10/17 10:29 Glucose (Fingerstick) 144 mg/dL (70-99) Review of Systems Review of Systems Admits to 8/10 pain the left leg Denies fevers or chills Assessment and Plan Assessmemt and Plan ASSESSMENT: Left leg infection Ischemic leg Compartment syndrome Dysphagia Obesity Diabetes Hypertension Atrial fibrillation CVA PLAN: EGD planned for today Continue procalamine Left arm swelling workup in progress PT/OT Continue current meds Possible discharge to [facility] tomorrow Problems: Comment Review of Relevant I have reviewed the following items madhav (where applicable) has been applied. Labs Laboratory Tests Test 01/08/17 15:10 01/08/17 16:51 01/08/17 20:40 01/09/17 03:00 Sodium Level 144 mmol/L (136-145) 141 mmol/L (136-145) Potassium Level 3.8 mmol/L (3.5-5.1) 4.0 mmol/L (3.5-5.1) Chloride Level 110 mmol/L (98-107) 109 mmol/L (98-107) Carbon Dioxide Level 26 mmol/L (21-32) 27 mmol/L (21-32) Anion Gap 8 (6-14) 5 (6-14) Blood Urea Nitrogen 13 mg/dL (7-20) 12 mg/dL (7-20) Creatinine 0.6 mg/dL (0.6-1.0) 0.5 mg/dL (0.6-1.0) Estimated GFR (Cockcroft-Gault) 94.1 116.2 BUN/Creatinine Ratio 22 (6-20) Glucose Level 104 mg/dL (70-99) 126 mg/dL (70-99) Calcium Level 7.0 mg/dL (8.5-10.1) 7.2 mg/dL (8.5-10.1) Total Bilirubin 0.5 mg/dL (0.2-1.0) Aspartate Amino Transf (AST/SGOT) 26 U/L (15-37) Alanine Aminotransferase (ALT/SGPT) 15 U/L (14-59) Alkaline Phosphatase 95 U/L (46-116) Total Protein 4.7 g/dL (6.4-8.2) Albumin 1.6 g/dL (3.4-5.0) Albumin/Globulin Ratio 0.5 (1.0-1.7) Glucose (Fingerstick) 111 mg/dL (70-99) 140 mg/dL (70-99) White Blood Count 9.6 x10^3/uL (4.0-11.0) Red Blood Count 3.48 x10^6/uL (3.50-5.40) Hemoglobin 10.1 g/dL (12.0-15.5) Hematocrit 31.3 % (36.0-47.0) Mean Corpuscular Volume 90 fL (79-100) Mean Corpuscular Hemoglobin 29 pg (25-35) Mean Corpuscular Hemoglobin Concent 32 g/dL (31-37) Red Cell Distribution Width 16.8 % (11.5-14.5) Platelet Count 171 x10^3/uL (140-400) Neutrophils (%) (Auto) 39 % (31-73) Lymphocytes (%) (Auto) 56 % (24-48) Monocytes (%) (Auto) 4 % (0-9) Eosinophils (%) (Auto) 1 % (0-3) Basophils (%) (Auto) 0 % (0-3) Neutrophils # (Auto) 3.8 x10^3uL (1.8-7.7) Lymphocytes # (Auto) 5.4 x10^3/uL (1.0-4.8) Monocytes # (Auto) 0.4 x10^3/uL (0.0-1.1) Eosinophils # (Auto) 0.1 x10^3/uL (0.0-0.7) Basophils # (Auto) 0.0 x10^3/uL (0.0-0.2) Segmented Neutrophils % 68 % (35-66) Band Neutrophils % 3 % (0-9) Lymphocytes % 19 % (24-48) Monocytes % 10 % (0-10) Platelet Estimate Adequate (ADEQUATE) Prothrombin Time 20.5 SEC (11.7-14.0) Prothromb Time International Ratio 1.9 (0.8-1.1) Test 01/09/17 07:33 01/09/17 12:12 01/09/17 16:47 01/09/17 21:54 Glucose (Fingerstick) 113 mg/dL (70-99) 145 mg/dL (70-99) 160 mg/dL (70-99) 157 mg/dL (70-99) Test 01/10/17 07:00 01/10/17 08:16 01/10/17 10:29 White Blood Count 6.9 x10^3/uL (4.0-11.0) Red Blood Count 3.47 x10^6/uL (3.50-5.40) Hemoglobin 9.9 g/dL (12.0-15.5) Hematocrit 30.9 % (36.0-47.0) Mean Corpuscular Volume 89 fL (79-100) Mean Corpuscular Hemoglobin 29 pg (25-35) Mean Corpuscular Hemoglobin Concent 32 g/dL (31-37) Red Cell Distribution Width 16.9 % (11.5-14.5) Platelet Count 144 x10^3/uL (140-400) Neutrophils (%) (Auto) 51 % (31-73) Lymphocytes (%) (Auto) 42 % (24-48) Monocytes (%) (Auto) 4 % (0-9) Eosinophils (%) (Auto) 2 % (0-3) Basophils (%) (Auto) 1 % (0-3) Neutrophils # (Auto) 3.5 x10^3uL (1.8-7.7) Lymphocytes # (Auto) 2.9 x10^3/uL (1.0-4.8) Monocytes # (Auto) 0.3 x10^3/uL (0.0-1.1) Eosinophils # (Auto) 0.1 x10^3/uL (0.0-0.7) Basophils # (Auto) 0.0 x10^3/uL (0.0-0.2) Prothrombin Time 18.5 SEC (11.7-14.0) Prothromb Time International Ratio 1.7 (0.8-1.1) Sodium Level 138 mmol/L (136-145) Potassium Level 3.9 mmol/L (3.5-5.1) Chloride Level 106 mmol/L (98-107) Carbon Dioxide Level 29 mmol/L (21-32) Anion Gap 3 (6-14) Blood Urea Nitrogen 11 mg/dL (7-20) Creatinine 0.5 mg/dL (0.6-1.0) Estimated GFR (Cockcroft-Gault) 116.2 Glucose Level 136 mg/dL (70-99) Calcium Level 7.5 mg/dL (8.5-10.1) Glucose (Fingerstick) 149 mg/dL (70-99) 144 mg/dL (70-99) Laboratory Tests Test 01/09/17 16:47 01/09/17 21:54 01/10/17 07:00 01/10/17 08:16 Glucose (Fingerstick) 160 mg/dL (70-99) 157 mg/dL (70-99) 149 mg/dL (70-99) White Blood Count 6.9 x10^3/uL (4.0-11.0) Red Blood Count 3.47 x10^6/uL (3.50-5.40) Hemoglobin 9.9 g/dL (12.0-15.5) Hematocrit 30.9 % (36.0-47.0) Mean Corpuscular Volume 89 fL (79-100) Mean Corpuscular Hemoglobin 29 pg (25-35) Mean Corpuscular Hemoglobin Concent 32 g/dL (31-37) Red Cell Distribution Width 16.9 % (11.5-14.5) Platelet Count 144 x10^3/uL (140-400) Neutrophils (%) (Auto) 51 % (31-73) Lymphocytes (%) (Auto) 42 % (24-48) Monocytes (%) (Auto) 4 % (0-9) Eosinophils (%) (Auto) 2 % (0-3) Basophils (%) (Auto) 1 % (0-3) Neutrophils # (Auto) 3.5 x10^3uL (1.8-7.7) Lymphocytes # (Auto) 2.9 x10^3/uL (1.0-4.8) Monocytes # (Auto) 0.3 x10^3/uL (0.0-1.1) Eosinophils # (Auto) 0.1 x10^3/uL (0.0-0.7) Basophils # (Auto) 0.0 x10^3/uL (0.0-0.2) Prothrombin Time 18.5 SEC (11.7-14.0) Prothromb Time International Ratio 1.7 (0.8-1.1) Sodium Level 138 mmol/L (136-145) Potassium Level 3.9 mmol/L (3.5-5.1) Chloride Level 106 mmol/L (98-107) Carbon Dioxide Level 29 mmol/L (21-32) Anion Gap 3 (6-14) Blood Urea Nitrogen 11 mg/dL (7-20) Creatinine 0.5 mg/dL (0.6-1.0) Estimated GFR (Cockcroft-Gault) 116.2 Glucose Level 136 mg/dL (70-99) Calcium Level 7.5 mg/dL (8.5-10.1) Test 01/10/17 10:29 Glucose (Fingerstick) 144 mg/dL (70-99) Microbiology 01/03/17 Gram Stain - Final, Complete Medications Current Medications Oxycodone HCl (Roxicodone) 5 mg PRN Q4HRS PRN PO PAIN Last administered on t 05:13; Start 01/02/17 at 18:15 Oxycodone HCl (OxyCONTIN) 10 mg Q12HR PO Last administered on 01/10/17 09:02 ; Start 01/02/17 at 21:00 Amlodipine Besylate (Norvasc) 5 mg HS PO Last administered on 01/02/17 22:28 ; Start 01/02/17 at 21:00; Stop 01/04/17 at 08:03; Status DC Tamsulosin HCl (Flomax) 0.4 mg DAILY PO Last administered on 01/09/17 08:33; Start 01/03/17 at 09:00 Polyethylene Glycol (miraLAX PACKET) 17 gm PRN DAILY PRN PO CONSTIPATION Last administered on 01/08/17 09:36; Start 01/02/17 at 18:30 Ondansetron HCl (Zofran) 4 mg PRN Q6HRS PRN IV NAUSEA/VOMITING Last administered on 01/08/17 18:29; Start 01/02/17 at 18:30 Lorazepam (Ativan) 2 mg PRN Q12HR PRN IV ANXIETY / AGITATION Last administered on 01/06/17 22:42; Start 01/02/17 at 18:30 Metoprolol Tartrate (Lopressor) 25 mg BID PO Last administered on 01/02/17 22 :29; Start 01/02/17 at 21:00; Stop 01/04/17 at 08:03; Status DC Silver Nitrate/ Potassium Nitrate 1 each 1X ONCE TP ; Start 01/02/17 at 18:45 ; Stop 01/02/17 at 18:46; Status DC Famotidine (Pepcid) 20 mg DAILY PO ; Start 01/03/17 at 09:00; Stop 01/04/17 at 08:05; Status DC Trazodone HCl (Desyrel) 50 mg QHS PO Last administered on 01/02/17 22:28; Start 01/02/17 at 21:00; Stop 01/04/17 at 08:04; Status DC Levothyroxine Sodium (Synthroid) 112 mcg DAILY07 PO ; Start 01/03/17 at 07:00; Stop 01/04/17 at 08:05; Status DC Lactobacillus Rhamnosus (Culturelle) 1 cap BID PO Last administered on 21:47; Start 01/02/17 at 21:00 Sodium Chloride 1,000 ml @ 75 mls/hr [id number] IV Last administered on 14:53; Start 01/02/17 at 19:00 Sodium Chloride (Normal Saline Flush 3ml) 10 ml PRN Q12HRS PRN IV AFTER MEDS AND BLOOD DRAWS; Start 01/02/17 at 18:30; Stop 01/05/17 at 05:38; Status DC Insulin Aspart (NovoLOG) 0-9 UNITS TIDWMEALS SQ Last administered on 18:12; Start 01/03/17 at 19:00 Dextrose (Dextrose 50%-Water Syringe) 12.5 gm PRN Q15MIN PRN IV SEE COMMENTS; Start 01/02/17 at 18:45 Docusate Sodium (Colace) 100 mg BID PO Last administered on 01/09/17 21:46; Start 01/02/17 at 21:00 Bisacodyl (Dulcolax Supp) 10 mg PRN DAILY PRN NV CONSTIPATION; Start 01/02/17 at 18:45 Atorvastatin Calcium (Lipitor) 10 mg QHS PO Last administered on 01/09/17 21: 47; Start 01/02/17 at 21:00 Aspirin (Lucas Aspirin) 325 mg DAILYWBKFT PO ; Start 01/03/17 at 08:00; Stop 01/03/17 at 16:35; Status DC Acetaminophen (Tylenol) 500 mg PRN Q6HRS PRN PO MILD PAIN / TEMP; Start at 18:45; Stop 01/04/17 at 12:28; Status DC Morphine Sulfate 2 mg PRN Q2HR PRN IV PAIN Last administered on 01/03/17 22: 41; Start 01/02/17 at 21:15; Stop 01/03/17 at 23:26; Status DC Morphine Sulfate 4 mg PRN Q2HR PRN IV PAIN Last administered on 01/03/17 20: 22; Start 01/02/17 at 21:15; Stop 01/03/17 at 23:56; Status DC Piperacillin Sod/ Tazobactam Sod 3.375 gm/Dextrose 50 ml @ 100 mls/hr Q6HRS IV ; Start 01/03/17 at 12:00; Status UNV Linezolid 300 ml @ 300 mls/hr Q12HR IV Last administered on 01/07/17 09:29; Start 01/03/17 at 11:00; Stop 01/07/17 at 12:55; Status DC Phytonadione 10 mg/Dextrose 51 ml @ 102 mls/hr 1X ONCE IV ; Start 01/03/17 at 11:00; Stop 01/03/17 at 11:00; Status DC Piperacillin Sod/ Tazobactam Sod (Zosyn) 3.375 gm Q6HRS IVP Last administered on 01/08/17 06:09; Start 01/03/17 at 12:00; Stop 01/08/17 at 11:26; Status DC Furosemide (Lasix) 40 mg 1X ONCE IVP Last administered on 01/03/17 11:44; Start 01/03/17 at 11:45; Stop 01/03/17 at 11:46; Status DC Lidocaine/Sodium Bicarbonate (Buffered Lidocaine 1%) 3 ml 1X ONCE IJ Last administered on 01/03/17 15:57; Start 01/03/17 at 15:30; Stop 01/03/17 at 15 :31; Status DC Lidocaine/Sodium Bicarbonate (Buffered Lidocaine 1%) 3 ml 1X ONCE IJ ; Start 01/03/17 at 15:45; Stop 01/03/17 at 15:46; Status DC Phytonadione (Vitamin K Ampule) 10 mg 1X ONCE SQ Last administered on 17:56; Start 01/03/17 at 16:30; Stop 01/03/17 at 16:35; Status DC Ondansetron HCl (Zofran) 4 mg PRN Q6HRS PRN IV NAUSEA/VOMITING; Start at 07:00; Stop 01/05/17 at 06:59; Status DC Fentanyl Citrate (Fentanyl 2ml Vial) 25 mcg PRN Q5MIN PRN IV MILD PAIN; Start 01/04/17 at 07:00; Stop 01/05/17 at 06:59; Status DC Fentanyl Citrate (Fentanyl 2ml Vial) 50 mcg PRN Q5MIN PRN IV MODERATE PAIN; Start 01/04/17 at 07:00; Stop 01/05/17 at 06:59; Status DC Ringer's Solution 1,000 ml @ 30 mls/hr Q24H IV Last administered on 09:24; Start 01/04/17 at 07:00; Stop 01/04/17 at 18:59; Status DC Lidocaine HCl (Xylocaine-Mpf 1% Vial) 2 ml PRN 1X PRN ID PRIOR TO IV START; Start 01/04/17 at 07:00; Stop 01/05/17 at 06:59; Status DC Prochlorperazine Edisylate (Compazine) 5 mg PACU PRN PRN IV NAUSEA, MRX1; Start 01/04/17 at 07:00; Stop 01/05/17 at 06:59; Status DC Morphine Sulfate 2 mg PRN Q2HR PRN IV PAIN; Start 01/03/17 at 23:30 Morphine Sulfate 4 mg PRN Q2HR PRN IV PAIN Last administered on 01/09/17 06: 12; Start 01/03/17 at 23:56 Acetaminophen (Tylenol) 500 mg PRN Q6HRS PRN PO MILD PAIN; Start 01/04/17 at 08:00 Amlodipine Besylate (Norvasc) 10 mg HS PO Last administered on 01/09/17 21:47 ; Start 01/04/17 at 21:00 Carvedilol (Coreg) 6.25 mg BIDWMEALS PO ; Start 01/04/17 at 09:00; Status Cancel Famotidine (Pepcid) 20 mg HS PO Last administered on 01/06/17 20:48; Start 01/04/17 at 21:00; Stop 01/07/17 at 14:56; Status DC Albuterol/ Ipratropium (Duoneb) 3 ml PRN Q4HRS PRN NEB SHORTNESS OF BREATH; Start 01/04/17 at 08:00 Levothyroxine Sodium (Synthroid) 224 mcg HS PO Last administered on 01/09/17 22:03; Start 01/04/17 at 21:00 Metoprolol Tartrate (Lopressor) 25 mg BID PO ; Start 01/04/17 at 09:00; Status Cancel Simvastatin (Zocor) 20 mg HS PO ; Start 01/04/17 at 21:00; Status UNV Tamsulosin HCl (Flomax) 0.4 mg DAILY PO ; Start 01/04/17 at 09:00; Status UNV Tramadol HCl (Ultram) 50 mg PRN Q6HRS PRN PO PAIN; Start 01/04/17 at 08:00 Trazodone HCl (Desyrel) 50 mg QHS PO Last administered on 01/09/17 21:47; Start 01/04/17 at 21:00 Vitamin D (Vitamin D3) 1,000 unit DAILY PO Last administered on 01/09/17 08: 33; Start 01/04/17 at 09:00 Docusate Sodium (Colace) 100 mg PRN DAILY PRN PO CONSTIPATION; Start 01/04/17 at 09:00 Losartan Potassium (Cozaar) 100 mg DAILY PO Last administered on 01/09/17 08: 33; Start 01/04/17 at 09:00 Non-Formulary Medication 1 tab QHS PO ; Start 01/04/17 at 21:00; Status UNV Non-Formulary Medication 1 tab DAILY PO ; Start 01/04/17 at 09:00; Status UNV Potassium Chloride (Klor-Con) 20 meq DAILYWBKFT PO Last administered on 08:34; Start 01/04/17 at 08:30 Carvedilol (Coreg) 6.25 mg BIDWMEALS PO Last administered on 01/06/17 08:58; Start 01/04/17 at 09:00; Stop 01/06/17 at 12:28; Status DC Cefazolin Sodium 1 gm/Sodium Chloride 500 ml @ 500 mls/hr 1X PERIOP ONCE IRR Last administered on 01/04/17 16:38; Start 01/04/17 at 14:30; Stop 01/04/17 at 15:29; Status DC Heparin Sodium (Porcine) 5000 unit/Sodium Chloride 505 ml @ 505 mls/hr 1X PERIOP ONCE IRR Last administered on 01/04/17 16:38; Start 01/04/17 at 14: 30; Stop 01/04/17 at 15:29; Status DC Furosemide (Lasix) 40 mg 1X ONCE IVP ; Start 01/04/17 at 16:00; Stop at 16:01; Status DC Albumin Human 100 ml @ 100 mls/hr 1X ONCE IV Last administered on 01/04/17 18:52; Start 01/04/17 at 16:00; Stop 01/04/17 at 16:59; Status DC Albumin Human 100 ml @ 100 mls/hr 1X ONCE IV Last administered on 01/04/17 19:16; Start 01/04/17 at 16:00; Stop 01/04/17 at 16:59; Status DC Furosemide (Lasix) 20 mg 1X ONCE IVP Last administered on 01/04/17 21:16; Start 01/04/17 at 18:45; Stop 01/04/17 at 18:46; Status DC Sodium Chloride (Normal Saline Flush) 10 ml QSHIFT PRN IV AFTER MEDS AND BLOOD DRAWS; Start 01/05/17 at 05:45 Warfarin Sodium (Coumadin Per Pharmacy) 1 each PRN DAILY PRN MC SEE COMMENTS Last administered on 01/09/17 12:43; Start 01/05/17 at 16:45; Stop 01/09/17 at 13:19; Status DC Warfarin Sodium (Coumadin) 5 mg 1X WARF ONCE PO Last administered on 17:02; Start 01/05/17 at 17:00; Stop 01/05/17 at 17:01; Status DC Potassium Chloride 50 ml @ 50 mls/hr Q1H IV Last administered on 01/06/17 12: 28; Start 01/06/17 at 07:30; Stop 01/06/17 at 09:29; Status DC Warfarin Sodium (Coumadin) 4 mg 1X WARF ONCE PO Last administered on 15:48; Start 01/06/17 at 16:00; Stop 01/06/17 at 16:01; Status DC Potassium Chloride (KCl Oral Soln) 40 meq 1X ONCE PO Last administered on 18:51; Start 01/06/17 at 18:00; Stop 01/06/17 at 18:01; Status DC Furosemide (Lasix) 40 mg 1X ONCE IVP Last administered on 01/06/17 18:47; Start 01/06/17 at 18:00; Stop 01/06/17 at 18:01; Status DC Warfarin Sodium (Coumadin) 5 mg 1X WARF ONCE PO Last administered on 15:46; Start 01/07/17 at 16:00; Stop 01/07/17 at 16:01; Status DC Pantoprazole Sodium (Protonix) 40 mg DAILYAC PO Last administered on 08:33; Start 01/07/17 at 16:30 Barium Sulfate (Liquid E-Z Paque) 355 ml 1X ONCE PO Last administered on 01/08 08:35; Start 01/08/17 at 07:30; Stop 01/08/17 at 07:31; Status DC Barium Sulfate (E-Z-Hd) 340 gm 1X ONCE PO ; Start 01/08/17 at 07:30; Stop at 07:31; Status DC Simethicone/ Sodium Bicarb/ Citric Ac (E-Z-Gas) 1 packet 1X ONCE PO ; Start at 07:30; Stop 01/08/17 at 07:31; Status DC Warfarin Sodium (Coumadin) 5 mg 1X WARF ONCE PO ; Start 01/08/17 at 16:00; Stop 01/08/17 at 16:01; Status DC Sodium Monofluorophosphate (Fleet Adult) 133 ml 1X ONCE NV Last administered on 01/08/17 14:52; Start 01/08/17 at 14:30; Stop 01/08/17 at 14:34; Status DC Amino Acids/ Glycerin/ Electrolytes 1,000 ml @ 50 mls/hr Q20H IV Last administered on 01/10/17 05:43; Start 01/08/17 at 15:00 Furosemide (Lasix) 20 mg DAILY IVP Last administered on 01/10/17 09:03; Start 01/08/17 at 15:30 Lidocaine/Sodium Bicarbonate (Buffered Lidocaine 1%) 20 ml STK-MED ONCE IJ ; Start 01/03/17 at 14:59; Stop 01/09/17 at 10:45; Status DC Iohexol (Omnipaque 300 Mg/ml) 100 ml STK-MED ONCE .ROUTE ; Start 01/04/17 at 13 :57; Stop 01/09/17 at 11:11; Status DC Propofol 20 ml @ As Directed STK-MED ONCE IV ; Start 01/04/17 at 14:49; Stop 01/09/17 at 11:12; Status DC Dexamethasone Sodium Phosphate (Decadron) 20 mg STK-MED ONCE .ROUTE ; Start at 14:49; Stop 01/09/17 at 11:12; Status DC Lidocaine HCl (Lidocaine Pf 2% Vial) 5 ml STK-MED ONCE .ROUTE ; Start 01/04/17 at 14:49; Stop 01/09/17 at 11:12; Status DC Ondansetron HCl (Zofran) 4 mg STK-MED ONCE .ROUTE ; Start 01/04/17 at 14:49; Stop 01/09/17 at 11:12; Status DC Fentanyl Citrate (Fentanyl 2ml Vial) 100 mcg STK-MED ONCE .ROUTE ; Start at 14:49; Stop 01/09/17 at 11:12; Status DC Ephedrine Sulfate (Akovaz) 50 mg STK-MED ONCE .ROUTE ; Start 01/04/17 at 16:26 ; Stop 01/09/17 at 11:13; Status DC Furosemide (Lasix) 20 mg STK-MED ONCE .ROUTE ; Start 01/04/17 at 16:30; Stop 01/09/17 at 11:13; Status DC Sevoflurane (Ultane) 90 ml STK-MED ONCE IH ; Start 01/04/17 at 17:42; Stop at 11:13; Status DC Warfarin Sodium (Coumadin) 5 mg 1X WARF ONCE PO ; Start 01/09/17 at 16:00; Stop 01/09/17 at 16:00; Status DC Ringer's Solution 1,000 ml @ 75 mls/hr 1X ONCE IV Last administered on t 11:58; Start 01/10/17 at 12:00; Stop 01/11/17 at 01:19 Propofol 20 ml @ As Directed STK-MED ONCE IV ; Start 01/10/17 at 12:36; Stop 01/10/17 at 12:37; Status DC Lidocaine HCl (Lidocaine Pf 2% Vial) 5 ml STK-MED ONCE .ROUTE ; Start 01/10/17 at 12:36; Stop 01/10/17 at 12:37; Status DC Morphine Sulfate 2 mg STK-MED ONCE .ROUTE ; Start 01/10/17 at 13:08; Stop at 13:09; Status DC Morphine Sulfate 2 mg STK-MED ONCE .ROUTE ; Start 01/10/17 at 13:10; Stop at 13:11; Status DC Active Scripts Active Tramadol Hcl 50 Mg Tablet 50 Mg PO PRN Q6HRS PRN Reported Novolog Flexpen (Insulin Aspart) 100 Unit/1 Ml Insuln.pen 1 Unit SQ PRN TID PRN Duoneb 0.5-3(2.5) Mg/3 Ml (Albuterol/Ipratropium) 3 Ml Ampul.neb 3 Ml NEB PRN Q4HRS PRN Famotidine 20 Mg Tablet 20 Mg PO HS Trazodone Hcl 50 Mg Tablet 1 Tab PO QHS Tamsulosin Hcl 0.4 Mg Cap.er.24h 0.4 Mg PO DAILY Melatonin 3 Mg Tablet 1 Tab PO QHS Losartan Potassium 100 Mg Tablet 100 Mg PO DAILY Colace Clear (Docusate Sodium) 50 Mg Capsule 50 Mg PO PRN DAILY PRN Aspirin 325 Mg Tablet 1 Tab PO DAILY Acetaminophen 500 Mg Tablet 500 Mg PO PRN Q6HRS PRN Vitamin D (Cholecalciferol (Vitamin D3)) 1,000 Unit Capsule 1 Cap PO DAILY Levothyroxine Sodium 112 Mcg Tablet 2 Tab PO HS Xarelto (Rivaroxaban) 10 Mg Tablet 1 Tab PO DAILY Prilosec Otc (Omeprazole Magnesium) 20 Mg Tablet.dr 1 Tab PO DAILY Metformin Hcl Er (Metformin Hcl) 500 Mg Tab.er.24h 500 Mg PO BIDWMEALS Amlodipine Besylate 10 Mg Tablet 10 Mg PO HS Simvastatin 20 Mg Tablet 20 Mg PO HS Glimepiride 2 Mg Tablet 2 Mg PO DAILY Carvedilol 3.125 Mg Tablet 6.25 Mg PO BID Potassium Chloride 10 Meq Capsule.er 20 Meq PO DAILY Vitals/I & O Vital Sign - Last 24 Hours 01/09/17 01/09/17 01/09/17 01/09/17 15:00 15:37 16:37 19:45 Temp 98.1 97.8 98.1 97.8 Pulse 98 61 Resp 19 20 B/P (MAP) 161/55 (90) 187/80 (115) Pulse Ox 98 96 96 98 O2 Delivery Nasal Cannula Nasal Cannula Nasal Cannula O2 Flow Rate 2.0 2.0 2.0 01/09/17 01/09/17 01/09/17 01/10/17 19:50 21:47 23:35 01:00 Temp 98.1 98.1 Pulse 98 60 Resp 16 B/P (MAP) 187/80 175/56 (95) Pulse Ox 97 O2 Delivery Nasal Cannula Nasal Cannula Nasal Cannula O2 Flow Rate 2.0 2.0 2.0 01/10/17 01/10/17 01/10/17 01/10/17 01:50 02:50 03:25 05:13 Temp 98.0 98.0 Pulse 85 Resp 16 B/P (MAP) 175/71 (105) Pulse Ox 98 O2 Delivery Nasal Cannula Nasal Cannula Nasal Cannula Nasal Cannula O2 Flow Rate 2.0 2.0 2.0 01/10/17 01/10/17 01/10/17 01/10/17 07:00 08:00 09:02 10:50 Temp 97.9 97.8 97.9 97.8 Pulse 94 79 Resp 20 20 20 B/P (MAP) 165/82 (109) 134/74 (94) Pulse Ox 97 98 99 O2 Delivery Nasal Cannula Nasal Cannula Nasal Cannula Nasal Cannula O2 Flow Rate 2.0 2.0 2.0 2.0 01/10/17 01/10/17 01/10/17 01/10/17 10:50 11:46 11:51 13:12 Temp 97.8 98.2 98 97.8 98.2 98.0 Pulse 79 94 68 Resp 20 18 16 B/P (MAP) 134/74 (94) 192/78 Pulse Ox 99 97 96 O2 Delivery Nasal Cannula Nasal Cannula Nasal Cannula O2 Flow Rate 2.0 2.0 3 01/10/17 01/10/17 13:25 13:46 Pulse 66 68 Resp 18 18 B/P (MAP) 166/67 171/72 Pulse Ox 96 96 O2 Delivery Nasal Cannula Nasal Cannula O2 Flow Rate 3 3 Intake and Output 01/09/17 01/09/17 01/10/17 15:00 23:00 07:00 Intake Total 500 ml 250 ml 300 ml Output Total 350 ml Balance 500 ml 250 ml -50 ml Nutrition Consultation Dietary Evaluation: Recommendations by RD: Increase Calorie Intake, Protein supplementation, PPN/ TPN Comments: continue ppn until diet advances and pt meeting > 50% needs with po intake resume ensure supplements to diet order with hx poor po intake since stroke REC mvi and vit c per wound protoca Expected Outcomes/Goals: to meet > 50% est nutr needs with po intake Malnutrition Findings: Malnutrition related to morbid: Weight 200% of ideal wt Malnutrition related to morbid: Yes Weight Status: Morbidly Obese MANDI DOW III DO Jan 10, 2017 14:12
[2017-01-10] MEDS: MORPHINE SULFATE 4 MG/ML DISP.SYRIN. IV PRN ×2 (14:22→20:50)
[2017-01-10] MEDS: POTASSIUM CHLORIDE 20 MEQ TABLET.ER. PO SCH (16:16)
[2017-01-10] MEDS: LACTOBACILLUS RHAMNOSUS GG 1 CAPSULE. PO SCH ×2 (16:16→20:48)
[2017-01-10] MEDS: PANTOPRAZOLE 40 MG TABLET.DR. PO SCH (16:16)
[2017-01-10] MEDS: CHOLECALCIFEROL (VITAMIN D3) 1,000 UNIT TABLET PO SCH (16:16)
[2017-01-10] MEDS: TAMSULOSIN 0.4 MG CAP.ER.24H. PO SCH (16:17)
[2017-01-10] MEDS: LOSARTAN POTASSIUM 50 MG TABLET. PO SCH (16:17)
[2017-01-10] MEDS: traZODone 50 MG TABLET. PO SCH (20:48)
[2017-01-10] MEDS: ATORVASTATIN CALCIUM 10 MG TABLET. PO SCH (20:48)
[2017-01-10] MEDS: amLODIPine BESYLATE 10 MG TABLET PO SCH (20:49)
[2017-01-10] MEDS: LEVOTHYROXINE 112 MCG TABLET PO SCH (20:49)
[2017-01-10] MEDS: ONDANSETRON PF 4 MG/2 ML VIAL. IV PRN (21:35)
[2017-01-11] MEDS: oxyCODONE/APAP 10/325 1 TAB TABLET PO PRN ×3 (01:42→14:35)
[2017-01-11] MEDS ORDERED: oxyCODONE/APAP 5/325 1 TAB TABLET PO PRN (01:45)
[2017-01-11 03:00] VITALS: BP 123/52
[2017-01-11] MEDS: AMINO AC 3%/ELECTROLYTE/GLYCER 1,000 ML IV SCH (03:00)
[2017-01-11 05:26] LABS: BASO % 0 % (0-3); EOS % 2 % (0-3); HEMATOCRIT 28.5 % (36.0-47.0); HEMOGLOBIN 9.1 g/dL (12.0-15.5); LYMPH # 3.2 x10^3/uL (1.0-4.8); LYMPH % 55 % (24-48); MEAN CORPUSCULAR HEMOGLOBIN 29 pg (25-35); MEAN CORPUSCULAR HGB CONC 32 g/dL (31-37); MEAN CORPUSCULAR VOLUME 89 fL (79-100); MONO % 5 % (0-9); NEUT % 38 % (31-73); PLATELET COUNT 121 x10^3/uL (140-400); RED BLOOD COUNT 3.19 x10^6/uL (3.50-5.40); RED CELL DISTRIBUTION WIDTH 16.8 % (11.5-14.5); WHITE BLOOD COUNT 5.9 x10^3/uL (4.0-11.0)
[2017-01-11 05:27] LABS: INR 1.5 (0.8-1.1); PROTHROMBIN TIME PATIENT 17.2 SEC (11.7-14.0)
[2017-01-11 05:44] LABS: CALCIUM 7.5 mg/dL (8.5-10.1); CREATININE 0.6 mg/dL (0.6-1.0); GFR 94.1; POTASSIUM 3.9 mmol/L (3.5-5.1)
[2017-01-11] MEDS ORDERED: cloNIDine HCL 0.1 MG TABLET PO PRN (06:00)
[2017-01-11 07:00] VITALS: BP 137/64
[2017-01-11] MEDS: PANTOPRAZOLE 40 MG TABLET.DR. PO SCH ×2 (07:54→08:59)
[2017-01-11] MEDS: INSULIN ASPART 300 UNITS/3 ML INSULN.PEN SQ SCH ×3 (08:44→17:00)
[2017-01-11] MEDS: TAMSULOSIN 0.4 MG CAP.ER.24H. PO SCH (08:58)
[2017-01-11] MEDS: DOCUSATE SODIUM 100 MG CAPSULE. PO SCH ×2 (08:58→21:01)
[2017-01-11] MEDS: LOSARTAN POTASSIUM 50 MG TABLET. PO SCH (08:58)
[2017-01-11] MEDS: POTASSIUM CHLORIDE 20 MEQ TABLET.ER. PO SCH (08:58)
[2017-01-11] MEDS: CHOLECALCIFEROL (VITAMIN D3) 1,000 UNIT TABLET PO SCH (08:58)
[2017-01-11] MEDS: oxyCODONE ER 10 MG TAB.ER.12H PO SCH ×2 (08:59→21:02)
[2017-01-11] MEDS: LACTOBACILLUS RHAMNOSUS GG 1 CAPSULE. PO SCH ×2 (08:59→21:01)
--- NOTE | 2017-01-11 09:51 | PDOC ---
Infectious Disease Note Subjective Subjective Pt says feels ok, Denies SOA/CP /n/v/d pain is under control has intermitent constipation ROS ROS GEN: Denies fevers, chills, sweats HEENT: Denies blurred vision, sore throat CV: Denies chest pain RESP: Denies shortness of air, cough GI: Denies n/v/d NEURO: Denies confusion, dizziness MSK: Denies weakness, joint pain/swelling Vital Sign Vital Signs Vital Signs Date Time Temp Pulse Resp B/P (MAP) Pulse Ox O2 Delivery O2 Flow Rate FiO2 01/11/17 08:59 Nasal Cannula 01/11/17 08:58 73 137/64 01/11/17 07:55 16 96 2.0 01/11/17 07:00 97.5 97.5 Physical Exam PHYSICAL EXAM GENERAL: axox3 female in nad, comfortable,in NAD HEENT: anicteric, oral mucosa moist LUNGS: Clear anteriorly, nonlabored HEART: S1S2 ABD: Obese, soft, NT EXT: RLE edematous; left AKA dressing dry and intact RUE edema + WEB CONTENT DEVELOPER: Alert, oriented x3, 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 SKIN: No gen rash line looks ok Labs Lab Laboratory Tests Test 01/10/17 10:29 01/10/17 16:29 01/10/17 21:27 01/11/17 04:15 Glucose (Fingerstick) 144 mg/dL (70-99) 148 mg/dL (70-99) 156 mg/dL (70-99) White Blood Count 5.9 x10^3/uL (4.0-11.0) Red Blood Count 3.19 x10^6/uL (3.50-5.40) Hemoglobin 9.1 g/dL (12.0-15.5) Hematocrit 28.5 % (36.0-47.0) Mean Corpuscular Volume 89 fL (79-100) Mean Corpuscular Hemoglobin 29 pg (25-35) Mean Corpuscular Hemoglobin Concent 32 g/dL (31-37) Red Cell Distribution Width 16.8 % (11.5-14.5) Platelet Count 121 x10^3/uL (140-400) Neutrophils (%) (Auto) 38 % (31-73) Lymphocytes (%) (Auto) 55 % (24-48) Monocytes (%) (Auto) 5 % (0-9) Eosinophils (%) (Auto) 2 % (0-3) Basophils (%) (Auto) 0 % (0-3) Neutrophils # (Auto) 2.2 x10^3uL (1.8-7.7) Lymphocytes # (Auto) 3.2 x10^3/uL (1.0-4.8) Monocytes # (Auto) 0.3 x10^3/uL (0.0-1.1) Eosinophils # (Auto) 0.1 x10^3/uL (0.0-0.7) Basophils # (Auto) 0.0 x10^3/uL (0.0-0.2) Prothrombin Time 17.2 SEC (11.7-14.0) Prothromb Time International Ratio 1.5 (0.8-1.1) Sodium Level 140 mmol/L (136-145) Potassium Level 3.9 mmol/L (3.5-5.1) Chloride Level 107 mmol/L (98-107) Carbon Dioxide Level 28 mmol/L (21-32) Anion Gap 5 (6-14) Blood Urea Nitrogen 10 mg/dL (7-20) Creatinine 0.6 mg/dL (0.6-1.0) Estimated GFR (Cockcroft-Gault) 94.1 Glucose Level 119 mg/dL (70-99) Calcium Level 7.5 mg/dL (8.5-10.1) DP-Abx-R-Type Natriuretic Peptide 6328 pg/mL (0-449) Test 01/11/17 07:58 Glucose (Fingerstick) 104 mg/dL (70-99) Micro RUN DATE: 01/07/17 PAGE 1 RUN TIME: 1110 [facility] [address] [place] [address] Ger Melo M.D., Digester Cook PATIENT: JIGNA CRESPO I ACCT: [id number] LOC: [address] [place] [address] U : [id number] AGE/SX: 89/F ROOM: 205 REG : 01/02/[address]: ZAHIRA KEYES MD : [id number] BED: 1 DIS : STATUS: ADM IN TLOC: SPEC #: [id number] FAROOQ: 01/03/17 STATUS: RES REQ #: [id number] RECD: 01/03/[address]: ZAHIRA KEYES MD SOURCE: LEG ENTR: 01/03/17123 [facility] DR: ZAKI ALBA II, MD [facility]: CHRISTY BANDA MD, GLENN A MD ORDERED: ANAER-AERO CULT Procedure Result ANAEROBIC-AEROBIC CULTURE PENDING ANAEROBIC RES 1 PENDING AEROBIC CULT Final Final report AEROBIC RES 1 Final Comment Pseudomonas aeruginosa Moderate growth AEROBIC RES 2 Final Morganella morganii Moderate growth AEROBIC RES 3 Final Staphylococcus aureus Heavy growth Based on resistance to penicillin and susceptibility to oxacillin this isolate would be susceptible to: * Penicillinase-stable penicillins; such as: Cloxacillin Dicloxacillin Nafcillin * Beta-lactam/beta-lactamase inhibitor combinations; such as: Amoxicillin-clavulanic acid Ampicillin-sulbactam * Antistaphylococcal cephems; such as: Cefaclor Cefuroxime * Antistaphylococcal carbapenems; such as: Imipenem Objective Assessment Extensive left leg infection s/p AKA, 01/04 - PSA, MSSA, Morganella Left leg ischemia/necrotic muscle and skin Dysphagia s/p egd, stricture Obesity DM HTN Left fibular fracture CVA constipation from pain medications Plan Plan of Care Monitor Off antibiotics,off zosyn f/u appt vascular 01/30 maintain aspiration precautions GERMAN LARSEN MD Jan 11, 2017 09:51
[2017-01-11 11:00] VITALS: BP 133/62
--- NOTE | 2017-01-11 11:09 | PDOC ---
Subjective: Subjective: Noted improvement in swallowing "right away" after EGD. Says no issues w/ dysphagia now. Constipated. Objective: Objective: 3 stools charted. Vital Signs: Vital Signs Date Time Temp Pulse Resp B/P (MAP) Pulse Ox O2 Delivery O2 Flow Rate FiO2 01/11/17 08:59 Nasal Cannula 01/11/17 08:58 73 137/64 01/11/17 07:55 16 96 2.0 01/11/17 07:00 97.5 97.5 Labs: Laboratory Tests Test 01/10/17 16:29 01/10/17 21:27 01/11/17 04:15 01/11/17 07:58 Glucose (Fingerstick) 148 mg/dL 156 mg/dL 104 mg/dL White Blood Count 5.9 x10^3/uL Red Blood Count 3.19 x10^6/uL Hemoglobin 9.1 g/dL Hematocrit 28.5 % Mean Corpuscular Volume 89 fL Mean Corpuscular Hemoglobin 29 pg Mean Corpuscular Hemoglobin Concent 32 g/dL Red Cell Distribution Width 16.8 % Platelet Count 121 x10^3/uL Neutrophils (%) (Auto) 38 % Lymphocytes (%) (Auto) 55 % Monocytes (%) (Auto) 5 % Eosinophils (%) (Auto) 2 % Basophils (%) (Auto) 0 % Neutrophils # (Auto) 2.2 x10^3uL Lymphocytes # (Auto) 3.2 x10^3/uL Monocytes # (Auto) 0.3 x10^3/uL Eosinophils # (Auto) 0.1 x10^3/uL Basophils # (Auto) 0.0 x10^3/uL Prothrombin Time 17.2 SEC Prothromb Time International Ratio 1.5 Sodium Level 140 mmol/L Potassium Level 3.9 mmol/L Chloride Level 107 mmol/L Carbon Dioxide Level 28 mmol/L Anion Gap 5 Blood Urea Nitrogen 10 mg/dL Creatinine 0.6 mg/dL Estimated GFR (Cockcroft-Gault) 94.1 Glucose Level 119 mg/dL Calcium Level 7.5 mg/dL NA-Isk-H-Type Natriuretic Peptide 6328 pg/mL Imaging: EGD 01/10/17 E--disordered motility throughout. Healed, mild stricture at GE junction ~35 F. Dilated to 40-45F with balloon. No real bleeding. G--Normal D--Normal to second portion. IMP: Stricture, likely healed peptic one. Presbyesophagus. PE: GEN: NAD, in bed w/ wound care wrapping UE NEURO/PSYCH: A & O 3 A/P: Dysphagia - improved Presbyesophagus Mild GE stricture s/p balloon dilation Constipation - on Colace, Miralax -- Improved. Continue PPI. Could increase Miralax or try Dulcolax. PAUL RAMIREZ Jan 11, 2017 11:09
--- NOTE | 2017-01-11 11:32 | PDOC ---
PROGRESS NOTES Chief Complaint Chief Complaint Left leg infection Ischemic leg Compartment syndrome Dysphagia Obesity Diabetes Hypertension Atrial fibrillation CVA History of Present Illness History of Present Illness CAlled by RN midnight bec of oliguria and lost IV site Pt has anasarca PT denies complaints ALbumin 0.8 Pt had left AKA (reason for admit) and transferred out of ICU yesterday She has hx fasciotomy etc on that leg and is from [facility] Will go back there Creat bicarb k all ok VS ok Was on procalamine 50 and IVF at 75cc PLAN: anesthesia stick I am trying to avoid putting a central line on left subclavian in case need to spare it for HD if needed SO far in her multiple prolonged stay with us, she did not need run of HD If renal is ok, then will will place central line for iV access COnsult renal re oliguria Keep kellogg Albumin? 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 Wound inspected yesterday; left arm edematous, no change) Skin: No rashes, No significant lesion Labs LABS Laboratory Tests Test 01/10/17 16:29 01/10/17 21:27 01/11/17 04:15 01/11/17 07:58 Glucose (Fingerstick) 148 mg/dL (70-99) 156 mg/dL (70-99) 104 mg/dL (70-99) White Blood Count 5.9 x10^3/uL (4.0-11.0) Red Blood Count 3.19 x10^6/uL (3.50-5.40) Hemoglobin 9.1 g/dL (12.0-15.5) Hematocrit 28.5 % (36.0-47.0) Mean Corpuscular Volume 89 fL (79-100) Mean Corpuscular Hemoglobin 29 pg (25-35) Mean Corpuscular Hemoglobin Concent 32 g/dL (31-37) Red Cell Distribution Width 16.8 % (11.5-14.5) Platelet Count 121 x10^3/uL (140-400) Neutrophils (%) (Auto) 38 % (31-73) Lymphocytes (%) (Auto) 55 % (24-48) Monocytes (%) (Auto) 5 % (0-9) Eosinophils (%) (Auto) 2 % (0-3) Basophils (%) (Auto) 0 % (0-3) Neutrophils # (Auto) 2.2 x10^3uL (1.8-7.7) Lymphocytes # (Auto) 3.2 x10^3/uL (1.0-4.8) Monocytes # (Auto) 0.3 x10^3/uL (0.0-1.1) Eosinophils # (Auto) 0.1 x10^3/uL (0.0-0.7) Basophils # (Auto) 0.0 x10^3/uL (0.0-0.2) Prothrombin Time 17.2 SEC (11.7-14.0) Prothromb Time International Ratio 1.5 (0.8-1.1) Sodium Level 140 mmol/L (136-145) Potassium Level 3.9 mmol/L (3.5-5.1) Chloride Level 107 mmol/L (98-107) Carbon Dioxide Level 28 mmol/L (21-32) Anion Gap 5 (6-14) Blood Urea Nitrogen 10 mg/dL (7-20) Creatinine 0.6 mg/dL (0.6-1.0) Estimated GFR (Cockcroft-Gault) 94.1 Glucose Level 119 mg/dL (70-99) Calcium Level 7.5 mg/dL (8.5-10.1) PF-Vhg-C-Type Natriuretic Peptide 6328 pg/mL (0-449) Review of Systems Review of Systems smiles, no complaints 14 pt reviewed Comment Review of Relevant I have reviewed the following items madhav (where applicable) has been applied. Labs Laboratory Tests Test 01/09/17 12:12 01/09/17 16:47 01/09/17 21:54 01/10/17 07:00 Glucose (Fingerstick) 145 mg/dL (70-99) 160 mg/dL (70-99) 157 mg/dL (70-99) White Blood Count 6.9 x10^3/uL (4.0-11.0) Red Blood Count 3.47 x10^6/uL (3.50-5.40) Hemoglobin 9.9 g/dL (12.0-15.5) Hematocrit 30.9 % (36.0-47.0) Mean Corpuscular Volume 89 fL (79-100) Mean Corpuscular Hemoglobin 29 pg (25-35) Mean Corpuscular Hemoglobin Concent 32 g/dL (31-37) Red Cell Distribution Width 16.9 % (11.5-14.5) Platelet Count 144 x10^3/uL (140-400) Neutrophils (%) (Auto) 51 % (31-73) Lymphocytes (%) (Auto) 42 % (24-48) Monocytes (%) (Auto) 4 % (0-9) Eosinophils (%) (Auto) 2 % (0-3) Basophils (%) (Auto) 1 % (0-3) Neutrophils # (Auto) 3.5 x10^3uL (1.8-7.7) Lymphocytes # (Auto) 2.9 x10^3/uL (1.0-4.8) Monocytes # (Auto) 0.3 x10^3/uL (0.0-1.1) Eosinophils # (Auto) 0.1 x10^3/uL (0.0-0.7) Basophils # (Auto) 0.0 x10^3/uL (0.0-0.2) Prothrombin Time 18.5 SEC (11.7-14.0) Prothromb Time International Ratio 1.7 (0.8-1.1) Sodium Level 138 mmol/L (136-145) Potassium Level 3.9 mmol/L (3.5-5.1) Chloride Level 106 mmol/L (98-107) Carbon Dioxide Level 29 mmol/L (21-32) Anion Gap 3 (6-14) Blood Urea Nitrogen 11 mg/dL (7-20) Creatinine 0.5 mg/dL (0.6-1.0) Estimated GFR (Cockcroft-Gault) 116.2 Glucose Level 136 mg/dL (70-99) Calcium Level 7.5 mg/dL (8.5-10.1) Test 01/10/17 08:16 01/10/17 10:29 01/10/17 16:29 01/10/17 21:27 Glucose (Fingerstick) 149 mg/dL (70-99) 144 mg/dL (70-99) 148 mg/dL (70-99) 156 mg/dL (70-99) Test 01/11/17 04:15 01/11/17 07:58 White Blood Count 5.9 x10^3/uL (4.0-11.0) Red Blood Count 3.19 x10^6/uL (3.50-5.40) Hemoglobin 9.1 g/dL (12.0-15.5) Hematocrit 28.5 % (36.0-47.0) Mean Corpuscular Volume 89 fL (79-100) Mean Corpuscular Hemoglobin 29 pg (25-35) Mean Corpuscular Hemoglobin Concent 32 g/dL (31-37) Red Cell Distribution Width 16.8 % (11.5-14.5) Platelet Count 121 x10^3/uL (140-400) Neutrophils (%) (Auto) 38 % (31-73) Lymphocytes (%) (Auto) 55 % (24-48) Monocytes (%) (Auto) 5 % (0-9) Eosinophils (%) (Auto) 2 % (0-3) Basophils (%) (Auto) 0 % (0-3) Neutrophils # (Auto) 2.2 x10^3uL (1.8-7.7) Lymphocytes # (Auto) 3.2 x10^3/uL (1.0-4.8) Monocytes # (Auto) 0.3 x10^3/uL (0.0-1.1) Eosinophils # (Auto) 0.1 x10^3/uL (0.0-0.7) Basophils # (Auto) 0.0 x10^3/uL (0.0-0.2) Prothrombin Time 17.2 SEC (11.7-14.0) Prothromb Time International Ratio 1.5 (0.8-1.1) Sodium Level 140 mmol/L (136-145) Potassium Level 3.9 mmol/L (3.5-5.1) Chloride Level 107 mmol/L (98-107) Carbon Dioxide Level 28 mmol/L (21-32) Anion Gap 5 (6-14) Blood Urea Nitrogen 10 mg/dL (7-20) Creatinine 0.6 mg/dL (0.6-1.0) Estimated GFR (Cockcroft-Gault) 94.1 Glucose Level 119 mg/dL (70-99) Calcium Level 7.5 mg/dL (8.5-10.1) TB-Tzu-Y-Type Natriuretic Peptide 6328 pg/mL (0-449) Glucose (Fingerstick) 104 mg/dL (70-99) Laboratory Tests Test 01/10/17 16:29 01/10/17 21:27 01/11/17 04:15 01/11/17 07:58 Glucose (Fingerstick) 148 mg/dL (70-99) 156 mg/dL (70-99) 104 mg/dL (70-99) White Blood Count 5.9 x10^3/uL (4.0-11.0) Red Blood Count 3.19 x10^6/uL (3.50-5.40) Hemoglobin 9.1 g/dL (12.0-15.5) Hematocrit 28.5 % (36.0-47.0) Mean Corpuscular Volume 89 fL (79-100) Mean Corpuscular Hemoglobin 29 pg (25-35) Mean Corpuscular Hemoglobin Concent 32 g/dL (31-37) Red Cell Distribution Width 16.8 % (11.5-14.5) Platelet Count 121 x10^3/uL (140-400) Neutrophils (%) (Auto) 38 % (31-73) Lymphocytes (%) (Auto) 55 % (24-48) Monocytes (%) (Auto) 5 % (0-9) Eosinophils (%) (Auto) 2 % (0-3) Basophils (%) (Auto) 0 % (0-3) Neutrophils # (Auto) 2.2 x10^3uL (1.8-7.7) Lymphocytes # (Auto) 3.2 x10^3/uL (1.0-4.8) Monocytes # (Auto) 0.3 x10^3/uL (0.0-1.1) Eosinophils # (Auto) 0.1 x10^3/uL (0.0-0.7) Basophils # (Auto) 0.0 x10^3/uL (0.0-0.2) Prothrombin Time 17.2 SEC (11.7-14.0) Prothromb Time International Ratio 1.5 (0.8-1.1) Sodium Level 140 mmol/L (136-145) Potassium Level 3.9 mmol/L (3.5-5.1) Chloride Level 107 mmol/L (98-107) Carbon Dioxide Level 28 mmol/L (21-32) Anion Gap 5 (6-14) Blood Urea Nitrogen 10 mg/dL (7-20) Creatinine 0.6 mg/dL (0.6-1.0) Estimated GFR (Cockcroft-Gault) 94.1 Glucose Level 119 mg/dL (70-99) Calcium Level 7.5 mg/dL (8.5-10.1) PN-Eej-X-Type Natriuretic Peptide 6328 pg/mL (0-449) Microbiology 01/03/17 Gram Stain - Final, Complete Medications Current Medications Oxycodone HCl (Roxicodone) 5 mg PRN Q4HRS PRN PO PAIN Last administered on 18:09; Start 01/02/17 at 18:15 Oxycodone HCl (OxyCONTIN) 10 mg Q12HR PO Last administered on 01/11/17 08:59 ; Start 01/02/17 at 21:00 Amlodipine Besylate (Norvasc) 5 mg HS PO Last administered on 01/02/17 22:28 ; Start 01/02/17 at 21:00; Stop 01/04/17 at 08:03; Status DC Tamsulosin HCl (Flomax) 0.4 mg DAILY PO Last administered on 01/11/17 08:58; Start 01/03/17 at 09:00 Polyethylene Glycol (miraLAX PACKET) 17 gm PRN DAILY PRN PO CONSTIPATION Last administered on 01/08/17 09:36; Start 01/02/17 at 18:30 Ondansetron HCl (Zofran) 4 mg PRN Q6HRS PRN IV NAUSEA/VOMITING Last administered on 01/10/17 21:35; Start 01/02/17 at 18:30 Lorazepam (Ativan) 2 mg PRN Q12HR PRN IV ANXIETY / AGITATION Last administered on 01/06/17 22:42; Start 01/02/17 at 18:30 Metoprolol Tartrate (Lopressor) 25 mg BID PO Last administered on 01/02/17 22 :29; Start 01/02/17 at 21:00; Stop 01/04/17 at 08:03; Status DC Silver Nitrate/ Potassium Nitrate 1 each 1X ONCE TP ; Start 01/02/17 at 18:45 ; Stop 01/02/17 at 18:46; Status DC Famotidine (Pepcid) 20 mg DAILY PO ; Start 01/03/17 at 09:00; Stop 01/04/17 at 08:05; Status DC Trazodone HCl (Desyrel) 50 mg QHS PO Last administered on 01/02/17 22:28; Start 01/02/17 at 21:00; Stop 01/04/17 at 08:04; Status DC Levothyroxine Sodium (Synthroid) 112 mcg DAILY07 PO ; Start 01/03/17 at 07:00; Stop 01/04/17 at 08:05; Status DC Lactobacillus Rhamnosus (Culturelle) 1 cap BID PO Last administered on 08:59; Start 01/02/17 at 21:00 Sodium Chloride 1,000 ml @ 75 mls/hr [id number] IV Last administered on 14:53; Start 01/02/17 at 19:00 Sodium Chloride (Normal Saline Flush 3ml) 10 ml PRN Q12HRS PRN IV AFTER MEDS AND BLOOD DRAWS; Start 01/02/17 at 18:30; Stop 01/05/17 at 05:38; Status DC Insulin Aspart (NovoLOG) 0-9 UNITS TIDWMEALS SQ Last administered on 18:12; Start 01/03/17 at 19:00 Dextrose (Dextrose 50%-Water Syringe) 12.5 gm PRN Q15MIN PRN IV SEE COMMENTS; Start 01/02/17 at 18:45 Docusate Sodium (Colace) 100 mg BID PO Last administered on 01/11/17 08:58; Start 01/02/17 at 21:00 Bisacodyl (Dulcolax Supp) 10 mg PRN DAILY PRN TN CONSTIPATION; Start 01/02/17 at 18:45 Atorvastatin Calcium (Lipitor) 10 mg QHS PO Last administered on 01/10/17 20: 48; Start 01/02/17 at 21:00 Aspirin (Lucas Aspirin) 325 mg DAILYWBKFT PO ; Start 01/03/17 at 08:00; Stop 01/03/17 at 16:35; Status DC Acetaminophen (Tylenol) 500 mg PRN Q6HRS PRN PO MILD PAIN / TEMP; Start at 18:45; Stop 01/04/17 at 12:28; Status DC Morphine Sulfate 2 mg PRN Q2HR PRN IV PAIN Last administered on 01/03/17 22: 41; Start 01/02/17 at 21:15; Stop 01/03/17 at 23:26; Status DC Morphine Sulfate 4 mg PRN Q2HR PRN IV PAIN Last administered on 01/03/17 20: 22; Start 01/02/17 at 21:15; Stop 01/03/17 at 23:56; Status DC Piperacillin Sod/ Tazobactam Sod 3.375 gm/Dextrose 50 ml @ 100 mls/hr Q6HRS IV ; Start 01/03/17 at 12:00; Status UNV Linezolid 300 ml @ 300 mls/hr Q12HR IV Last administered on 01/07/17 09:29; Start 01/03/17 at 11:00; Stop 01/07/17 at 12:55; Status DC Phytonadione 10 mg/Dextrose 51 ml @ 102 mls/hr 1X ONCE IV ; Start 01/03/17 at 11:00; Stop 01/03/17 at 11:00; Status DC Piperacillin Sod/ Tazobactam Sod (Zosyn) 3.375 gm Q6HRS IVP Last administered on 01/08/17 06:09; Start 01/03/17 at 12:00; Stop 01/08/17 at 11:26; Status DC Furosemide (Lasix) 40 mg 1X ONCE IVP Last administered on 01/03/17 11:44; Start 01/03/17 at 11:45; Stop 01/03/17 at 11:46; Status DC Lidocaine/Sodium Bicarbonate (Buffered Lidocaine 1%) 3 ml 1X ONCE IJ Last administered on 01/03/17 15:57; Start 01/03/17 at 15:30; Stop 01/03/17 at 15 :31; Status DC Lidocaine/Sodium Bicarbonate (Buffered Lidocaine 1%) 3 ml 1X ONCE IJ ; Start 01/03/17 at 15:45; Stop 01/03/17 at 15:46; Status DC Phytonadione (Vitamin K Ampule) 10 mg 1X ONCE SQ Last administered on 17:56; Start 01/03/17 at 16:30; Stop 01/03/17 at 16:35; Status DC Ondansetron HCl (Zofran) 4 mg PRN Q6HRS PRN IV NAUSEA/VOMITING; Start at 07:00; Stop 01/05/17 at 06:59; Status DC Fentanyl Citrate (Fentanyl 2ml Vial) 25 mcg PRN Q5MIN PRN IV MILD PAIN; Start 01/04/17 at 07:00; Stop 01/05/17 at 06:59; Status DC Fentanyl Citrate (Fentanyl 2ml Vial) 50 mcg PRN Q5MIN PRN IV MODERATE PAIN; Start 01/04/17 at 07:00; Stop 01/05/17 at 06:59; Status DC Ringer's Solution 1,000 ml @ 30 mls/hr Q24H IV Last administered on 09:24; Start 01/04/17 at 07:00; Stop 01/04/17 at 18:59; Status DC Lidocaine HCl (Xylocaine-Mpf 1% Vial) 2 ml PRN 1X PRN ID PRIOR TO IV START; Start 01/04/17 at 07:00; Stop 01/05/17 at 06:59; Status DC Prochlorperazine Edisylate (Compazine) 5 mg PACU PRN PRN IV NAUSEA, MRX1; Start 01/04/17 at 07:00; Stop 01/05/17 at 06:59; Status DC Morphine Sulfate 2 mg PRN Q2HR PRN IV PAIN; Start 01/03/17 at 23:30 Morphine Sulfate 4 mg PRN Q2HR PRN IV PAIN Last administered on 01/10/17 20: 50; Start 01/03/17 at 23:56 Acetaminophen (Tylenol) 500 mg PRN Q6HRS PRN PO MILD PAIN; Start 01/04/17 at 08:00 Amlodipine Besylate (Norvasc) 10 mg HS PO Last administered on 01/10/17 20:49 ; Start 01/04/17 at 21:00 Carvedilol (Coreg) 6.25 mg BIDWMEALS PO ; Start 01/04/17 at 09:00; Status Cancel Famotidine (Pepcid) 20 mg HS PO Last administered on 01/06/17 20:48; Start 01/04/17 at 21:00; Stop 01/07/17 at 14:56; Status DC Albuterol/ Ipratropium (Duoneb) 3 ml PRN Q4HRS PRN NEB SHORTNESS OF BREATH; Start 01/04/17 at 08:00 Levothyroxine Sodium (Synthroid) 224 mcg HS PO Last administered on 01/10/17 20:49; Start 01/04/17 at 21:00 Metoprolol Tartrate (Lopressor) 25 mg BID PO ; Start 01/04/17 at 09:00; Status Cancel Simvastatin (Zocor) 20 mg HS PO ; Start 01/04/17 at 21:00; Status UNV Tamsulosin HCl (Flomax) 0.4 mg DAILY PO ; Start 01/04/17 at 09:00; Status UNV Tramadol HCl (Ultram) 50 mg PRN Q6HRS PRN PO PAIN; Start 01/04/17 at 08:00 Trazodone HCl (Desyrel) 50 mg QHS PO Last administered on 01/10/17 20:48; Start 01/04/17 at 21:00 Vitamin D (Vitamin D3) 1,000 unit DAILY PO Last administered on 01/11/17 08: 58; Start 01/04/17 at 09:00 Docusate Sodium (Colace) 100 mg PRN DAILY PRN PO CONSTIPATION; Start 01/04/17 at 09:00 Losartan Potassium (Cozaar) 100 mg DAILY PO Last administered on 01/11/17 08: 58; Start 01/04/17 at 09:00 Non-Formulary Medication 1 tab QHS PO ; Start 01/04/17 at 21:00; Status UNV Non-Formulary Medication 1 tab DAILY PO ; Start 01/04/17 at 09:00; Status UNV Potassium Chloride (Klor-Con) 20 meq DAILYWBKFT PO Last administered on 08:58; Start 01/04/17 at 08:30 Carvedilol (Coreg) 6.25 mg BIDWMEALS PO Last administered on 01/06/17 08:58; Start 01/04/17 at 09:00; Stop 01/06/17 at 12:28; Status DC Cefazolin Sodium 1 gm/Sodium Chloride 500 ml @ 500 mls/hr 1X PERIOP ONCE IRR Last administered on 01/04/17 16:38; Start 01/04/17 at 14:30; Stop 01/04/17 at 15:29; Status DC Heparin Sodium (Porcine) 5000 unit/Sodium Chloride 505 ml @ 505 mls/hr 1X PERIOP ONCE IRR Last administered on 01/04/17 16:38; Start 01/04/17 at 14: 30; Stop 01/04/17 at 15:29; Status DC Furosemide (Lasix) 40 mg 1X ONCE IVP ; Start 01/04/17 at 16:00; Stop at 16:01; Status DC Albumin Human 100 ml @ 100 mls/hr 1X ONCE IV Last administered on 01/04/17 18:52; Start 01/04/17 at 16:00; Stop 01/04/17 at 16:59; Status DC Albumin Human 100 ml @ 100 mls/hr 1X ONCE IV Last administered on 01/04/17 19:16; Start 01/04/17 at 16:00; Stop 01/04/17 at 16:59; Status DC Furosemide (Lasix) 20 mg 1X ONCE IVP Last administered on 01/04/17 21:16; Start 01/04/17 at 18:45; Stop 01/04/17 at 18:46; Status DC Sodium Chloride (Normal Saline Flush) 10 ml QSHIFT PRN IV AFTER MEDS AND BLOOD DRAWS; Start 01/05/17 at 05:45 Warfarin Sodium (Coumadin Per Pharmacy) 1 each PRN DAILY PRN MC SEE COMMENTS Last administered on 01/09/17 12:43; Start 01/05/17 at 16:45; Stop 01/09/17 at 13:19; Status DC Warfarin Sodium (Coumadin) 5 mg 1X WARF ONCE PO Last administered on 17:02; Start 01/05/17 at 17:00; Stop 01/05/17 at 17:01; Status DC Potassium Chloride 50 ml @ 50 mls/hr Q1H IV Last administered on 01/06/17 12: 28; Start 01/06/17 at 07:30; Stop 01/06/17 at 09:29; Status DC Warfarin Sodium (Coumadin) 4 mg 1X WARF ONCE PO Last administered on 15:48; Start 01/06/17 at 16:00; Stop 01/06/17 at 16:01; Status DC Potassium Chloride (KCl Oral Soln) 40 meq 1X ONCE PO Last administered on 18:51; Start 01/06/17 at 18:00; Stop 01/06/17 at 18:01; Status DC Furosemide (Lasix) 40 mg 1X ONCE IVP Last administered on 01/06/17 18:47; Start 01/06/17 at 18:00; Stop 01/06/17 at 18:01; Status DC Warfarin Sodium (Coumadin) 5 mg 1X WARF ONCE PO Last administered on 15:46; Start 01/07/17 at 16:00; Stop 01/07/17 at 16:01; Status DC Pantoprazole Sodium (Protonix) 40 mg DAILYAC PO Last administered on 08:59; Start 01/07/17 at 16:30 Barium Sulfate (Liquid E-Z Paque) 355 ml 1X ONCE PO Last administered on 01/08 08:35; Start 01/08/17 at 07:30; Stop 01/08/17 at 07:31; Status DC Barium Sulfate (E-Z-Hd) 340 gm 1X ONCE PO ; Start 01/08/17 at 07:30; Stop at 07:31; Status DC Simethicone/ Sodium Bicarb/ Citric Ac (E-Z-Gas) 1 packet 1X ONCE PO ; Start at 07:30; Stop 01/08/17 at 07:31; Status DC Warfarin Sodium (Coumadin) 5 mg 1X WARF ONCE PO ; Start 01/08/17 at 16:00; Stop 01/08/17 at 16:01; Status DC Sodium Monofluorophosphate (Fleet Adult) 133 ml 1X ONCE TN Last administered on 01/08/17 14:52; Start 01/08/17 at 14:30; Stop 01/08/17 at 14:34; Status DC Amino Acids/ Glycerin/ Electrolytes 1,000 ml @ 50 mls/hr Q20H IV Last administered on 01/10/17 05:43; Start 01/08/17 at 15:00 Furosemide (Lasix) 20 mg DAILY IVP Last administered on 01/10/17 09:03; Start 01/08/17 at 15:30 Lidocaine/Sodium Bicarbonate (Buffered Lidocaine 1%) 20 ml STK-MED ONCE IJ ; Start 01/03/17 at 14:59; Stop 01/09/17 at 10:45; Status DC Iohexol (Omnipaque 300 Mg/ml) 100 ml STK-MED ONCE .ROUTE ; Start 01/04/17 at 13 :57; Stop 01/09/17 at 11:11; Status DC Propofol 20 ml @ As Directed STK-MED ONCE IV ; Start 01/04/17 at 14:49; Stop 01/09/17 at 11:12; Status DC Dexamethasone Sodium Phosphate (Decadron) 20 mg STK-MED ONCE .ROUTE ; Start at 14:49; Stop 01/09/17 at 11:12; Status DC Lidocaine HCl (Lidocaine Pf 2% Vial) 5 ml STK-MED ONCE .ROUTE ; Start 01/04/17 at 14:49; Stop 01/09/17 at 11:12; Status DC Ondansetron HCl (Zofran) 4 mg STK-MED ONCE .ROUTE ; Start 01/04/17 at 14:49; Stop 01/09/17 at 11:12; Status DC Fentanyl Citrate (Fentanyl 2ml Vial) 100 mcg STK-MED ONCE .ROUTE ; Start at 14:49; Stop 01/09/17 at 11:12; Status DC Ephedrine Sulfate (Akovaz) 50 mg STK-MED ONCE .ROUTE ; Start 01/04/17 at 16:26 ; Stop 01/09/17 at 11:13; Status DC Furosemide (Lasix) 20 mg STK-MED ONCE .ROUTE ; Start 01/04/17 at 16:30; Stop 01/09/17 at 11:13; Status DC Sevoflurane (Ultane) 90 ml STK-MED ONCE IH ; Start 01/04/17 at 17:42; Stop at 11:13; Status DC Warfarin Sodium (Coumadin) 5 mg 1X WARF ONCE PO ; Start 01/09/17 at 16:00; Stop 01/09/17 at 16:00; Status DC Ringer's Solution 1,000 ml @ 75 mls/hr 1X ONCE IV Last administered on t 11:58; Start 01/10/17 at 12:00; Stop 01/11/17 at 01:19; Status DC Propofol 20 ml @ As Directed STK-MED ONCE IV ; Start 01/10/17 at 12:36; Stop 01/10/17 at 12:37; Status DC Lidocaine HCl (Lidocaine Pf 2% Vial) 5 ml STK-MED ONCE .ROUTE ; Start 01/10/17 at 12:36; Stop 01/10/17 at 12:37; Status DC Morphine Sulfate 2 mg STK-MED ONCE .ROUTE ; Start 01/10/17 at 13:08; Stop at 13:09; Status DC Morphine Sulfate 2 mg STK-MED ONCE .ROUTE ; Start 01/10/17 at 13:10; Stop at 13:11; Status DC Oxycodone/ Acetaminophen (Percocet 10/325) 1 tab PRN Q6HRS PRN PO SEVERE PAIN Last administered on 01/11/17t 07:55; Start 01/11/17 at 01:45 Oxycodone/ Acetaminophen (Percocet 5/325) 1 tab PRN Q6HRS PRN PO MODERATE PAIN ; Start 01/11/17 at 01:45 Clonidine HCl (Catapres) 0.1 mg PRN Q1HR PRN PO HYPERTENSION, SEE COMMENTS; Start 01/11/17 at 06:00; Status Cancel Active Scripts Active Tramadol Hcl 50 Mg Tablet 50 Mg PO PRN Q6HRS PRN Reported Novolog Flexpen (Insulin Aspart) 100 Unit/1 Ml Insuln.pen 1 Unit SQ PRN TID PRN Duoneb 0.5-3(2.5) Mg/3 Ml (Albuterol/Ipratropium) 3 Ml Ampul.neb 3 Ml NEB PRN Q4HRS PRN Famotidine 20 Mg Tablet 20 Mg PO HS Trazodone Hcl 50 Mg Tablet 1 Tab PO QHS Tamsulosin Hcl 0.4 Mg Cap.er.24h 0.4 Mg PO DAILY Melatonin 3 Mg Tablet 1 Tab PO QHS Losartan Potassium 100 Mg Tablet 100 Mg PO DAILY Colace Clear (Docusate Sodium) 50 Mg Capsule 50 Mg PO PRN DAILY PRN Aspirin 325 Mg Tablet 1 Tab PO DAILY Acetaminophen 500 Mg Tablet 500 Mg PO PRN Q6HRS PRN Vitamin D (Cholecalciferol (Vitamin D3)) 1,000 Unit Capsule 1 Cap PO DAILY Levothyroxine Sodium 112 Mcg Tablet 2 Tab PO HS Xarelto (Rivaroxaban) 10 Mg Tablet 1 Tab PO DAILY Prilosec Otc (Omeprazole Magnesium) 20 Mg Tablet.dr 1 Tab PO DAILY Metformin Hcl Er (Metformin Hcl) 500 Mg Tab.er.24h 500 Mg PO BIDWMEALS Amlodipine Besylate 10 Mg Tablet 10 Mg PO HS Simvastatin 20 Mg Tablet 20 Mg PO HS Glimepiride 2 Mg Tablet 2 Mg PO DAILY Carvedilol 3.125 Mg Tablet 6.25 Mg PO BID Potassium Chloride 10 Meq Capsule.er 20 Meq PO DAILY Vitals/I & O Vital Sign - Last 24 Hours 01/10/17 01/10/17 01/10/17 01/10/17 11:46 11:51 13:12 13:25 Temp 98.2 98 98.2 98.0 Pulse 94 68 66 Resp 18 16 18 B/P (MAP) 192/78 166/67 Pulse Ox 97 96 96 O2 Delivery Nasal Cannula Nasal Cannula Nasal Cannula O2 Flow Rate 2.0 3 3 01/10/17 01/10/17 01/10/17 01/10/17 13:46 14:22 14:30 14:45 Temp 98.1 98.1 98.1 98.1 Pulse 68 82 82 Resp 18 18 18 B/P (MAP) 171/72 152/56 (88) 152/56 (88) Pulse Ox 96 97 97 O2 Delivery Nasal Cannula Nasal Cannula Nasal Cannula Nasal Cannula O2 Flow Rate 3 2.0 2.0 01/10/17 01/10/17 01/10/17 01/10/17 15:00 15:30 16:17 16:30 Temp 98.1 98.1 98.1 98.1 98.1 98.1 Pulse 89 89 91 Resp 18 18 18 B/P (MAP) 151/50 (83) 151/50 139/62 (87) Pulse Ox 99 99 98 O2 Delivery Nasal Cannula Nasal Cannula Nasal Cannula O2 Flow Rate 2.0 2.0 2.0 01/10/17 01/10/17 01/10/17 01/10/17 18:09 19:00 20:00 20:47 Temp 97.9 97.9 Pulse 85 Resp 18 16 B/P (MAP) 140/83 (102) Pulse Ox 97 97 O2 Delivery Room Air Nasal Cannula Nasal Cannula Nasal Cannula O2 Flow Rate 2.0 2.0 2.0 01/10/17 01/10/17 01/10/17 01/10/17 20:49 20:49 20:50 21:20 Pulse 85 Resp 16 16 20 B/P (MAP) 140/83 Pulse Ox 97 97 97 O2 Delivery Nasal Cannula Nasal Cannula Nasal Cannula O2 Flow Rate 2.0 2.0 2.0 01/10/17 01/11/17 01/11/17 01/11/17 22:46 00:50 01:42 02:44 Temp 97.7 97.7 Resp 18 20 20 20 B/P (MAP) 134/80 (98) Pulse Ox 97 97 97 96 O2 Delivery Nasal Cannula Nasal Cannula Nasal Cannula O2 Flow Rate 2.0 2.0 2.0 2.0 01/11/17 01/11/17 01/11/17 01/11/17 03:00 07:00 07:55 08:58 Temp 97.9 97.5 97.9 97.5 Pulse 64 73 73 Resp 18 18 16 B/P (MAP) 123/52 (75) 137/64 (88) 137/64 Pulse Ox 96 97 96 O2 Delivery Nasal Cannula Nasal Cannula Nasal Cannula O2 Flow Rate 2.0 2.0 2.0 01/11/17 01/11/17 08:59 08:59 O2 Delivery Nasal Cannula Nasal Cannula Intake and Output 01/10/17 01/10/17 01/11/17 15:00 23:00 07:00 Intake Total 625 ml 128 ml 400 ml Output Total 450 ml Balance 625 ml 128 ml -50 ml Nutrition Consultation Dietary Evaluation: Recommendations by RD: Increase Calorie Intake, Protein supplementation, PPN/ TPN Comments: continue ppn until diet advances and pt meeting > 50% needs with po intake resume ensure supplements to diet order with hx poor po intake since stroke REC mvi and vit c per wound protoca Expected Outcomes/Goals: to meet > 50% est nutr needs with po intake Malnutrition Findings: Malnutrition related to morbid: Weight 200% of ideal wt Malnutrition related to morbid: Yes Weight Status: Morbidly Obese THEODORA CHRISTIANSEN MD Jan 11, 2017 11:32
--- NOTE | 2017-01-11 11:43 | PDOC ---
Provider Note Provider Note Pt without complaints. Leg and left arm dressings intact. Continue local wound care. Will follow. PILI GARCIA MD Jan 11, 2017 11:43
[2017-01-11] MEDS: oxyCODONE IR 5 MG TABLET PO PRN ×2 (12:30→18:04)
--- NOTE | 2017-01-11 12:35 | PDOC ---
PULMONARY PROGRESS NOTES Subjective NO SOA COUGH IS BETTER Vitals Vital Signs Date Time Temp Pulse Resp B/P (MAP) Pulse Ox O2 Delivery O2 Flow Rate FiO2 01/11/17 12:30 Nasal Cannula 01/11/17 11:00 97.6 69 18 133/62 (85) 98 2.0 97.6 ROS: No Nausea, No Chest Pain, No Abdominal Pain, No Increase Cough General: Alert, No acute distress Lungs: Clear, Other (No Wheezes or crackles ) Cardiovascular: S1, S2 Abdomen: Soft Neuro Exam: Alert Extremities: Other (NO CHANGE) Skin: Warm Labs Laboratory Tests Test 01/09/17 16:47 01/09/17 21:54 01/10/17 07:00 01/10/17 08:16 Glucose (Fingerstick) 160 mg/dL (70-99) 157 mg/dL (70-99) 149 mg/dL (70-99) White Blood Count 6.9 x10^3/uL (4.0-11.0) Red Blood Count 3.47 x10^6/uL (3.50-5.40) Hemoglobin 9.9 g/dL (12.0-15.5) Hematocrit 30.9 % (36.0-47.0) Mean Corpuscular Volume 89 fL (79-100) Mean Corpuscular Hemoglobin 29 pg (25-35) Mean Corpuscular Hemoglobin Concent 32 g/dL (31-37) Red Cell Distribution Width 16.9 % (11.5-14.5) Platelet Count 144 x10^3/uL (140-400) Neutrophils (%) (Auto) 51 % (31-73) Lymphocytes (%) (Auto) 42 % (24-48) Monocytes (%) (Auto) 4 % (0-9) Eosinophils (%) (Auto) 2 % (0-3) Basophils (%) (Auto) 1 % (0-3) Neutrophils # (Auto) 3.5 x10^3uL (1.8-7.7) Lymphocytes # (Auto) 2.9 x10^3/uL (1.0-4.8) Monocytes # (Auto) 0.3 x10^3/uL (0.0-1.1) Eosinophils # (Auto) 0.1 x10^3/uL (0.0-0.7) Basophils # (Auto) 0.0 x10^3/uL (0.0-0.2) Prothrombin Time 18.5 SEC (11.7-14.0) Prothromb Time International Ratio 1.7 (0.8-1.1) Sodium Level 138 mmol/L (136-145) Potassium Level 3.9 mmol/L (3.5-5.1) Chloride Level 106 mmol/L (98-107) Carbon Dioxide Level 29 mmol/L (21-32) Anion Gap 3 (6-14) Blood Urea Nitrogen 11 mg/dL (7-20) Creatinine 0.5 mg/dL (0.6-1.0) Estimated GFR (Cockcroft-Gault) 116.2 Glucose Level 136 mg/dL (70-99) Calcium Level 7.5 mg/dL (8.5-10.1) Test 01/10/17 10:29 01/10/17 16:29 01/10/17 21:27 01/11/17 04:15 Glucose (Fingerstick) 144 mg/dL (70-99) 148 mg/dL (70-99) 156 mg/dL (70-99) White Blood Count 5.9 x10^3/uL (4.0-11.0) Red Blood Count 3.19 x10^6/uL (3.50-5.40) Hemoglobin 9.1 g/dL (12.0-15.5) Hematocrit 28.5 % (36.0-47.0) Mean Corpuscular Volume 89 fL (79-100) Mean Corpuscular Hemoglobin 29 pg (25-35) Mean Corpuscular Hemoglobin Concent 32 g/dL (31-37) Red Cell Distribution Width 16.8 % (11.5-14.5) Platelet Count 121 x10^3/uL (140-400) Neutrophils (%) (Auto) 38 % (31-73) Lymphocytes (%) (Auto) 55 % (24-48) Monocytes (%) (Auto) 5 % (0-9) Eosinophils (%) (Auto) 2 % (0-3) Basophils (%) (Auto) 0 % (0-3) Neutrophils # (Auto) 2.2 x10^3uL (1.8-7.7) Lymphocytes # (Auto) 3.2 x10^3/uL (1.0-4.8) Monocytes # (Auto) 0.3 x10^3/uL (0.0-1.1) Eosinophils # (Auto) 0.1 x10^3/uL (0.0-0.7) Basophils # (Auto) 0.0 x10^3/uL (0.0-0.2) Prothrombin Time 17.2 SEC (11.7-14.0) Prothromb Time International Ratio 1.5 (0.8-1.1) Sodium Level 140 mmol/L (136-145) Potassium Level 3.9 mmol/L (3.5-5.1) Chloride Level 107 mmol/L (98-107) Carbon Dioxide Level 28 mmol/L (21-32) Anion Gap 5 (6-14) Blood Urea Nitrogen 10 mg/dL (7-20) Creatinine 0.6 mg/dL (0.6-1.0) Estimated GFR (Cockcroft-Gault) 94.1 Glucose Level 119 mg/dL (70-99) Calcium Level 7.5 mg/dL (8.5-10.1) MJ-Tkj-V-Type Natriuretic Peptide 6328 pg/mL (0-449) Test 01/11/17 07:58 01/11/17 11:43 Glucose (Fingerstick) 104 mg/dL (70-99) 112 mg/dL (70-99) Laboratory Tests Test 01/10/17 16:29 01/10/17 21:27 01/11/17 04:15 01/11/17 07:58 Glucose (Fingerstick) 148 mg/dL (70-99) 156 mg/dL (70-99) 104 mg/dL (70-99) White Blood Count 5.9 x10^3/uL (4.0-11.0) Red Blood Count 3.19 x10^6/uL (3.50-5.40) Hemoglobin 9.1 g/dL (12.0-15.5) Hematocrit 28.5 % (36.0-47.0) Mean Corpuscular Volume 89 fL (79-100) Mean Corpuscular Hemoglobin 29 pg (25-35) Mean Corpuscular Hemoglobin Concent 32 g/dL (31-37) Red Cell Distribution Width 16.8 % (11.5-14.5) Platelet Count 121 x10^3/uL (140-400) Neutrophils (%) (Auto) 38 % (31-73) Lymphocytes (%) (Auto) 55 % (24-48) Monocytes (%) (Auto) 5 % (0-9) Eosinophils (%) (Auto) 2 % (0-3) Basophils (%) (Auto) 0 % (0-3) Neutrophils # (Auto) 2.2 x10^3uL (1.8-7.7) Lymphocytes # (Auto) 3.2 x10^3/uL (1.0-4.8) Monocytes # (Auto) 0.3 x10^3/uL (0.0-1.1) Eosinophils # (Auto) 0.1 x10^3/uL (0.0-0.7) Basophils # (Auto) 0.0 x10^3/uL (0.0-0.2) Prothrombin Time 17.2 SEC (11.7-14.0) Prothromb Time International Ratio 1.5 (0.8-1.1) Sodium Level 140 mmol/L (136-145) Potassium Level 3.9 mmol/L (3.5-5.1) Chloride Level 107 mmol/L (98-107) Carbon Dioxide Level 28 mmol/L (21-32) Anion Gap 5 (6-14) Blood Urea Nitrogen 10 mg/dL (7-20) Creatinine 0.6 mg/dL (0.6-1.0) Estimated GFR (Cockcroft-Gault) 94.1 Glucose Level 119 mg/dL (70-99) Calcium Level 7.5 mg/dL (8.5-10.1) YH-Gcm-N-Type Natriuretic Peptide 6328 pg/mL (0-449) Test 01/11/17 11:43 Glucose (Fingerstick) 112 mg/dL (70-99) Medications Active Scripts Medications Dose Route/Sig Max Daily Dose Days Date Category Novolog Flexpen (Insulin Aspart) 100 Unit/1 Ml Insuln.pen 1 Unit SQ PRN TID PRN 12/13/16 Reported Duoneb 0.5-3(2.5) Mg/3 Ml (Albuterol/Ipratropium) 3 Ml Ampul.neb 3 Ml NEB PRN Q4HRS PRN 12/13/16 Reported Famotidine 20 Mg Tablet 20 Mg PO HS 12/13/16 Reported Trazodone Hcl 50 Mg Tablet 1 Tab PO QHS 12/12/16 Reported Tamsulosin Hcl 0.4 Mg Cap.er.24h 0.4 Mg PO DAILY 12/12/16 Reported Melatonin 3 Mg Tablet 1 Tab PO QHS 12/12/16 Reported Losartan Potassium 100 Mg Tablet 100 Mg PO DAILY 12/12/16 Reported Colace Clear (Docusate Sodium) 50 Mg Capsule 50 Mg PO PRN DAILY PRN 12/12/16 Reported Aspirin 325 Mg Tablet 1 Tab PO DAILY 12/12/16 Reported Acetaminophen 500 Mg Tablet 500 Mg PO PRN Q6HRS PRN 12/12/16 Reported Tramadol Hcl 50 Mg Tablet 50 Mg PO PRN Q6HRS PRN 11/25/16 Rx Vitamin D (Cholecalciferol (Vitamin D3)) 1,000 Unit Capsule 1 Cap PO DAILY 11/21/16 Reported Levothyroxine Sodium 112 Mcg Tablet 2 Tab PO HS 11/21/16 Reported Xarelto (Rivaroxaban) 10 Mg Tablet 1 Tab PO DAILY 11/21/16 Reported Prilosec Otc (Omeprazole Magnesium) 20 Mg Tablet.dr 1 Tab PO DAILY 11/21/16 Reported Metformin Hcl Er (Metformin Hcl) 500 Mg Tab.er.24h 500 Mg PO BIDWMEALS 11/21/16 Reported Amlodipine Besylate 10 Mg Tablet 10 Mg PO HS 12/06/13 Reported Simvastatin 20 Mg Tablet 20 Mg PO HS 12/06/13 Reported Glimepiride 2 Mg Tablet 2 Mg PO DAILY 12/06/13 Reported Carvedilol 3.125 Mg Tablet 6.25 Mg PO BID 12/06/13 Reported Potassium Chloride 10 Meq Capsule.er 20 Meq PO DAILY 12/06/13 Reported Impression . 1. cough, suspect combination of dysphagia with possible aspiration, also related to vascular congestion and postnasal drainage. 2. Chronic atrial fibrillation. 3. Peripheral vascular disease, status post left amputation. 4. Obesity. 5. Hypertension. 6. Dysphagia/ stricture. s/p dilation Plan . COUGH BETTER S/P DILATION OF STRICTURE DIURESES CXR IS BETTER FOLLOW SPEECH INPUT MARIANNE GOMES MD Jan 11, 2017 12:35
[2017-01-11 15:00] VITALS: BP 129/68
[2017-01-11] MEDS: FUROSEMIDE 20 MG/2 ML VIAL. IVP SCH (18:01)
[2017-01-11 19:00] VITALS: BP 116/65
[2017-01-11] MEDS: traZODone 50 MG TABLET. PO SCH (21:01)
[2017-01-11] MEDS: ATORVASTATIN CALCIUM 10 MG TABLET. PO SCH (21:02)
[2017-01-11] MEDS: amLODIPine BESYLATE 10 MG TABLET PO SCH (21:02)
[2017-01-11] MEDS: LEVOTHYROXINE 112 MCG TABLET PO SCH (21:03)
[2017-01-11 23:00] VITALS: BP 140/69
[2017-01-12] VITALS (7 sets, daily range): BP systolic 123–183; BP diastolic 61–83
[2017-01-12] MEDS: oxyCODONE/APAP 10/325 1 TAB TABLET PO PRN ×2 (00:50→17:31)
[2017-01-12] MEDS: ONDANSETRON PF 4 MG/2 ML VIAL. IV PRN (01:59)
[2017-01-12] MEDS: oxyCODONE IR 5 MG TABLET PO PRN ×2 (03:01→13:05)
[2017-01-12] MEDS: traMADol 50 MG TABLET PO PRN ×3 (03:01→19:48)
[2017-01-12 06:14] LABS: CALCIUM 7.6 mg/dL (8.5-10.1); CREATININE 0.4 mg/dL (0.6-1.0); GFR 150.3; POTASSIUM 4.1 mmol/L (3.5-5.1)
[2017-01-12] MEDS: INSULIN ASPART 300 UNITS/3 ML INSULN.PEN SQ SCH ×3 (08:00→17:00)
[2017-01-12 08:18] LABS: BASO % 0 % (0-3); EOS % 3 % (0-3); HEMATOCRIT 31.1 % (36.0-47.0); HEMOGLOBIN 9.8 g/dL (12.0-15.5); LYMPH # 3.7 x10^3/uL (1.0-4.8); LYMPH % 58 % (24-48); MEAN CORPUSCULAR HEMOGLOBIN 28 pg (25-35); MEAN CORPUSCULAR HGB CONC 31 g/dL (31-37); MEAN CORPUSCULAR VOLUME 89 fL (79-100); MONO % 6 % (0-9); NEUT % 33 % (31-73); PLATELET COUNT 105 x10^3/uL (140-400); RED BLOOD COUNT 3.49 x10^6/uL (3.50-5.40); RED CELL DISTRIBUTION WIDTH 16.6 % (11.5-14.5); WHITE BLOOD COUNT 6.3 x10^3/uL (4.0-11.0)
[2017-01-12 08:42] LABS: INR 1.4 (0.8-1.1); PROTHROMBIN TIME PATIENT 16.2 SEC (11.7-14.0)
--- NOTE | 2017-01-12 09:17 | PDOC ---
Provider Note Provider Note *Vascular S: Patient without complaints O: Alert VSS, afebrile Dressing dry and intact to left AKA site Jose Alfredo bandag jose alfredo to left arm, applied pillow to elevate arm A/P: POD #8 Left AKA Continue dry gauze dressing changes daily to left AKA Jose Alfredo and elevation left arm Patient will need f/u with Dr. Youngblood in 2-3 weeks [phone] LAY SHAH APRN Jan 12, 2017 09:17
[2017-01-12] MEDS: POLYETHYLENE GLYCOL 3350 17 GM PACKET. PO PRN (10:43)
[2017-01-12] MEDS: LACTOBACILLUS RHAMNOSUS GG 1 CAPSULE. PO SCH ×2 (10:43→21:07)
[2017-01-12] MEDS: DOCUSATE SODIUM 100 MG CAPSULE. PO SCH ×2 (10:45→21:07)
[2017-01-12] MEDS: TAMSULOSIN 0.4 MG CAP.ER.24H. PO SCH (10:45)
[2017-01-12] MEDS: LOSARTAN POTASSIUM 50 MG TABLET. PO SCH (10:46)
[2017-01-12] MEDS: POTASSIUM CHLORIDE 20 MEQ TABLET.ER. PO SCH (10:46)
[2017-01-12] MEDS: oxyCODONE ER 10 MG TAB.ER.12H PO SCH ×2 (10:47→21:05)
[2017-01-12] MEDS: CHOLECALCIFEROL (VITAMIN D3) 1,000 UNIT TABLET PO SCH (10:47)
--- NOTE | 2017-01-12 11:21 | PDOC ---
PROGRESS NOTES Chief Complaint Chief Complaint Left leg infection Ischemic leg Compartment syndrome Dysphagia Obesity Diabetes Hypertension Atrial fibrillation CVA History of Present Illness History of Present Illness IV fluids were stopped yesterday. Pain is controlled. She does not wear home O2. PLAN: Wean O2 to room air. Encouraged IS. 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 Wound inspected yesterday; left arm edematous, no change) Skin: No rashes, No significant lesion Labs LABS Laboratory Tests Test 01/11/17 11:43 01/11/17 16:45 01/11/17 21:03 01/12/17 05:25 Glucose (Fingerstick) 112 mg/dL (70-99) 155 mg/dL (70-99) 154 mg/dL (70-99) Sodium Level 141 mmol/L (136-145) Potassium Level 4.1 mmol/L (3.5-5.1) Chloride Level 108 mmol/L (98-107) Carbon Dioxide Level 28 mmol/L (21-32) Anion Gap 5 (6-14) Blood Urea Nitrogen 9 mg/dL (7-20) Creatinine 0.4 mg/dL (0.6-1.0) Estimated GFR (Cockcroft-Gault) 150.3 Glucose Level 120 mg/dL (70-99) Calcium Level 7.6 mg/dL (8.5-10.1) Test 01/12/17 07:25 01/12/17 08:08 White Blood Count 6.3 x10^3/uL (4.0-11.0) Red Blood Count 3.49 x10^6/uL (3.50-5.40) Hemoglobin 9.8 g/dL (12.0-15.5) Hematocrit 31.1 % (36.0-47.0) Mean Corpuscular Volume 89 fL (79-100) Mean Corpuscular Hemoglobin 28 pg (25-35) Mean Corpuscular Hemoglobin Concent 31 g/dL (31-37) Red Cell Distribution Width 16.6 % (11.5-14.5) Platelet Count 105 x10^3/uL (140-400) Neutrophils (%) (Auto) 33 % (31-73) Lymphocytes (%) (Auto) 58 % (24-48) Monocytes (%) (Auto) 6 % (0-9) Eosinophils (%) (Auto) 3 % (0-3) Basophils (%) (Auto) 0 % (0-3) Neutrophils # (Auto) 2.1 x10^3uL (1.8-7.7) Lymphocytes # (Auto) 3.7 x10^3/uL (1.0-4.8) Monocytes # (Auto) 0.4 x10^3/uL (0.0-1.1) Eosinophils # (Auto) 0.2 x10^3/uL (0.0-0.7) Basophils # (Auto) 0.0 x10^3/uL (0.0-0.2) Prothrombin Time 16.2 SEC (11.7-14.0) Prothromb Time International Ratio 1.4 (0.8-1.1) Glucose (Fingerstick) 103 mg/dL (70-99) Review of Systems Review of Systems Const: weak, no fever Lungs: no dyspnea CV: no chest pain Comment Review of Relevant I have reviewed the following items madhav (where applicable) has been applied. Labs Laboratory Tests Test 01/10/17 16:29 01/10/17 21:27 01/11/17 04:15 01/11/17 07:58 Glucose (Fingerstick) 148 mg/dL (70-99) 156 mg/dL (70-99) 104 mg/dL (70-99) White Blood Count 5.9 x10^3/uL (4.0-11.0) Red Blood Count 3.19 x10^6/uL (3.50-5.40) Hemoglobin 9.1 g/dL (12.0-15.5) Hematocrit 28.5 % (36.0-47.0) Mean Corpuscular Volume 89 fL (79-100) Mean Corpuscular Hemoglobin 29 pg (25-35) Mean Corpuscular Hemoglobin Concent 32 g/dL (31-37) Red Cell Distribution Width 16.8 % (11.5-14.5) Platelet Count 121 x10^3/uL (140-400) Neutrophils (%) (Auto) 38 % (31-73) Lymphocytes (%) (Auto) 55 % (24-48) Monocytes (%) (Auto) 5 % (0-9) Eosinophils (%) (Auto) 2 % (0-3) Basophils (%) (Auto) 0 % (0-3) Neutrophils # (Auto) 2.2 x10^3uL (1.8-7.7) Lymphocytes # (Auto) 3.2 x10^3/uL (1.0-4.8) Monocytes # (Auto) 0.3 x10^3/uL (0.0-1.1) Eosinophils # (Auto) 0.1 x10^3/uL (0.0-0.7) Basophils # (Auto) 0.0 x10^3/uL (0.0-0.2) Prothrombin Time 17.2 SEC (11.7-14.0) Prothromb Time International Ratio 1.5 (0.8-1.1) Sodium Level 140 mmol/L (136-145) Potassium Level 3.9 mmol/L (3.5-5.1) Chloride Level 107 mmol/L (98-107) Carbon Dioxide Level 28 mmol/L (21-32) Anion Gap 5 (6-14) Blood Urea Nitrogen 10 mg/dL (7-20) Creatinine 0.6 mg/dL (0.6-1.0) Estimated GFR (Cockcroft-Gault) 94.1 Glucose Level 119 mg/dL (70-99) Calcium Level 7.5 mg/dL (8.5-10.1) [id number]-Type Natriuretic Peptide 6328 pg/mL (0-449) Test 01/11/17 11:43 01/11/17 16:45 01/11/17 21:03 01/12/17 05:25 Glucose (Fingerstick) 112 mg/dL (70-99) 155 mg/dL (70-99) 154 mg/dL (70-99) Sodium Level 141 mmol/L (136-145) Potassium Level 4.1 mmol/L (3.5-5.1) Chloride Level 108 mmol/L (98-107) Carbon Dioxide Level 28 mmol/L (21-32) Anion Gap 5 (6-14) Blood Urea Nitrogen 9 mg/dL (7-20) Creatinine 0.4 mg/dL (0.6-1.0) Estimated GFR (Cockcroft-Gault) 150.3 Glucose Level 120 mg/dL (70-99) Calcium Level 7.6 mg/dL (8.5-10.1) Test 01/12/17 07:25 01/12/17 08:08 White Blood Count 6.3 x10^3/uL (4.0-11.0) Red Blood Count 3.49 x10^6/uL (3.50-5.40) Hemoglobin 9.8 g/dL (12.0-15.5) Hematocrit 31.1 % (36.0-47.0) Mean Corpuscular Volume 89 fL (79-100) Mean Corpuscular Hemoglobin 28 pg (25-35) Mean Corpuscular Hemoglobin Concent 31 g/dL (31-37) Red Cell Distribution Width 16.6 % (11.5-14.5) Platelet Count 105 x10^3/uL (140-400) Neutrophils (%) (Auto) 33 % (31-73) Lymphocytes (%) (Auto) 58 % (24-48) Monocytes (%) (Auto) 6 % (0-9) Eosinophils (%) (Auto) 3 % (0-3) Basophils (%) (Auto) 0 % (0-3) Neutrophils # (Auto) 2.1 x10^3uL (1.8-7.7) Lymphocytes # (Auto) 3.7 x10^3/uL (1.0-4.8) Monocytes # (Auto) 0.4 x10^3/uL (0.0-1.1) Eosinophils # (Auto) 0.2 x10^3/uL (0.0-0.7) Basophils # (Auto) 0.0 x10^3/uL (0.0-0.2) Prothrombin Time 16.2 SEC (11.7-14.0) Prothromb Time International Ratio 1.4 (0.8-1.1) Glucose (Fingerstick) 103 mg/dL (70-99) Laboratory Tests Test 01/11/17 11:43 01/11/17 16:45 01/11/17 21:03 01/12/17 05:25 Glucose (Fingerstick) 112 mg/dL (70-99) 155 mg/dL (70-99) 154 mg/dL (70-99) Sodium Level 141 mmol/L (136-145) Potassium Level 4.1 mmol/L (3.5-5.1) Chloride Level 108 mmol/L (98-107) Carbon Dioxide Level 28 mmol/L (21-32) Anion Gap 5 (6-14) Blood Urea Nitrogen 9 mg/dL (7-20) Creatinine 0.4 mg/dL (0.6-1.0) Estimated GFR (Cockcroft-Gault) 150.3 Glucose Level 120 mg/dL (70-99) Calcium Level 7.6 mg/dL (8.5-10.1) Test 01/12/17 07:25 01/12/17 08:08 White Blood Count 6.3 x10^3/uL (4.0-11.0) Red Blood Count 3.49 x10^6/uL (3.50-5.40) Hemoglobin 9.8 g/dL (12.0-15.5) Hematocrit 31.1 % (36.0-47.0) Mean Corpuscular Volume 89 fL (79-100) Mean Corpuscular Hemoglobin 28 pg (25-35) Mean Corpuscular Hemoglobin Concent 31 g/dL (31-37) Red Cell Distribution Width 16.6 % (11.5-14.5) Platelet Count 105 x10^3/uL (140-400) Neutrophils (%) (Auto) 33 % (31-73) Lymphocytes (%) (Auto) 58 % (24-48) Monocytes (%) (Auto) 6 % (0-9) Eosinophils (%) (Auto) 3 % (0-3) Basophils (%) (Auto) 0 % (0-3) Neutrophils # (Auto) 2.1 x10^3uL (1.8-7.7) Lymphocytes # (Auto) 3.7 x10^3/uL (1.0-4.8) Monocytes # (Auto) 0.4 x10^3/uL (0.0-1.1) Eosinophils # (Auto) 0.2 x10^3/uL (0.0-0.7) Basophils # (Auto) 0.0 x10^3/uL (0.0-0.2) Prothrombin Time 16.2 SEC (11.7-14.0) Prothromb Time International Ratio 1.4 (0.8-1.1) Glucose (Fingerstick) 103 mg/dL (70-99) Microbiology 01/03/17 Gram Stain - Final, Complete Medications Current Medications Oxycodone HCl (Roxicodone) 5 mg PRN Q4HRS PRN PO BREAKTHROUGH PAIN Last administered on 01/12/17 03:01; Start 01/02/17 at 18:15 Oxycodone HCl (OxyCONTIN) 10 mg Q12HR PO Last administered on 01/12/17 10:47 ; Start 01/02/17 at 21:00 Amlodipine Besylate (Norvasc) 5 mg HS PO Last administered on 01/02/17 22:28 ; Start 01/02/17 at 21:00; Stop 01/04/17 at 08:03; Status DC Tamsulosin HCl (Flomax) 0.4 mg DAILY PO Last administered on 01/12/17 10:45; Start 01/03/17 at 09:00 Polyethylene Glycol (miraLAX PACKET) 17 gm PRN DAILY PRN PO CONSTIPATION Last administered on 01/12/17 10:43; Start 01/02/17 at 18:30 Ondansetron HCl (Zofran) 4 mg PRN Q6HRS PRN IV NAUSEA/VOMITING Last administered on 01/12/17 01:59; Start 01/02/17 at 18:30 Lorazepam (Ativan) 2 mg PRN Q12HR PRN IV ANXIETY / AGITATION Last administered on 01/06/17 22:42; Start 01/02/17 at 18:30 Metoprolol Tartrate (Lopressor) 25 mg BID PO Last administered on 01/02/17 22 :29; Start 01/02/17 at 21:00; Stop 01/04/17 at 08:03; Status DC Silver Nitrate/ Potassium Nitrate 1 each 1X ONCE TP ; Start 01/02/17 at 18:45 ; Stop 01/02/17 at 18:46; Status DC Famotidine (Pepcid) 20 mg DAILY PO ; Start 01/03/17 at 09:00; Stop 01/04/17 at 08:05; Status DC Trazodone HCl (Desyrel) 50 mg QHS PO Last administered on 01/02/17 22:28; Start 01/02/17 at 21:00; Stop 01/04/17 at 08:04; Status DC Levothyroxine Sodium (Synthroid) 112 mcg DAILY07 PO ; Start 01/03/17 at 07:00; Stop 01/04/17 at 08:05; Status DC Lactobacillus Rhamnosus (Culturelle) 1 cap BID PO Last administered on 10:43; Start 01/02/17 at 21:00 Sodium Chloride 1,000 ml @ 75 mls/hr [id number] IV Last administered on 14:53; Start 01/02/17 at 19:00; Stop 01/11/17 at 11:52; Status DC Sodium Chloride (Normal Saline Flush 3ml) 10 ml PRN Q12HRS PRN IV AFTER MEDS AND BLOOD DRAWS; Start 01/02/17 at 18:30; Stop 01/05/17 at 05:38; Status DC Insulin Aspart (NovoLOG) 0-9 UNITS TIDWMEALS SQ Last administered on 18:12; Start 01/03/17 at 19:00 Dextrose (Dextrose 50%-Water Syringe) 12.5 gm PRN Q15MIN PRN IV SEE COMMENTS; Start 01/02/17 at 18:45 Docusate Sodium (Colace) 100 mg BID PO Last administered on 01/12/17 10:45; Start 01/02/17 at 21:00 Bisacodyl (Dulcolax Supp) 10 mg PRN DAILY PRN SD CONSTIPATION; Start 01/02/17 at 18:45 Atorvastatin Calcium (Lipitor) 10 mg QHS PO Last administered on 01/11/17 21: 02; Start 01/02/17 at 21:00 Aspirin (Lucas Aspirin) 325 mg DAILYWBKFT PO ; Start 01/03/17 at 08:00; Stop 01/03/17 at 16:35; Status DC Acetaminophen (Tylenol) 500 mg PRN Q6HRS PRN PO MILD PAIN / TEMP; Start at 18:45; Stop 01/04/17 at 12:28; Status DC Morphine Sulfate 2 mg PRN Q2HR PRN IV PAIN Last administered on 01/03/17 22: 41; Start 01/02/17 at 21:15; Stop 01/03/17 at 23:26; Status DC Morphine Sulfate 4 mg PRN Q2HR PRN IV PAIN Last administered on 01/03/17 20: 22; Start 01/02/17 at 21:15; Stop 01/03/17 at 23:56; Status DC Piperacillin Sod/ Tazobactam Sod 3.375 gm/Dextrose 50 ml @ 100 mls/hr Q6HRS IV ; Start 01/03/17 at 12:00; Status UNV Linezolid 300 ml @ 300 mls/hr Q12HR IV Last administered on 01/07/17 09:29; Start 01/03/17 at 11:00; Stop 01/07/17 at 12:55; Status DC Phytonadione 10 mg/Dextrose 51 ml @ 102 mls/hr 1X ONCE IV ; Start 01/03/17 at 11:00; Stop 01/03/17 at 11:00; Status DC Piperacillin Sod/ Tazobactam Sod (Zosyn) 3.375 gm Q6HRS IVP Last administered on 01/08/17 06:09; Start 01/03/17 at 12:00; Stop 01/08/17 at 11:26; Status DC Furosemide (Lasix) 40 mg 1X ONCE IVP Last administered on 01/03/17 11:44; Start 01/03/17 at 11:45; Stop 01/03/17 at 11:46; Status DC Lidocaine/Sodium Bicarbonate (Buffered Lidocaine 1%) 3 ml 1X ONCE IJ Last administered on 01/03/17 15:57; Start 01/03/17 at 15:30; Stop 01/03/17 at 15 :31; Status DC Lidocaine/Sodium Bicarbonate (Buffered Lidocaine 1%) 3 ml 1X ONCE IJ ; Start 01/03/17 at 15:45; Stop 01/03/17 at 15:46; Status DC Phytonadione (Vitamin K Ampule) 10 mg 1X ONCE SQ Last administered on 17:56; Start 01/03/17 at 16:30; Stop 01/03/17 at 16:35; Status DC Ondansetron HCl (Zofran) 4 mg PRN Q6HRS PRN IV NAUSEA/VOMITING; Start at 07:00; Stop 01/05/17 at 06:59; Status DC Fentanyl Citrate (Fentanyl 2ml Vial) 25 mcg PRN Q5MIN PRN IV MILD PAIN; Start 01/04/17 at 07:00; Stop 01/05/17 at 06:59; Status DC Fentanyl Citrate (Fentanyl 2ml Vial) 50 mcg PRN Q5MIN PRN IV MODERATE PAIN; Start 01/04/17 at 07:00; Stop 01/05/17 at 06:59; Status DC Ringer's Solution 1,000 ml @ 30 mls/hr Q24H IV Last administered on 09:24; Start 01/04/17 at 07:00; Stop 01/04/17 at 18:59; Status DC Lidocaine HCl (Xylocaine-Mpf 1% Vial) 2 ml PRN 1X PRN ID PRIOR TO IV START; Start 01/04/17 at 07:00; Stop 01/05/17 at 06:59; Status DC Prochlorperazine Edisylate (Compazine) 5 mg PACU PRN PRN IV NAUSEA, MRX1; Start 01/04/17 at 07:00; Stop 01/05/17 at 06:59; Status DC Morphine Sulfate 2 mg PRN Q2HR PRN IV MODERATE PAIN; Start 01/03/17 at 23:30 Morphine Sulfate 4 mg PRN Q2HR PRN IV SEVERE PAIN Last administered on 20:50; Start 01/03/17 at 23:56 Acetaminophen (Tylenol) 500 mg PRN Q6HRS PRN PO MILD PAIN Last administered on 01/12/17 04:42; Start 01/04/17 at 08:00 Amlodipine Besylate (Norvasc) 10 mg HS PO Last administered on 01/11/17 21:02 ; Start 01/04/17 at 21:00 Carvedilol (Coreg) 6.25 mg BIDWMEALS PO ; Start 01/04/17 at 09:00; Status Cancel Famotidine (Pepcid) 20 mg HS PO Last administered on 01/06/17 20:48; Start 01/04/17 at 21:00; Stop 01/07/17 at 14:56; Status DC Albuterol/ Ipratropium (Duoneb) 3 ml PRN Q4HRS PRN NEB SHORTNESS OF BREATH; Start 01/04/17 at 08:00 Levothyroxine Sodium (Synthroid) 224 mcg HS PO Last administered on 01/11/17 21:03; Start 01/04/17 at 21:00 Metoprolol Tartrate (Lopressor) 25 mg BID PO ; Start 01/04/17 at 09:00; Status Cancel Simvastatin (Zocor) 20 mg HS PO ; Start 01/04/17 at 21:00; Status UNV Tamsulosin HCl (Flomax) 0.4 mg DAILY PO ; Start 01/04/17 at 09:00; Status UNV Tramadol HCl (Ultram) 50 mg PRN Q6HRS PRN PO MILD PAIN, 2ND CHOICE Last administered on 01/12/17 10:44; Start 01/04/17 at 08:00 Trazodone HCl (Desyrel) 50 mg QHS PO Last administered on 01/11/17 21:01; Start 01/04/17 at 21:00 Vitamin D (Vitamin D3) 1,000 unit DAILY PO Last administered on 01/12/17 10: 47; Start 01/04/17 at 09:00 Docusate Sodium (Colace) 100 mg PRN DAILY PRN PO CONSTIPATION; Start 01/04/17 at 09:00 Losartan Potassium (Cozaar) 100 mg DAILY PO Last administered on 01/12/17 10: 46; Start 01/04/17 at 09:00 Non-Formulary Medication 1 tab QHS PO ; Start 01/04/17 at 21:00; Status UNV Non-Formulary Medication 1 tab DAILY PO ; Start 01/04/17 at 09:00; Status UNV Potassium Chloride (Klor-Con) 20 meq DAILYWBKFT PO Last administered on 10:46; Start 01/04/17 at 08:30 Carvedilol (Coreg) 6.25 mg BIDWMEALS PO Last administered on 01/06/17 08:58; Start 01/04/17 at 09:00; Stop 01/06/17 at 12:28; Status DC Cefazolin Sodium 1 gm/Sodium Chloride 500 ml @ 500 mls/hr 1X PERIOP ONCE IRR Last administered on 01/04/17 16:38; Start 01/04/17 at 14:30; Stop 01/04/17 at 15:29; Status DC Heparin Sodium (Porcine) 5000 unit/Sodium Chloride 505 ml @ 505 mls/hr 1X PERIOP ONCE IRR Last administered on 01/04/17 16:38; Start 01/04/17 at 14: 30; Stop 01/04/17 at 15:29; Status DC Furosemide (Lasix) 40 mg 1X ONCE IVP ; Start 01/04/17 at 16:00; Stop at 16:01; Status DC Albumin Human 100 ml @ 100 mls/hr 1X ONCE IV Last administered on 01/04/17 18:52; Start 01/04/17 at 16:00; Stop 01/04/17 at 16:59; Status DC Albumin Human 100 ml @ 100 mls/hr 1X ONCE IV Last administered on 01/04/17 19:16; Start 01/04/17 at 16:00; Stop 01/04/17 at 16:59; Status DC Furosemide (Lasix) 20 mg 1X ONCE IVP Last administered on 01/04/17 21:16; Start 01/04/17 at 18:45; Stop 01/04/17 at 18:46; Status DC Sodium Chloride (Normal Saline Flush) 10 ml QSHIFT PRN IV AFTER MEDS AND BLOOD DRAWS; Start 01/05/17 at 05:45 Warfarin Sodium (Coumadin Per Pharmacy) 1 each PRN DAILY PRN MC SEE COMMENTS Last administered on 01/09/17 12:43; Start 01/05/17 at 16:45; Stop 01/09/17 at 13:19; Status DC Warfarin Sodium (Coumadin) 5 mg 1X WARF ONCE PO Last administered on 17:02; Start 01/05/17 at 17:00; Stop 01/05/17 at 17:01; Status DC Potassium Chloride 50 ml @ 50 mls/hr Q1H IV Last administered on 01/06/17 12: 28; Start 01/06/17 at 07:30; Stop 01/06/17 at 09:29; Status DC Warfarin Sodium (Coumadin) 4 mg 1X WARF ONCE PO Last administered on 15:48; Start 01/06/17 at 16:00; Stop 01/06/17 at 16:01; Status DC Potassium Chloride (KCl Oral Soln) 40 meq 1X ONCE PO Last administered on 18:51; Start 01/06/17 at 18:00; Stop 01/06/17 at 18:01; Status DC Furosemide (Lasix) 40 mg 1X ONCE IVP Last administered on 01/06/17 18:47; Start 01/06/17 at 18:00; Stop 01/06/17 at 18:01; Status DC Warfarin Sodium (Coumadin) 5 mg 1X WARF ONCE PO Last administered on 15:46; Start 01/07/17 at 16:00; Stop 01/07/17 at 16:01; Status DC Pantoprazole Sodium (Protonix) 40 mg DAILYAC PO Last administered on 08:59; Start 01/07/17 at 16:30 Barium Sulfate (Liquid E-Z Paque) 355 ml 1X ONCE PO Last administered on 01/08 08:35; Start 01/08/17 at 07:30; Stop 01/08/17 at 07:31; Status DC Barium Sulfate (E-Z-Hd) 340 gm 1X ONCE PO ; Start 01/08/17 at 07:30; Stop at 07:31; Status DC Simethicone/ Sodium Bicarb/ Citric Ac (E-Z-Gas) 1 packet 1X ONCE PO ; Start at 07:30; Stop 01/08/17 at 07:31; Status DC Warfarin Sodium (Coumadin) 5 mg 1X WARF ONCE PO ; Start 01/08/17 at 16:00; Stop 01/08/17 at 16:01; Status DC Sodium Monofluorophosphate (Fleet Adult) 133 ml 1X ONCE SD Last administered on 01/08/17 14:52; Start 01/08/17 at 14:30; Stop 01/08/17 at 14:34; Status DC Amino Acids/ Glycerin/ Electrolytes 1,000 ml @ 50 mls/hr Q20H IV Last administered on 01/10/17 05:43; Start 01/08/17 at 15:00; Stop 01/11/17 at 19 :39; Status DC Furosemide (Lasix) 20 mg DAILY IVP Last administered on 01/11/17 18:01; Start 01/08/17 at 15:30 Lidocaine/Sodium Bicarbonate (Buffered Lidocaine 1%) 20 ml STK-MED ONCE IJ ; Start 01/03/17 at 14:59; Stop 01/09/17 at 10:45; Status DC Iohexol (Omnipaque 300 Mg/ml) 100 ml STK-MED ONCE .ROUTE ; Start 01/04/17 at 13 :57; Stop 01/09/17 at 11:11; Status DC Propofol 20 ml @ As Directed STK-MED ONCE IV ; Start 01/04/17 at 14:49; Stop 01/09/17 at 11:12; Status DC Dexamethasone Sodium Phosphate (Decadron) 20 mg STK-MED ONCE .ROUTE ; Start at 14:49; Stop 01/09/17 at 11:12; Status DC Lidocaine HCl (Lidocaine Pf 2% Vial) 5 ml STK-MED ONCE .ROUTE ; Start 01/04/17 at 14:49; Stop 01/09/17 at 11:12; Status DC Ondansetron HCl (Zofran) 4 mg STK-MED ONCE .ROUTE ; Start 01/04/17 at 14:49; Stop 01/09/17 at 11:12; Status DC Fentanyl Citrate (Fentanyl 2ml Vial) 100 mcg STK-MED ONCE .ROUTE ; Start at 14:49; Stop 01/09/17 at 11:12; Status DC Ephedrine Sulfate (Akovaz) 50 mg STK-MED ONCE .ROUTE ; Start 01/04/17 at 16:26 ; Stop 01/09/17 at 11:13; Status DC Furosemide (Lasix) 20 mg STK-MED ONCE .ROUTE ; Start 01/04/17 at 16:30; Stop 01/09/17 at 11:13; Status DC Sevoflurane (Ultane) 90 ml STK-MED ONCE IH ; Start 01/04/17 at 17:42; Stop at 11:13; Status DC Warfarin Sodium (Coumadin) 5 mg 1X WARF ONCE PO ; Start 01/09/17 at 16:00; Stop 01/09/17 at 16:00; Status DC Ringer's Solution 1,000 ml @ 75 mls/hr 1X ONCE IV Last administered on t 11:58; Start 01/10/17 at 12:00; Stop 01/11/17 at 01:19; Status DC Propofol 20 ml @ As Directed STK-MED ONCE IV ; Start 01/10/17 at 12:36; Stop 01/10/17 at 12:37; Status DC Lidocaine HCl (Lidocaine Pf 2% Vial) 5 ml STK-MED ONCE .ROUTE ; Start 01/10/17 at 12:36; Stop 01/10/17 at 12:37; Status DC Morphine Sulfate 2 mg STK-MED ONCE .ROUTE ; Start 01/10/17 at 13:08; Stop at 13:09; Status DC Morphine Sulfate 2 mg STK-MED ONCE .ROUTE ; Start 01/10/17 at 13:10; Stop at 13:11; Status DC Oxycodone/ Acetaminophen (Percocet 10/325) 1 tab PRN Q6HRS PRN PO SEVERE PAIN Last administered on 01/12/17 00:50; Start 01/11/17 at 01:45 Oxycodone/ Acetaminophen (Percocet 5/325) 1 tab PRN Q6HRS PRN PO MODERATE PAIN Last administered on 01/12/17 04:42; Start 01/11/17 at 01:45 Clonidine HCl (Catapres) 0.1 mg PRN Q1HR PRN PO HYPERTENSION, SEE COMMENTS; Start 01/11/17 at 06:00; Status Cancel Active Scripts Active Tramadol Hcl 50 Mg Tablet 50 Mg PO PRN Q6HRS PRN Reported Novolog Flexpen (Insulin Aspart) 100 Unit/1 Ml Insuln.pen 1 Unit SQ PRN TID PRN Duoneb 0.5-3(2.5) Mg/3 Ml (Albuterol/Ipratropium) 3 Ml Ampul.neb 3 Ml NEB PRN Q4HRS PRN Famotidine 20 Mg Tablet 20 Mg PO HS Trazodone Hcl 50 Mg Tablet 1 Tab PO QHS Tamsulosin Hcl 0.4 Mg Cap.er.24h 0.4 Mg PO DAILY Melatonin 3 Mg Tablet 1 Tab PO QHS Losartan Potassium 100 Mg Tablet 100 Mg PO DAILY Colace Clear (Docusate Sodium) 50 Mg Capsule 50 Mg PO PRN DAILY PRN Aspirin 325 Mg Tablet 1 Tab PO DAILY Acetaminophen 500 Mg Tablet 500 Mg PO PRN Q6HRS PRN Vitamin D (Cholecalciferol (Vitamin D3)) 1,000 Unit Capsule 1 Cap PO DAILY Levothyroxine Sodium 112 Mcg Tablet 2 Tab PO HS Xarelto (Rivaroxaban) 10 Mg Tablet 1 Tab PO DAILY Prilosec Otc (Omeprazole Magnesium) 20 Mg Tablet.dr 1 Tab PO DAILY Metformin Hcl Er (Metformin Hcl) 500 Mg Tab.er.24h 500 Mg PO BIDWMEALS Amlodipine Besylate 10 Mg Tablet 10 Mg PO HS Simvastatin 20 Mg Tablet 20 Mg PO HS Glimepiride 2 Mg Tablet 2 Mg PO DAILY Carvedilol 3.125 Mg Tablet 6.25 Mg PO BID Potassium Chloride 10 Meq Capsule.er 20 Meq PO DAILY Vitals/I & O Vital Sign - Last 24 Hours 01/11/17 01/11/17 01/11/17 01/11/17 12:30 14:35 15:00 18:04 Temp 97.3 97.3 Pulse 86 Resp 18 B/P (MAP) 129/68 (88) Pulse Ox 100 O2 Delivery Nasal Cannula Nasal Cannula Nasal Cannula Nasal Cannula O2 Flow Rate 2.0 01/11/17 01/11/17 01/11/17 01/11/17 19:00 20:50 21:02 21:02 Temp 98.1 98.1 Pulse 71 69 Resp 18 20 B/P (MAP) 116/65 (82) 116/65 Pulse Ox 99 100 O2 Delivery Nasal Cannula Nasal Cannula Nasal Cannula O2 Flow Rate 2.0 2.0 2.0 01/11/17 01/12/17 01/12/17 01/12/17 23:00 00:50 01:02 01:56 Temp 97.7 97.7 Pulse 83 Resp 18 20 20 20 B/P (MAP) 140/69 (92) Pulse Ox 99 99 99 99 O2 Delivery Nasal Cannula Nasal Cannula Room Air Nasal Cannula O2 Flow Rate 2.0 2.0 2.0 01/12/17 01/12/17 01/12/17 01/12/17 03:01 03:01 03:59 04:05 Temp 97.5 97.5 Pulse 80 Resp 20 20 21 20 B/P (MAP) 129/61 (83) Pulse Ox 99 99 96 99 O2 Delivery Nasal Cannula Nasal Cannula Nasal Cannula Nasal Cannula O2 Flow Rate 2.0 2.0 2.0 2.0 01/12/17 01/12/17 01/12/17 01/12/17 04:05 04:42 05:27 05:45 Temp 97.5 97.5 Pulse 80 Resp 20 20 21 20 B/P (MAP) 129/61 (83) Pulse Ox 99 99 96 96 O2 Delivery Nasal Cannula Nasal Cannula Nasal Cannula Nasal Cannula O2 Flow Rate 2.0 2.0 2.0 2.0 01/12/17 01/12/17 01/12/17 01/12/17 07:00 10:44 10:46 10:47 Temp 97.8 97.8 Pulse 79 79 Resp 18 16 16 B/P (MAP) 137/62 (87) 137/62 Pulse Ox 97 93 93 O2 Delivery Nasal Cannula Nasal Cannula Nasal Cannula O2 Flow Rate 2.0 2.0 3.0 Intake and Output 01/11/17 01/11/17 01/12/17 15:00 23:00 07:00 Intake Total 420 ml 240 ml Output Total 400 ml 1000 ml Balance 20 ml -760 ml Nutrition Consultation Dietary Evaluation: Recommendations by RD: Increase Calorie Intake, Protein supplementation, PPN/ TPN Comments: continue ppn until diet advances and pt meeting > 50% needs with po intake resume ensure supplements to diet order with hx poor po intake since stroke REC mvi and vit c per wound protoca Expected Outcomes/Goals: to meet > 50% est nutr needs with po intake Malnutrition Findings: Malnutrition related to morbid: Weight 200% of ideal wt Malnutrition related to morbid: Yes Weight Status: Morbidly Obese GRETCHEN MURO MD Jan 12, 2017 11:21
--- NOTE | 2017-01-12 12:17 | PDOC ---
Infectious Disease Note Subjective Subjective Pt says feels ok, Denies SOA/CP /n/v/d/abdo pain pain is under control ROS ROS as above otherwise neg Vital Sign Vital Signs Vital Signs Date Time Temp Pulse Resp B/P (MAP) Pulse Ox O2 Delivery O2 Flow Rate FiO2 01/12/17 10:47 16 93 Nasal Cannula 3.0 01/12/17 10:46 79 137/62 01/12/17 07:00 97.8 97.8 Physical Exam PHYSICAL EXAM GENERAL: NAD, Alert HEENT: anicteric NECK: Supple, LUNGS: Clear HEART: S1S2, ABD: Soft, NT, EXT: + edema, CHILDBIRTH EDUCATOR: Alert, oriented x 3, SKIN: No rash IV: ok Labs Lab Laboratory Tests Test 01/11/17 16:45 01/11/17 21:03 01/12/17 05:25 01/12/17 07:25 Glucose (Fingerstick) 155 mg/dL (70-99) 154 mg/dL (70-99) Sodium Level 141 mmol/L (136-145) Potassium Level 4.1 mmol/L (3.5-5.1) Chloride Level 108 mmol/L (98-107) Carbon Dioxide Level 28 mmol/L (21-32) Anion Gap 5 (6-14) Blood Urea Nitrogen 9 mg/dL (7-20) Creatinine 0.4 mg/dL (0.6-1.0) Estimated GFR (Cockcroft-Gault) 150.3 Glucose Level 120 mg/dL (70-99) Calcium Level 7.6 mg/dL (8.5-10.1) White Blood Count 6.3 x10^3/uL (4.0-11.0) Red Blood Count 3.49 x10^6/uL (3.50-5.40) Hemoglobin 9.8 g/dL (12.0-15.5) Hematocrit 31.1 % (36.0-47.0) Mean Corpuscular Volume 89 fL (79-100) Mean Corpuscular Hemoglobin 28 pg (25-35) Mean Corpuscular Hemoglobin Concent 31 g/dL (31-37) Red Cell Distribution Width 16.6 % (11.5-14.5) Platelet Count 105 x10^3/uL (140-400) Neutrophils (%) (Auto) 33 % (31-73) Lymphocytes (%) (Auto) 58 % (24-48) Monocytes (%) (Auto) 6 % (0-9) Eosinophils (%) (Auto) 3 % (0-3) Basophils (%) (Auto) 0 % (0-3) Neutrophils # (Auto) 2.1 x10^3uL (1.8-7.7) Lymphocytes # (Auto) 3.7 x10^3/uL (1.0-4.8) Monocytes # (Auto) 0.4 x10^3/uL (0.0-1.1) Eosinophils # (Auto) 0.2 x10^3/uL (0.0-0.7) Basophils # (Auto) 0.0 x10^3/uL (0.0-0.2) Prothrombin Time 16.2 SEC (11.7-14.0) Prothromb Time International Ratio 1.4 (0.8-1.1) Test 01/12/17 08:08 01/12/17 11:24 Glucose (Fingerstick) 103 mg/dL (70-99) 126 mg/dL (70-99) Micro RUN DATE: 01/07/17 PAGE 1 RUN TIME: 1110 [facility] [address] [place] [address] Ger Melo M.D., [employer] PATIENT: JIGNA CRESPO I ACCT: [id number] LOC: [address] [place] [address] U : [id number] AGE/SX: 89/F ROOM: 205 REG : 01/02/[address]: ZAHIRA KEYES MD : 1925 BED: 1 DIS : STATUS: ADM IN TLOC: SPEC #: [id number] FAROOQ: 01/03/17 STATUS: RES REQ #: [id number] RECD: 01/03/[address]: ZAHIRA KEYES MD SOURCE: LEG ENTR: 01/03/171232 [facility] DR: ZAKI ALBA II, MD [facility]: CHRISTY BANDA MD, GLENN A MD ORDERED: ANAER-AERO CULT Procedure Result ANAEROBIC-AEROBIC CULTURE PENDING ANAEROBIC RES 1 PENDING AEROBIC CULT Final Final report AEROBIC RES 1 Final Comment Pseudomonas aeruginosa Moderate growth AEROBIC RES 2 Final Morganella morganii Moderate growth AEROBIC RES 3 Final Staphylococcus aureus Heavy growth Based on resistance to penicillin and susceptibility to oxacillin this isolate would be susceptible to: * Penicillinase-stable penicillins; such as: Cloxacillin Dicloxacillin Nafcillin * Beta-lactam/beta-lactamase inhibitor combinations; such as: Amoxicillin-clavulanic acid Ampicillin-sulbactam * Antistaphylococcal cephems; such as: Cefaclor Cefuroxime * Antistaphylococcal carbapenems; such as: Imipenem Objective Assessment Extensive left leg infection s/p AKA, 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
--- NOTE | 2017-01-12 12:18 | PDOC ---
Objective: Objective: D/w RN - no GI concerns, swallowing okay. Vital Signs: Vital Signs Date Time Temp Pulse Resp B/P (MAP) Pulse Ox O2 Delivery O2 Flow Rate FiO2 01/12/17 10:47 16 93 Nasal Cannula 3.0 01/12/17 10:46 79 137/62 01/12/17 07:00 97.8 97.8 Labs: Laboratory Tests Test 01/11/17 16:45 01/11/17 21:03 01/12/17 08:08 01/12/17 11:24 Glucose (Fingerstick) 155 mg/dL (70-99) 154 mg/dL (70-99) 103 mg/dL (70-99) 126 mg/dL (70-99) PE: GEN: NAD NEURO/PSYCH: asleep, did not awaken A/P: Dysphagia - improved s/p dilation mild GE stricture, has presbyesophagus -- Improved GI-eduardo. PAUL RAMIREZ Jan 12, 2017 12:18
[2017-01-12] MEDS: FUROSEMIDE 20 MG/2 ML VIAL. IVP SCH (12:49)
[2017-01-12] MEDS ORDERED: WARF4TAB7 PO (16:52)
[2017-01-12] MEDS ORDERED: WARFARIN 4 MG TABLET. PO ONE (17:00)
[2017-01-12] MEDS: ATORVASTATIN CALCIUM 10 MG TABLET. PO SCH (21:07)
[2017-01-12] MEDS: LEVOTHYROXINE 112 MCG TABLET PO SCH (21:07)
[2017-01-12] MEDS: amLODIPine BESYLATE 10 MG TABLET PO SCH (21:07)
[2017-01-12] MEDS: traZODone 50 MG TABLET. PO SCH (21:07)
[2017-01-12] MEDS: NYSTATIN TOPICAL POWDER 15GM BOTTLE. TP SCH (23:30)
[2017-01-13] VITALS (7 sets, daily range): BP systolic 111–171; BP diastolic 58–82
[2017-01-13 05:01] LABS: BASO % 1 % (0-3); EOS % 3 % (0-3); HEMATOCRIT 31.1 % (36.0-47.0); HEMOGLOBIN 9.7 g/dL (12.0-15.5); LYMPH # 3.5 x10^3/uL (1.0-4.8); LYMPH % 59 % (24-48); MEAN CORPUSCULAR HEMOGLOBIN 28 pg (25-35); MEAN CORPUSCULAR HGB CONC 31 g/dL (31-37); MEAN CORPUSCULAR VOLUME 90 fL (79-100); MONO % 7 % (0-9); NEUT % 31 % (31-73); PLATELET COUNT 102 x10^3/uL (140-400); RED BLOOD COUNT 3.45 x10^6/uL (3.50-5.40); RED CELL DISTRIBUTION WIDTH 16.9 % (11.5-14.5)
[2017-01-13 05:06] LABS: INR 1.4 (0.8-1.1); PROTHROMBIN TIME PATIENT 16.6 SEC (11.7-14.0)
[2017-01-13 05:50] LABS: CALCIUM 7.9 mg/dL (8.5-10.1)
[2017-01-13 05:51] LABS: CREATININE 0.5 mg/dL (0.6-1.0); GFR 116.2; POTASSIUM 3.9 mmol/L (3.5-5.1)
[2017-01-13] MEDS: oxyCODONE/APAP 10/325 1 TAB TABLET PO PRN ×3 (06:08→21:52)
[2017-01-13] MEDS: INSULIN ASPART 300 UNITS/3 ML INSULN.PEN SQ SCH ×3 (08:00→17:00)
[2017-01-13] MEDS: PANTOPRAZOLE 40 MG TABLET.DR. PO SCH (08:17)
[2017-01-13] MEDS: oxyCODONE IR 5 MG TABLET PO PRN ×2 (08:17→12:36)
[2017-01-13] MEDS: POTASSIUM CHLORIDE 20 MEQ TABLET.ER. PO SCH (08:17)
[2017-01-13] MEDS: TAMSULOSIN 0.4 MG CAP.ER.24H. PO SCH (08:18)
[2017-01-13] MEDS: oxyCODONE ER 10 MG TAB.ER.12H PO SCH ×2 (08:18→21:53)
[2017-01-13] MEDS: FUROSEMIDE 40 MG TABLET. PO SCH (08:18)
[2017-01-13] MEDS: LACTOBACILLUS RHAMNOSUS GG 1 CAPSULE. PO SCH ×2 (08:18→21:52)
[2017-01-13] MEDS: DOCUSATE SODIUM 100 MG CAPSULE. PO SCH ×2 (08:19→21:00)
[2017-01-13] MEDS: LOSARTAN POTASSIUM 50 MG TABLET. PO SCH (08:19)
[2017-01-13] MEDS: CHOLECALCIFEROL (VITAMIN D3) 1,000 UNIT TABLET PO SCH (08:19)
--- NOTE | 2017-01-13 08:59 | PDOC ---
Provider Note Provider Note Vascular Patient seen and examined by Dr. Youngblood S: Patient without complaints O: Alert Dressing dry and intact to left AKA site Jose Alfredo bandag jose alfredo to left arm A/P: POD #9 Left AKA Continue dry gauze dressing changes daily to left AKA Jose Alfredo and elevation left arm Will continue to follow occasionally while in hospital. Patient will need f/u with Dr. Youngblood in 2-3 weeks [phone] LAY SHAH APRN Jan 13, 2017 08:59
[2017-01-13] MEDS: NYSTATIN TOPICAL POWDER 15GM BOTTLE. TP SCH ×3 (09:13→21:54)
--- NOTE | 2017-01-13 10:36 | PDOC ---
Infectious Disease Note Subjective Subjective Pt says feels ok,tired Denies SOA/CP /n/v/d/abdo pain pain is under control ROS ROS as above otherwise neg Vital Sign Vital Signs Vital Signs Date Time Temp Pulse Resp B/P (MAP) Pulse Ox O2 Delivery O2 Flow Rate FiO2 01/13/17 09:20 Nasal Cannula 4.0 01/13/17 08:19 102 171/81 01/13/17 08:18 100 01/13/17 07:00 98.5 20 98.5 Physical Exam PHYSICAL EXAM Gen: alert and oriented, Heent anicteric Lungs clear Heart: s1s2 abdo soft Ext: LLE stump dressing c/d/i,lt arm edema + unchanged derm no gen rash Labs Lab Laboratory Tests Test 01/12/17 11:24 01/12/17 16:41 01/13/17 04:45 01/13/17 08:18 Glucose (Fingerstick) 126 mg/dL (70-99) 134 mg/dL (70-99) 126 mg/dL (70-99) White Blood Count 6.0 x10^3/uL (4.0-11.0) Red Blood Count 3.45 x10^6/uL (3.50-5.40) Hemoglobin 9.7 g/dL (12.0-15.5) Hematocrit 31.1 % (36.0-47.0) Mean Corpuscular Volume 90 fL (79-100) Mean Corpuscular Hemoglobin 28 pg (25-35) Mean Corpuscular Hemoglobin Concent 31 g/dL (31-37) Red Cell Distribution Width 16.9 % (11.5-14.5) Platelet Count 102 x10^3/uL (140-400) Neutrophils (%) (Auto) 31 % (31-73) Lymphocytes (%) (Auto) 59 % (24-48) Monocytes (%) (Auto) 7 % (0-9) Eosinophils (%) (Auto) 3 % (0-3) Basophils (%) (Auto) 1 % (0-3) Neutrophils # (Auto) 1.9 x10^3uL (1.8-7.7) Lymphocytes # (Auto) 3.5 x10^3/uL (1.0-4.8) Monocytes # (Auto) 0.4 x10^3/uL (0.0-1.1) Eosinophils # (Auto) 0.2 x10^3/uL (0.0-0.7) Basophils # (Auto) 0.0 x10^3/uL (0.0-0.2) Prothrombin Time 16.6 SEC (11.7-14.0) Prothromb Time International Ratio 1.4 (0.8-1.1) Sodium Level 144 mmol/L (136-145) Potassium Level 3.9 mmol/L (3.5-5.1) Chloride Level 107 mmol/L (98-107) Carbon Dioxide Level 30 mmol/L (21-32) Anion Gap 7 (6-14) Blood Urea Nitrogen 8 mg/dL (7-20) Creatinine 0.5 mg/dL (0.6-1.0) Estimated GFR (Cockcroft-Gault) 116.2 Glucose Level 108 mg/dL (70-99) Calcium Level 7.9 mg/dL (8.5-10.1) Micro RUN DATE: 01/07/17 PAGE 1 RUN TIME: 1110 [facility] [address] [place] [address] Ger Melo M.D., [employer] Professional PATIENT: JIGNA CRESPO I ACCT: [id number] LOC: [address] [place] [address] U : [id number] AGE/SX: 89/F ROOM: 205 REG : 01/02/[address]: ZAHIRA KEYES MD : 1925 BED: 1 DIS : STATUS: ADM IN TLOC: SPEC #: [id number] FAROOQ: 01/03/17 STATUS: RES REQ #: [id number] RECD: 01/03/[address] [facility] DR: ZAHIRA KEYES MD SOURCE: LEG ENTR: 01/03/17-1232 [facility] DR: ZAKI ALBA II, MD [facility]: CHRISTY BANDA MD, GLENN A MD ORDERED: ANAER-AERO CULT Procedure Result ANAEROBIC-AEROBIC CULTURE PENDING ANAEROBIC RES 1 PENDING AEROBIC CULT Final Final report AEROBIC RES 1 Final Comment Pseudomonas aeruginosa Moderate growth AEROBIC RES 2 Final Morganella morganii Moderate growth AEROBIC RES 3 Final Staphylococcus aureus Heavy growth Based on resistance to penicillin and susceptibility to oxacillin this isolate would be susceptible to: * Penicillinase-stable penicillins; such as: Cloxacillin Dicloxacillin Nafcillin * Beta-lactam/beta-lactamase inhibitor combinations; such as: Amoxicillin-clavulanic acid Ampicillin-sulbactam * Antistaphylococcal cephems; such as: Cefaclor Cefuroxime * Antistaphylococcal carbapenems; such as: Imipenem Objective Assessment Extensive left leg infection s/p AKA, 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
--- NOTE | 2017-01-13 13:32 | PDOC ---
PROGRESS NOTES Chief Complaint Chief Complaint left infection History of Present Illness History of Present Illness S: There were no acute events over night. She is up to the chair today. Breathing comfortably. ASSESSMENT: Left leg infection Ischemic leg Compartment syndrome Dysphagia Obesity Diabetes Hypertension Atrial fibrillation CVA PLAN: Wean O2 to room air. Encouraged IS. Continue inpt care over the weekend to continue working on optimizing respiratory status. Appreciate pulmonary help. Continue inpt care, vitals monitoring Encouraged po intake, including protein supplements Appreciate all consults: vascular surgery, ID, pulmonary, GI Anticipate discharge to SNF early next week. d/w nurse and SW Vitals Vitals Vital Signs Date Time Temp Pulse Resp B/P (MAP) Pulse Ox O2 Delivery O2 Flow Rate FiO2 01/13/17 11:50 97.9 118 20 111/58 (75) 100 Nasal Cannula 4.0 97.9 Physical Exam Physical Exam Gen: alert and oriented, debilitated, up to the chair Eyes: no conjunctival injection, sclera anicteric Neuro: alert, generally oriented Lungs: diminished bilaterally anteriorly Heart: nl rate Ext: LLE stump dressing c/d/i Labs LABS Laboratory Tests Test 01/12/17 16:41 01/13/17 04:45 01/13/17 08:18 01/13/17 11:26 Glucose (Fingerstick) 134 mg/dL (70-99) 126 mg/dL (70-99) 149 mg/dL (70-99) White Blood Count 6.0 x10^3/uL (4.0-11.0) Red Blood Count 3.45 x10^6/uL (3.50-5.40) Hemoglobin 9.7 g/dL (12.0-15.5) Hematocrit 31.1 % (36.0-47.0) Mean Corpuscular Volume 90 fL (79-100) Mean Corpuscular Hemoglobin 28 pg (25-35) Mean Corpuscular Hemoglobin Concent 31 g/dL (31-37) Red Cell Distribution Width 16.9 % (11.5-14.5) Platelet Count 102 x10^3/uL (140-400) Neutrophils (%) (Auto) 31 % (31-73) Lymphocytes (%) (Auto) 59 % (24-48) Monocytes (%) (Auto) 7 % (0-9) Eosinophils (%) (Auto) 3 % (0-3) Basophils (%) (Auto) 1 % (0-3) Neutrophils # (Auto) 1.9 x10^3uL (1.8-7.7) Lymphocytes # (Auto) 3.5 x10^3/uL (1.0-4.8) Monocytes # (Auto) 0.4 x10^3/uL (0.0-1.1) Eosinophils # (Auto) 0.2 x10^3/uL (0.0-0.7) Basophils # (Auto) 0.0 x10^3/uL (0.0-0.2) Prothrombin Time 16.6 SEC (11.7-14.0) Prothromb Time International Ratio 1.4 (0.8-1.1) Sodium Level 144 mmol/L (136-145) Potassium Level 3.9 mmol/L (3.5-5.1) Chloride Level 107 mmol/L (98-107) Carbon Dioxide Level 30 mmol/L (21-32) Anion Gap 7 (6-14) Blood Urea Nitrogen 8 mg/dL (7-20) Creatinine 0.5 mg/dL (0.6-1.0) Estimated GFR (Cockcroft-Gault) 116.2 Glucose Level 108 mg/dL (70-99) Calcium Level 7.9 mg/dL (8.5-10.1) Comment Review of Relevant I have reviewed the following items madhav (where applicable) has been applied. Labs Laboratory Tests Test 01/11/17 16:45 01/11/17 21:03 01/12/17 05:25 01/12/17 07:25 Glucose (Fingerstick) 155 mg/dL (70-99) 154 mg/dL (70-99) Sodium Level 141 mmol/L (136-145) Potassium Level 4.1 mmol/L (3.5-5.1) Chloride Level 108 mmol/L (98-107) Carbon Dioxide Level 28 mmol/L (21-32) Anion Gap 5 (6-14) Blood Urea Nitrogen 9 mg/dL (7-20) Creatinine 0.4 mg/dL (0.6-1.0) Estimated GFR (Cockcroft-Gault) 150.3 Glucose Level 120 mg/dL (70-99) Calcium Level 7.6 mg/dL (8.5-10.1) White Blood Count 6.3 x10^3/uL (4.0-11.0) Red Blood Count 3.49 x10^6/uL (3.50-5.40) Hemoglobin 9.8 g/dL (12.0-15.5) Hematocrit 31.1 % (36.0-47.0) Mean Corpuscular Volume 89 fL (79-100) Mean Corpuscular Hemoglobin 28 pg (25-35) Mean Corpuscular Hemoglobin Concent 31 g/dL (31-37) Red Cell Distribution Width 16.6 % (11.5-14.5) Platelet Count 105 x10^3/uL (140-400) Neutrophils (%) (Auto) 33 % (31-73) Lymphocytes (%) (Auto) 58 % (24-48) Monocytes (%) (Auto) 6 % (0-9) Eosinophils (%) (Auto) 3 % (0-3) Basophils (%) (Auto) 0 % (0-3) Neutrophils # (Auto) 2.1 x10^3uL (1.8-7.7) Lymphocytes # (Auto) 3.7 x10^3/uL (1.0-4.8) Monocytes # (Auto) 0.4 x10^3/uL (0.0-1.1) Eosinophils # (Auto) 0.2 x10^3/uL (0.0-0.7) Basophils # (Auto) 0.0 x10^3/uL (0.0-0.2) Prothrombin Time 16.2 SEC (11.7-14.0) Prothromb Time International Ratio 1.4 (0.8-1.1) Test 01/12/17 08:08 01/12/17 11:24 01/12/17 16:41 01/13/17 04:45 Glucose (Fingerstick) 103 mg/dL (70-99) 126 mg/dL (70-99) 134 mg/dL (70-99) White Blood Count 6.0 x10^3/uL (4.0-11.0) Red Blood Count 3.45 x10^6/uL (3.50-5.40) Hemoglobin 9.7 g/dL (12.0-15.5) Hematocrit 31.1 % (36.0-47.0) Mean Corpuscular Volume 90 fL (79-100) Mean Corpuscular Hemoglobin 28 pg (25-35) Mean Corpuscular Hemoglobin Concent 31 g/dL (31-37) Red Cell Distribution Width 16.9 % (11.5-14.5) Platelet Count 102 x10^3/uL (140-400) Neutrophils (%) (Auto) 31 % (31-73) Lymphocytes (%) (Auto) 59 % (24-48) Monocytes (%) (Auto) 7 % (0-9) Eosinophils (%) (Auto) 3 % (0-3) Basophils (%) (Auto) 1 % (0-3) Neutrophils # (Auto) 1.9 x10^3uL (1.8-7.7) Lymphocytes # (Auto) 3.5 x10^3/uL (1.0-4.8) Monocytes # (Auto) 0.4 x10^3/uL (0.0-1.1) Eosinophils # (Auto) 0.2 x10^3/uL (0.0-0.7) Basophils # (Auto) 0.0 x10^3/uL (0.0-0.2) Prothrombin Time 16.6 SEC (11.7-14.0) Prothromb Time International Ratio 1.4 (0.8-1.1) Sodium Level 144 mmol/L (136-145) Potassium Level 3.9 mmol/L (3.5-5.1) Chloride Level 107 mmol/L (98-107) Carbon Dioxide Level 30 mmol/L (21-32) Anion Gap 7 (6-14) Blood Urea Nitrogen 8 mg/dL (7-20) Creatinine 0.5 mg/dL (0.6-1.0) Estimated GFR (Cockcroft-Gault) 116.2 Glucose Level 108 mg/dL (70-99) Calcium Level 7.9 mg/dL (8.5-10.1) Test 01/13/17 08:18 01/13/17 11:26 Glucose (Fingerstick) 126 mg/dL (70-99) 149 mg/dL (70-99) Laboratory Tests Test 01/12/17 16:41 01/13/17 04:45 01/13/17 08:18 01/13/17 11:26 Glucose (Fingerstick) 134 mg/dL (70-99) 126 mg/dL (70-99) 149 mg/dL (70-99) White Blood Count 6.0 x10^3/uL (4.0-11.0) Red Blood Count 3.45 x10^6/uL (3.50-5.40) Hemoglobin 9.7 g/dL (12.0-15.5) Hematocrit 31.1 % (36.0-47.0) Mean Corpuscular Volume 90 fL (79-100) Mean Corpuscular Hemoglobin 28 pg (25-35) Mean Corpuscular Hemoglobin Concent 31 g/dL (31-37) Red Cell Distribution Width 16.9 % (11.5-14.5) Platelet Count 102 x10^3/uL (140-400) Neutrophils (%) (Auto) 31 % (31-73) Lymphocytes (%) (Auto) 59 % (24-48) Monocytes (%) (Auto) 7 % (0-9) Eosinophils (%) (Auto) 3 % (0-3) Basophils (%) (Auto) 1 % (0-3) Neutrophils # (Auto) 1.9 x10^3uL (1.8-7.7) Lymphocytes # (Auto) 3.5 x10^3/uL (1.0-4.8) Monocytes # (Auto) 0.4 x10^3/uL (0.0-1.1) Eosinophils # (Auto) 0.2 x10^3/uL (0.0-0.7) Basophils # (Auto) 0.0 x10^3/uL (0.0-0.2) Prothrombin Time 16.6 SEC (11.7-14.0) Prothromb Time International Ratio 1.4 (0.8-1.1) Sodium Level 144 mmol/L (136-145) Potassium Level 3.9 mmol/L (3.5-5.1) Chloride Level 107 mmol/L (98-107) Carbon Dioxide Level 30 mmol/L (21-32) Anion Gap 7 (6-14) Blood Urea Nitrogen 8 mg/dL (7-20) Creatinine 0.5 mg/dL (0.6-1.0) Estimated GFR (Cockcroft-Gault) 116.2 Glucose Level 108 mg/dL (70-99) Calcium Level 7.9 mg/dL (8.5-10.1) Microbiology 01/03/17 Gram Stain - Final, Complete Medications Current Medications Oxycodone HCl (Roxicodone) 5 mg PRN Q4HRS PRN PO BREAKTHROUGH PAIN Last administered on 01/13/17 12:36; Start 01/02/17 at 18:15 Oxycodone HCl (OxyCONTIN) 10 mg Q12HR PO Last administered on 01/13/17 08:18; Start 01/02/17 at 21:00 Amlodipine Besylate (Norvasc) 5 mg HS PO Last administered on 01/02/17 22:28 ; Start 01/02/17 at 21:00; Stop 01/04/17 at 08:03; Status DC Tamsulosin HCl (Flomax) 0.4 mg DAILY PO Last administered on 01/13/17 08:18; Start 01/03/17 at 09:00 Polyethylene Glycol (miraLAX PACKET) 17 gm PRN DAILY PRN PO CONSTIPATION Last administered on 01/12/17 10:43; Start 01/02/17 at 18:30 Ondansetron HCl (Zofran) 4 mg PRN Q6HRS PRN IV NAUSEA/VOMITING Last administered on 01/12/17 01:59; Start 01/02/17 at 18:30 Lorazepam (Ativan) 2 mg PRN Q12HR PRN IV ANXIETY / AGITATION Last administered on 01/06/17 22:42; Start 01/02/17 at 18:30 Metoprolol Tartrate (Lopressor) 25 mg BID PO Last administered on 01/02/17 22 :29; Start 01/02/17 at 21:00; Stop 01/04/17 at 08:03; Status DC Silver Nitrate/ Potassium Nitrate 1 each 1X ONCE TP ; Start 01/02/17 at 18:45 ; Stop 01/02/17 at 18:46; Status DC Famotidine (Pepcid) 20 mg DAILY PO ; Start 01/03/17 at 09:00; Stop 01/04/17 at 08:05; Status DC Trazodone HCl (Desyrel) 50 mg QHS PO Last administered on 01/02/17 22:28; Start 01/02/17 at 21:00; Stop 01/04/17 at 08:04; Status DC Levothyroxine Sodium (Synthroid) 112 mcg DAILY07 PO ; Start 01/03/17 at 07:00; Stop 01/04/17 at 08:05; Status DC Lactobacillus Rhamnosus (Culturelle) 1 cap BID PO Last administered on 08:18; Start 01/02/17 at 21:00 Sodium Chloride 1,000 ml @ 75 mls/hr [id number] IV Last administered on 14:53; Start 01/02/17 at 19:00; Stop 01/11/17 at 11:52; Status DC Sodium Chloride (Normal Saline Flush 3ml) 10 ml PRN Q12HRS PRN IV AFTER MEDS AND BLOOD DRAWS; Start 01/02/17 at 18:30; Stop 01/05/17 at 05:38; Status DC Insulin Aspart (NovoLOG) 0-9 UNITS TIDWMEALS SQ Last administered on 18:12; Start 01/03/17 at 19:00 Dextrose (Dextrose 50%-Water Syringe) 12.5 gm PRN Q15MIN PRN IV SEE COMMENTS; Start 01/02/17 at 18:45 Docusate Sodium (Colace) 100 mg BID PO Last administered on 01/13/17 08:19; Start 01/02/17 at 21:00 Bisacodyl (Dulcolax Supp) 10 mg PRN DAILY PRN [place] CONSTIPATION; Start 01/02/17 at 18:45 Atorvastatin Calcium (Lipitor) 10 mg QHS PO Last administered on 01/12/17 21: 07; Start 01/02/17 at 21:00 Aspirin (Lucas Aspirin) 325 mg DAILYWBKFT PO ; Start 01/03/17 at 08:00; Stop 01/03/17 at 16:35; Status DC Acetaminophen (Tylenol) 500 mg PRN Q6HRS PRN PO MILD PAIN / TEMP; Start at 18:45; Stop 01/04/17 at 12:28; Status DC Morphine Sulfate 2 mg PRN Q2HR PRN IV PAIN Last administered on 01/03/17 22: 41; Start 01/02/17 at 21:15; Stop 01/03/17 at 23:26; Status DC Morphine Sulfate 4 mg PRN Q2HR PRN IV PAIN Last administered on 01/03/17 20: 22; Start 01/02/17 at 21:15; Stop 01/03/17 at 23:56; Status DC Piperacillin Sod/ Tazobactam Sod 3.375 gm/Dextrose 50 ml @ 100 mls/hr Q6HRS IV ; Start 01/03/17 at 12:00; Status UNV Linezolid 300 ml @ 300 mls/hr Q12HR IV Last administered on 01/07/17 09:29; Start 01/03/17 at 11:00; Stop 01/07/17 at 12:55; Status DC Phytonadione 10 mg/Dextrose 51 ml @ 102 mls/hr 1X ONCE IV ; Start 01/03/17 at 11:00; Stop 01/03/17 at 11:00; Status DC Piperacillin Sod/ Tazobactam Sod (Zosyn) 3.375 gm Q6HRS IVP Last administered on 01/08/17 06:09; Start 01/03/17 at 12:00; Stop 01/08/17 at 11:26; Status DC Furosemide (Lasix) 40 mg 1X ONCE IVP Last administered on 01/03/17 11:44; Start 01/03/17 at 11:45; Stop 01/03/17 at 11:46; Status DC Lidocaine/Sodium Bicarbonate (Buffered Lidocaine 1%) 3 ml 1X ONCE IJ Last administered on 01/03/17 15:57; Start 01/03/17 at 15:30; Stop 01/03/17 at 15 :31; Status DC Lidocaine/Sodium Bicarbonate (Buffered Lidocaine 1%) 3 ml 1X ONCE IJ ; Start 01/03/17 at 15:45; Stop 01/03/17 at 15:46; Status DC Phytonadione (Vitamin K Ampule) 10 mg 1X ONCE SQ Last administered on 17:56; Start 01/03/17 at 16:30; Stop 01/03/17 at 16:35; Status DC Ondansetron HCl (Zofran) 4 mg PRN Q6HRS PRN IV NAUSEA/VOMITING; Start at 07:00; Stop 01/05/17 at 06:59; Status DC Fentanyl Citrate (Fentanyl 2ml Vial) 25 mcg PRN Q5MIN PRN IV MILD PAIN; Start 01/04/17 at 07:00; Stop 01/05/17 at 06:59; Status DC Fentanyl Citrate (Fentanyl 2ml Vial) 50 mcg PRN Q5MIN PRN IV MODERATE PAIN; Start 01/04/17 at 07:00; Stop 01/05/17 at 06:59; Status DC Ringer's Solution 1,000 ml @ 30 mls/hr Q24H IV Last administered on 09:24; Start 01/04/17 at 07:00; Stop 01/04/17 at 18:59; Status DC Lidocaine HCl (Xylocaine-Mpf 1% Vial) 2 ml PRN 1X PRN ID PRIOR TO IV START; Start 01/04/17 at 07:00; Stop 01/05/17 at 06:59; Status DC Prochlorperazine Edisylate (Compazine) 5 mg PACU PRN PRN IV NAUSEA, MRX1; Start 01/04/17 at 07:00; Stop 01/05/17 at 06:59; Status DC Morphine Sulfate 2 mg PRN Q2HR PRN IV MODERATE PAIN; Start 01/03/17 at 23:30 Morphine Sulfate 4 mg PRN Q2HR PRN IV SEVERE PAIN Last administered on 20:50; Start 01/03/17 at 23:56 Acetaminophen (Tylenol) 500 mg PRN Q6HRS PRN PO MILD PAIN Last administered on 01/12/17 04:42; Start 01/04/17 at 08:00 Amlodipine Besylate (Norvasc) 10 mg HS PO Last administered on 01/12/17 21:07 ; Start 01/04/17 at 21:00 Carvedilol (Coreg) 6.25 mg BIDWMEALS PO ; Start 01/04/17 at 09:00; Status Cancel Famotidine (Pepcid) 20 mg HS PO Last administered on 01/06/17 20:48; Start 01/04/17 at 21:00; Stop 01/07/17 at 14:56; Status DC Albuterol/ Ipratropium (Duoneb) 3 ml PRN Q4HRS PRN NEB SHORTNESS OF BREATH; Start 01/04/17 at 08:00 Levothyroxine Sodium (Synthroid) 224 mcg HS PO Last administered on 01/12/17 21:07; Start 01/04/17 at 21:00 Metoprolol Tartrate (Lopressor) 25 mg BID PO ; Start 01/04/17 at 09:00; Status Cancel Simvastatin (Zocor) 20 mg HS PO ; Start 01/04/17 at 21:00; Status UNV Tamsulosin HCl (Flomax) 0.4 mg DAILY PO ; Start 01/04/17 at 09:00; Status UNV Tramadol HCl (Ultram) 50 mg PRN Q6HRS PRN PO MILD PAIN, 2ND CHOICE Last administered on 01/12/17 19:48; Start 01/04/17 at 08:00 Trazodone HCl (Desyrel) 50 mg QHS PO Last administered on 01/12/17 21:07; Start 01/04/17 at 21:00 Vitamin D (Vitamin D3) 1,000 unit DAILY PO Last administered on 01/13/17 08:19 ; Start 01/04/17 at 09:00 Docusate Sodium (Colace) 100 mg PRN DAILY PRN PO CONSTIPATION; Start 01/04/17 at 09:00 Losartan Potassium (Cozaar) 100 mg DAILY PO Last administered on 01/13/17 08: 19; Start 01/04/17 at 09:00 Non-Formulary Medication 1 tab QHS PO ; Start 01/04/17 at 21:00; Status UNV Non-Formulary Medication 1 tab DAILY PO ; Start 01/04/17 at 09:00; Status UNV Potassium Chloride (Klor-Con) 20 meq DAILYWBKFT PO Last administered on 08:17; Start 01/04/17 at 08:30 Carvedilol (Coreg) 6.25 mg BIDWMEALS PO Last administered on 01/06/17 08:58; Start 01/04/17 at 09:00; Stop 01/06/17 at 12:28; Status DC Cefazolin Sodium 1 gm/Sodium Chloride 500 ml @ 500 mls/hr 1X PERIOP ONCE IRR Last administered on 01/04/17 16:38; Start 01/04/17 at 14:30; Stop 01/04/17 at 15:29; Status DC Heparin Sodium (Porcine) 5000 unit/Sodium Chloride 505 ml @ 505 mls/hr 1X PERIOP ONCE IRR Last administered on 01/04/17 16:38; Start 01/04/17 at 14: 30; Stop 01/04/17 at 15:29; Status DC Furosemide (Lasix) 40 mg 1X ONCE IVP ; Start 01/04/17 at 16:00; Stop at 16:01; Status DC Albumin Human 100 ml @ 100 mls/hr 1X ONCE IV Last administered on 01/04/17 18:52; Start 01/04/17 at 16:00; Stop 01/04/17 at 16:59; Status DC Albumin Human 100 ml @ 100 mls/hr 1X ONCE IV Last administered on 01/04/17 19:16; Start 01/04/17 at 16:00; Stop 01/04/17 at 16:59; Status DC Furosemide (Lasix) 20 mg 1X ONCE IVP Last administered on 01/04/17 21:16; Start 01/04/17 at 18:45; Stop 01/04/17 at 18:46; Status DC Sodium Chloride (Normal Saline Flush) 10 ml QSHIFT PRN IV AFTER MEDS AND BLOOD DRAWS; Start 01/05/17 at 05:45 Warfarin Sodium (Coumadin Per Pharmacy) 1 each PRN DAILY PRN MC SEE COMMENTS Last administered on 01/09/17 12:43; Start 01/05/17 at 16:45; Stop 01/09/17 at 13:19; Status DC Warfarin Sodium (Coumadin) 5 mg 1X WARF ONCE PO Last administered on 17:02; Start 01/05/17 at 17:00; Stop 01/05/17 at 17:01; Status DC Potassium Chloride 50 ml @ 50 mls/hr Q1H IV Last administered on 01/06/17 12: 28; Start 01/06/17 at 07:30; Stop 01/06/17 at 09:29; Status DC Warfarin Sodium (Coumadin) 4 mg 1X WARF ONCE PO Last administered on 15:48; Start 01/06/17 at 16:00; Stop 01/06/17 at 16:01; Status DC Potassium Chloride (KCl Oral Soln) 40 meq 1X ONCE PO Last administered on 18:51; Start 01/06/17 at 18:00; Stop 01/06/17 at 18:01; Status DC Furosemide (Lasix) 40 mg 1X ONCE IVP Last administered on 01/06/17 18:47; Start 01/06/17 at 18:00; Stop 01/06/17 at 18:01; Status DC Warfarin Sodium (Coumadin) 5 mg 1X WARF ONCE PO Last administered on 15:46; Start 01/07/17 at 16:00; Stop 01/07/17 at 16:01; Status DC Pantoprazole Sodium (Protonix) 40 mg DAILYAC PO Last administered on 01/13/17 08:17; Start 01/07/17 at 16:30 Barium Sulfate (Liquid E-Z Paque) 355 ml 1X ONCE PO Last administered on 01/08 08:35; Start 01/08/17 at 07:30; Stop 01/08/17 at 07:31; Status DC Barium Sulfate (E-Z-Hd) 340 gm 1X ONCE PO ; Start 01/08/17 at 07:30; Stop at 07:31; Status DC Simethicone/ Sodium Bicarb/ Citric Ac (E-Z-Gas) 1 packet 1X ONCE PO ; Start at 07:30; Stop 01/08/17 at 07:31; Status DC Warfarin Sodium (Coumadin) 5 mg 1X WARF ONCE PO ; Start 01/08/17 at 16:00; Stop 01/08/17 at 16:01; Status DC Sodium Monofluorophosphate (Fleet Adult) 133 ml 1X ONCE [place] Last administered on 01/08/17 14:52; Start 01/08/17 at 14:30; Stop 01/08/17 at 14:34; Status DC Amino Acids/ Glycerin/ Electrolytes 1,000 ml @ 50 mls/hr Q20H IV Last administered on 01/10/17 05:43; Start 01/08/17 at 15:00; Stop 01/11/17 at 19 :39; Status DC Furosemide (Lasix) 20 mg DAILY IVP Last administered on 01/12/17 12:49; Start 01/08/17 at 15:30; Stop 01/12/17 at 20:23; Status DC Lidocaine/Sodium Bicarbonate (Buffered Lidocaine 1%) 20 ml STK-MED ONCE IJ ; Start 01/03/17 at 14:59; Stop 01/09/17 at 10:45; Status DC Iohexol (Omnipaque 300 Mg/ml) 100 ml STK-MED ONCE .ROUTE ; Start 01/04/17 at 13 :57; Stop 01/09/17 at 11:11; Status DC Propofol 20 ml @ As Directed STK-MED ONCE IV ; Start 01/04/17 at 14:49; Stop 01/09/17 at 11:12; Status DC Dexamethasone Sodium Phosphate (Decadron) 20 mg STK-MED ONCE .ROUTE ; Start at 14:49; Stop 01/09/17 at 11:12; Status DC Lidocaine HCl (Lidocaine Pf 2% Vial) 5 ml STK-MED ONCE .ROUTE ; Start 01/04/17 at 14:49; Stop 01/09/17 at 11:12; Status DC Ondansetron HCl (Zofran) 4 mg STK-MED ONCE .ROUTE ; Start 01/04/17 at 14:49; Stop 01/09/17 at 11:12; Status DC Fentanyl Citrate (Fentanyl 2ml Vial) 100 mcg STK-MED ONCE .ROUTE ; Start at 14:49; Stop 01/09/17 at 11:12; Status DC Ephedrine Sulfate (Akovaz) 50 mg STK-MED ONCE .ROUTE ; Start 01/04/17 at 16:26 ; Stop 01/09/17 at 11:13; Status DC Furosemide (Lasix) 20 mg STK-MED ONCE .ROUTE ; Start 01/04/17 at 16:30; Stop 01/09/17 at 11:13; Status DC Sevoflurane (Ultane) 90 ml STK-MED ONCE IH ; Start 01/04/17 at 17:42; Stop at 11:13; Status DC Warfarin Sodium (Coumadin) 5 mg 1X WARF ONCE PO ; Start 01/09/17 at 16:00; Stop 01/09/17 at 16:00; Status DC Ringer's Solution 1,000 ml @ 75 mls/hr 1X ONCE IV Last administered on t 11:58; Start 01/10/17 at 12:00; Stop 01/11/17 at 01:19; Status DC Propofol 20 ml @ As Directed STK-MED ONCE IV ; Start 01/10/17 at 12:36; Stop 01/10/17 at 12:37; Status DC Lidocaine HCl (Lidocaine Pf 2% Vial) 5 ml STK-MED ONCE .ROUTE ; Start 01/10/17 at 12:36; Stop 01/10/17 at 12:37; Status DC Morphine Sulfate 2 mg STK-MED ONCE .ROUTE ; Start 01/10/17 at 13:08; Stop at 13:09; Status DC Morphine Sulfate 2 mg STK-MED ONCE .ROUTE ; Start 01/10/17 at 13:10; Stop at 13:11; Status DC Oxycodone/ Acetaminophen (Percocet 10/325) 1 tab PRN Q6HRS PRN PO SEVERE PAIN Last administered on 01/13/17 06:08; Start 01/11/17 at 01:45 Oxycodone/ Acetaminophen (Percocet 5/325) 1 tab PRN Q6HRS PRN PO MODERATE PAIN Last administered on 01/12/17 04:42; Start 01/11/17 at 01:45 Clonidine HCl (Catapres) 0.1 mg PRN Q1HR PRN PO HYPERTENSION, SEE COMMENTS; Start 01/11/17 at 06:00; Status Cancel Warfarin Sodium (Coumadin) 4 mg 1X WARF ONCE PO Last administered on 17:30; Start 01/12/17 at 17:00; Stop 01/12/17 at 17:01; Status DC Warfarin Sodium (Coumadin Per Pharmacy) 1 each PRN DAILY PRN MC SEE COMMENTS Last administered on 01/13/17 13:19; Start 01/12/17 at 17:00 Furosemide (Lasix) 40 mg DAILY PO Last administered on 01/13/17 08:18; Start 01/13/17 at 09:00 Nystatin (Nystop) 1 deborah TID TP Last administered on 01/13/17 09:13; Start at 23:30 Warfarin Sodium (Coumadin) 4 mg 1X WARF ONCE PO ; Start 01/13/17 at 16:00; Stop 01/13/17 at 16:01 Active Scripts Active Tramadol Hcl 50 Mg Tablet 50 Mg PO PRN Q6HRS PRN Reported Warfarin Sodium 4 Mg Tablet 4 Mg PO DAILY Novolog Flexpen (Insulin Aspart) 100 Unit/1 Ml Insuln.pen 1 Unit SQ PRN TID PRN Duoneb 0.5-3(2.5) Mg/3 Ml (Albuterol/Ipratropium) 3 Ml Ampul.neb 3 Ml NEB PRN Q4HRS PRN Famotidine 20 Mg Tablet 20 Mg PO HS Trazodone Hcl 50 Mg Tablet 1 Tab PO QHS Tamsulosin Hcl 0.4 Mg Cap.er.24h 0.4 Mg PO DAILY Melatonin 3 Mg Tablet 1 Tab PO QHS Losartan Potassium 100 Mg Tablet 100 Mg PO DAILY Colace Clear (Docusate Sodium) 50 Mg Capsule 50 Mg PO PRN DAILY PRN Aspirin 325 Mg Tablet 1 Tab PO DAILY Acetaminophen 500 Mg Tablet 500 Mg PO PRN Q6HRS PRN Vitamin D (Cholecalciferol (Vitamin D3)) 1,000 Unit Capsule 1 Cap PO DAILY Levothyroxine Sodium 112 Mcg Tablet 2 Tab PO HS Prilosec Otc (Omeprazole Magnesium) 20 Mg Tablet.dr 1 Tab PO DAILY Metformin Hcl Er (Metformin Hcl) 500 Mg Tab.er.24h 500 Mg PO BIDWMEALS Amlodipine Besylate 10 Mg Tablet 10 Mg PO HS Simvastatin 20 Mg Tablet 20 Mg PO HS Glimepiride 2 Mg Tablet 2 Mg PO DAILY Carvedilol 3.125 Mg Tablet 6.25 Mg PO BID Potassium Chloride 10 Meq Capsule.er 20 Meq PO DAILY Vitals/I & O Vital Sign - Last 24 Hours 01/12/17 01/12/17 01/12/17 01/12/17 14:05 14:47 15:00 17:31 Temp 97.7 97.7 Pulse 60 Resp 01 24 18 12 B/P (MAP) 155/79 (104) Pulse Ox 93 93 94 93 O2 Delivery Nasal Cannula Nasal Cannula Nasal Cannula O2 Flow Rate 2.0 2.0 2.0 01/12/17 01/12/17 01/12/17 01/12/17 18:31 19:00 19:40 19:48 Temp 97.7 97.7 Pulse 96 Resp 18 18 B/P (MAP) 183/83 (116) Pulse Ox 93 95 O2 Delivery Nasal Cannula Nasal Cannula Nasal Cannula O2 Flow Rate 2.0 2.0 2.0 01/12/17 01/12/17 01/12/1730/17 20:50 21:05 21:07 23:00 Temp 97.9 97.9 Pulse 96 92 Resp 18 18 18 B/P (MAP) 183/83 161/81 (107) Pulse Ox 92 O2 Delivery Nasal Cannula Nasal Cannula Nasal Cannula O2 Flow Rate 2.0 2.0 2.0 01/13/17 01/13/17 01/13/17 01/13/17 03:00 06:08 07:00 07:05 Temp 97.8 98.5 97.8 98.5 Pulse 65 102 95 Resp 18 18 20 B/P (MAP) 127/73 (91) 171/81 (111) 151/69 (96) Pulse Ox 93 100 O2 Delivery Nasal Cannula Nasal Cannula O2 Flow Rate 2.0 4.0 01/13/17 01/13/17 01/13/17 01/13/17 07:40 07:41 08:17 08:18 Pulse Ox 100 100 O2 Delivery Nasal Cannula Nasal Cannula Nasal Cannula Nasal Cannula O2 Flow Rate 2.0 2.0 4.0 4.0 01/13/17 01/13/17 01/13/17 08:19 09:20 11:50 Temp 97.9 97.9 Pulse 102 118 Resp 20 B/P (MAP) 171/81 111/58 (75) Pulse Ox 100 O2 Delivery Nasal Cannula Nasal Cannula O2 Flow Rate 4.0 4.0 Intake and Output 01/12/17 01/12/17 01/13/17 15:00 23:00 07:00 Output Total 550 ml Balance -550 ml Nutrition Consultation Dietary Evaluation: Recommendations by RD: Increase Calorie Intake, Protein supplementation Comments: continue diet and supplements at this time pt may benefit from mvi and vit c for wound healing Expected Outcomes/Goals: to meet > 50% est nutr needs with po intake - goal ongoing Malnutrition Findings: Malnutrition related to morbid: Weight 200% of ideal wt Malnutrition related to morbid: Yes Weight Status: Morbidly Obese GRETCHEN MURO MD Jan 13, 2017 13:32
--- NOTE | 2017-01-13 14:36 | PDOC ---
PULMONARY PROGRESS NOTES Subjective NO SOA COUGH IS BETTER Vitals Vital Signs Date Time Temp Pulse Resp B/P (MAP) Pulse Ox O2 Delivery O2 Flow Rate FiO2 01/13/17 11:50 97.9 118 20 111/58 (75) 100 Nasal Cannula 4.0 97.9 ROS: No Nausea, No Chest Pain, No Abdominal Pain, No Increase Cough General: Alert, No acute distress Cardiovascular: S1, S2 Abdomen: Soft Neuro Exam: Alert Extremities: Other (NO CHANGE) Skin: Warm Labs Laboratory Tests Test 01/11/17 16:45 01/11/17 21:03 01/12/17 05:25 01/12/17 07:25 Glucose (Fingerstick) 155 mg/dL (70-99) 154 mg/dL (70-99) Sodium Level 141 mmol/L (136-145) Potassium Level 4.1 mmol/L (3.5-5.1) Chloride Level 108 mmol/L (98-107) Carbon Dioxide Level 28 mmol/L (21-32) Anion Gap 5 (6-14) Blood Urea Nitrogen 9 mg/dL (7-20) Creatinine 0.4 mg/dL (0.6-1.0) Estimated GFR (Cockcroft-Gault) 150.3 Glucose Level 120 mg/dL (70-99) Calcium Level 7.6 mg/dL (8.5-10.1) White Blood Count 6.3 x10^3/uL (4.0-11.0) Red Blood Count 3.49 x10^6/uL (3.50-5.40) Hemoglobin 9.8 g/dL (12.0-15.5) Hematocrit 31.1 % (36.0-47.0) Mean Corpuscular Volume 89 fL (79-100) Mean Corpuscular Hemoglobin 28 pg (25-35) Mean Corpuscular Hemoglobin Concent 31 g/dL (31-37) Red Cell Distribution Width 16.6 % (11.5-14.5) Platelet Count 105 x10^3/uL (140-400) Neutrophils (%) (Auto) 33 % (31-73) Lymphocytes (%) (Auto) 58 % (24-48) Monocytes (%) (Auto) 6 % (0-9) Eosinophils (%) (Auto) 3 % (0-3) Basophils (%) (Auto) 0 % (0-3) Neutrophils # (Auto) 2.1 x10^3uL (1.8-7.7) Lymphocytes # (Auto) 3.7 x10^3/uL (1.0-4.8) Monocytes # (Auto) 0.4 x10^3/uL (0.0-1.1) Eosinophils # (Auto) 0.2 x10^3/uL (0.0-0.7) Basophils # (Auto) 0.0 x10^3/uL (0.0-0.2) Prothrombin Time 16.2 SEC (11.7-14.0) Prothromb Time International Ratio 1.4 (0.8-1.1) Test 01/12/17 08:08 01/12/17 11:24 01/12/17 16:41 01/13/17 04:45 Glucose (Fingerstick) 103 mg/dL (70-99) 126 mg/dL (70-99) 134 mg/dL (70-99) White Blood Count 6.0 x10^3/uL (4.0-11.0) Red Blood Count 3.45 x10^6/uL (3.50-5.40) Hemoglobin 9.7 g/dL (12.0-15.5) Hematocrit 31.1 % (36.0-47.0) Mean Corpuscular Volume 90 fL (79-100) Mean Corpuscular Hemoglobin 28 pg (25-35) Mean Corpuscular Hemoglobin Concent 31 g/dL (31-37) Red Cell Distribution Width 16.9 % (11.5-14.5) Platelet Count 102 x10^3/uL (140-400) Neutrophils (%) (Auto) 31 % (31-73) Lymphocytes (%) (Auto) 59 % (24-48) Monocytes (%) (Auto) 7 % (0-9) Eosinophils (%) (Auto) 3 % (0-3) Basophils (%) (Auto) 1 % (0-3) Neutrophils # (Auto) 1.9 x10^3uL (1.8-7.7) Lymphocytes # (Auto) 3.5 x10^3/uL (1.0-4.8) Monocytes # (Auto) 0.4 x10^3/uL (0.0-1.1) Eosinophils # (Auto) 0.2 x10^3/uL (0.0-0.7) Basophils # (Auto) 0.0 x10^3/uL (0.0-0.2) Prothrombin Time 16.6 SEC (11.7-14.0) Prothromb Time International Ratio 1.4 (0.8-1.1) Sodium Level 144 mmol/L (136-145) Potassium Level 3.9 mmol/L (3.5-5.1) Chloride Level 107 mmol/L (98-107) Carbon Dioxide Level 30 mmol/L (21-32) Anion Gap 7 (6-14) Blood Urea Nitrogen 8 mg/dL (7-20) Creatinine 0.5 mg/dL (0.6-1.0) Estimated GFR (Cockcroft-Gault) 116.2 Glucose Level 108 mg/dL (70-99) Calcium Level 7.9 mg/dL (8.5-10.1) Test 01/13/17 08:18 01/13/17 11:26 Glucose (Fingerstick) 126 mg/dL (70-99) 149 mg/dL (70-99) Laboratory Tests Test 01/12/17 16:41 01/13/17 04:45 01/13/17 08:18 01/13/17 11:26 Glucose (Fingerstick) 134 mg/dL (70-99) 126 mg/dL (70-99) 149 mg/dL (70-99) White Blood Count 6.0 x10^3/uL (4.0-11.0) Red Blood Count 3.45 x10^6/uL (3.50-5.40) Hemoglobin 9.7 g/dL (12.0-15.5) Hematocrit 31.1 % (36.0-47.0) Mean Corpuscular Volume 90 fL (79-100) Mean Corpuscular Hemoglobin 28 pg (25-35) Mean Corpuscular Hemoglobin Concent 31 g/dL (31-37) Red Cell Distribution Width 16.9 % (11.5-14.5) Platelet Count 102 x10^3/uL (140-400) Neutrophils (%) (Auto) 31 % (31-73) Lymphocytes (%) (Auto) 59 % (24-48) Monocytes (%) (Auto) 7 % (0-9) Eosinophils (%) (Auto) 3 % (0-3) Basophils (%) (Auto) 1 % (0-3) Neutrophils # (Auto) 1.9 x10^3uL (1.8-7.7) Lymphocytes # (Auto) 3.5 x10^3/uL (1.0-4.8) Monocytes # (Auto) 0.4 x10^3/uL (0.0-1.1) Eosinophils # (Auto) 0.2 x10^3/uL (0.0-0.7) Basophils # (Auto) 0.0 x10^3/uL (0.0-0.2) Prothrombin Time 16.6 SEC (11.7-14.0) Prothromb Time International Ratio 1.4 (0.8-1.1) Sodium Level 144 mmol/L (136-145) Potassium Level 3.9 mmol/L (3.5-5.1) Chloride Level 107 mmol/L (98-107) Carbon Dioxide Level 30 mmol/L (21-32) Anion Gap 7 (6-14) Blood Urea Nitrogen 8 mg/dL (7-20) Creatinine 0.5 mg/dL (0.6-1.0) Estimated GFR (Cockcroft-Gault) 116.2 Glucose Level 108 mg/dL (70-99) Calcium Level 7.9 mg/dL (8.5-10.1) Medications Active Scripts Medications Dose Route/Sig Max Daily Dose Days Date Category Novolog Flexpen (Insulin Aspart) 100 Unit/1 Ml Insuln.pen 1 Unit SQ PRN TID PRN 12/13/16 Reported Duoneb 0.5-3(2.5) Mg/3 Ml (Albuterol/Ipratropium) 3 Ml Ampul.neb 3 Ml NEB PRN Q4HRS PRN 12/13/16 Reported Famotidine 20 Mg Tablet 20 Mg PO HS 12/13/16 Reported Trazodone Hcl 50 Mg Tablet 1 Tab PO QHS 12/12/16 Reported Tamsulosin Hcl 0.4 Mg Cap.er.24h 0.4 Mg PO DAILY 12/12/16 Reported Melatonin 3 Mg Tablet 1 Tab PO QHS 12/12/16 Reported Losartan Potassium 100 Mg Tablet 100 Mg PO DAILY 12/12/16 Reported Colace Clear (Docusate Sodium) 50 Mg Capsule 50 Mg PO PRN DAILY PRN 12/12/16 Reported Aspirin 325 Mg Tablet 1 Tab PO DAILY 12/12/16 Reported Acetaminophen 500 Mg Tablet 500 Mg PO PRN Q6HRS PRN 12/12/16 Reported Tramadol Hcl 50 Mg Tablet 50 Mg PO PRN Q6HRS PRN 11/25/16 Rx Vitamin D (Cholecalciferol (Vitamin D3)) 1,000 Unit Capsule 1 Cap PO DAILY 11/21/16 Reported Levothyroxine Sodium 112 Mcg Tablet 2 Tab PO HS 11/21/16 Reported Xarelto (Rivaroxaban) 10 Mg Tablet 1 Tab PO DAILY 11/21/16 Reported Prilosec Otc (Omeprazole Magnesium) 20 Mg Tablet.dr 1 Tab PO DAILY 11/21/16 Reported Metformin Hcl Er (Metformin Hcl) 500 Mg Tab.er.24h 500 Mg PO BIDWMEALS 11/21/16 Reported Amlodipine Besylate 10 Mg Tablet 10 Mg PO HS 12/06/13 Reported Simvastatin 20 Mg Tablet 20 Mg PO HS 12/06/13 Reported Glimepiride 2 Mg Tablet 2 Mg PO DAILY 12/06/13 Reported Carvedilol 3.125 Mg Tablet 6.25 Mg PO BID 12/06/13 Reported Potassium Chloride 10 Meq Capsule.er 20 Meq PO DAILY 12/06/13 Reported Impression . 1. cough, suspect combination of dysphagia with possible aspiration, also related to vascular congestion and postnasal drainage. resolved post esophageal stretching 2. Chronic atrial fibrillation. 3. Peripheral vascular disease, status post left amputation. 4. Obesity. 5. Hypertension. 6. Dysphagia/ stricture. s/p dilation Plan . COUGH BETTER S/P DILATION OF STRICTURE DIURESES CXR IS BETTER FOLLOW SPEECH INPUT STABLE PULMONARY [facility] WILL SEE MARIANNE JORGE MD Jan 13, 2017 14:36
--- NOTE | 2017-01-13 15:55 | PDOC ---
G I PROGRESS NOTE Subjective Overall feels worse. Says swallowing OK. Physical Exam Abdomen soft, non-tender. Pitting edema LE. Review of Relevant I have reviewed the following items madhav (where applicable) has been applied. Labs Laboratory Tests Test 01/11/17 16:45 01/11/17 21:03 01/12/17 05:25 01/12/17 07:25 Glucose (Fingerstick) 155 mg/dL (70-99) 154 mg/dL (70-99) Sodium Level 141 mmol/L (136-145) Potassium Level 4.1 mmol/L (3.5-5.1) Chloride Level 108 mmol/L (98-107) Carbon Dioxide Level 28 mmol/L (21-32) Anion Gap 5 (6-14) Blood Urea Nitrogen 9 mg/dL (7-20) Creatinine 0.4 mg/dL (0.6-1.0) Estimated GFR (Cockcroft-Gault) 150.3 Glucose Level 120 mg/dL (70-99) Calcium Level 7.6 mg/dL (8.5-10.1) White Blood Count 6.3 x10^3/uL (4.0-11.0) Red Blood Count 3.49 x10^6/uL (3.50-5.40) Hemoglobin 9.8 g/dL (12.0-15.5) Hematocrit 31.1 % (36.0-47.0) Mean Corpuscular Volume 89 fL (79-100) Mean Corpuscular Hemoglobin 28 pg (25-35) Mean Corpuscular Hemoglobin Concent 31 g/dL (31-37) Red Cell Distribution Width 16.6 % (11.5-14.5) Platelet Count 105 x10^3/uL (140-400) Neutrophils (%) (Auto) 33 % (31-73) Lymphocytes (%) (Auto) 58 % (24-48) Monocytes (%) (Auto) 6 % (0-9) Eosinophils (%) (Auto) 3 % (0-3) Basophils (%) (Auto) 0 % (0-3) Neutrophils # (Auto) 2.1 x10^3uL (1.8-7.7) Lymphocytes # (Auto) 3.7 x10^3/uL (1.0-4.8) Monocytes # (Auto) 0.4 x10^3/uL (0.0-1.1) Eosinophils # (Auto) 0.2 x10^3/uL (0.0-0.7) Basophils # (Auto) 0.0 x10^3/uL (0.0-0.2) Prothrombin Time 16.2 SEC (11.7-14.0) Prothromb Time International Ratio 1.4 (0.8-1.1) Test 01/12/17 08:08 01/12/17 11:24 01/12/17 16:41 01/13/17 04:45 Glucose (Fingerstick) 103 mg/dL (70-99) 126 mg/dL (70-99) 134 mg/dL (70-99) White Blood Count 6.0 x10^3/uL (4.0-11.0) Red Blood Count 3.45 x10^6/uL (3.50-5.40) Hemoglobin 9.7 g/dL (12.0-15.5) Hematocrit 31.1 % (36.0-47.0) Mean Corpuscular Volume 90 fL (79-100) Mean Corpuscular Hemoglobin 28 pg (25-35) Mean Corpuscular Hemoglobin Concent 31 g/dL (31-37) Red Cell Distribution Width 16.9 % (11.5-14.5) Platelet Count 102 x10^3/uL (140-400) Neutrophils (%) (Auto) 31 % (31-73) Lymphocytes (%) (Auto) 59 % (24-48) Monocytes (%) (Auto) 7 % (0-9) Eosinophils (%) (Auto) 3 % (0-3) Basophils (%) (Auto) 1 % (0-3) Neutrophils # (Auto) 1.9 x10^3uL (1.8-7.7) Lymphocytes # (Auto) 3.5 x10^3/uL (1.0-4.8) Monocytes # (Auto) 0.4 x10^3/uL (0.0-1.1) Eosinophils # (Auto) 0.2 x10^3/uL (0.0-0.7) Basophils # (Auto) 0.0 x10^3/uL (0.0-0.2) Prothrombin Time 16.6 SEC (11.7-14.0) Prothromb Time International Ratio 1.4 (0.8-1.1) Sodium Level 144 mmol/L (136-145) Potassium Level 3.9 mmol/L (3.5-5.1) Chloride Level 107 mmol/L (98-107) Carbon Dioxide Level 30 mmol/L (21-32) Anion Gap 7 (6-14) Blood Urea Nitrogen 8 mg/dL (7-20) Creatinine 0.5 mg/dL (0.6-1.0) Estimated GFR (Cockcroft-Gault) 116.2 Glucose Level 108 mg/dL (70-99) Calcium Level 7.9 mg/dL (8.5-10.1) Test 01/13/17 08:18 01/13/17 11:26 Glucose (Fingerstick) 126 mg/dL (70-99) 149 mg/dL (70-99) Laboratory Tests Test 01/12/17 16:41 01/13/17 04:45 01/13/17 08:18 01/13/17 11:26 Glucose (Fingerstick) 134 mg/dL (70-99) 126 mg/dL (70-99) 149 mg/dL (70-99) White Blood Count 6.0 x10^3/uL (4.0-11.0) Red Blood Count 3.45 x10^6/uL (3.50-5.40) Hemoglobin 9.7 g/dL (12.0-15.5) Hematocrit 31.1 % (36.0-47.0) Mean Corpuscular Volume 90 fL (79-100) Mean Corpuscular Hemoglobin 28 pg (25-35) Mean Corpuscular Hemoglobin Concent 31 g/dL (31-37) Red Cell Distribution Width 16.9 % (11.5-14.5) Platelet Count 102 x10^3/uL (140-400) Neutrophils (%) (Auto) 31 % (31-73) Lymphocytes (%) (Auto) 59 % (24-48) Monocytes (%) (Auto) 7 % (0-9) Eosinophils (%) (Auto) 3 % (0-3) Basophils (%) (Auto) 1 % (0-3) Neutrophils # (Auto) 1.9 x10^3uL (1.8-7.7) Lymphocytes # (Auto) 3.5 x10^3/uL (1.0-4.8) Monocytes # (Auto) 0.4 x10^3/uL (0.0-1.1) Eosinophils # (Auto) 0.2 x10^3/uL (0.0-0.7) Basophils # (Auto) 0.0 x10^3/uL (0.0-0.2) Prothrombin Time 16.6 SEC (11.7-14.0) Prothromb Time International Ratio 1.4 (0.8-1.1) Sodium Level 144 mmol/L (136-145) Potassium Level 3.9 mmol/L (3.5-5.1) Chloride Level 107 mmol/L (98-107) Carbon Dioxide Level 30 mmol/L (21-32) Anion Gap 7 (6-14) Blood Urea Nitrogen 8 mg/dL (7-20) Creatinine 0.5 mg/dL (0.6-1.0) Estimated GFR (Cockcroft-Gault) 116.2 Glucose Level 108 mg/dL (70-99) Calcium Level 7.9 mg/dL (8.5-10.1) Microbiology 01/03/17 Gram Stain - Final, Complete Medications Current Medications Oxycodone HCl (Roxicodone) 5 mg PRN Q4HRS PRN PO BREAKTHROUGH PAIN Last administered on 01/13/17 12:36; Start 01/02/17 at 18:15 Oxycodone HCl (OxyCONTIN) 10 mg Q12HR PO Last administered on 01/13/17 08:18; Start 01/02/17 at 21:00 Amlodipine Besylate (Norvasc) 5 mg HS PO Last administered on 01/02/17 22:28 ; Start 01/02/17 at 21:00; Stop 01/04/17 at 08:03; Status DC Tamsulosin HCl (Flomax) 0.4 mg DAILY PO Last administered on 01/13/17 08:18; Start 01/03/17 at 09:00 Polyethylene Glycol (miraLAX PACKET) 17 gm PRN DAILY PRN PO CONSTIPATION Last administered on 01/12/17 10:43; Start 01/02/17 at 18:30 Ondansetron HCl (Zofran) 4 mg PRN Q6HRS PRN IV NAUSEA/VOMITING Last administered on 01/12/17 01:59; Start 01/02/17 at 18:30 Lorazepam (Ativan) 2 mg PRN Q12HR PRN IV ANXIETY / AGITATION Last administered on 01/06/17 22:42; Start 01/02/17 at 18:30 Metoprolol Tartrate (Lopressor) 25 mg BID PO Last administered on 01/02/17 22 :29; Start 01/02/17 at 21:00; Stop 01/04/17 at 08:03; Status DC Silver Nitrate/ Potassium Nitrate 1 each 1X ONCE TP ; Start 01/02/17 at 18:45 ; Stop 01/02/17 at 18:46; Status DC Famotidine (Pepcid) 20 mg DAILY PO ; Start 01/03/17 at 09:00; Stop 01/04/17 at 08:05; Status DC Trazodone HCl (Desyrel) 50 mg QHS PO Last administered on 01/02/17 22:28; Start 01/02/17 at 21:00; Stop 01/04/17 at 08:04; Status DC Levothyroxine Sodium (Synthroid) 112 mcg DAILY07 PO ; Start 01/03/17 at 07:00; Stop 01/04/17 at 08:05; Status DC Lactobacillus Rhamnosus (Culturelle) 1 cap BID PO Last administered on 08:18; Start 01/02/17 at 21:00 Sodium Chloride 1,000 ml @ 75 mls/hr [id number] IV Last administered on 14:53; Start 01/02/17 at 19:00; Stop 01/11/17 at 11:52; Status DC Sodium Chloride (Normal Saline Flush 3ml) 10 ml PRN Q12HRS PRN IV AFTER MEDS AND BLOOD DRAWS; Start 01/02/17 at 18:30; Stop 01/05/17 at 05:38; Status DC Insulin Aspart (NovoLOG) 0-9 UNITS TIDWMEALS SQ Last administered on 18:12; Start 01/03/17 at 19:00 Dextrose (Dextrose 50%-Water Syringe) 12.5 gm PRN Q15MIN PRN IV SEE COMMENTS; Start 01/02/17 at 18:45 Docusate Sodium (Colace) 100 mg BID PO Last administered on 01/13/17 08:19; Start 01/02/17 at 21:00 Bisacodyl (Dulcolax Supp) 10 mg PRN DAILY PRN ID CONSTIPATION; Start 01/02/17 at 18:45 Atorvastatin Calcium (Lipitor) 10 mg QHS PO Last administered on 01/12/17 21: 07; Start 01/02/17 at 21:00 Aspirin (Lucas Aspirin) 325 mg DAILYWBKFT PO ; Start 01/03/17 at 08:00; Stop 01/03/17 at 16:35; Status DC Acetaminophen (Tylenol) 500 mg PRN Q6HRS PRN PO MILD PAIN / TEMP; Start at 18:45; Stop 01/04/17 at 12:28; Status DC Morphine Sulfate 2 mg PRN Q2HR PRN IV PAIN Last administered on 01/03/17 22: 41; Start 01/02/17 at 21:15; Stop 01/03/17 at 23:26; Status DC Morphine Sulfate 4 mg PRN Q2HR PRN IV PAIN Last administered on 01/03/17 20: 22; Start 01/02/17 at 21:15; Stop 01/03/17 at 23:56; Status DC Piperacillin Sod/ Tazobactam Sod 3.375 gm/Dextrose 50 ml @ 100 mls/hr Q6HRS IV ; Start 01/03/17 at 12:00; Status UNV Linezolid 300 ml @ 300 mls/hr Q12HR IV Last administered on 01/07/17 09:29; Start 01/03/17 at 11:00; Stop 01/07/17 at 12:55; Status DC Phytonadione 10 mg/Dextrose 51 ml @ 102 mls/hr 1X ONCE IV ; Start 01/03/17 at 11:00; Stop 01/03/17 at 11:00; Status DC Piperacillin Sod/ Tazobactam Sod (Zosyn) 3.375 gm Q6HRS IVP Last administered on 01/08/17 06:09; Start 01/03/17 at 12:00; Stop 01/08/17 at 11:26; Status DC Furosemide (Lasix) 40 mg 1X ONCE IVP Last administered on 01/03/17 11:44; Start 01/03/17 at 11:45; Stop 01/03/17 at 11:46; Status DC Lidocaine/Sodium Bicarbonate (Buffered Lidocaine 1%) 3 ml 1X ONCE IJ Last administered on 01/03/17 15:57; Start 01/03/17 at 15:30; Stop 01/03/17 at 15 :31; Status DC Lidocaine/Sodium Bicarbonate (Buffered Lidocaine 1%) 3 ml 1X ONCE IJ ; Start 01/03/17 at 15:45; Stop 01/03/17 at 15:46; Status DC Phytonadione (Vitamin K Ampule) 10 mg 1X ONCE SQ Last administered on 17:56; Start 01/03/17 at 16:30; Stop 01/03/17 at 16:35; Status DC Ondansetron HCl (Zofran) 4 mg PRN Q6HRS PRN IV NAUSEA/VOMITING; Start at 07:00; Stop 01/05/17 at 06:59; Status DC Fentanyl Citrate (Fentanyl 2ml Vial) 25 mcg PRN Q5MIN PRN IV MILD PAIN; Start 01/04/17 at 07:00; Stop 01/05/17 at 06:59; Status DC Fentanyl Citrate (Fentanyl 2ml Vial) 50 mcg PRN Q5MIN PRN IV MODERATE PAIN; Start 01/04/17 at 07:00; Stop 01/05/17 at 06:59; Status DC Ringer's Solution 1,000 ml @ 30 mls/hr Q24H IV Last administered on 09:24; Start 01/04/17 at 07:00; Stop 01/04/17 at 18:59; Status DC Lidocaine HCl (Xylocaine-Mpf 1% Vial) 2 ml PRN 1X PRN ID PRIOR TO IV START; Start 01/04/17 at 07:00; Stop 01/05/17 at 06:59; Status DC Prochlorperazine Edisylate (Compazine) 5 mg PACU PRN PRN IV NAUSEA, MRX1; Start 01/04/17 at 07:00; Stop 01/05/17 at 06:59; Status DC Morphine Sulfate 2 mg PRN Q2HR PRN IV MODERATE PAIN; Start 01/03/17 at 23:30 Morphine Sulfate 4 mg PRN Q2HR PRN IV SEVERE PAIN Last administered on 20:50; Start 01/03/17 at 23:56 Acetaminophen (Tylenol) 500 mg PRN Q6HRS PRN PO MILD PAIN Last administered on 01/12/17 04:42; Start 01/04/17 at 08:00 Amlodipine Besylate (Norvasc) 10 mg HS PO Last administered on 01/12/17 21:07 ; Start 01/04/17 at 21:00 Carvedilol (Coreg) 6.25 mg BIDWMEALS PO ; Start 01/04/17 at 09:00; Status Cancel Famotidine (Pepcid) 20 mg HS PO Last administered on 01/06/17 20:48; Start 01/04/17 at 21:00; Stop 01/07/17 at 14:56; Status DC Albuterol/ Ipratropium (Duoneb) 3 ml PRN Q4HRS PRN NEB SHORTNESS OF BREATH; Start 01/04/17 at 08:00 Levothyroxine Sodium (Synthroid) 224 mcg HS PO Last administered on 01/12/17 21:07; Start 01/04/17 at 21:00 Metoprolol Tartrate (Lopressor) 25 mg BID PO ; Start 01/04/17 at 09:00; Status Cancel Simvastatin (Zocor) 20 mg HS PO ; Start 01/04/17 at 21:00; Status UNV Tamsulosin HCl (Flomax) 0.4 mg DAILY PO ; Start 01/04/17 at 09:00; Status UNV Tramadol HCl (Ultram) 50 mg PRN Q6HRS PRN PO MILD PAIN, 2ND CHOICE Last administered on 01/12/17 19:48; Start 01/04/17 at 08:00 Trazodone HCl (Desyrel) 50 mg QHS PO Last administered on 01/12/17 21:07; Start 01/04/17 at 21:00 Vitamin D (Vitamin D3) 1,000 unit DAILY PO Last administered on 01/13/17 08:19 ; Start 01/04/17 at 09:00 Docusate Sodium (Colace) 100 mg PRN DAILY PRN PO CONSTIPATION; Start 01/04/17 at 09:00 Losartan Potassium (Cozaar) 100 mg DAILY PO Last administered on 01/13/17 08: 19; Start 01/04/17 at 09:00 Non-Formulary Medication 1 tab QHS PO ; Start 01/04/17 at 21:00; Status UNV Non-Formulary Medication 1 tab DAILY PO ; Start 01/04/17 at 09:00; Status UNV Potassium Chloride (Klor-Con) 20 meq DAILYWBKFT PO Last administered on 08:17; Start 01/04/17 at 08:30 Carvedilol (Coreg) 6.25 mg BIDWMEALS PO Last administered on 01/06/17 08:58; Start 01/04/17 at 09:00; Stop 01/06/17 at 12:28; Status DC Cefazolin Sodium 1 gm/Sodium Chloride 500 ml @ 500 mls/hr 1X PERIOP ONCE IRR Last administered on 01/04/17 16:38; Start 01/04/17 at 14:30; Stop 01/04/17 at 15:29; Status DC Heparin Sodium (Porcine) 5000 unit/Sodium Chloride 505 ml @ 505 mls/hr 1X PERIOP ONCE IRR Last administered on 01/04/17 16:38; Start 01/04/17 at 14: 30; Stop 01/04/17 at 15:29; Status DC Furosemide (Lasix) 40 mg 1X ONCE IVP ; Start 01/04/17 at 16:00; Stop at 16:01; Status DC Albumin Human 100 ml @ 100 mls/hr 1X ONCE IV Last administered on 01/04/17 18:52; Start 01/04/17 at 16:00; Stop 01/04/17 at 16:59; Status DC Albumin Human 100 ml @ 100 mls/hr 1X ONCE IV Last administered on 01/04/17 19:16; Start 01/04/17 at 16:00; Stop 01/04/17 at 16:59; Status DC Furosemide (Lasix) 20 mg 1X ONCE IVP Last administered on 01/04/17 21:16; Start 01/04/17 at 18:45; Stop 01/04/17 at 18:46; Status DC Sodium Chloride (Normal Saline Flush) 10 ml QSHIFT PRN IV AFTER MEDS AND BLOOD DRAWS; Start 01/05/17 at 05:45 Warfarin Sodium (Coumadin Per Pharmacy) 1 each PRN DAILY PRN MC SEE COMMENTS Last administered on 01/09/17 12:43; Start 01/05/17 at 16:45; Stop 01/09/17 at 13:19; Status DC Warfarin Sodium (Coumadin) 5 mg 1X WARF ONCE PO Last administered on 17:02; Start 01/05/17 at 17:00; Stop 01/05/17 at 17:01; Status DC Potassium Chloride 50 ml @ 50 mls/hr Q1H IV Last administered on 01/06/17 12: 28; Start 01/06/17 at 07:30; Stop 01/06/17 at 09:29; Status DC Warfarin Sodium (Coumadin) 4 mg 1X WARF ONCE PO Last administered on 15:48; Start 01/06/17 at 16:00; Stop 01/06/17 at 16:01; Status DC Potassium Chloride (KCl Oral Soln) 40 meq 1X ONCE PO Last administered on 18:51; Start 01/06/17 at 18:00; Stop 01/06/17 at 18:01; Status DC Furosemide (Lasix) 40 mg 1X ONCE IVP Last administered on 01/06/17 18:47; Start 01/06/17 at 18:00; Stop 01/06/17 at 18:01; Status DC Warfarin Sodium (Coumadin) 5 mg 1X WARF ONCE PO Last administered on 15:46; Start 01/07/17 at 16:00; Stop 01/07/17 at 16:01; Status DC Pantoprazole Sodium (Protonix) 40 mg DAILYAC PO Last administered on 01/13/17 08:17; Start 01/07/17 at 16:30 Barium Sulfate (Liquid E-Z Paque) 355 ml 1X ONCE PO Last administered on 01/08 08:35; Start 01/08/17 at 07:30; Stop 01/08/17 at 07:31; Status DC Barium Sulfate (E-Z-Hd) 340 gm 1X ONCE PO ; Start 01/08/17 at 07:30; Stop at 07:31; Status DC Simethicone/ Sodium Bicarb/ Citric Ac (E-Z-Gas) 1 packet 1X ONCE PO ; Start at 07:30; Stop 01/08/17 at 07:31; Status DC Warfarin Sodium (Coumadin) 5 mg 1X WARF ONCE PO ; Start 01/08/17 at 16:00; Stop 01/08/17 at 16:01; Status DC Sodium Monofluorophosphate (Fleet Adult) 133 ml 1X ONCE ID Last administered on 01/08/17 14:52; Start 01/08/17 at 14:30; Stop 01/08/17 at 14:34; Status DC Amino Acids/ Glycerin/ Electrolytes 1,000 ml @ 50 mls/hr Q20H IV Last administered on 01/10/17 05:43; Start 01/08/17 at 15:00; Stop 01/11/17 at 19 :39; Status DC Furosemide (Lasix) 20 mg DAILY IVP Last administered on 01/12/17 12:49; Start 01/08/17 at 15:30; Stop 01/12/17 at 20:23; Status DC Lidocaine/Sodium Bicarbonate (Buffered Lidocaine 1%) 20 ml STK-MED ONCE IJ ; Start 01/03/17 at 14:59; Stop 01/09/17 at 10:45; Status DC Iohexol (Omnipaque 300 Mg/ml) 100 ml STK-MED ONCE .ROUTE ; Start 01/04/17 at 13 :57; Stop 01/09/17 at 11:11; Status DC Propofol 20 ml @ As Directed STK-MED ONCE IV ; Start 01/04/17 at 14:49; Stop 01/09/17 at 11:12; Status DC Dexamethasone Sodium Phosphate (Decadron) 20 mg STK-MED ONCE .ROUTE ; Start at 14:49; Stop 01/09/17 at 11:12; Status DC Lidocaine HCl (Lidocaine Pf 2% Vial) 5 ml STK-MED ONCE .ROUTE ; Start 01/04/17 at 14:49; Stop 01/09/17 at 11:12; Status DC Ondansetron HCl (Zofran) 4 mg STK-MED ONCE .ROUTE ; Start 01/04/17 at 14:49; Stop 01/09/17 at 11:12; Status DC Fentanyl Citrate (Fentanyl 2ml Vial) 100 mcg STK-MED ONCE .ROUTE ; Start at 14:49; Stop 01/09/17 at 11:12; Status DC Ephedrine Sulfate (Akovaz) 50 mg STK-MED ONCE .ROUTE ; Start 01/04/17 at 16:26 ; Stop 01/09/17 at 11:13; Status DC Furosemide (Lasix) 20 mg STK-MED ONCE .ROUTE ; Start 01/04/17 at 16:30; Stop 01/09/17 at 11:13; Status DC Sevoflurane (Ultane) 90 ml STK-MED ONCE IH ; Start 01/04/17 at 17:42; Stop at 11:13; Status DC Warfarin Sodium (Coumadin) 5 mg 1X WARF ONCE PO ; Start 01/09/17 at 16:00; Stop 01/09/17 at 16:00; Status DC Ringer's Solution 1,000 ml @ 75 mls/hr 1X ONCE IV Last administered on 11:58; Start 01/10/17 at 12:00; Stop 01/11/17 at 01:19; Status DC Propofol 20 ml @ As Directed STK-MED ONCE IV ; Start 01/10/17 at 12:36; Stop 01/10/17 at 12:37; Status DC Lidocaine HCl (Lidocaine Pf 2% Vial) 5 ml STK-MED ONCE .ROUTE ; Start 01/10/17 at 12:36; Stop 01/10/17 at 12:37; Status DC Morphine Sulfate 2 mg STK-MED ONCE .ROUTE ; Start 01/10/17 at 13:08; Stop at 13:09; Status DC Morphine Sulfate 2 mg STK-MED ONCE .ROUTE ; Start 01/10/17 at 13:10; Stop at 13:11; Status DC Oxycodone/ Acetaminophen (Percocet 10/325) 1 tab PRN Q6HRS PRN PO SEVERE PAIN Last administered on 01/13/17 15:38; Start 01/11/17 at 01:45 Oxycodone/ Acetaminophen (Percocet 5/325) 1 tab PRN Q6HRS PRN PO MODERATE PAIN Last administered on 01/12/17 04:42; Start 01/11/17 at 01:45 Clonidine HCl (Catapres) 0.1 mg PRN Q1HR PRN PO HYPERTENSION, SEE COMMENTS; Start 01/11/17 at 06:00; Status Cancel Warfarin Sodium (Coumadin) 4 mg 1X WARF ONCE PO Last administered on 17:30; Start 01/12/17 at 17:00; Stop 01/12/17 at 17:01; Status DC Warfarin Sodium (Coumadin Per Pharmacy) 1 each PRN DAILY PRN MC SEE COMMENTS Last administered on 01/13/17 13:19; Start 01/12/17 at 17:00 Furosemide (Lasix) 40 mg DAILY PO Last administered on 01/13/17 08:18; Start 01/13/17 at 09:00 Nystatin (Nystop) 1 deborah TID TP Last administered on 01/13/17 15:32; Start at 23:30 Warfarin Sodium (Coumadin) 4 mg 1X WARF ONCE PO ; Start 01/13/17 at 16:00; Stop 01/13/17 at 16:01 Active Scripts Active Tramadol Hcl 50 Mg Tablet 50 Mg PO PRN Q6HRS PRN Reported Warfarin Sodium 4 Mg Tablet 4 Mg PO DAILY Novolog Flexpen (Insulin Aspart) 100 Unit/1 Ml Insuln.pen 1 Unit SQ PRN TID PRN Duoneb 0.5-3(2.5) Mg/3 Ml (Albuterol/Ipratropium) 3 Ml Ampul.neb 3 Ml NEB PRN Q4HRS PRN Famotidine 20 Mg Tablet 20 Mg PO HS Trazodone Hcl 50 Mg Tablet 1 Tab PO QHS Tamsulosin Hcl 0.4 Mg Cap.er.24h 0.4 Mg PO DAILY Melatonin 3 Mg Tablet 1 Tab PO QHS Losartan Potassium 100 Mg Tablet 100 Mg PO DAILY Colace Clear (Docusate Sodium) 50 Mg Capsule 50 Mg PO PRN DAILY PRN Aspirin 325 Mg Tablet 1 Tab PO DAILY Acetaminophen 500 Mg Tablet 500 Mg PO PRN Q6HRS PRN Vitamin D (Cholecalciferol (Vitamin D3)) 1,000 Unit Capsule 1 Cap PO DAILY Levothyroxine Sodium 112 Mcg Tablet 2 Tab PO HS Prilosec Otc (Omeprazole Magnesium) 20 Mg Tablet.dr 1 Tab PO DAILY Metformin Hcl Er (Metformin Hcl) 500 Mg Tab.er.24h 500 Mg PO BIDWMEALS Amlodipine Besylate 10 Mg Tablet 10 Mg PO HS Simvastatin 20 Mg Tablet 20 Mg PO HS Glimepiride 2 Mg Tablet 2 Mg PO DAILY Carvedilol 3.125 Mg Tablet 6.25 Mg PO BID Potassium Chloride 10 Meq Capsule.er 20 Meq PO DAILY Vitals/I & O Vital Sign - Last 24 Hours 01/12/17 01/12/17 01/12/17 01/12/17 17:31 18:31 19:00 19:40 Temp 97.7 97.7 Pulse 96 Resp 12 12 18 B/P (MAP) 183/83 (116) Pulse Ox 93 93 95 O2 Delivery Nasal Cannula Nasal Cannula Nasal Cannula O2 Flow Rate 2.0 2.0 2.0 01/12/17 01/12/17 01/12/17 01/12/17 19:48 20:50 21:05 21:07 Pulse 96 Resp 18 18 18 B/P (MAP) 183/83 O2 Delivery Nasal Cannula Nasal Cannula Nasal Cannula O2 Flow Rate 2.0 2.0 2.0 01/12/17 01/13/17 01/13/17 01/13/17 23:00 03:00 06:08 07:00 Temp 97.9 97.8 98.5 97.9 97.8 98.5 Pulse 92 65 102 Resp 18 18 18 20 B/P (MAP) 161/81 (107) 127/73 (91) 171/81 (111) Pulse Ox 92 93 100 O2 Delivery Nasal Cannula Nasal Cannula Nasal Cannula O2 Flow Rate 2.0 2.0 4.0 01/13/17 01/13/17 01/13/17 01/13/17 07:05 07:40 07:41 08:17 Pulse 95 B/P (MAP) 151/69 (96) Pulse Ox 100 O2 Delivery Nasal Cannula Nasal Cannula Nasal Cannula O2 Flow Rate 2.0 2.0 4.0 01/13/17 01/13/17 01/13/17 01/13/17 08:18 08:19 09:20 11:50 Temp 97.9 97.9 Pulse 102 118 Resp 20 B/P (MAP) 171/81 111/58 (75) Pulse Ox 100 100 O2 Delivery Nasal Cannula Nasal Cannula Nasal Cannula O2 Flow Rate 4.0 4.0 4.0 01/13/17 01/13/17 15:35 15:38 Temp 98.3 98.3 Pulse 88 B/P (MAP) 132/65 (87) Pulse Ox 98 O2 Delivery Nasal Cannula Nasal Cannula O2 Flow Rate 4.0 2.0 Intake and Output 01/12/17 01/12/17 01/13/17 15:00 23:00 07:00 Output Total 550 ml Balance -550 ml Assessment Stricture; swallowing better after dilated. Plan of Care: Continue current Tx, Mgmt Plan of Care Note Will re-evaluate Monday. GURWINDER GONCALVES MD Jan 13, 2017 15:55
[2017-01-13] MEDS ORDERED: WARFARIN 4 MG TABLET. PO ONE (16:00)
[2017-01-13] MEDS: ATORVASTATIN CALCIUM 10 MG TABLET. PO SCH (21:53)
[2017-01-13] MEDS: traZODone 50 MG TABLET. PO SCH (21:53)
[2017-01-13] MEDS: LEVOTHYROXINE 112 MCG TABLET PO SCH (21:53)
[2017-01-13] MEDS: ONDANSETRON PF 4 MG/2 ML VIAL. IV PRN (21:54)
[2017-01-13] MEDS: amLODIPine BESYLATE 10 MG TABLET PO SCH (21:54)
[2017-01-14 03:00] VITALS: BP 122/74
[2017-01-14 05:22] LABS: BASO % 0 % (0-3); EOS % 2 % (0-3); HEMATOCRIT 29.1 % (36.0-47.0); HEMOGLOBIN 9.4 g/dL (12.0-15.5); LYMPH # 3.8 x10^3/uL (1.0-4.8); LYMPH % 59 % (24-48); MEAN CORPUSCULAR HEMOGLOBIN 28 pg (25-35); MEAN CORPUSCULAR HGB CONC 32 g/dL (31-37); MEAN CORPUSCULAR VOLUME 89 fL (79-100); MONO % 8 % (0-9); NEUT % 30 % (31-73); PLATELET COUNT 107 x10^3/uL (140-400); RED BLOOD COUNT 3.29 x10^6/uL (3.50-5.40); RED CELL DISTRIBUTION WIDTH 16.8 % (11.5-14.5); WHITE BLOOD COUNT 6.4 x10^3/uL (4.0-11.0)
[2017-01-14 05:28] LABS: INR 1.7 (0.8-1.1); PROTHROMBIN TIME PATIENT 19.3 SEC (11.7-14.0)
[2017-01-14 06:10] LABS: CALCIUM 7.8 mg/dL (8.5-10.1); CREATININE 0.5 mg/dL (0.6-1.0); GFR 116.2; POTASSIUM 3.9 mmol/L (3.5-5.1)
[2017-01-14 07:00] VITALS: BP 148/53
[2017-01-14] MEDS: PANTOPRAZOLE 40 MG TABLET.DR. PO SCH (07:30)
[2017-01-14] MEDS: POTASSIUM CHLORIDE 20 MEQ TABLET.ER. PO SCH (08:00)
[2017-01-14] MEDS: INSULIN ASPART 300 UNITS/3 ML INSULN.PEN SQ SCH ×3 (08:00→17:00)
[2017-01-14] MEDS: LACTOBACILLUS RHAMNOSUS GG 1 CAPSULE. PO SCH ×3 (09:00→21:57)
[2017-01-14] MEDS: FUROSEMIDE 40 MG TABLET. PO SCH (09:00)
[2017-01-14] MEDS: LOSARTAN POTASSIUM 50 MG TABLET. PO SCH (09:00)
[2017-01-14] MEDS: NYSTATIN TOPICAL POWDER 15GM BOTTLE. TP SCH ×3 (09:00→21:00)
[2017-01-14] MEDS: CHOLECALCIFEROL (VITAMIN D3) 1,000 UNIT TABLET PO SCH (09:00)
[2017-01-14] MEDS: TAMSULOSIN 0.4 MG CAP.ER.24H. PO SCH (09:00)
[2017-01-14] MEDS: DOCUSATE SODIUM 100 MG CAPSULE. PO SCH ×3 (09:00→21:57)
[2017-01-14] MEDS: oxyCODONE ER 10 MG TAB.ER.12H PO SCH ×3 (09:00→21:58)
--- NOTE | 2017-01-14 10:12 | RAD ---
CT HEAD WITHOUT CONTRAST History: Concern for CVA, history of hypertension, altered mental status, right arm weakness.. Comparison: December 12, 2016. Procedure: Axial images are obtained of the head from the skull base through the vertex without IV contrast. One or more of the following individualized dose reduction techniques were utilized for this examination: 1. Automated exposure control 2. Adjustment of the mA and/or kV according to patient size 3. Use of iterative reconstruction technique Findings: There is some patient motion artifact, particularly at the level of the skull base. Otherwise, periventricular and subcortical white matter low-attenuation appears similar to the previous exam, consistent with sequelae of chronic microvascular ischemia. 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 No new area of low-attenuation is seen to suggest acute ischemia. The ventricles and sulci are normal for the patient's age, similar to previous exam.. No mass-effect, midline shift, hemorrhage or obvious acute infarction is identified. Basilar cisterns are patent. Bone windows demonstrate no significant calvarial abnormality.The visualized paranasal sinuses appear clear. Mastoid air cells are well aerated. IMPRESSION: No acute intracranial abnormality or change from prior exam.
[2017-01-14 11:00] VITALS: BP 167/77
[2017-01-14] MEDS: MORPHINE SULFATE 4 MG/ML DISP.SYRIN. IV PRN ×4 (13:28→23:52)
[2017-01-14 15:00] VITALS: BP 142/49
[2017-01-14] MEDS ORDERED: WARFARIN 4 MG TABLET. PO ONE (16:00)
--- NOTE | 2017-01-14 17:14 | PDOC ---
PROGRESS NOTES Chief Complaint Chief Complaint L LE cellulitis ASSESSMENT AND PLAN: 1. 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 suspected CVA. STAT CT head neg for new insult. sx resolving. Of note: pt had ICH early Nov 2016, Hx ischemic events, currently on coumadin 2. L LE infection: now s/p AKA ion 01/02. healing appropriately. off Abx, ID following 3. Dysphagia: presbyesophagus, s/p dilation. However, now acute worsening today with CVA. spaech eval obtained; rec for NPO. 4. Afib: rate controlled 5. OAC: warferin 6. CHF: no acute issues. 7. HTN: well controlled; 8. DM: good control on ISS only 9. FTT: increasing frailty and compiling medical issues. has not been home since Nov 20, doubt she will ever make it back DNR 2 discussions with pt and children held today: prognosis poor. (most) children realistic, do not want any escalation of care. patient herself is not able to vocalize her wishes during the meeting; children suspect presence of particular daughter prevents this. pt is already DNR; will continue with full supportive care for now. keep channels open History of Present Illness History of Present Illness very distraught during episode in AM; PM visit with children present is much calmer. c/o leg pain Vitals Vitals Vital Signs Date Time Temp Pulse Resp B/P (MAP) Pulse Ox O2 Delivery O2 Flow Rate FiO2 01/14/17 13:58 20 Nasal Cannula 2.0 01/14/17 11:00 74 167/77 (107) 95 01/14/17 07:00 98.1 98.1 Physical Exam General: Alert, Cooperative, No acute distress Heart: Regular rate Lungs: Clear Abdomen: Normal bowel sounds, No tenderness Extremities: No edema Skin: No rashes Labs LABS Laboratory Tests Test 01/13/17 17:22 01/13/17 22:13 01/14/17 04:25 01/14/17 07:29 Glucose (Fingerstick) 119 mg/dL (70-99) 128 mg/dL (70-99) 118 mg/dL (70-99) White Blood Count 6.4 x10^3/uL (4.0-11.0) Red Blood Count 3.29 x10^6/uL (3.50-5.40) Hemoglobin 9.4 g/dL (12.0-15.5) Hematocrit 29.1 % (36.0-47.0) Mean Corpuscular Volume 89 fL (79-100) Mean Corpuscular Hemoglobin 28 pg (25-35) Mean Corpuscular Hemoglobin Concent 32 g/dL (31-37) Red Cell Distribution Width 16.8 % (11.5-14.5) Platelet Count 107 x10^3/uL (140-400) Neutrophils (%) (Auto) 30 % (31-73) Lymphocytes (%) (Auto) 59 % (24-48) Monocytes (%) (Auto) 8 % (0-9) Eosinophils (%) (Auto) 2 % (0-3) Basophils (%) (Auto) 0 % (0-3) Neutrophils # (Auto) 1.9 x10^3uL (1.8-7.7) Lymphocytes # (Auto) 3.8 x10^3/uL (1.0-4.8) Monocytes # (Auto) 0.5 x10^3/uL (0.0-1.1) Eosinophils # (Auto) 0.1 x10^3/uL (0.0-0.7) Basophils # (Auto) 0.0 x10^3/uL (0.0-0.2) Prothrombin Time 19.3 SEC (11.7-14.0) Prothromb Time International Ratio 1.7 (0.8-1.1) Sodium Level 142 mmol/L (136-145) Potassium Level 3.9 mmol/L (3.5-5.1) Chloride Level 107 mmol/L (98-107) Carbon Dioxide Level 29 mmol/L (21-32) Anion Gap 6 (6-14) Blood Urea Nitrogen 7 mg/dL (7-20) Creatinine 0.5 mg/dL (0.6-1.0) Estimated GFR (Cockcroft-Gault) 116.2 Glucose Level 94 mg/dL (70-99) Calcium Level 7.8 mg/dL (8.5-10.1) Test 01/14/17 11:59 Glucose (Fingerstick) 123 mg/dL (70-99) Nutrition Consultation Dietary Evaluation: Recommendations by RD: Increase Calorie Intake, Protein supplementation Comments: continue diet and supplements at this time pt may benefit from mvi and vit c for wound healing Expected Outcomes/Goals: to meet > 50% est nutr needs with po intake - goal ongoing Malnutrition Findings: Malnutrition related to morbid: Weight 200% of ideal wt Malnutrition related to morbid: Yes Weight Status: Morbidly Obese ZAHIRA KEYES MD Jan 14, 2017 17:14
[2017-01-14 19:45] VITALS: BP 166/76
[2017-01-14] MEDS: traZODone 50 MG TABLET. PO SCH ×2 (20:33→21:58)
[2017-01-14] MEDS: amLODIPine BESYLATE 10 MG TABLET PO SCH ×2 (20:33→21:59)
[2017-01-14] MEDS: ATORVASTATIN CALCIUM 10 MG TABLET. PO SCH ×2 (20:33→21:58)
[2017-01-14] MEDS: LEVOTHYROXINE 112 MCG TABLET PO SCH ×2 (20:34→21:57)
[2017-01-14] MEDS ORDERED: LABETALOL 20 MG/4 ML DISP.SYRIN. IVP PRN (20:45)
[2017-01-14] MEDS: LABETALOL 20 MG/4 ML DISP.SYRIN. IVP SCH ×2 (21:47→23:51)
[2017-01-14] MEDS: AMINO AC 3%/ELECTROLYTE/GLYCER 1,000 ML IV SCH (21:48)
[2017-01-14] MEDS: oxyCODONE/APAP 10/325 1 TAB TABLET PO PRN (21:58)
[2017-01-14 23:09] VITALS: BP 138/73
[2017-01-15] MEDS: MORPHINE SULFATE 4 MG/ML DISP.SYRIN. IV PRN ×6 (02:05→20:52)
[2017-01-15 03:04] VITALS: BP 132/72
[2017-01-15] MEDS: ONDANSETRON PF 4 MG/2 ML VIAL. IV PRN (04:26)
[2017-01-15 05:36] LABS: INR 1.9 (0.8-1.1); PROTHROMBIN TIME PATIENT 20.4 SEC (11.7-14.0)
[2017-01-15 05:41] LABS: BASO # 0.1 x10^3/uL (0.0-0.2); BASO % 1 % (0-3); EOS % 1 % (0-3); HEMATOCRIT 27.9 % (36.0-47.0); HEMOGLOBIN 8.9 g/dL (12.0-15.5); LYMPH # 4.7 x10^3/uL (1.0-4.8); LYMPH % 61 % (24-48); MEAN CORPUSCULAR HEMOGLOBIN 28 pg (25-35); MEAN CORPUSCULAR HGB CONC 32 g/dL (31-37); MEAN CORPUSCULAR VOLUME 89 fL (79-100); MONO % 7 % (0-9); NEUT % 30 % (31-73); PLATELET COUNT 130 x10^3/uL (140-400); RED BLOOD COUNT 3.14 x10^6/uL (3.50-5.40); RED CELL DISTRIBUTION WIDTH 16.4 % (11.5-14.5); WHITE BLOOD COUNT 7.8 x10^3/uL (4.0-11.0)
[2017-01-15 05:53] LABS: CALCIUM 7.6 mg/dL (8.5-10.1); CREATININE 0.5 mg/dL (0.6-1.0); GFR 116.2; POTASSIUM 3.9 mmol/L (3.5-5.1)
[2017-01-15] MEDS: LABETALOL 20 MG/4 ML DISP.SYRIN. IVP SCH ×4 (06:34→23:44)
[2017-01-15 07:42] VITALS: BP 111/67
[2017-01-15] MEDS: INSULIN ASPART 300 UNITS/3 ML INSULN.PEN SQ SCH ×3 (08:00→18:10)
[2017-01-15] MEDS: NYSTATIN TOPICAL POWDER 15GM BOTTLE. TP SCH ×3 (09:00→20:53)
[2017-01-15] MEDS: AMINO AC 3%/ELECTROLYTE/GLYCER 1,000 ML IV SCH ×2 (10:40→20:53)
[2017-01-15] MEDS: POTASSIUM CHLORIDE 20 MEQ TABLET.ER. PO SCH (10:56)
[2017-01-15] MEDS: TAMSULOSIN 0.4 MG CAP.ER.24H. PO SCH (10:57)
[2017-01-15] MEDS: LOSARTAN POTASSIUM 50 MG TABLET. PO SCH (10:58)
[2017-01-15] MEDS: PANTOPRAZOLE 40 MG TABLET.DR. PO SCH (10:58)
[2017-01-15] MEDS: oxyCODONE ER 10 MG TAB.ER.12H PO SCH ×2 (10:59→20:50)
[2017-01-15] MEDS: CHOLECALCIFEROL (VITAMIN D3) 1,000 UNIT TABLET PO SCH (10:59)
[2017-01-15] MEDS: DOCUSATE SODIUM 100 MG CAPSULE. PO SCH ×2 (10:59→20:51)
[2017-01-15] MEDS: LACTOBACILLUS RHAMNOSUS GG 1 CAPSULE. PO SCH ×2 (11:00→20:51)
[2017-01-15] MEDS: FUROSEMIDE 40 MG TABLET. PO SCH (11:00)
[2017-01-15 11:29] VITALS: BP 119/58
[2017-01-15 15:00] VITALS: BP 124/56
[2017-01-15] MEDS ORDERED: WARFARIN 4 MG TABLET. PO ONE (16:00)
--- NOTE | 2017-01-15 18:44 | PDOC ---
PROGRESS NOTES Chief Complaint Chief Complaint L LE cellulitis ASSESSMENT AND PLAN: 1. TIA: episode of gibberish aphasia, facial droop, tongue immobility completely resolved. STAT CT head neg Of note: pt had ICH early Nov 2016, Hx ischemic events, currently on coumadin 2. L LE infection: now s/p AKA ion 01/02. healing appropriately. off Abx, ID following 3. Dysphagia: presbyesophagus, s/p dilation. rpt swallow eval: recovered. on dysphagia diet 4. Afib: rate controlled 5. OAC: warferin 6. CHF: no acute issues. 7. HTN: well controlled; 8. DM: good control on ISS only 9. FTT: increasing frailty and compiling medical issues. has not been home since Nov 20, doubt she will ever make it back DNR History of Present Illness History of Present Illness in good spirits. has no recollection of events yesterday Vitals Vitals Vital Signs Date Time Temp Pulse Resp B/P (MAP) Pulse Ox O2 Delivery O2 Flow Rate FiO2 01/15/17 15:16 20 Nasal Cannula 2.0 01/15/17 15:00 97.7 71 124/56 (78) 88 97.7 Physical Exam General: Alert, Oriented X3, Cooperative, No acute distress Heart: Regular rate Lungs: Clear Abdomen: Normal bowel sounds, No tenderness Extremities: No edema, Other (L AKA) Skin: No rashes Labs LABS Laboratory Tests Test 01/14/17 21:23 01/15/17 05:05 01/15/17 07:47 01/15/17 11:34 Glucose (Fingerstick) 106 mg/dL (70-99) 119 mg/dL (70-99) 126 mg/dL (70-99) White Blood Count 7.8 x10^3/uL (4.0-11.0) Red Blood Count 3.14 x10^6/uL (3.50-5.40) Hemoglobin 8.9 g/dL (12.0-15.5) Hematocrit 27.9 % (36.0-47.0) Mean Corpuscular Volume 89 fL (79-100) Mean Corpuscular Hemoglobin 28 pg (25-35) Mean Corpuscular Hemoglobin Concent 32 g/dL (31-37) Red Cell Distribution Width 16.4 % (11.5-14.5) Platelet Count 130 x10^3/uL (140-400) Neutrophils (%) (Auto) 30 % (31-73) Lymphocytes (%) (Auto) 61 % (24-48) Monocytes (%) (Auto) 7 % (0-9) Eosinophils (%) (Auto) 1 % (0-3) Basophils (%) (Auto) 1 % (0-3) Neutrophils # (Auto) 2.4 x10^3uL (1.8-7.7) Lymphocytes # (Auto) 4.7 x10^3/uL (1.0-4.8) Monocytes # (Auto) 0.6 x10^3/uL (0.0-1.1) Eosinophils # (Auto) 0.1 x10^3/uL (0.0-0.7) Basophils # (Auto) 0.1 x10^3/uL (0.0-0.2) Prothrombin Time 20.4 SEC (11.7-14.0) Prothromb Time International Ratio 1.9 (0.8-1.1) Sodium Level 140 mmol/L (136-145) Potassium Level 3.9 mmol/L (3.5-5.1) Chloride Level 105 mmol/L (98-107) Carbon Dioxide Level 30 mmol/L (21-32) Anion Gap 5 (6-14) Blood Urea Nitrogen 7 mg/dL (7-20) Creatinine 0.5 mg/dL (0.6-1.0) Estimated GFR (Cockcroft-Gault) 116.2 Glucose Level 112 mg/dL (70-99) Calcium Level 7.6 mg/dL (8.5-10.1) Test 01/15/17 16:54 Glucose (Fingerstick) 229 mg/dL (70-99) Nutrition Consultation Dietary Evaluation: Recommendations by RD: Increase Calorie Intake, Protein supplementation Comments: continue diet and supplements at this time pt may benefit from mvi and vit c for wound healing Expected Outcomes/Goals: to meet > 50% est nutr needs with po intake - goal ongoing Malnutrition Findings: Malnutrition related to morbid: Weight 200% of ideal wt Malnutrition related to morbid: Yes Weight Status: Morbidly Obese ZAHIRA KEYES MD Jan 15, 2017 18:44
[2017-01-15 19:00] VITALS: BP 146/95
[2017-01-15] MEDS: LEVOTHYROXINE 112 MCG TABLET PO SCH (20:50)
[2017-01-15] MEDS: oxyCODONE/APAP 10/325 1 TAB TABLET PO PRN (20:50)
[2017-01-15] MEDS: traZODone 50 MG TABLET. PO SCH (20:51)
[2017-01-15] MEDS: ATORVASTATIN CALCIUM 10 MG TABLET. PO SCH (20:51)
[2017-01-15] MEDS: amLODIPine BESYLATE 10 MG TABLET PO SCH (20:51)
[2017-01-15 23:00] VITALS: BP 109/52
[2017-01-16] VITALS (7 sets, daily range): BP systolic 102–150; BP diastolic 46–77
[2017-01-16] MEDS: oxyCODONE IR 5 MG TABLET PO PRN ×2 (00:02→11:34)
[2017-01-16] MEDS: oxyCODONE/APAP 10/325 1 TAB TABLET PO PRN ×3 (01:59→21:12)
[2017-01-16] MEDS: LABETALOL 20 MG/4 ML DISP.SYRIN. IVP SCH ×3 (05:30→18:19)
[2017-01-16 06:23] LABS: BASO # 0.1 x10^3/uL (0.0-0.2); BASO % 0 % (0-3); EOS % 1 % (0-3); LYMPH # 7.6 x10^3/uL (1.0-4.8); LYMPH % 60 % (24-48); MEAN CORPUSCULAR HEMOGLOBIN 28 pg (25-35); MEAN CORPUSCULAR HGB CONC 31 g/dL (31-37); MEAN CORPUSCULAR VOLUME 92 fL (79-100); MONO % 7 % (0-9); NEUT % 31 % (31-73); PLATELET COUNT 153 x10^3/uL (140-400); RED CELL DISTRIBUTION WIDTH 17.8 % (11.5-14.5); WHITE BLOOD COUNT 12.7 x10^3/uL (4.0-11.0)
[2017-01-16 06:29] LABS: INR 1.6 (0.8-1.1); PROTHROMBIN TIME PATIENT 18.1 SEC (11.7-14.0)
[2017-01-16 06:36] LABS: CALCIUM 7.8 mg/dL (8.5-10.1); CREATININE 0.6 mg/dL (0.6-1.0); GFR 94.1; POTASSIUM 4.4 mmol/L (3.5-5.1)
[2017-01-16] MEDS: AMINO AC 3%/ELECTROLYTE/GLYCER 1,000 ML IV SCH ×2 (08:47→23:30)
[2017-01-16] MEDS: PANTOPRAZOLE 40 MG TABLET.DR. PO SCH (08:48)
[2017-01-16] MEDS: LOSARTAN POTASSIUM 50 MG TABLET. PO SCH (08:48)
[2017-01-16] MEDS: POTASSIUM CHLORIDE 20 MEQ TABLET.ER. PO SCH (08:48)
[2017-01-16] MEDS: LACTOBACILLUS RHAMNOSUS GG 1 CAPSULE. PO SCH ×2 (08:48→21:12)
[2017-01-16] MEDS: TAMSULOSIN 0.4 MG CAP.ER.24H. PO SCH (08:48)
[2017-01-16] MEDS: oxyCODONE ER 10 MG TAB.ER.12H PO SCH ×2 (08:49→21:12)
[2017-01-16] MEDS: CHOLECALCIFEROL (VITAMIN D3) 1,000 UNIT TABLET PO SCH (08:49)
[2017-01-16] MEDS: FUROSEMIDE 40 MG TABLET. PO SCH (08:49)
[2017-01-16] MEDS: DOCUSATE SODIUM 100 MG CAPSULE. PO SCH ×2 (08:49→21:12)
[2017-01-16] MEDS: INSULIN ASPART 300 UNITS/3 ML INSULN.PEN SQ SCH ×3 (08:50→17:07)
[2017-01-16] MEDS: NYSTATIN TOPICAL POWDER 15GM BOTTLE. TP SCH ×3 (08:57→21:13)
--- NOTE | 2017-01-16 11:56 | PDOC ---
Subjective: Subjective: Denies swallowing issues and GI complaints. Objective: Objective: Reviewed chart, d/w RN - had [employer] eval over the weekend w/ neuro symptoms, was NPO, now improved, plans for regular diet. Vital Signs: Vital Signs Date Time Temp Pulse Resp B/P (MAP) Pulse Ox O2 Delivery O2 Flow Rate FiO2 01/16/17 11:34 Room Air 01/16/17 08:48 90 01/16/17 07:00 98.5 20 150/77 (101) 90 2.0 98.5 Labs: Laboratory Tests Test 01/15/17 16:54 01/15/17 20:43 01/16/17 08:09 Glucose (Fingerstick) 229 mg/dL (70-99) 165 mg/dL (70-99) 137 mg/dL (70-99) PE: GEN: NAD LUNGS: CTAB HEART: RRR ABD: NABS, S/ND/NT NEURO/PSYCH: A & O 3 A/P: Dysphagia -s/p dilation mild GE stricture, has presbyesophagus -[employer] saw over the weekend, plans for regular diet today -- GI-eduardo is improved/stable. PAUL RAMIREZ Jan 16, 2017 11:56
--- NOTE | 2017-01-16 13:25 | PDOC ---
PROGRESS NOTES Chief Complaint Chief Complaint L LE cellulitis ASSESSMENT AND PLAN: 1. TIA: episode of gibberish aphasia, facial droop, tongue immobility completely resolved. STAT CT head neg Of note: 2. 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 Dysphagia: presbyesophagus, s/p dilation. rpt swallow eval: recovered. on dysphagia diet 4. Afib: rate controlled 5. OAC: warfarin 6. CHF: no acute issues. 7. HTN: well controlled; 8. DM: good control on ISS only 9. FTT: increasing frailty and compiling medical issues. has not been home since Nov 20, doubt she will ever make it back DNR History of Present Illness History of Present Illness in good spirits. Family at bedside No more oligoria, has very good urine output off IV antibiotics 9 I am currently doing appear to appear, left a voicemail again second time. Initial plans were for her to go back to [facility]. She has been eating less than 50% of her tray for the past few days now family concern. Anasarca is better. She has a peripheral right IV site , family concern about beginning swelling. She was on TPN with a PICC prior to had to admit here. Plan of care: Insert PICC, start TPN per pharmacy Await peer to peer, discharge disposition pending. peer to peer Assessment with family, social work, RN Vitals Vitals Vital Signs Date Time Temp Pulse Resp B/P (MAP) Pulse Ox O2 Delivery O2 Flow Rate FiO2 01/16/17 12:58 Nasal Cannula 01/16/17 12:30 3.0 01/16/17 12:23 81 103/53 01/16/17 11:00 97.5 18 87 97.5 Physical Exam General: Alert, Oriented X3, Cooperative, No acute distress Heart: Regular rate Lungs: Clear Abdomen: Normal bowel sounds, No tenderness Extremities: No edema, Other (L AKA) Skin: No rashes Labs LABS Laboratory Tests Test 01/15/17 16:54 01/15/17 20:43 01/16/17 05:45 01/16/17 08:09 Glucose (Fingerstick) 229 mg/dL (70-99) 165 mg/dL (70-99) 137 mg/dL (70-99) White Blood Count 12.7 x10^3/uL (4.0-11.0) Red Blood Count 3.60 x10^6/uL (3.50-5.40) Hemoglobin 10.0 g/dL (12.0-15.5) Hematocrit 33.0 % (36.0-47.0) Mean Corpuscular Volume 92 fL (79-100) Mean Corpuscular Hemoglobin 28 pg (25-35) Mean Corpuscular Hemoglobin Concent 31 g/dL (31-37) Red Cell Distribution Width 17.8 % (11.5-14.5) Platelet Count 153 x10^3/uL (140-400) Neutrophils (%) (Auto) 31 % (31-73) Lymphocytes (%) (Auto) 60 % (24-48) Monocytes (%) (Auto) 7 % (0-9) Eosinophils (%) (Auto) 1 % (0-3) Basophils (%) (Auto) 0 % (0-3) Neutrophils # (Auto) 3.9 x10^3uL (1.8-7.7) Lymphocytes # (Auto) 7.6 x10^3/uL (1.0-4.8) Monocytes # (Auto) 0.9 x10^3/uL (0.0-1.1) Eosinophils # (Auto) 0.2 x10^3/uL (0.0-0.7) Basophils # (Auto) 0.1 x10^3/uL (0.0-0.2) Prothrombin Time 18.1 SEC (11.7-14.0) Prothromb Time International Ratio 1.6 (0.8-1.1) Sodium Level 134 mmol/L (136-145) Potassium Level 4.4 mmol/L (3.5-5.1) Chloride Level 102 mmol/L (98-107) Carbon Dioxide Level 27 mmol/L (21-32) Anion Gap 5 (6-14) Blood Urea Nitrogen 11 mg/dL (7-20) Creatinine 0.6 mg/dL (0.6-1.0) Estimated GFR (Cockcroft-Gault) 94.1 Glucose Level 130 mg/dL (70-99) Calcium Level 7.8 mg/dL (8.5-10.1) Test 01/16/17 11:52 Glucose (Fingerstick) 186 mg/dL (70-99) Review of Systems Review of Systems No chest pain, shortness of breath, abdominal pain, nausea, emesis, lightheadedness, dizziness Comment Review of Relevant I have reviewed the following items madhav (where applicable) has been applied. Labs Laboratory Tests Test 01/14/17 17:13 01/14/17 21:23 01/15/17 05:05 01/15/17 07:47 Glucose (Fingerstick) 106 mg/dL (70-99) 106 mg/dL (70-99) 119 mg/dL (70-99) White Blood Count 7.8 x10^3/uL (4.0-11.0) Red Blood Count 3.14 x10^6/uL (3.50-5.40) Hemoglobin 8.9 g/dL (12.0-15.5) Hematocrit 27.9 % (36.0-47.0) Mean Corpuscular Volume 89 fL (79-100) Mean Corpuscular Hemoglobin 28 pg (25-35) Mean Corpuscular Hemoglobin Concent 32 g/dL (31-37) Red Cell Distribution Width 16.4 % (11.5-14.5) Platelet Count 130 x10^3/uL (140-400) Neutrophils (%) (Auto) 30 % (31-73) Lymphocytes (%) (Auto) 61 % (24-48) Monocytes (%) (Auto) 7 % (0-9) Eosinophils (%) (Auto) 1 % (0-3) Basophils (%) (Auto) 1 % (0-3) Neutrophils # (Auto) 2.4 x10^3uL (1.8-7.7) Lymphocytes # (Auto) 4.7 x10^3/uL (1.0-4.8) Monocytes # (Auto) 0.6 x10^3/uL (0.0-1.1) Eosinophils # (Auto) 0.1 x10^3/uL (0.0-0.7) Basophils # (Auto) 0.1 x10^3/uL (0.0-0.2) Prothrombin Time 20.4 SEC (11.7-14.0) Prothromb Time International Ratio 1.9 (0.8-1.1) Sodium Level 140 mmol/L (136-145) Potassium Level 3.9 mmol/L (3.5-5.1) Chloride Level 105 mmol/L (98-107) Carbon Dioxide Level 30 mmol/L (21-32) Anion Gap 5 (6-14) Blood Urea Nitrogen 7 mg/dL (7-20) Creatinine 0.5 mg/dL (0.6-1.0) Estimated GFR (Cockcroft-Gault) 116.2 Glucose Level 112 mg/dL (70-99) Calcium Level 7.6 mg/dL (8.5-10.1) Test 01/15/17 11:34 01/15/17 16:54 01/15/17 20:43 01/16/17 05:45 Glucose (Fingerstick) 126 mg/dL (70-99) 229 mg/dL (70-99) 165 mg/dL (70-99) White Blood Count 12.7 x10^3/uL (4.0-11.0) Red Blood Count 3.60 x10^6/uL (3.50-5.40) Hemoglobin 10.0 g/dL (12.0-15.5) Hematocrit 33.0 % (36.0-47.0) Mean Corpuscular Volume 92 fL (79-100) Mean Corpuscular Hemoglobin 28 pg (25-35) Mean Corpuscular Hemoglobin Concent 31 g/dL (31-37) Red Cell Distribution Width 17.8 % (11.5-14.5) Platelet Count 153 x10^3/uL (140-400) Neutrophils (%) (Auto) 31 % (31-73) Lymphocytes (%) (Auto) 60 % (24-48) Monocytes (%) (Auto) 7 % (0-9) Eosinophils (%) (Auto) 1 % (0-3) Basophils (%) (Auto) 0 % (0-3) Neutrophils # (Auto) 3.9 x10^3uL (1.8-7.7) Lymphocytes # (Auto) 7.6 x10^3/uL (1.0-4.8) Monocytes # (Auto) 0.9 x10^3/uL (0.0-1.1) Eosinophils # (Auto) 0.2 x10^3/uL (0.0-0.7) Basophils # (Auto) 0.1 x10^3/uL (0.0-0.2) Prothrombin Time 18.1 SEC (11.7-14.0) Prothromb Time International Ratio 1.6 (0.8-1.1) Sodium Level 134 mmol/L (136-145) Potassium Level 4.4 mmol/L (3.5-5.1) Chloride Level 102 mmol/L (98-107) Carbon Dioxide Level 27 mmol/L (21-32) Anion Gap 5 (6-14) Blood Urea Nitrogen 11 mg/dL (7-20) Creatinine 0.6 mg/dL (0.6-1.0) Estimated GFR (Cockcroft-Gault) 94.1 Glucose Level 130 mg/dL (70-99) Calcium Level 7.8 mg/dL (8.5-10.1) Test 01/16/17 08:09 01/16/17 11:52 Glucose (Fingerstick) 137 mg/dL (70-99) 186 mg/dL (70-99) Laboratory Tests Test 01/15/17 16:54 01/15/17 20:43 01/16/17 05:45 01/16/17 08:09 Glucose (Fingerstick) 229 mg/dL (70-99) 165 mg/dL (70-99) 137 mg/dL (70-99) White Blood Count 12.7 x10^3/uL (4.0-11.0) Red Blood Count 3.60 x10^6/uL (3.50-5.40) Hemoglobin 10.0 g/dL (12.0-15.5) Hematocrit 33.0 % (36.0-47.0) Mean Corpuscular Volume 92 fL (79-100) Mean Corpuscular Hemoglobin 28 pg (25-35) Mean Corpuscular Hemoglobin Concent 31 g/dL (31-37) Red Cell Distribution Width 17.8 % (11.5-14.5) Platelet Count 153 x10^3/uL (140-400) Neutrophils (%) (Auto) 31 % (31-73) Lymphocytes (%) (Auto) 60 % (24-48) Monocytes (%) (Auto) 7 % (0-9) Eosinophils (%) (Auto) 1 % (0-3) Basophils (%) (Auto) 0 % (0-3) Neutrophils # (Auto) 3.9 x10^3uL (1.8-7.7) Lymphocytes # (Auto) 7.6 x10^3/uL (1.0-4.8) Monocytes # (Auto) 0.9 x10^3/uL (0.0-1.1) Eosinophils # (Auto) 0.2 x10^3/uL (0.0-0.7) Basophils # (Auto) 0.1 x10^3/uL (0.0-0.2) Prothrombin Time 18.1 SEC (11.7-14.0) Prothromb Time International Ratio 1.6 (0.8-1.1) Sodium Level 134 mmol/L (136-145) Potassium Level 4.4 mmol/L (3.5-5.1) Chloride Level 102 mmol/L (98-107) Carbon Dioxide Level 27 mmol/L (21-32) Anion Gap 5 (6-14) Blood Urea Nitrogen 11 mg/dL (7-20) Creatinine 0.6 mg/dL (0.6-1.0) Estimated GFR (Cockcroft-Gault) 94.1 Glucose Level 130 mg/dL (70-99) Calcium Level 7.8 mg/dL (8.5-10.1) Test 01/16/17 11:52 Glucose (Fingerstick) 186 mg/dL (70-99) Microbiology 01/03/17 Gram Stain - Final, Complete Medications Current Medications Oxycodone HCl (Roxicodone) 5 mg PRN Q4HRS PRN PO BREAKTHROUGH PAIN Last administered on 01/16/17 11:34; Start 01/02/17 at 18:15 Oxycodone HCl (OxyCONTIN) 10 mg Q12HR PO Last administered on 01/16/17 08:49; Start 01/02/17 at 21:00 Amlodipine Besylate (Norvasc) 5 mg HS PO Last administered on 01/02/17 22:28 ; Start 01/02/17 at 21:00; Stop 01/04/17 at 08:03; Status DC Tamsulosin HCl (Flomax) 0.4 mg DAILY PO Last administered on 01/16/17 08:48; Start 01/03/17 at 09:00 Polyethylene Glycol (miraLAX PACKET) 17 gm PRN DAILY PRN PO CONSTIPATION Last administered on 01/12/17 10:43; Start 01/02/17 at 18:30 Ondansetron HCl (Zofran) 4 mg PRN Q6HRS PRN IV NAUSEA/VOMITING Last administered on 01/15/17 04:26; Start 01/02/17 at 18:30 Lorazepam (Ativan) 2 mg PRN Q12HR PRN IV ANXIETY / AGITATION Last administered on 01/06/17 22:42; Start 01/02/17 at 18:30; Stop 01/14/17 at 17:13; Status DC Metoprolol Tartrate (Lopressor) 25 mg BID PO Last administered on 01/02/17 22 :29; Start 01/02/17 at 21:00; Stop 01/04/17 at 08:03; Status DC Silver Nitrate/ Potassium Nitrate 1 each 1X ONCE TP ; Start 01/02/17 at 18:45 ; Stop 01/02/17 at 18:46; Status DC Famotidine (Pepcid) 20 mg DAILY PO ; Start 01/03/17 at 09:00; Stop 01/04/17 at 08:05; Status DC Trazodone HCl (Desyrel) 50 mg QHS PO Last administered on 01/02/17 22:28; Start 01/02/17 at 21:00; Stop 01/04/17 at 08:04; Status DC Levothyroxine Sodium (Synthroid) 112 mcg DAILY07 PO ; Start 01/03/17 at 07:00; Stop 01/04/17 at 08:05; Status DC Lactobacillus Rhamnosus (Culturelle) 1 cap BID PO Last administered on 08:48; Start 01/02/17 at 21:00 Sodium Chloride 1,000 ml @ 75 mls/hr [id number] IV Last administered on 14:53; Start 01/02/17 at 19:00; Stop 01/11/17 at 11:52; Status DC Sodium Chloride (Normal Saline Flush 3ml) 10 ml PRN Q12HRS PRN IV AFTER MEDS AND BLOOD DRAWS; Start 01/02/17 at 18:30; Stop 01/05/17 at 05:38; Status DC Insulin Aspart (NovoLOG) 0-9 UNITS TIDWMEALS SQ Last administered on 01/16/17 12:57; Start 01/03/17 at 19:00 Dextrose (Dextrose 50%-Water Syringe) 12.5 gm PRN Q15MIN PRN IV SEE COMMENTS; Start 01/02/17 at 18:45 Docusate Sodium (Colace) 100 mg BID PO Last administered on 01/16/17 08:49; Start 01/02/17 at 21:00 Bisacodyl (Dulcolax Supp) 10 mg PRN DAILY PRN ND CONSTIPATION; Start 01/02/17 at 18:45 Atorvastatin Calcium (Lipitor) 10 mg QHS PO Last administered on 01/15/17 20: 51; Start 01/02/17 at 21:00 Aspirin (Lucas Aspirin) 325 mg DAILYWBKFT PO ; Start 01/03/17 at 08:00; Stop 01/03/17 at 16:35; Status DC Acetaminophen (Tylenol) 500 mg PRN Q6HRS PRN PO MILD PAIN / TEMP; Start at 18:45; Stop 01/04/17 at 12:28; Status DC Morphine Sulfate 2 mg PRN Q2HR PRN IV PAIN Last administered on 01/03/17 22: 41; Start 01/02/17 at 21:15; Stop 01/03/17 at 23:26; Status DC Morphine Sulfate 4 mg PRN Q2HR PRN IV PAIN Last administered on 01/03/17 20: 22; Start 01/02/17 at 21:15; Stop 01/03/17 at 23:56; Status DC Piperacillin Sod/ Tazobactam Sod 3.375 gm/Dextrose 50 ml @ 100 mls/hr Q6HRS IV ; Start 01/03/17 at 12:00; Status UNV Linezolid 300 ml @ 300 mls/hr Q12HR IV Last administered on 01/07/17 09:29; Start 01/03/17 at 11:00; Stop 01/07/17 at 12:55; Status DC Phytonadione 10 mg/Dextrose 51 ml @ 102 mls/hr 1X ONCE IV ; Start 01/03/17 at 11:00; Stop 01/03/17 at 11:00; Status DC Piperacillin Sod/ Tazobactam Sod (Zosyn) 3.375 gm Q6HRS IVP Last administered on 01/08/17 06:09; Start 01/03/17 at 12:00; Stop 01/08/17 at 11:26; Status DC Furosemide (Lasix) 40 mg 1X ONCE IVP Last administered on 01/03/17 11:44; Start 01/03/17 at 11:45; Stop 01/03/17 at 11:46; Status DC Lidocaine/Sodium Bicarbonate (Buffered Lidocaine 1%) 3 ml 1X ONCE IJ Last administered on 01/03/17 15:57; Start 01/03/17 at 15:30; Stop 01/03/17 at 15 :31; Status DC Lidocaine/Sodium Bicarbonate (Buffered Lidocaine 1%) 3 ml 1X ONCE IJ ; Start 01/03/17 at 15:45; Stop 01/03/17 at 15:46; Status DC Phytonadione (Vitamin K Ampule) 10 mg 1X ONCE SQ Last administered on 17:56; Start 01/03/17 at 16:30; Stop 01/03/17 at 16:35; Status DC Ondansetron HCl (Zofran) 4 mg PRN Q6HRS PRN IV NAUSEA/VOMITING; Start at 07:00; Stop 01/05/17 at 06:59; Status DC Fentanyl Citrate (Fentanyl 2ml Vial) 25 mcg PRN Q5MIN PRN IV MILD PAIN; Start 01/04/17 at 07:00; Stop 01/05/17 at 06:59; Status DC Fentanyl Citrate (Fentanyl 2ml Vial) 50 mcg PRN Q5MIN PRN IV MODERATE PAIN; Start 01/04/17 at 07:00; Stop 01/05/17 at 06:59; Status DC Ringer's Solution 1,000 ml @ 30 mls/hr Q24H IV Last administered on 09:24; Start 01/04/17 at 07:00; Stop 01/04/17 at 18:59; Status DC Lidocaine HCl (Xylocaine-Mpf 1% Vial) 2 ml PRN 1X PRN ID PRIOR TO IV START; Start 01/04/17 at 07:00; Stop 01/05/17 at 06:59; Status DC Prochlorperazine Edisylate (Compazine) 5 mg PACU PRN PRN IV NAUSEA, MRX1; Start 01/04/17 at 07:00; Stop 01/05/17 at 06:59; Status DC Morphine Sulfate 2 mg PRN Q2HR PRN IV MODERATE PAIN; Start 01/03/17 at 23:30 Morphine Sulfate 4 mg PRN Q2HR PRN IV SEVERE PAIN Last administered on 20:52; Start 01/03/17 at 23:56 Acetaminophen (Tylenol) 500 mg PRN Q6HRS PRN PO MILD PAIN Last administered on 01/12/17 04:42; Start 01/04/17 at 08:00 Amlodipine Besylate (Norvasc) 10 mg HS PO Last administered on 01/15/17 20:51 ; Start 01/04/17 at 21:00 Carvedilol (Coreg) 6.25 mg BIDWMEALS PO ; Start 01/04/17 at 09:00; Status Cancel Famotidine (Pepcid) 20 mg HS PO Last administered on 01/06/17 20:48; Start 01/04/17 at 21:00; Stop 01/07/17 at 14:56; Status DC Albuterol/ Ipratropium (Duoneb) 3 ml PRN Q4HRS PRN NEB SHORTNESS OF BREATH; Start 01/04/17 at 08:00 Levothyroxine Sodium (Synthroid) 224 mcg HS PO Last administered on 01/15/17 20:50; Start 01/04/17 at 21:00 Metoprolol Tartrate (Lopressor) 25 mg BID PO ; Start 01/04/17 at 09:00; Status Cancel Simvastatin (Zocor) 20 mg HS PO ; Start 01/04/17 at 21:00; Status UNV Tamsulosin HCl (Flomax) 0.4 mg DAILY PO ; Start 01/04/17 at 09:00; Status UNV Tramadol HCl (Ultram) 50 mg PRN Q6HRS PRN PO MILD PAIN, 2ND CHOICE Last administered on 01/12/17 19:48; Start 01/04/17 at 08:00 Trazodone HCl (Desyrel) 50 mg QHS PO Last administered on 01/15/17 20:51; Start 01/04/17 at 21:00 Vitamin D (Vitamin D3) 1,000 unit DAILY PO Last administered on 01/16/17 08:49 ; Start 01/04/17 at 09:00 Docusate Sodium (Colace) 100 mg PRN DAILY PRN PO CONSTIPATION; Start 01/04/17 at 09:00 Losartan Potassium (Cozaar) 100 mg DAILY PO Last administered on 01/16/17 08: 48; Start 01/04/17 at 09:00 Non-Formulary Medication 1 tab QHS PO ; Start 01/04/17 at 21:00; Status UNV Non-Formulary Medication 1 tab DAILY PO ; Start 01/04/17 at 09:00; Status UNV Potassium Chloride (Klor-Con) 20 meq DAILYWBKFT PO Last administered on 08:48; Start 01/04/17 at 08:30 Carvedilol (Coreg) 6.25 mg BIDWMEALS PO Last administered on 01/06/17 08:58; Start 01/04/17 at 09:00; Stop 01/06/17 at 12:28; Status DC Cefazolin Sodium 1 gm/Sodium Chloride 500 ml @ 500 mls/hr 1X PERIOP ONCE IRR Last administered on 01/04/17 16:38; Start 01/04/17 at 14:30; Stop 01/04/17 at 15:29; Status DC Heparin Sodium (Porcine) 5000 unit/Sodium Chloride 505 ml @ 505 mls/hr 1X PERIOP ONCE IRR Last administered on 01/04/17 16:38; Start 01/04/17 at 14: 30; Stop 01/04/17 at 15:29; Status DC Furosemide (Lasix) 40 mg 1X ONCE IVP ; Start 01/04/17 at 16:00; Stop at 16:01; Status DC Albumin Human 100 ml @ 100 mls/hr 1X ONCE IV Last administered on 01/04/17 18:52; Start 01/04/17 at 16:00; Stop 01/04/17 at 16:59; Status DC Albumin Human 100 ml @ 100 mls/hr 1X ONCE IV Last administered on 01/04/17 19:16; Start 01/04/17 at 16:00; Stop 01/04/17 at 16:59; Status DC Furosemide (Lasix) 20 mg 1X ONCE IVP Last administered on 01/04/17 21:16; Start 01/04/17 at 18:45; Stop 01/04/17 at 18:46; Status DC Sodium Chloride (Normal Saline Flush) 10 ml QSHIFT PRN IV AFTER MEDS AND BLOOD DRAWS; Start 01/05/17 at 05:45 Warfarin Sodium (Coumadin Per Pharmacy) 1 each PRN DAILY PRN MC SEE COMMENTS Last administered on 01/09/17 12:43; Start 01/05/17 at 16:45; Stop 01/09/17 at 13:19; Status DC Warfarin Sodium (Coumadin) 5 mg 1X WARF ONCE PO Last administered on 17:02; Start 01/05/17 at 17:00; Stop 01/05/17 at 17:01; Status DC Potassium Chloride 50 ml @ 50 mls/hr Q1H IV Last administered on 01/06/17 12: 28; Start 01/06/17 at 07:30; Stop 01/06/17 at 09:29; Status DC Warfarin Sodium (Coumadin) 4 mg 1X WARF ONCE PO Last administered on 15:48; Start 01/06/17 at 16:00; Stop 01/06/17 at 16:01; Status DC Potassium Chloride (KCl Oral Soln) 40 meq 1X ONCE PO Last administered on 18:51; Start 01/06/17 at 18:00; Stop 01/06/17 at 18:01; Status DC Furosemide (Lasix) 40 mg 1X ONCE IVP Last administered on 01/06/17 18:47; Start 01/06/17 at 18:00; Stop 01/06/17 at 18:01; Status DC Warfarin Sodium (Coumadin) 5 mg 1X WARF ONCE PO Last administered on 15:46; Start 01/07/17 at 16:00; Stop 01/07/17 at 16:01; Status DC Pantoprazole Sodium (Protonix) 40 mg DAILYAC PO Last administered on 01/16/17 08:48; Start 01/07/17 at 16:30 Barium Sulfate (Liquid E-Z Paque) 355 ml 1X ONCE PO Last administered on 01/08 08:35; Start 01/08/17 at 07:30; Stop 01/08/17 at 07:31; Status DC Barium Sulfate (E-Z-Hd) 340 gm 1X ONCE PO ; Start 01/08/17 at 07:30; Stop at 07:31; Status DC Simethicone/ Sodium Bicarb/ Citric Ac (E-Z-Gas) 1 packet 1X ONCE PO ; Start at 07:30; Stop 01/08/17 at 07:31; Status DC Warfarin Sodium (Coumadin) 5 mg 1X WARF ONCE PO ; Start 01/08/17 at 16:00; Stop 01/08/17 at 16:01; Status DC Sodium Monofluorophosphate (Fleet Adult) 133 ml 1X ONCE ND Last administered on 01/08/17 14:52; Start 01/08/17 at 14:30; Stop 01/08/17 at 14:34; Status DC Amino Acids/ Glycerin/ Electrolytes 1,000 ml @ 50 mls/hr Q20H IV Last administered on 01/10/17 05:43; Start 01/08/17 at 15:00; Stop 01/11/17 at 19 :39; Status DC Furosemide (Lasix) 20 mg DAILY IVP Last administered on 01/12/17 12:49; Start 01/08/17 at 15:30; Stop 01/12/17 at 20:23; Status DC Lidocaine/Sodium Bicarbonate (Buffered Lidocaine 1%) 20 ml STK-MED ONCE IJ ; Start 01/03/17 at 14:59; Stop 01/09/17 at 10:45; Status DC Iohexol (Omnipaque 300 Mg/ml) 100 ml STK-MED ONCE .ROUTE ; Start 01/04/17 at 13 :57; Stop 01/09/17 at 11:11; Status DC Propofol 20 ml @ As Directed STK-MED ONCE IV ; Start 01/04/17 at 14:49; Stop 01/09/17 at 11:12; Status DC Dexamethasone Sodium Phosphate (Decadron) 20 mg STK-MED ONCE .ROUTE ; Start at 14:49; Stop 01/09/17 at 11:12; Status DC Lidocaine HCl (Lidocaine Pf 2% Vial) 5 ml STK-MED ONCE .ROUTE ; Start 01/04/17 at 14:49; Stop 01/09/17 at 11:12; Status DC Ondansetron HCl (Zofran) 4 mg STK-MED ONCE .ROUTE ; Start 01/04/17 at 14:49; Stop 01/09/17 at 11:12; Status DC Fentanyl Citrate (Fentanyl 2ml Vial) 100 mcg STK-MED ONCE .ROUTE ; Start at 14:49; Stop 01/09/17 at 11:12; Status DC Ephedrine Sulfate (Akovaz) 50 mg STK-MED ONCE .ROUTE ; Start 01/04/17 at 16:26 ; Stop 01/09/17 at 11:13; Status DC Furosemide (Lasix) 20 mg STK-MED ONCE .ROUTE ; Start 01/04/17 at 16:30; Stop 01/09/17 at 11:13; Status DC Sevoflurane (Ultane) 90 ml STK-MED ONCE IH ; Start 01/04/17 at 17:42; Stop at 11:13; Status DC Warfarin Sodium (Coumadin) 5 mg 1X WARF ONCE PO ; Start 01/09/17 at 16:00; Stop 01/09/17 at 16:00; Status DC Ringer's Solution 1,000 ml @ 75 mls/hr 1X ONCE IV Last administered on t 11:58; Start 01/10/17 at 12:00; Stop 01/11/17 at 01:19; Status DC Propofol 20 ml @ As Directed STK-MED ONCE IV ; Start 01/10/17 at 12:36; Stop 01/10/17 at 12:37; Status DC Lidocaine HCl (Lidocaine Pf 2% Vial) 5 ml STK-MED ONCE .ROUTE ; Start 01/10/17 at 12:36; Stop 01/10/17 at 12:37; Status DC Morphine Sulfate 2 mg STK-MED ONCE .ROUTE ; Start 01/10/17 at 13:08; Stop at 13:09; Status DC Morphine Sulfate 2 mg STK-MED ONCE .ROUTE ; Start 01/10/17 at 13:10; Stop at 13:11; Status DC Oxycodone/ Acetaminophen (Percocet 10/325) 1 tab PRN Q6HRS PRN PO SEVERE PAIN Last administered on 01/16/17t 08:50; Start 01/11/17 at 01:45 Oxycodone/ Acetaminophen (Percocet 5/325) 1 tab PRN Q6HRS PRN PO MODERATE PAIN Last administered on 01/12/17 04:42; Start 01/11/17 at 01:45 Clonidine HCl (Catapres) 0.1 mg PRN Q1HR PRN PO HYPERTENSION, SEE COMMENTS; Start 01/11/17 at 06:00; Status Cancel Warfarin Sodium (Coumadin) 4 mg 1X WARF ONCE PO Last administered on 17:30; Start 01/12/17 at 17:00; Stop 01/12/17 at 17:01; Status DC Warfarin Sodium (Coumadin Per Pharmacy) 1 each PRN DAILY PRN MC SEE COMMENTS Last administered on 01/16/17 10:37; Start 01/12/17 at 17:00 Furosemide (Lasix) 40 mg DAILY PO Last administered on 01/16/17 08:49; Start 01/13/17 at 09:00 Nystatin (Nystop) 1 deborah TID TP Last administered on 01/16/17 08:57; Start at 23:30 Warfarin Sodium (Coumadin) 4 mg 1X WARF ONCE PO Last administered on 16:21; Start 01/13/17 at 16:00; Stop 01/13/17 at 16:01; Status DC Warfarin Sodium (Coumadin) 4 mg 1X WARF ONCE PO ; Start 01/14/17 at 16:00; Stop 01/14/17 at 16:01; Status DC Lorazepam (Ativan) 0.5 mg PRN Q12HR PRN IV ANXIETY / AGITATION; Start 01/14/17 at 17:15 Labetalol HCl (Normodyne) 10 mg Q6HRS IVP Last administered on 01/15/17 06:34 ; Start 01/14/17 at 18:00 Labetalol HCl (Normodyne) 10 mg PRN Q2HR PRN IVP HYPERTENSION, SEE COMMENTS; Start 01/14/17 at 20:45 Amino Acids/ Glycerin/ Electrolytes 1,000 ml @ 80 mls/hr [id number] IV Last administered on 01/16/17 08:47; Start 01/14/17 at 21:30 Warfarin Sodium (Coumadin) 4 mg 1X WARF ONCE PO Last administered on 18:03; Start 01/15/17 at 16:00; Stop 01/15/17 at 16:01; Status DC Warfarin Sodium (Coumadin) 5 mg 1X WARF ONCE PO ; Start 01/16/17 at 16:00; Stop 01/16/17 at 16:01 Active Scripts Active Tramadol Hcl 50 Mg Tablet 50 Mg PO PRN Q6HRS PRN Reported Warfarin Sodium 4 Mg Tablet 4 Mg PO DAILY Novolog Flexpen (Insulin Aspart) 100 Unit/1 Ml Insuln.pen 1 Unit SQ PRN TID PRN Duoneb 0.5-3(2.5) Mg/3 Ml (Albuterol/Ipratropium) 3 Ml Ampul.neb 3 Ml NEB PRN Q4HRS PRN Famotidine 20 Mg Tablet 20 Mg PO HS Trazodone Hcl 50 Mg Tablet 1 Tab PO QHS Tamsulosin Hcl 0.4 Mg Cap.er.24h 0.4 Mg PO DAILY Melatonin 3 Mg Tablet 1 Tab PO QHS Losartan Potassium 100 Mg Tablet 100 Mg PO DAILY Colace Clear (Docusate Sodium) 50 Mg Capsule 50 Mg PO PRN DAILY PRN Aspirin 325 Mg Tablet 1 Tab PO DAILY Acetaminophen 500 Mg Tablet 500 Mg PO PRN Q6HRS PRN Vitamin D (Cholecalciferol (Vitamin D3)) 1,000 Unit Capsule 1 Cap PO DAILY Levothyroxine Sodium 112 Mcg Tablet 2 Tab PO HS Prilosec Otc (Omeprazole Magnesium) 20 Mg Tablet.dr 1 Tab PO DAILY Metformin Hcl Er (Metformin Hcl) 500 Mg Tab.er.24h 500 Mg PO BIDWMEALS Amlodipine Besylate 10 Mg Tablet 10 Mg PO HS Simvastatin 20 Mg Tablet 20 Mg PO HS Glimepiride 2 Mg Tablet 2 Mg PO DAILY Carvedilol 3.125 Mg Tablet 6.25 Mg PO BID Potassium Chloride 10 Meq Capsule.er 20 Meq PO DAILY Vitals/I & O Vital Sign - Last 24 Hours 01/15/17 01/15/17 01/15/17 01/15/17 14:46 15:00 18:00 19:00 Temp 97.7 98.8 97.7 98.8 Pulse 71 71 76 Resp 18 18 18 B/P (MAP) 124/56 (78) 124/56 146/95 (112) Pulse Ox 88 90 O2 Delivery Nasal Cannula Nasal Cannula Nasal Cannula O2 Flow Rate 2.0 2.0 2.0 01/15/17 01/15/17 01/15/1701/15/17 20:00 20:50 20:50 20:51 Pulse 76 Resp 20 20 B/P (MAP) 146/95 Pulse Ox 90 90 O2 Delivery Nasal Cannula Nasal Cannula Nasal Cannula O2 Flow Rate 2.0 2.0 2.0 01/15/17 01/15/17 01/15/17 01/15/17 20:52 21:22 23:00 23:44 Temp 99.0 99.0 Pulse 60 60 Resp 20 20 18 B/P (MAP) 109/52 (71) 109/52 Pulse Ox 90 90 90 O2 Delivery Nasal Cannula Nasal Cannula Nasal Cannula O2 Flow Rate 2.0 2.0 2.0 01/16/17 01/16/17 01/16/17 01/16/17 00:02 00:50 00:50 01:59 Resp 20 20 20 20 Pulse Ox 90 90 90 90 O2 Delivery Nasal Cannula Nasal Cannula O2 Flow Rate 2.0 2.0 2.0 2.0 01/16/17 01/16/17 01/16/17 01/16/17 02:59 03:00 05:30 07:00 Temp 97.9 98.5 97.9 98.5 Pulse 82 82 88 Resp 20 18 20 B/P (MAP) 127/69 (88) 127/69 150/77 (101) Pulse Ox 90 90 90 O2 Delivery Nasal Cannula Nasal Cannula O2 Flow Rate 2.0 2.0 2.0 01/16/17 01/16/17 01/16/17 01/16/17 08:15 08:48 08:49 08:50 Pulse 90 O2 Delivery Nasal Cannula Nasal Cannula Nasal Cannula 01/16/17 01/16/17 01/16/17 01/16/17 11:00 11:00 11:34 12:23 Temp 97.5 97.5 Pulse 81 81 Resp 18 B/P (MAP) 103/53 (70) 103/53 Pulse Ox 87 O2 Delivery Room Air Nasal Cannula Room Air O2 Flow Rate 2.0 01/16/17 01/16/17 01/16/17 12:30 12:58 12:58 O2 Delivery Nasal Cannula Nasal Cannula O2 Flow Rate 3.0 Intake and Output 01/15/17 01/15/17 01/16/17 15:00 23:00 07:00 Intake Total 0 ml 120 ml 0 ml Output Total 550 ml Balance 0 ml -430 ml 0 ml Nutrition Consultation Dietary Evaluation: Recommendations by RD: Increase Calorie Intake, Protein supplementation Comments: continue diet and supplements at this time pt may benefit from mvi and vit c for wound healing Expected Outcomes/Goals: to meet > 50% est nutr needs with po intake - goal ongoing Malnutrition Findings: Malnutrition related to morbid: Weight 200% of ideal wt Malnutrition related to morbid: Yes Weight Status: Morbidly Obese THEODORA CHRISTIANSEN MD Jan 16, 2017 13:24
[2017-01-16] MEDS ORDERED: TPN PER PHARMACY MC PRN (13:30)
[2017-01-16] MEDS ORDERED: WARFARIN 5 MG TABLET. PO ONE (16:00)
[2017-01-16] MEDS: traZODone 50 MG TABLET. PO SCH (21:11)
[2017-01-16] MEDS: LEVOTHYROXINE 112 MCG TABLET PO SCH (21:11)
[2017-01-16] MEDS: ATORVASTATIN CALCIUM 10 MG TABLET. PO SCH (21:12)
[2017-01-16] MEDS: amLODIPine BESYLATE 10 MG TABLET PO SCH (21:13)
[2017-01-16] MEDS: PHENYLEPH/MINERAL OIL/PETROLAT RECTAL OINTMENT 28GM TUBE. RC PRN (21:13)
--- NOTE | 2017-01-16 21:49 | PDOC ---
Provider Note Provider Note Vascular F/U S/P Lt AK amp ~ 10 days ago Dressing dry and intact. Keith out ~ 8 Feb in office GURWINDER MONET MD Jan 16, 2017 21:49
[2017-01-16] MEDS ORDERED: TOTAL PARENTERAL NUTRITION 1,424.9987 ML, AMINO ACIDS 10 % 60 GM, DEXTROSE 70 % IN WATE... IV SCH ×10 (22:00)
[2017-01-17] VITALS (7 sets, daily range): BP systolic 110–134; BP diastolic 50–83
[2017-01-17 05:34] LABS: BASO % 0 % (0-3); EOS % 2 % (0-3); HEMATOCRIT 27.9 % (36.0-47.0); HEMOGLOBIN 8.7 g/dL (12.0-15.5); LYMPH # 5.3 x10^3/uL (1.0-4.8); LYMPH % 58 % (24-48); MEAN CORPUSCULAR HEMOGLOBIN 28 pg (25-35); MEAN CORPUSCULAR HGB CONC 31 g/dL (31-37); MEAN CORPUSCULAR VOLUME 90 fL (79-100); MONO % 7 % (0-9); NEUT % 33 % (31-73); PLATELET COUNT 158 x10^3/uL (140-400); RED BLOOD COUNT 3.11 x10^6/uL (3.50-5.40); RED CELL DISTRIBUTION WIDTH 17.8 % (11.5-14.5); WHITE BLOOD COUNT 9.1 x10^3/uL (4.0-11.0)
[2017-01-17 05:47] LABS: INR 2.1 (0.8-1.1); PROTHROMBIN TIME PATIENT 22.6 SEC (11.7-14.0)
[2017-01-17 05:56] LABS: CALCIUM 7.5 mg/dL (8.5-10.1); CREATININE 0.6 mg/dL (0.6-1.0); GFR 94.1; MAGNESIUM 1.3 mg/dL (1.8-2.4); PHOSPHORUS 2.2 mg/dL (2.6-4.7); POTASSIUM 4.6 mmol/L (3.5-5.1)
[2017-01-17] MEDS: LABETALOL 20 MG/4 ML DISP.SYRIN. IVP SCH ×4 (06:00→17:47)
[2017-01-17] MEDS: INSULIN ASPART 300 UNITS/3 ML INSULN.PEN SQ SCH ×3 (07:46→17:00)
[2017-01-17] MEDS: NYSTATIN TOPICAL POWDER 15GM BOTTLE. TP SCH ×3 (09:09→21:45)
[2017-01-17] MEDS: LACTOBACILLUS RHAMNOSUS GG 1 CAPSULE. PO SCH ×2 (09:10→21:44)
[2017-01-17] MEDS: LOSARTAN POTASSIUM 50 MG TABLET. PO SCH (09:10)
[2017-01-17] MEDS: DOCUSATE SODIUM 100 MG CAPSULE. PO SCH ×2 (09:10→21:44)
[2017-01-17] MEDS: POTASSIUM CHLORIDE 20 MEQ TABLET.ER. PO SCH (09:10)
[2017-01-17] MEDS: CHOLECALCIFEROL (VITAMIN D3) 1,000 UNIT TABLET PO SCH (09:11)
[2017-01-17] MEDS: PANTOPRAZOLE 40 MG TABLET.DR. PO SCH (09:11)
[2017-01-17] MEDS: FUROSEMIDE 40 MG TABLET. PO SCH (09:11)
[2017-01-17] MEDS: oxyCODONE ER 10 MG TAB.ER.12H PO SCH ×2 (09:11→21:43)
[2017-01-17] MEDS: TAMSULOSIN 0.4 MG CAP.ER.24H. PO SCH (09:11)
--- NOTE | 2017-01-17 09:11 | PDOC3 ---
Discharge Summary Visit Information Date of Admission: Jan 02, 2017 Date of Discharge: Jan 17, 2017 Admitting Diagnosis Comment: s/p AKA for persistent NON healing wound 1. TIA: episode of gibberish aphasia, facial droop, tongue immobility completely resolved. STAT CT head neg Of note: 2. 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 Dysphagia: presbyesophagus, s/p dilation. rpt swallow eval: recovered. on dysphagia diet 4. Afib: rate controlled 5. OAC: warfarin 6. CHF: no acute issues. 7. HTN: well controlled; 8. DM: good control on ISS only 9. FTT: increasing frailty and compiling medical issues. has not been home since Nov 20, doubt she will ever make it back Brief Hospital Course Allergies Allergies Coded Allergies Type Severity Reaction Last Updated Verified propoxyphene Allergy Severe 01/10/17 Yes hydrocodone Allergy Intermediate 01/10/17 Yes naproxen Allergy Intermediate 01/10/17 Yes trimethobenzamide Allergy Intermediate 01/10/17 Yes Vital Signs Vital Signs Date Time Temp Pulse Resp B/P (MAP) Pulse Ox O2 Delivery O2 Flow Rate FiO2 01/17/17 07:00 97.5 85 18 119/51 (73) 96 Nasal Cannula 3.0 97.5 Lab Results Laboratory Tests Test 01/15/17 11:34 01/15/17 16:54 01/15/17 20:43 01/16/17 05:45 Glucose (Fingerstick) 126 mg/dL (70-99) 229 mg/dL (70-99) 165 mg/dL (70-99) White Blood Count 12.7 x10^3/uL (4.0-11.0) Red Blood Count 3.60 x10^6/uL (3.50-5.40) Hemoglobin 10.0 g/dL (12.0-15.5) Hematocrit 33.0 % (36.0-47.0) Mean Corpuscular Volume 92 fL (79-100) Mean Corpuscular Hemoglobin 28 pg (25-35) Mean Corpuscular Hemoglobin Concent 31 g/dL (31-37) Red Cell Distribution Width 17.8 % (11.5-14.5) Platelet Count 153 x10^3/uL (140-400) Neutrophils (%) (Auto) 31 % (31-73) Lymphocytes (%) (Auto) 60 % (24-48) Monocytes (%) (Auto) 7 % (0-9) Eosinophils (%) (Auto) 1 % (0-3) Basophils (%) (Auto) 0 % (0-3) Neutrophils # (Auto) 3.9 x10^3uL (1.8-7.7) Lymphocytes # (Auto) 7.6 x10^3/uL (1.0-4.8) Monocytes # (Auto) 0.9 x10^3/uL (0.0-1.1) Eosinophils # (Auto) 0.2 x10^3/uL (0.0-0.7) Basophils # (Auto) 0.1 x10^3/uL (0.0-0.2) Prothrombin Time 18.1 SEC (11.7-14.0) Prothromb Time International Ratio 1.6 (0.8-1.1) Sodium Level 134 mmol/L (136-145) Potassium Level 4.4 mmol/L (3.5-5.1) Chloride Level 102 mmol/L (98-107) Carbon Dioxide Level 27 mmol/L (21-32) Anion Gap 5 (6-14) Blood Urea Nitrogen 11 mg/dL (7-20) Creatinine 0.6 mg/dL (0.6-1.0) Estimated GFR (Cockcroft-Gault) 94.1 Glucose Level 130 mg/dL (70-99) Calcium Level 7.8 mg/dL (8.5-10.1) Test 01/16/17 08:09 01/16/17 11:52 01/16/17 16:05 01/16/17 19:33 Glucose (Fingerstick) 137 mg/dL (70-99) 186 mg/dL (70-99) 184 mg/dL (70-99) 130 mg/dL (70-99) Test 01/17/17 05:00 01/17/17 07:27 White Blood Count 9.1 x10^3/uL (4.0-11.0) Red Blood Count 3.11 x10^6/uL (3.50-5.40) Hemoglobin 8.7 g/dL (12.0-15.5) Hematocrit 27.9 % (36.0-47.0) Mean Corpuscular Volume 90 fL (79-100) Mean Corpuscular Hemoglobin 28 pg (25-35) Mean Corpuscular Hemoglobin Concent 31 g/dL (31-37) Red Cell Distribution Width 17.8 % (11.5-14.5) Platelet Count 158 x10^3/uL (140-400) Neutrophils (%) (Auto) 33 % (31-73) Lymphocytes (%) (Auto) 58 % (24-48) Monocytes (%) (Auto) 7 % (0-9) Eosinophils (%) (Auto) 2 % (0-3) Basophils (%) (Auto) 0 % (0-3) Neutrophils # (Auto) 3.0 x10^3uL (1.8-7.7) Lymphocytes # (Auto) 5.3 x10^3/uL (1.0-4.8) Monocytes # (Auto) 0.6 x10^3/uL (0.0-1.1) Eosinophils # (Auto) 0.1 x10^3/uL (0.0-0.7) Basophils # (Auto) 0.0 x10^3/uL (0.0-0.2) Prothrombin Time 22.6 SEC (11.7-14.0) Prothromb Time International Ratio 2.1 (0.8-1.1) Sodium Level 137 mmol/L (136-145) Potassium Level 4.6 mmol/L (3.5-5.1) Chloride Level 102 mmol/L (98-107) Carbon Dioxide Level 31 mmol/L (21-32) Anion Gap 4 (6-14) Blood Urea Nitrogen 17 mg/dL (7-20) Creatinine 0.6 mg/dL (0.6-1.0) Estimated GFR (Cockcroft-Gault) 94.1 Glucose Level 118 mg/dL (70-99) Calcium Level 7.5 mg/dL (8.5-10.1) Phosphorus Level 2.2 mg/dL (2.6-4.7) Magnesium Level 1.3 mg/dL (1.8-2.4) Glucose (Fingerstick) 137 mg/dL (70-99) Laboratory Tests Test 01/16/17 11:52 01/16/17 16:05 01/16/17 19:33 01/17/17 05:00 Glucose (Fingerstick) 186 mg/dL (70-99) 184 mg/dL (70-99) 130 mg/dL (70-99) White Blood Count 9.1 x10^3/uL (4.0-11.0) Red Blood Count 3.11 x10^6/uL (3.50-5.40) Hemoglobin 8.7 g/dL (12.0-15.5) Hematocrit 27.9 % (36.0-47.0) Mean Corpuscular Volume 90 fL (79-100) Mean Corpuscular Hemoglobin 28 pg (25-35) Mean Corpuscular Hemoglobin Concent 31 g/dL (31-37) Red Cell Distribution Width 17.8 % (11.5-14.5) Platelet Count 158 x10^3/uL (140-400) Neutrophils (%) (Auto) 33 % (31-73) Lymphocytes (%) (Auto) 58 % (24-48) Monocytes (%) (Auto) 7 % (0-9) Eosinophils (%) (Auto) 2 % (0-3) Basophils (%) (Auto) 0 % (0-3) Neutrophils # (Auto) 3.0 x10^3uL (1.8-7.7) Lymphocytes # (Auto) 5.3 x10^3/uL (1.0-4.8) Monocytes # (Auto) 0.6 x10^3/uL (0.0-1.1) Eosinophils # (Auto) 0.1 x10^3/uL (0.0-0.7) Basophils # (Auto) 0.0 x10^3/uL (0.0-0.2) Prothrombin Time 22.6 SEC (11.7-14.0) Prothromb Time International Ratio 2.1 (0.8-1.1) Sodium Level 137 mmol/L (136-145) Potassium Level 4.6 mmol/L (3.5-5.1) Chloride Level 102 mmol/L (98-107) Carbon Dioxide Level 31 mmol/L (21-32) Anion Gap 4 (6-14) Blood Urea Nitrogen 17 mg/dL (7-20) Creatinine 0.6 mg/dL (0.6-1.0) Estimated GFR (Cockcroft-Gault) 94.1 Glucose Level 118 mg/dL (70-99) Calcium Level 7.5 mg/dL (8.5-10.1) Phosphorus Level 2.2 mg/dL (2.6-4.7) Magnesium Level 1.3 mg/dL (1.8-2.4) Test 01/17/17 07:27 Glucose (Fingerstick) 137 mg/dL (70-99) Brief Hospital Course Ms. Rahman is a 89 old female who was a transfer from [facility] to have an AKA of her neck because of persistent nonhealing wound despite wound VAC IV antibiotics at LT[facility]. She underwent the procedure by vascular surgery, had to reverse her INR because she was on Coumadin for history of A. fib. Postop course remarkable for some oliguric renal failure and ascites necessitating IV fluid renal consult, also remarkable for severe anasarca. Benefited from IV Lasix. Some issues with PICC line's, swelling, IV anesthesia stick etc. Soft. LTAC has rejected her readmission, hence we are aiming for SNU. She is eating maybe less than 50% of her tray every day. She is also mild, not complaining of anything. Family involved in her care. Patient is a DNR. She has been on ProcalAmine many bags, to augment her by mouth intake. Maximum assist for transfers hence we will keep the Wu. She has been on the Wu catheter ever since she got admitted. Consults vascular surgery renal infectious disease etc. Procedures performed AKA leg Patient seen and examined discharge time 35 minutes of paperwork. Discharge Information Condition at Discharge: Improved, Stable Disposition/Orders: Other (snu) Scheduled Amlodipine Besylate (Amlodipine Besylate), 10 MG PO HS, (Reported) Aspirin (Aspirin), 1 TAB PO DAILY, (Reported) Carvedilol (Carvedilol), 6.25 MG PO BID, (Reported) Cholecalciferol (Vitamin D3) (Vitamin D), 1 CAP PO DAILY, (Reported) Famotidine (Famotidine), 20 MG PO HS, (Reported) Glimepiride (Glimepiride), 2 MG PO DAILY, (Reported) Levothyroxine Sodium (Levothyroxine Sodium), 2 TAB PO HS, (Reported) Losartan Potassium (Losartan Potassium), 100 MG PO DAILY, (Reported) Melatonin (Melatonin), 1 TAB PO QHS, (Reported) Metformin Hcl (Metformin Hcl Er), 500 MG PO BIDWMEALS, (Reported) Omeprazole Magnesium (Prilosec Otc), 1 TAB PO DAILY, (Reported) Potassium Chloride (Potassium Chloride), 20 MEQ PO DAILY, (Reported) Simvastatin (Simvastatin), 20 MG PO HS, (Reported) Tamsulosin Hcl (Tamsulosin Hcl), 0.4 MG PO DAILY, (Reported) Trazodone Hcl (Trazodone Hcl), 1 TAB PO QHS, (Reported) Warfarin Sodium (Warfarin Sodium), 4 MG PO DAILY, (Reported) Scheduled PRN Acetaminophen (Acetaminophen), 500 MG PO PRN Q6HRS PRN for MILD PAIN, (Reported) Docusate Sodium (Colace Clear), 50 MG PO PRN DAILY PRN for CONSTIPATION, ( Reported) Insulin Aspart (Novolog Flexpen), 1 UNIT SQ PRN TID PRN for SEE COMMENTS, ( Reported) Ipratropium/Albuterol Sulfate (Duoneb 0.5-3(2.5) Mg/3 Ml), 3 ML NEB PRN Q4HRS PRN for SHORTNESS OF BREATH, (Reported) Tramadol Hcl (Tramadol Hcl), 50 MG PO PRN Q6HRS PRN for PAIN Discontinued Medications Rivaroxaban (Xarelto), 1 TAB PO DAILY, (Reported) Discontinued Reason: CHANGE THEODORA CHRISTIANSEN MD Jan 17, 2017 09:11
[2017-01-17] MEDS: oxyCODONE/APAP 10/325 1 TAB TABLET PO PRN ×2 (09:16→17:02)
--- NOTE | 2017-01-17 09:44 | PDOC ---
Subjective: Subjective: Denies dysphagia. Objective: Objective: D/w RN - was drowsy last night after Ativan (given during attempted PICC placement for TPN) so didn't eat much; however, did okay this morning. Vital Signs: Vital Signs Date Time Temp Pulse Resp B/P (MAP) Pulse Ox O2 Delivery O2 Flow Rate FiO2 01/17/17 09:16 Nasal Cannula 01/17/17 09:10 85 119/51 01/17/17 07:00 97.5 18 96 3.0 97.5 Labs: Laboratory Tests Test 01/16/17 11:52 01/16/17 16:05 01/16/17 19:33 01/17/17 07:27 Glucose (Fingerstick) 186 mg/dL (70-99) 184 mg/dL (70-99) 130 mg/dL (70-99) 137 mg/dL (70-99) PE: GEN: NAD LUNGS: clear HEART: RRR ABD: soft, non-tender NEURO/PSYCH: A & O 3 A/P: Dysphagia - resolved -s/p dilation mild GE stricture, does have presbyesophagus -tolerating regular diet -- DC per primary, continue PPI. PAUL RAMIREZ Jan 17, 2017 09:44
[2017-01-17] MEDS ORDERED: MAGNESIUM SULFATE 4GM 100 ML IV ONE (09:45)
--- NOTE | 2017-01-17 10:18 | PDOC ---
PROGRESS NOTES Subjective Subjective "I feel fine. I'm eating better too." Objective Objective Vascular Surgery - POD#13 Left AKA Patient visiting with her grand daughter. In good spirits. Anticipating return to skilled facility. Dressing removed. Left AKA incision intact and appears quite healthy. Still having serous drainage but no incisional dehiscence present. Plan: 1. Ok to discharge from a Vascular Surgery perspective to SNF when arrangements have been made and medically stable. 2. Patient to see Dr. Youngblood February 20 for removal of richard. 3. Daily dressing change with just clean gauze/Kerlix. No need to continue Xeroform gauze along incision line. Vital Signs Date Time Temp Pulse Resp B/P (MAP) Pulse Ox O2 Delivery O2 Flow Rate FiO2 01/17/17 09:16 Nasal Cannula 01/17/17 09:10 85 119/51 01/17/17 07:50 3.0 01/17/17 07:00 97.5 18 96 97.5 Intake and Output 01/17/17 07:00 Intake Total 1433 ml Output Total 825 ml Balance 608 ml Intake Oral 100 ml IV Total 1333 ml Output Urine Total 825 ml Comment Review of Relevant I have reviewed the following items madhav (where applicable) has been applied. Labs Laboratory Tests Test 01/15/17 11:34 01/15/17 16:54 01/15/17 20:43 01/16/17 05:45 Glucose (Fingerstick) 126 mg/dL (70-99) 229 mg/dL (70-99) 165 mg/dL (70-99) White Blood Count 12.7 x10^3/uL (4.0-11.0) Red Blood Count 3.60 x10^6/uL (3.50-5.40) Hemoglobin 10.0 g/dL (12.0-15.5) Hematocrit 33.0 % (36.0-47.0) Mean Corpuscular Volume 92 fL (79-100) Mean Corpuscular Hemoglobin 28 pg (25-35) Mean Corpuscular Hemoglobin Concent 31 g/dL (31-37) Red Cell Distribution Width 17.8 % (11.5-14.5) Platelet Count 153 x10^3/uL (140-400) Neutrophils (%) (Auto) 31 % (31-73) Lymphocytes (%) (Auto) 60 % (24-48) Monocytes (%) (Auto) 7 % (0-9) Eosinophils (%) (Auto) 1 % (0-3) Basophils (%) (Auto) 0 % (0-3) Neutrophils # (Auto) 3.9 x10^3uL (1.8-7.7) Lymphocytes # (Auto) 7.6 x10^3/uL (1.0-4.8) Monocytes # (Auto) 0.9 x10^3/uL (0.0-1.1) Eosinophils # (Auto) 0.2 x10^3/uL (0.0-0.7) Basophils # (Auto) 0.1 x10^3/uL (0.0-0.2) Prothrombin Time 18.1 SEC (11.7-14.0) Prothromb Time International Ratio 1.6 (0.8-1.1) Sodium Level 134 mmol/L (136-145) Potassium Level 4.4 mmol/L (3.5-5.1) Chloride Level 102 mmol/L (98-107) Carbon Dioxide Level 27 mmol/L (21-32) Anion Gap 5 (6-14) Blood Urea Nitrogen 11 mg/dL (7-20) Creatinine 0.6 mg/dL (0.6-1.0) Estimated GFR (Cockcroft-Gault) 94.1 Glucose Level 130 mg/dL (70-99) Calcium Level 7.8 mg/dL (8.5-10.1) Test 01/16/17 08:09 01/16/17 11:52 01/16/17 16:05 01/16/17 19:33 Glucose (Fingerstick) 137 mg/dL (70-99) 186 mg/dL (70-99) 184 mg/dL (70-99) 130 mg/dL (70-99) Test 01/17/17 05:00 01/17/17 07:27 White Blood Count 9.1 x10^3/uL (4.0-11.0) Red Blood Count 3.11 x10^6/uL (3.50-5.40) Hemoglobin 8.7 g/dL (12.0-15.5) Hematocrit 27.9 % (36.0-47.0) Mean Corpuscular Volume 90 fL (79-100) Mean Corpuscular Hemoglobin 28 pg (25-35) Mean Corpuscular Hemoglobin Concent 31 g/dL (31-37) Red Cell Distribution Width 17.8 % (11.5-14.5) Platelet Count 158 x10^3/uL (140-400) Neutrophils (%) (Auto) 33 % (31-73) Lymphocytes (%) (Auto) 58 % (24-48) Monocytes (%) (Auto) 7 % (0-9) Eosinophils (%) (Auto) 2 % (0-3) Basophils (%) (Auto) 0 % (0-3) Neutrophils # (Auto) 3.0 x10^3uL (1.8-7.7) Lymphocytes # (Auto) 5.3 x10^3/uL (1.0-4.8) Monocytes # (Auto) 0.6 x10^3/uL (0.0-1.1) Eosinophils # (Auto) 0.1 x10^3/uL (0.0-0.7) Basophils # (Auto) 0.0 x10^3/uL (0.0-0.2) Prothrombin Time 22.6 SEC (11.7-14.0) Prothromb Time International Ratio 2.1 (0.8-1.1) Sodium Level 137 mmol/L (136-145) Potassium Level 4.6 mmol/L (3.5-5.1) Chloride Level 102 mmol/L (98-107) Carbon Dioxide Level 31 mmol/L (21-32) Anion Gap 4 (6-14) Blood Urea Nitrogen 17 mg/dL (7-20) Creatinine 0.6 mg/dL (0.6-1.0) Estimated GFR (Cockcroft-Gault) 94.1 Glucose Level 118 mg/dL (70-99) Calcium Level 7.5 mg/dL (8.5-10.1) Phosphorus Level 2.2 mg/dL (2.6-4.7) Magnesium Level 1.3 mg/dL (1.8-2.4) Glucose (Fingerstick) 137 mg/dL (70-99) Laboratory Tests Test 01/16/17 11:52 01/16/17 16:05 01/16/17 19:33 01/17/17 05:00 Glucose (Fingerstick) 186 mg/dL (70-99) 184 mg/dL (70-99) 130 mg/dL (70-99) White Blood Count 9.1 x10^3/uL (4.0-11.0) Red Blood Count 3.11 x10^6/uL (3.50-5.40) Hemoglobin 8.7 g/dL (12.0-15.5) Hematocrit 27.9 % (36.0-47.0) Mean Corpuscular Volume 90 fL (79-100) Mean Corpuscular Hemoglobin 28 pg (25-35) Mean Corpuscular Hemoglobin Concent 31 g/dL (31-37) Red Cell Distribution Width 17.8 % (11.5-14.5) Platelet Count 158 x10^3/uL (140-400) Neutrophils (%) (Auto) 33 % (31-73) Lymphocytes (%) (Auto) 58 % (24-48) Monocytes (%) (Auto) 7 % (0-9) Eosinophils (%) (Auto) 2 % (0-3) Basophils (%) (Auto) 0 % (0-3) Neutrophils # (Auto) 3.0 x10^3uL (1.8-7.7) Lymphocytes # (Auto) 5.3 x10^3/uL (1.0-4.8) Monocytes # (Auto) 0.6 x10^3/uL (0.0-1.1) Eosinophils # (Auto) 0.1 x10^3/uL (0.0-0.7) Basophils # (Auto) 0.0 x10^3/uL (0.0-0.2) Prothrombin Time 22.6 SEC (11.7-14.0) Prothromb Time International Ratio 2.1 (0.8-1.1) Sodium Level 137 mmol/L (136-145) Potassium Level 4.6 mmol/L (3.5-5.1) Chloride Level 102 mmol/L (98-107) Carbon Dioxide Level 31 mmol/L (21-32) Anion Gap 4 (6-14) Blood Urea Nitrogen 17 mg/dL (7-20) Creatinine 0.6 mg/dL (0.6-1.0) Estimated GFR (Cockcroft-Gault) 94.1 Glucose Level 118 mg/dL (70-99) Calcium Level 7.5 mg/dL (8.5-10.1) Phosphorus Level 2.2 mg/dL (2.6-4.7) Magnesium Level 1.3 mg/dL (1.8-2.4) Test 01/17/17 07:27 Glucose (Fingerstick) 137 mg/dL (70-99) Microbiology 01/03/17 Gram Stain - Final, Complete Medications Current Medications Oxycodone HCl (Roxicodone) 5 mg PRN Q4HRS PRN PO BREAKTHROUGH PAIN Last administered on 01/16/17 11:34; Start 01/02/17 at 18:15 Oxycodone HCl (OxyCONTIN) 10 mg Q12HR PO Last administered on 01/17/17 09:11; Start 01/02/17 at 21:00 Amlodipine Besylate (Norvasc) 5 mg HS PO Last administered on 01/02/17 22:28 ; Start 01/02/17 at 21:00; Stop 01/04/17 at 08:03; Status DC Tamsulosin HCl (Flomax) 0.4 mg DAILY PO Last administered on 01/17/17 09:11; Start 01/03/17 at 09:00 Polyethylene Glycol (miraLAX PACKET) 17 gm PRN DAILY PRN PO CONSTIPATION Last administered on 01/12/17 10:43; Start 01/02/17 at 18:30 Ondansetron HCl (Zofran) 4 mg PRN Q6HRS PRN IV NAUSEA/VOMITING Last administered on 01/15/17 04:26; Start 01/02/17 at 18:30 Lorazepam (Ativan) 2 mg PRN Q12HR PRN IV ANXIETY / AGITATION Last administered on 01/06/17 22:42; Start 01/02/17 at 18:30; Stop 01/14/17 at 17:13; Status DC Metoprolol Tartrate (Lopressor) 25 mg BID PO Last administered on 01/02/17 22 :29; Start 01/02/17 at 21:00; Stop 01/04/17 at 08:03; Status DC Silver Nitrate/ Potassium Nitrate 1 each 1X ONCE TP ; Start 01/02/17 at 18:45 ; Stop 01/02/17 at 18:46; Status DC Famotidine (Pepcid) 20 mg DAILY PO ; Start 01/03/17 at 09:00; Stop 01/04/17 at 08:05; Status DC Trazodone HCl (Desyrel) 50 mg QHS PO Last administered on 01/02/17 22:28; Start 01/02/17 at 21:00; Stop 01/04/17 at 08:04; Status DC Levothyroxine Sodium (Synthroid) 112 mcg DAILY07 PO ; Start 01/03/17 at 07:00; Stop 01/04/17 at 08:05; Status DC Lactobacillus Rhamnosus (Culturelle) 1 cap BID PO Last administered on 09:10; Start 01/02/17 at 21:00 Sodium Chloride 1,000 ml @ 75 mls/hr [id number] IV Last administered on 14:53; Start 01/02/17 at 19:00; Stop 01/11/17 at 11:52; Status DC Sodium Chloride (Normal Saline Flush 3ml) 10 ml PRN Q12HRS PRN IV AFTER MEDS AND BLOOD DRAWS; Start 01/02/17 at 18:30; Stop 01/05/17 at 05:38; Status DC Insulin Aspart (NovoLOG) 0-9 UNITS TIDWMEALS SQ Last administered on 01/16/17 17:07; Start 01/03/17 at 19:00 Dextrose (Dextrose 50%-Water Syringe) 12.5 gm PRN Q15MIN PRN IV SEE COMMENTS; Start 01/02/17 at 18:45 Docusate Sodium (Colace) 100 mg BID PO Last administered on 01/17/17 09:10; Start 01/02/17 at 21:00 Bisacodyl (Dulcolax Supp) 10 mg PRN DAILY PRN NV CONSTIPATION; Start 01/02/17 at 18:45 Atorvastatin Calcium (Lipitor) 10 mg QHS PO Last administered on 01/16/17 21: 12; Start 01/02/17 at 21:00 Aspirin (Lucas Aspirin) 325 mg DAILYWBKFT PO ; Start 01/03/17 at 08:00; Stop 01/03/17 at 16:35; Status DC Acetaminophen (Tylenol) 500 mg PRN Q6HRS PRN PO MILD PAIN / TEMP; Start at 18:45; Stop 01/04/17 at 12:28; Status DC Morphine Sulfate 2 mg PRN Q2HR PRN IV PAIN Last administered on 01/03/17 22: 41; Start 01/02/17 at 21:15; Stop 01/03/17 at 23:26; Status DC Morphine Sulfate 4 mg PRN Q2HR PRN IV PAIN Last administered on 01/03/17 20: 22; Start 01/02/17 at 21:15; Stop 01/03/17 at 23:56; Status DC Piperacillin Sod/ Tazobactam Sod 3.375 gm/Dextrose 50 ml @ 100 mls/hr Q6HRS IV ; Start 01/03/17 at 12:00; Status UNV Linezolid 300 ml @ 300 mls/hr Q12HR IV Last administered on 01/07/17 09:29; Start 01/03/17 at 11:00; Stop 01/07/17 at 12:55; Status DC Phytonadione 10 mg/Dextrose 51 ml @ 102 mls/hr 1X ONCE IV ; Start 01/03/17 at 11:00; Stop 01/03/17 at 11:00; Status DC Piperacillin Sod/ Tazobactam Sod (Zosyn) 3.375 gm Q6HRS IVP Last administered on 01/08/17 06:09; Start 01/03/17 at 12:00; Stop 01/08/17 at 11:26; Status DC Furosemide (Lasix) 40 mg 1X ONCE IVP Last administered on 01/03/17 11:44; Start 01/03/17 at 11:45; Stop 01/03/17 at 11:46; Status DC Lidocaine/Sodium Bicarbonate (Buffered Lidocaine 1%) 3 ml 1X ONCE IJ Last administered on 01/03/17 15:57; Start 01/03/17 at 15:30; Stop 01/03/17 at 15 :31; Status DC Lidocaine/Sodium Bicarbonate (Buffered Lidocaine 1%) 3 ml 1X ONCE IJ ; Start 01/03/17 at 15:45; Stop 01/03/17 at 15:46; Status DC Phytonadione (Vitamin K Ampule) 10 mg 1X ONCE SQ Last administered on 17:56; Start 01/03/17 at 16:30; Stop 01/03/17 at 16:35; Status DC Ondansetron HCl (Zofran) 4 mg PRN Q6HRS PRN IV NAUSEA/VOMITING; Start at 07:00; Stop 01/05/17 at 06:59; Status DC Fentanyl Citrate (Fentanyl 2ml Vial) 25 mcg PRN Q5MIN PRN IV MILD PAIN; Start 01/04/17 at 07:00; Stop 01/05/17 at 06:59; Status DC Fentanyl Citrate (Fentanyl 2ml Vial) 50 mcg PRN Q5MIN PRN IV MODERATE PAIN; Start 01/04/17 at 07:00; Stop 01/05/17 at 06:59; Status DC Ringer's Solution 1,000 ml @ 30 mls/hr Q24H IV Last administered on 09:24; Start 01/04/17 at 07:00; Stop 01/04/17 at 18:59; Status DC Lidocaine HCl (Xylocaine-Mpf 1% Vial) 2 ml PRN 1X PRN ID PRIOR TO IV START; Start 01/04/17 at 07:00; Stop 01/05/17 at 06:59; Status DC Prochlorperazine Edisylate (Compazine) 5 mg PACU PRN PRN IV NAUSEA, MRX1; Start 01/04/17 at 07:00; Stop 01/05/17 at 06:59; Status DC Morphine Sulfate 2 mg PRN Q2HR PRN IV MODERATE PAIN; Start 01/03/17 at 23:30 Morphine Sulfate 4 mg PRN Q2HR PRN IV SEVERE PAIN Last administered on 20:52; Start 01/03/17 at 23:56 Acetaminophen (Tylenol) 500 mg PRN Q6HRS PRN PO MILD PAIN Last administered on 01/12/17 04:42; Start 01/04/17 at 08:00 Amlodipine Besylate (Norvasc) 10 mg HS PO Last administered on 01/16/17 21:13 ; Start 01/04/17 at 21:00 Carvedilol (Coreg) 6.25 mg BIDWMEALS PO ; Start 01/04/17 at 09:00; Status Cancel Famotidine (Pepcid) 20 mg HS PO Last administered on 01/06/17 20:48; Start 01/04/17 at 21:00; Stop 01/07/17 at 14:56; Status DC Albuterol/ Ipratropium (Duoneb) 3 ml PRN Q4HRS PRN NEB SHORTNESS OF BREATH; Start 01/04/17 at 08:00 Levothyroxine Sodium (Synthroid) 224 mcg HS PO Last administered on 01/16/17 21:11; Start 01/04/17 at 21:00 Metoprolol Tartrate (Lopressor) 25 mg BID PO ; Start 01/04/17 at 09:00; Status Cancel Simvastatin (Zocor) 20 mg HS PO ; Start 01/04/17 at 21:00; Status UNV Tamsulosin HCl (Flomax) 0.4 mg DAILY PO ; Start 01/04/17 at 09:00; Status UNV Tramadol HCl (Ultram) 50 mg PRN Q6HRS PRN PO MILD PAIN, 2ND CHOICE Last administered on 01/12/17 19:48; Start 01/04/17 at 08:00 Trazodone HCl (Desyrel) 50 mg QHS PO Last administered on 01/16/17 21:11; Start 01/04/17 at 21:00 Vitamin D (Vitamin D3) 1,000 unit DAILY PO Last administered on 01/17/17 09:11 ; Start 01/04/17 at 09:00 Docusate Sodium (Colace) 100 mg PRN DAILY PRN PO CONSTIPATION; Start 01/04/17 at 09:00 Losartan Potassium (Cozaar) 100 mg DAILY PO Last administered on 01/17/17 09: 10; Start 01/04/17 at 09:00 Non-Formulary Medication 1 tab QHS PO ; Start 01/04/17 at 21:00; Status UNV Non-Formulary Medication 1 tab DAILY PO ; Start 01/04/17 at 09:00; Status UNV Potassium Chloride (Klor-Con) 20 meq DAILYWBKFT PO Last administered on 09:10; Start 01/04/17 at 08:30 Carvedilol (Coreg) 6.25 mg BIDWMEALS PO Last administered on 01/06/17 08:58; Start 01/04/17 at 09:00; Stop 01/06/17 at 12:28; Status DC Cefazolin Sodium 1 gm/Sodium Chloride 500 ml @ 500 mls/hr 1X PERIOP ONCE IRR Last administered on 01/04/17 16:38; Start 01/04/17 at 14:30; Stop 01/04/17 at 15:29; Status DC Heparin Sodium (Porcine) 5000 unit/Sodium Chloride 505 ml @ 505 mls/hr 1X PERIOP ONCE IRR Last administered on 01/04/17 16:38; Start 01/04/17 at 14: 30; Stop 01/04/17 at 15:29; Status DC Furosemide (Lasix) 40 mg 1X ONCE IVP ; Start 01/04/17 at 16:00; Stop at 16:01; Status DC Albumin Human 100 ml @ 100 mls/hr 1X ONCE IV Last administered on 01/04/17 18:52; Start 01/04/17 at 16:00; Stop 01/04/17 at 16:59; Status DC Albumin Human 100 ml @ 100 mls/hr 1X ONCE IV Last administered on 01/04/17 19:16; Start 01/04/17 at 16:00; Stop 01/04/17 at 16:59; Status DC Furosemide (Lasix) 20 mg 1X ONCE IVP Last administered on 01/04/17 21:16; Start 01/04/17 at 18:45; Stop 01/04/17 at 18:46; Status DC Sodium Chloride (Normal Saline Flush) 10 ml QSHIFT PRN IV AFTER MEDS AND BLOOD DRAWS; Start 01/05/17 at 05:45 Warfarin Sodium (Coumadin Per Pharmacy) 1 each PRN DAILY PRN MC SEE COMMENTS Last administered on 01/09/17 12:43; Start 01/05/17 at 16:45; Stop 01/09/17 at 13:19; Status DC Warfarin Sodium (Coumadin) 5 mg 1X WARF ONCE PO Last administered on 17:02; Start 01/05/17 at 17:00; Stop 01/05/17 at 17:01; Status DC Potassium Chloride 50 ml @ 50 mls/hr Q1H IV Last administered on 01/06/17 12: 28; Start 01/06/17 at 07:30; Stop 01/06/17 at 09:29; Status DC Warfarin Sodium (Coumadin) 4 mg 1X WARF ONCE PO Last administered on 15:48; Start 01/06/17 at 16:00; Stop 01/06/17 at 16:01; Status DC Potassium Chloride (KCl Oral Soln) 40 meq 1X ONCE PO Last administered on 18:51; Start 01/06/17 at 18:00; Stop 01/06/17 at 18:01; Status DC Furosemide (Lasix) 40 mg 1X ONCE IVP Last administered on 01/06/17 18:47; Start 01/06/17 at 18:00; Stop 01/06/17 at 18:01; Status DC Warfarin Sodium (Coumadin) 5 mg 1X WARF ONCE PO Last administered on 15:46; Start 01/07/17 at 16:00; Stop 01/07/17 at 16:01; Status DC Pantoprazole Sodium (Protonix) 40 mg DAILYAC PO Last administered on 01/17/17 09:11; Start 01/07/17 at 16:30 Barium Sulfate (Liquid E-Z Paque) 355 ml 1X ONCE PO Last administered on 01/08 08:35; Start 01/08/17 at 07:30; Stop 01/08/17 at 07:31; Status DC Barium Sulfate (E-Z-Hd) 340 gm 1X ONCE PO ; Start 01/08/17 at 07:30; Stop at 07:31; Status DC Simethicone/ Sodium Bicarb/ Citric Ac (E-Z-Gas) 1 packet 1X ONCE PO ; Start at 07:30; Stop 01/08/17 at 07:31; Status DC Warfarin Sodium (Coumadin) 5 mg 1X WARF ONCE PO ; Start 01/08/17 at 16:00; Stop 01/08/17 at 16:01; Status DC Sodium Monofluorophosphate (Fleet Adult) 133 ml 1X ONCE NV Last administered on 01/08/17 14:52; Start 01/08/17 at 14:30; Stop 01/08/17 at 14:34; Status DC Amino Acids/ Glycerin/ Electrolytes 1,000 ml @ 50 mls/hr Q20H IV Last administered on 01/10/17 05:43; Start 01/08/17 at 15:00; Stop 01/11/17 at 19 :39; Status DC Furosemide (Lasix) 20 mg DAILY IVP Last administered on 01/12/17t 12:49; Start 01/08/17 at 15:30; Stop 01/12/17 at 20:23; Status DC Lidocaine/Sodium Bicarbonate (Buffered Lidocaine 1%) 20 ml STK-MED ONCE IJ ; Start 01/03/17 at 14:59; Stop 01/09/17 at 10:45; Status DC Iohexol (Omnipaque 300 Mg/ml) 100 ml STK-MED ONCE .ROUTE ; Start 01/04/17 at 13 :57; Stop 01/09/17 at 11:11; Status DC Propofol 20 ml @ As Directed STK-MED ONCE IV ; Start 01/04/17 at 14:49; Stop 01/09/17 at 11:12; Status DC Dexamethasone Sodium Phosphate (Decadron) 20 mg STK-MED ONCE .ROUTE ; Start at 14:49; Stop 01/09/17 at 11:12; Status DC Lidocaine HCl (Lidocaine Pf 2% Vial) 5 ml STK-MED ONCE .ROUTE ; Start 01/04/17 at 14:49; Stop 01/09/17 at 11:12; Status DC Ondansetron HCl (Zofran) 4 mg STK-MED ONCE .ROUTE ; Start 01/04/17 at 14:49; Stop 01/09/17 at 11:12; Status DC Fentanyl Citrate (Fentanyl 2ml Vial) 100 mcg STK-MED ONCE .ROUTE ; Start at 14:49; Stop 01/09/17 at 11:12; Status DC Ephedrine Sulfate (Akovaz) 50 mg STK-MED ONCE .ROUTE ; Start 01/04/17 at 16:26 ; Stop 01/09/17 at 11:13; Status DC Furosemide (Lasix) 20 mg STK-MED ONCE .ROUTE ; Start 01/04/17 at 16:30; Stop 01/09/17 at 11:13; Status DC Sevoflurane (Ultane) 90 ml STK-MED ONCE IH ; Start 01/04/17 at 17:42; Stop at 11:13; Status DC Warfarin Sodium (Coumadin) 5 mg 1X WARF ONCE PO ; Start 01/09/17 at 16:00; Stop 01/09/17 at 16:00; Status DC Ringer's Solution 1,000 ml @ 75 mls/hr 1X ONCE IV Last administered on 11:58; Start 01/10/17 at 12:00; Stop 01/11/17 at 01:19; Status DC Propofol 20 ml @ As Directed STK-MED ONCE IV ; Start 01/10/17 at 12:36; Stop 01/10/17 at 12:37; Status DC Lidocaine HCl (Lidocaine Pf 2% Vial) 5 ml STK-MED ONCE .ROUTE ; Start 01/10/17 at 12:36; Stop 01/10/17 at 12:37; Status DC Morphine Sulfate 2 mg STK-MED ONCE .ROUTE ; Start 01/10/17 at 13:08; Stop at 13:09; Status DC Morphine Sulfate 2 mg STK-MED ONCE .ROUTE ; Start 01/10/17 at 13:10; Stop at 13:11; Status DC Oxycodone/ Acetaminophen (Percocet 10/325) 1 tab PRN Q6HRS PRN PO SEVERE PAIN Last administered on 01/17/17 09:16; Start 01/11/17 at 01:45 Oxycodone/ Acetaminophen (Percocet 5/325) 1 tab PRN Q6HRS PRN PO MODERATE PAIN Last administered on 01/12/17 04:42; Start 01/11/17 at 01:45 Clonidine HCl (Catapres) 0.1 mg PRN Q1HR PRN PO HYPERTENSION, SEE COMMENTS; Start 01/11/17 at 06:00; Status Cancel Warfarin Sodium (Coumadin) 4 mg 1X WARF ONCE PO Last administered on 17:30; Start 01/12/17 at 17:00; Stop 01/12/17 at 17:01; Status DC Warfarin Sodium (Coumadin Per Pharmacy) 1 each PRN DAILY PRN MC SEE COMMENTS Last administered on 01/16/17 10:37; Start 01/12/17 at 17:00 Furosemide (Lasix) 40 mg DAILY PO Last administered on 01/17/17 09:11; Start 01/13/17 at 09:00 Nystatin (Nystop) 1 deborah TID TP Last administered on 01/17/17 09:09; Start at 23:30 Warfarin Sodium (Coumadin) 4 mg 1X WARF ONCE PO Last administered on 16:21; Start 01/13/17 at 16:00; Stop 01/13/17 at 16:01; Status DC Warfarin Sodium (Coumadin) 4 mg 1X WARF ONCE PO ; Start 01/14/17 at 16:00; Stop 01/14/17 at 16:01; Status DC Lorazepam (Ativan) 0.5 mg PRN Q12HR PRN IV ANXIETY / AGITATION Last administered on 01/16/17 15:44; Start 01/14/17 at 17:15 Labetalol HCl (Normodyne) 10 mg Q6HRS IVP Last administered on 01/15/17 06:34 ; Start 01/14/17 at 18:00 Labetalol HCl (Normodyne) 10 mg PRN Q2HR PRN IVP HYPERTENSION, SEE COMMENTS; Start 01/14/17 at 20:45 Amino Acids/ Glycerin/ Electrolytes 1,000 ml @ 80 mls/hr [id number] IV Last administered on 01/16/17 23:30; Start 01/14/17 at 21:30 Warfarin Sodium (Coumadin) 4 mg 1X WARF ONCE PO Last administered on 18:03; Start 01/15/17 at 16:00; Stop 01/15/17 at 16:01; Status DC Warfarin Sodium (Coumadin) 5 mg 1X WARF ONCE PO Last administered on 18:22; Start 01/16/17 at 16:00; Stop 01/16/17 at 16:01; Status DC Info 1 each PRN DAILY PRN MC SEE COMMENTS Last administered on 01/16/17 14:30 ; Start 01/16/17 at 13:30; Stop 01/16/17 at 18:16; Status DC Sodium Chloride 90 meq/Potassium Chloride 50 meq/ Potassium Phosphate 13.6 mmol/ Magnesium Sulfate 10 meq/ Calcium Gluconate 10 meq/ Multivitamins 10 ml/Chromium / Copper/Manganese/ Seleni/Zn 1 ml/ Total Parenteral Nutrition/Amino Acids/ Dextrose/ Fat Emulsion Intravenous 1,512 ml @ 63 mls/hr TPN CONT IV ; Start 01/16/17 at 22:00; Stop 01/16/17 at 22:00; Status DC Phenyleph/Shark Oil/Min Oil/Petrol (Preparation H) 1 dbeorah PRN TID PRN RC RECTAL PAIN Last administered on 01/16/17t 21:13; Start 01/16/17 at 19:15 Magnesium Sulfate/ Dextrose 100 ml @ 25 mls/hr 1X ONCE IV ; Start 01/17/17 at 09:45; Stop 01/17/17 at 13:44 Active Scripts Active Tramadol Hcl 50 Mg Tablet 50 Mg PO PRN Q6HRS PRN Reported Warfarin Sodium 4 Mg Tablet 4 Mg PO DAILY Novolog Flexpen (Insulin Aspart) 100 Unit/1 Ml Insuln.pen 1 Unit SQ PRN TID PRN Duoneb 0.5-3(2.5) Mg/3 Ml (Albuterol/Ipratropium) 3 Ml Ampul.neb 3 Ml NEB PRN Q4HRS PRN Famotidine 20 Mg Tablet 20 Mg PO HS Trazodone Hcl 50 Mg Tablet 1 Tab PO QHS Tamsulosin Hcl 0.4 Mg Cap.er.24h 0.4 Mg PO DAILY Melatonin 3 Mg Tablet 1 Tab PO QHS Losartan Potassium 100 Mg Tablet 100 Mg PO DAILY Colace Clear (Docusate Sodium) 50 Mg Capsule 50 Mg PO PRN DAILY PRN Aspirin 325 Mg Tablet 1 Tab PO DAILY Acetaminophen 500 Mg Tablet 500 Mg PO PRN Q6HRS PRN Vitamin D (Cholecalciferol (Vitamin D3)) 1,000 Unit Capsule 1 Cap PO DAILY Levothyroxine Sodium 112 Mcg Tablet 2 Tab PO HS Prilosec Otc (Omeprazole Magnesium) 20 Mg Tablet.dr 1 Tab PO DAILY Metformin Hcl Er (Metformin Hcl) 500 Mg Tab.er.24h 500 Mg PO BIDWMEALS Amlodipine Besylate 10 Mg Tablet 10 Mg PO HS Simvastatin 20 Mg Tablet 20 Mg PO HS Glimepiride 2 Mg Tablet 2 Mg PO DAILY Carvedilol 3.125 Mg Tablet 6.25 Mg PO BID Potassium Chloride 10 Meq Capsule.er 20 Meq PO DAILY Vitals/I & O Vital Sign - Last 24 Hours 01/16/17 01/16/17 01/16/17 01/16/17 11:00 11:34 12:23 12:30 Temp 97.5 97.5 Pulse 81 81 Resp 18 B/P (MAP) 103/53 (70) 103/53 Pulse Ox 87 O2 Delivery Nasal Cannula Room Air O2 Flow Rate 2.0 3.0 01/16/17 01/16/17 01/16/17 01/16/17 12:58 15:00 18:18 18:19 Temp 100.0 97.5 100.0 97.5 Pulse 65 85 85 Resp 18 16 B/P (MAP) 123/51 (75) 133/68 (89) 133/68 Pulse Ox 97 O2 Delivery Nasal Cannula Nasal Cannula Nasal Cannula O2 Flow Rate 3.0 01/16/17 01/16/17 01/16/17 01/16/17 20:00 20:43 21:12 21:12 Temp 97.7 97.7 Pulse 85 Resp 20 16 16 B/P (MAP) 119/67 (84) Pulse Ox 97 97 97 O2 Delivery Nasal Cannula Nasal Cannula Nasal Cannula Nasal Cannula O2 Flow Rate 3.0 3.0 3.0 3.0 01/16/17 01/16/17 01/16/17 01/17/17 21:13 22:12 23:24 00:00 Temp 98.8 98.8 Pulse 85 75 75 Resp 14 18 B/P (MAP) 119/67 102/46 (64) 102/46 Pulse Ox 95 O2 Delivery Nasal Cannula Nasal Cannula O2 Flow Rate 3.0 3.0 01/17/17 01/17/17 01/17/17 01/17/17 01:13 02:59 07:00 07:50 Temp 98.5 97.5 98.5 97.5 Pulse 78 85 Resp 16 20 18 B/P (MAP) 134/52 (79) 119/51 (73) Pulse Ox 95 94 96 O2 Delivery Nasal Cannula Nasal Cannula Nasal Cannula Nasal Cannula O2 Flow Rate 3.0 3.0 3.0 3.0 01/17/17 01/17/17 01/17/17 09:10 09:11 09:16 Pulse 85 B/P (MAP) 119/51 O2 Delivery Nasal Cannula Nasal Cannula Intake and Output 01/16/17 01/16/17 01/17/17 15:00 23:00 07:00 Intake Total 867 ml 466 ml 100 ml Output Total 300 ml 275 ml 250 ml Balance 567 ml 191 ml -150 ml Nutrition Consultation Dietary Evaluation: Recommendations by RD: Increase Calorie Intake, Protein supplementation Comments: continue diet and supplements at this time pt may benefit from mvi and vit c for wound healing Expected Outcomes/Goals: to meet > 50% est nutr needs with po intake - goal ongoing Malnutrition Findings: Malnutrition related to morbid: Weight 200% of ideal wt Malnutrition related to morbid: Yes Weight Status: Morbidly Obese JOANNA YOUNGBLOOD APRN Jan 17, 2017 10:18
[2017-01-17 10:45] LABS: % EOS 1 % (0-5)
[2017-01-17 10:46] LABS: ANISOCYTOSIS MOD; SMUDGE CELLS PRESENT
[2017-01-17 10:47] LABS: POLYCHROMASIA PRESENT
[2017-01-17 10:49] LABS: PLT ESTIMATE ADEQUATE (ADEQUATE)
[2017-01-17] MEDS: AMINO AC 3%/ELECTROLYTE/GLYCER 1,000 ML IV SCH ×2 (12:00→23:35)
[2017-01-17] MEDS: oxyCODONE IR 5 MG TABLET PO PRN (13:23)
[2017-01-17] MEDS: ONDANSETRON PF 4 MG/2 ML VIAL. IV PRN (13:23)
[2017-01-17] MEDS ORDERED: WARFARIN 4 MG TABLET. PO ONE (16:00)
[2017-01-17] MEDS: traZODone 50 MG TABLET. PO SCH (21:00)
[2017-01-17] MEDS: ATORVASTATIN CALCIUM 10 MG TABLET. PO SCH (21:41)
[2017-01-17] MEDS: amLODIPine BESYLATE 10 MG TABLET PO SCH (21:42)
[2017-01-17] MEDS: LEVOTHYROXINE 112 MCG TABLET PO SCH (21:43)
[2017-01-17] MEDS: PHENYLEPH/MINERAL OIL/PETROLAT RECTAL OINTMENT 28GM TUBE. RC PRN (22:01)
[2017-01-18 03:10] VITALS: BP 120/78
[2017-01-18] MEDS: oxyCODONE IR 5 MG TABLET PO PRN (04:58)
[2017-01-18] MEDS: LABETALOL 20 MG/4 ML DISP.SYRIN. IVP SCH ×2 (06:00→12:00)
[2017-01-18 06:16] LABS: INR 2.1 (0.8-1.1); PROTHROMBIN TIME PATIENT 22.4 SEC (11.7-14.0)
[2017-01-18 07:00] VITALS: BP 118/69
[2017-01-18] MEDS: INSULIN ASPART 300 UNITS/3 ML INSULN.PEN SQ SCH ×2 (08:00→12:00)
[2017-01-18] MEDS: TAMSULOSIN 0.4 MG CAP.ER.24H. PO SCH (09:00)
[2017-01-18] MEDS: DOCUSATE SODIUM 100 MG CAPSULE. PO SCH (09:00)
[2017-01-18] MEDS: CHOLECALCIFEROL (VITAMIN D3) 1,000 UNIT TABLET PO SCH (09:00)
[2017-01-18] MEDS: LACTOBACILLUS RHAMNOSUS GG 1 CAPSULE. PO SCH (09:00)
[2017-01-18] MEDS: FUROSEMIDE 40 MG TABLET. PO SCH (09:00)
[2017-01-18] MEDS: LOSARTAN POTASSIUM 50 MG TABLET. PO SCH (09:01)
[2017-01-18] MEDS: PANTOPRAZOLE 40 MG TABLET.DR. PO SCH (09:01)
[2017-01-18] MEDS: POTASSIUM CHLORIDE 20 MEQ TABLET.ER. PO SCH (09:01)
[2017-01-18] MEDS: PHENYLEPH/MINERAL OIL/PETROLAT RECTAL OINTMENT 28GM TUBE. RC PRN (09:02)
[2017-01-18] MEDS: NYSTATIN TOPICAL POWDER 15GM BOTTLE. TP SCH (09:02)
[2017-01-18] MEDS: oxyCODONE ER 10 MG TAB.ER.12H PO SCH (09:02)
--- NOTE | 2017-01-18 09:36 | PDOC ---
Subjective: Subjective: Ate a few bites this morning, then got tired and laid back in bed. No dysphagia. Objective: Objective: D/w RN - awaiting insurance/placement. Vital Signs: Vital Signs Date Time Temp Pulse Resp B/P (MAP) Pulse Ox O2 Delivery O2 Flow Rate FiO2 01/18/17 09:02 Nasal Cannula 3.0 01/18/17 09:01 80 120/78 01/18/17 05:58 16 97 01/18/17 03:10 98.1 98.1 Labs: Laboratory Tests Test 01/17/17 10:52 01/17/17 16:49 01/17/17 21:16 01/18/17 05:30 Glucose (Fingerstick) 155 mg/dL 136 mg/dL 116 mg/dL Prothrombin Time 22.4 SEC Prothromb Time International Ratio 2.1 Test 01/18/17 08:04 Glucose (Fingerstick) 107 mg/dL PE: GEN: NAD LUNGS: clear HEART: RRR ABD: S/ND/NT NEURO/PSYCH: A & O 3 A/P: Dysphagia - resolved -mild GE stricture s/p dilation -presbyesophagus -on PPI -- Continue same per GI, DC per primary. PAUL RAMIREZ Jan 18, 2017 09:36
[2017-01-18 11:00] VITALS: BP 113/56
[2017-01-18] MEDS: oxyCODONE/APAP 10/325 1 TAB TABLET PO PRN (11:55)
[2017-01-18 12:00] VITALS: BP 120/78
--- NOTE | 2017-01-18 15:56 | PDOC ---
PROGRESS NOTES Chief Complaint Chief Complaint Left LE cellulitis 1. TIA: episode of gibberish aphasia, facial droop, tongue immobility completely resolved. STAT CT head neg 2. History old right thalamic stroke 3. Dysphagia: presbyesophagus, s/p dilation, on dysphagia diet 4. Afib: rate controlled 5. OAC: warfarin 6. CHF: no acute issues. 7. HTN: well controlled; 8. DM: good control on ISS only 9. Anasarca History of Present Illness History of Present Illness Pt. seen and examined today, pt. sitting upright in reclining chair, son present Pt in good spirits, awaiting transportation for discharge to [place] Vitals Vitals Vital Signs Date Time Temp Pulse Resp B/P (MAP) Pulse Ox O2 Delivery O2 Flow Rate FiO2 01/18/17 13:51 95 Nasal Cannula 3.0 01/18/17 12:00 80 120/78 01/18/17 11:00 99.0 18 99.0 Physical Exam General: Alert, Oriented X3, Cooperative, No acute distress Heart: Regular rate, No murmurs Lungs: Clear, Other (No wheezes or crackles) Abdomen: Normal bowel sounds, No tenderness Extremities: No cyanosis, Other (L AKA) Skin: No rashes, No breakdown Labs LABS Laboratory Tests Test 01/17/17 16:49 01/17/17 21:16 01/18/17 05:30 01/18/17 08:04 Glucose (Fingerstick) 136 mg/dL (70-99) 116 mg/dL (70-99) 107 mg/dL (70-99) Prothrombin Time 22.4 SEC (11.7-14.0) Prothromb Time International Ratio 2.1 (0.8-1.1) Review of Systems Review of Systems GEN: Denies fever, chills or sweats CV: Denies chest pain Resp: Denies shortness of air GI: Denies N/V Assessment and Plan Assessmemt and Plan Assessment: Left LE cellulitis 1. TIA: episode of gibberish aphasia, facial droop, tongue immobility completely resolved. STAT CT head neg 2. History old right thalamic stroke 3. Dysphagia: presbyesophagus, s/p dilation, on dysphagia diet 4. Afib: rate controlled 5. OAC: warfarin 6. CHF: no acute issues. 7. HTN: well controlled; 8. DM: good control on ISS only 9. Anasarca [facility] Continue PT/OT Continue wound care, daily dressing changes Follow up with PCP in 1mo Problems: Comment Review of Relevant I have reviewed the following items madhav (where applicable) has been applied. Labs Laboratory Tests Test 01/16/17 16:05 01/16/17 19:33 01/17/17 05:00 01/17/17 07:27 Glucose (Fingerstick) 184 mg/dL (70-99) 130 mg/dL (70-99) 137 mg/dL (70-99) White Blood Count 9.1 x10^3/uL (4.0-11.0) Red Blood Count 3.11 x10^6/uL (3.50-5.40) Hemoglobin 8.7 g/dL (12.0-15.5) Hematocrit 27.9 % (36.0-47.0) Mean Corpuscular Volume 90 fL (79-100) Mean Corpuscular Hemoglobin 28 pg (25-35) Mean Corpuscular Hemoglobin Concent 31 g/dL (31-37) Red Cell Distribution Width 17.8 % (11.5-14.5) Platelet Count 158 x10^3/uL (140-400) Neutrophils (%) (Auto) 33 % (31-73) Lymphocytes (%) (Auto) 58 % (24-48) Monocytes (%) (Auto) 7 % (0-9) Eosinophils (%) (Auto) 2 % (0-3) Basophils (%) (Auto) 0 % (0-3) Neutrophils # (Auto) 3.0 x10^3uL (1.8-7.7) Lymphocytes # (Auto) 5.3 x10^3/uL (1.0-4.8) Monocytes # (Auto) 0.6 x10^3/uL (0.0-1.1) Eosinophils # (Auto) 0.1 x10^3/uL (0.0-0.7) Basophils # (Auto) 0.0 x10^3/uL (0.0-0.2) Segmented Neutrophils % 40 % (35-66) Lymphocytes % 51 % (24-48) Monocytes % 8 % (0-10) Eosinophils % 1 % (0-5) Smudge Cells Present Platelet Estimate Adequate (ADEQUATE) Polychromasia Present Anisocytosis Mod Macrocytosis Present Prothrombin Time 22.6 SEC (11.7-14.0) Prothromb Time International Ratio 2.1 (0.8-1.1) Sodium Level 137 mmol/L (136-145) Potassium Level 4.6 mmol/L (3.5-5.1) Chloride Level 102 mmol/L (98-107) Carbon Dioxide Level 31 mmol/L (21-32) Anion Gap 4 (6-14) Blood Urea Nitrogen 17 mg/dL (7-20) Creatinine 0.6 mg/dL (0.6-1.0) Estimated GFR (Cockcroft-Gault) 94.1 Glucose Level 118 mg/dL (70-99) Calcium Level 7.5 mg/dL (8.5-10.1) Phosphorus Level 2.2 mg/dL (2.6-4.7) Magnesium Level 1.3 mg/dL (1.8-2.4) Test 01/17/17 10:52 01/17/17 16:49 01/17/17 21:16 01/18/17 05:30 Glucose (Fingerstick) 155 mg/dL (70-99) 136 mg/dL (70-99) 116 mg/dL (70-99) Prothrombin Time 22.4 SEC (11.7-14.0) Prothromb Time International Ratio 2.1 (0.8-1.1) Test 01/18/17 08:04 Glucose (Fingerstick) 107 mg/dL (70-99) Laboratory Tests Test 01/17/17 16:49 01/17/17 21:16 01/18/17 05:30 01/18/17 08:04 Glucose (Fingerstick) 136 mg/dL (70-99) 116 mg/dL (70-99) 107 mg/dL (70-99) Prothrombin Time 22.4 SEC (11.7-14.0) Prothromb Time International Ratio 2.1 (0.8-1.1) Microbiology 01/03/17 Gram Stain - Final, Complete Medications Current Medications Oxycodone HCl (Roxicodone) 5 mg PRN Q4HRS PRN PO BREAKTHROUGH PAIN Last administered on 01/18/17t 04:58; Start 01/02/17 at 18:15; Stop 01/18/17 at 15: 31; Status DC Oxycodone HCl (OxyCONTIN) 10 mg Q12HR PO Last administered on 01/18/17 09:02; Start 01/02/17 at 21:00; Stop 01/18/17 at 15:31; Status DC Amlodipine Besylate (Norvasc) 5 mg HS PO Last administered on 01/02/17 22:28 ; Start 01/02/17 at 21:00; Stop 01/04/17 at 08:03; Status DC Tamsulosin HCl (Flomax) 0.4 mg DAILY PO Last administered on 01/18/17 09:00; Start 01/03/17 at 09:00; Stop 01/18/17 at 15:31; Status DC Polyethylene Glycol (miraLAX PACKET) 17 gm PRN DAILY PRN PO CONSTIPATION Last administered on 01/12/17 10:43; Start 01/02/17 at 18:30; Stop 01/18/17 at 15: 31; Status DC Ondansetron HCl (Zofran) 4 mg PRN Q6HRS PRN IV NAUSEA/VOMITING Last administered on 01/17/17 13:23; Start 01/02/17 at 18:30; Stop 01/18/17 at 15: 31; Status DC Lorazepam (Ativan) 2 mg PRN Q12HR PRN IV ANXIETY / AGITATION Last administered on 01/06/17 22:42; Start 01/02/17 at 18:30; Stop 01/14/17 at 17:13; Status DC Metoprolol Tartrate (Lopressor) 25 mg BID PO Last administered on 01/02/17 22 :29; Start 01/02/17 at 21:00; Stop 01/04/17 at 08:03; Status DC Silver Nitrate/ Potassium Nitrate 1 each 1X ONCE TP ; Start 01/02/17 at 18:45 ; Stop 01/02/17 at 18:46; Status DC Famotidine (Pepcid) 20 mg DAILY PO ; Start 01/03/17 at 09:00; Stop 01/04/17 at 08:05; Status DC Trazodone HCl (Desyrel) 50 mg QHS PO Last administered on 01/02/17 22:28; Start 01/02/17 at 21:00; Stop 01/04/17 at 08:04; Status DC Levothyroxine Sodium (Synthroid) 112 mcg DAILY07 PO ; Start 01/03/17 at 07:00; Stop 01/04/17 at 08:05; Status DC Lactobacillus Rhamnosus (Culturelle) 1 cap BID PO Last administered on 09:00; Start 01/02/17 at 21:00; Stop 01/18/17 at 15:31; Status DC Sodium Chloride 1,000 ml @ 75 mls/hr [id number] IV Last administered on 14:53; Start 01/02/17 at 19:00; Stop 01/11/17 at 11:52; Status DC Sodium Chloride (Normal Saline Flush 3ml) 10 ml PRN Q12HRS PRN IV AFTER MEDS AND BLOOD DRAWS; Start 01/02/17 at 18:30; Stop 01/05/17 at 05:38; Status DC Insulin Aspart (NovoLOG) 0-9 UNITS TIDWMEALS SQ Last administered on 01/16/17 17:07; Start 01/03/17 at 19:00; Stop 01/18/17 at 15:31; Status DC Dextrose (Dextrose 50%-Water Syringe) 12.5 gm PRN Q15MIN PRN IV SEE COMMENTS; Start 01/02/17 at 18:45; Stop 01/18/17 at 15:31; Status DC Docusate Sodium (Colace) 100 mg BID PO Last administered on 01/18/17 09:00; Start 01/02/17 at 21:00; Stop 01/18/17 at 15:31; Status DC Bisacodyl (Dulcolax Supp) 10 mg PRN DAILY PRN IA CONSTIPATION; Start 01/02/17 at 18:45; Stop 01/18/17 at 15:31; Status DC Atorvastatin Calcium (Lipitor) 10 mg QHS PO Last administered on 01/17/17 21: 41; Start 01/02/17 at 21:00; Stop 01/18/17 at 15:31; Status DC Aspirin (Lucas Aspirin) 325 mg DAILYWBKFT PO ; Start 01/03/17 at 08:00; Stop 01/03/17 at 16:35; Status DC Acetaminophen (Tylenol) 500 mg PRN Q6HRS PRN PO MILD PAIN / TEMP; Start at 18:45; Stop 01/04/17 at 12:28; Status DC Morphine Sulfate 2 mg PRN Q2HR PRN IV PAIN Last administered on 01/03/17 22: 41; Start 01/02/17 at 21:15; Stop 01/03/17 at 23:26; Status DC Morphine Sulfate 4 mg PRN Q2HR PRN IV PAIN Last administered on 01/03/17 20: 22; Start 01/02/17 at 21:15; Stop 01/03/17 at 23:56; Status DC Piperacillin Sod/ Tazobactam Sod 3.375 gm/Dextrose 50 ml @ 100 mls/hr Q6HRS IV ; Start 01/03/17 at 12:00; Status UNV Linezolid 300 ml @ 300 mls/hr Q12HR IV Last administered on 01/07/17 09:29; Start 01/03/17 at 11:00; Stop 01/07/17 at 12:55; Status DC Phytonadione 10 mg/Dextrose 51 ml @ 102 mls/hr 1X ONCE IV ; Start 01/03/17 at 11:00; Stop 01/03/17 at 11:00; Status DC Piperacillin Sod/ Tazobactam Sod (Zosyn) 3.375 gm Q6HRS IVP Last administered on 01/08/17 06:09; Start 01/03/17 at 12:00; Stop 01/08/17 at 11:26; Status DC Furosemide (Lasix) 40 mg 1X ONCE IVP Last administered on 01/03/17 11:44; Start 01/03/17 at 11:45; Stop 01/03/17 at 11:46; Status DC Lidocaine/Sodium Bicarbonate (Buffered Lidocaine 1%) 3 ml 1X ONCE IJ Last administered on 01/03/17 15:57; Start 01/03/17 at 15:30; Stop 01/03/17 at 15 :31; Status DC Lidocaine/Sodium Bicarbonate (Buffered Lidocaine 1%) 3 ml 1X ONCE IJ ; Start 01/03/17 at 15:45; Stop 01/03/17 at 15:46; Status DC Phytonadione (Vitamin K Ampule) 10 mg 1X ONCE SQ Last administered on 17:56; Start 01/03/17 at 16:30; Stop 01/03/17 at 16:35; Status DC Ondansetron HCl (Zofran) 4 mg PRN Q6HRS PRN IV NAUSEA/VOMITING; Start at 07:00; Stop 01/05/17 at 06:59; Status DC Fentanyl Citrate (Fentanyl 2ml Vial) 25 mcg PRN Q5MIN PRN IV MILD PAIN; Start 01/04/17 at 07:00; Stop 01/05/17 at 06:59; Status DC Fentanyl Citrate (Fentanyl 2ml Vial) 50 mcg PRN Q5MIN PRN IV MODERATE PAIN; Start 01/04/17 at 07:00; Stop 01/05/17 at 06:59; Status DC Ringer's Solution 1,000 ml @ 30 mls/hr Q24H IV Last administered on 09:24; Start 01/04/17 at 07:00; Stop 01/04/17 at 18:59; Status DC Lidocaine HCl (Xylocaine-Mpf 1% Vial) 2 ml PRN 1X PRN ID PRIOR TO IV START; Start 01/04/17 at 07:00; Stop 01/05/17 at 06:59; Status DC Prochlorperazine Edisylate (Compazine) 5 mg PACU PRN PRN IV NAUSEA, MRX1; Start 01/04/17 at 07:00; Stop 01/05/17 at 06:59; Status DC Morphine Sulfate 2 mg PRN Q2HR PRN IV MODERATE PAIN; Start 01/03/17 at 23:30; Stop 01/18/17 at 15:31; Status DC Morphine Sulfate 4 mg PRN Q2HR PRN IV SEVERE PAIN Last administered on 20:52; Start 01/03/17 at 23:56; Stop 01/18/17 at 15:31; Status DC Acetaminophen (Tylenol) 500 mg PRN Q6HRS PRN PO MILD PAIN Last administered on 01/12/17 04:42; Start 01/04/17 at 08:00; Stop 01/18/17 at 15:31; Status DC Amlodipine Besylate (Norvasc) 10 mg HS PO Last administered on 01/17/17 21:42 ; Start 01/04/17 at 21:00; Stop 01/18/17 at 15:31; Status DC Carvedilol (Coreg) 6.25 mg BIDWMEALS PO ; Start 01/04/17 at 09:00; Status Cancel Famotidine (Pepcid) 20 mg HS PO Last administered on 01/06/17 20:48; Start 01/04/17 at 21:00; Stop 01/07/17 at 14:56; Status DC Albuterol/ Ipratropium (Duoneb) 3 ml PRN Q4HRS PRN NEB SHORTNESS OF BREATH; Start 01/04/17 at 08:00; Stop 01/18/17 at 15:31; Status DC Levothyroxine Sodium (Synthroid) 224 mcg HS PO Last administered on 01/17/17 21:43; Start 01/04/17 at 21:00; Stop 01/18/17 at 15:31; Status DC Metoprolol Tartrate (Lopressor) 25 mg BID PO ; Start 01/04/17 at 09:00; Status Cancel Simvastatin (Zocor) 20 mg HS PO ; Start 01/04/17 at 21:00; Status UNV Tamsulosin HCl (Flomax) 0.4 mg DAILY PO ; Start 01/04/17 at 09:00; Status UNV Tramadol HCl (Ultram) 50 mg PRN Q6HRS PRN PO MILD PAIN, 2ND CHOICE Last administered on 01/12/17 19:48; Start 01/04/17 at 08:00; Stop 01/18/17 at 15: 31; Status DC Trazodone HCl (Desyrel) 50 mg QHS PO Last administered on 01/16/17 21:11; Start 01/04/17 at 21:00; Stop 01/18/17 at 15:31; Status DC Vitamin D (Vitamin D3) 1,000 unit DAILY PO Last administered on 01/18/17 09:00 ; Start 01/04/17 at 09:00; Stop 01/18/17 at 15:31; Status DC Docusate Sodium (Colace) 100 mg PRN DAILY PRN PO CONSTIPATION; Start 01/04/17 at 09:00; Stop 01/18/17 at 15:31; Status DC Losartan Potassium (Cozaar) 100 mg DAILY PO Last administered on 01/18/17 09: 01; Start 01/04/17 at 09:00; Stop 01/18/17 at 15:31; Status DC Non-Formulary Medication 1 tab QHS PO ; Start 01/04/17 at 21:00; Status UNV Non-Formulary Medication 1 tab DAILY PO ; Start 01/04/17 at 09:00; Status UNV Potassium Chloride (Klor-Con) 20 meq DAILYWBKFT PO Last administered on 09:01; Start 01/04/17 at 08:30; Stop 01/18/17 at 15:31; Status DC Carvedilol (Coreg) 6.25 mg BIDWMEALS PO Last administered on 01/06/17 08:58; Start 01/04/17 at 09:00; Stop 01/06/17 at 12:28; Status DC Cefazolin Sodium 1 gm/Sodium Chloride 500 ml @ 500 mls/hr 1X PERIOP ONCE IRR Last administered on 01/04/17 16:38; Start 01/04/17 at 14:30; Stop 01/04/17 at 15:29; Status DC Heparin Sodium (Porcine) 5000 unit/Sodium Chloride 505 ml @ 505 mls/hr 1X PERIOP ONCE IRR Last administered on 01/04/17 16:38; Start 01/04/17 at 14: 30; Stop 01/04/17 at 15:29; Status DC Furosemide (Lasix) 40 mg 1X ONCE IVP ; Start 01/04/17 at 16:00; Stop at 16:01; Status DC Albumin Human 100 ml @ 100 mls/hr 1X ONCE IV Last administered on 01/04/17 18:52; Start 01/04/17 at 16:00; Stop 01/04/17 at 16:59; Status DC Albumin Human 100 ml @ 100 mls/hr 1X ONCE IV Last administered on 01/04/17 19:16; Start 01/04/17 at 16:00; Stop 01/04/17 at 16:59; Status DC Furosemide (Lasix) 20 mg 1X ONCE IVP Last administered on 01/04/17 21:16; Start 01/04/17 at 18:45; Stop 01/04/17 at 18:46; Status DC Sodium Chloride (Normal Saline Flush) 10 ml QSHIFT PRN IV AFTER MEDS AND BLOOD DRAWS; Start 01/05/17 at 05:45; Stop 01/18/17 at 15:31; Status DC Warfarin Sodium (Coumadin Per Pharmacy) 1 each PRN DAILY PRN MC SEE COMMENTS Last administered on 01/09/17 12:43; Start 01/05/17 at 16:45; Stop 01/09/17 at 13:19; Status DC Warfarin Sodium (Coumadin) 5 mg 1X WARF ONCE PO Last administered on 17:02; Start 01/05/17 at 17:00; Stop 01/05/17 at 17:01; Status DC Potassium Chloride 50 ml @ 50 mls/hr Q1H IV Last administered on 01/06/17 12: 28; Start 01/06/17 at 07:30; Stop 01/06/17 at 09:29; Status DC Warfarin Sodium (Coumadin) 4 mg 1X WARF ONCE PO Last administered on 15:48; Start 01/06/17 at 16:00; Stop 01/06/17 at 16:01; Status DC Potassium Chloride (KCl Oral Soln) 40 meq 1X ONCE PO Last administered on 18:51; Start 01/06/17 at 18:00; Stop 01/06/17 at 18:01; Status DC Furosemide (Lasix) 40 mg 1X ONCE IVP Last administered on 01/06/17 18:47; Start 01/06/17 at 18:00; Stop 01/06/17 at 18:01; Status DC Warfarin Sodium (Coumadin) 5 mg 1X WARF ONCE PO Last administered on 15:46; Start 01/07/17 at 16:00; Stop 01/07/17 at 16:01; Status DC Pantoprazole Sodium (Protonix) 40 mg DAILYAC PO Last administered on 01/18/17 09:01; Start 01/07/17 at 16:30; Stop 01/18/17 at 15:31; Status DC Barium Sulfate (Liquid E-Z Paque) 355 ml 1X ONCE PO Last administered on 01/08 08:35; Start 01/08/17 at 07:30; Stop 01/08/17 at 07:31; Status DC Barium Sulfate (E-Z-Hd) 340 gm 1X ONCE PO ; Start 01/08/17 at 07:30; Stop at 07:31; Status DC Simethicone/ Sodium Bicarb/ Citric Ac (E-Z-Gas) 1 packet 1X ONCE PO ; Start at 07:30; Stop 01/08/17 at 07:31; Status DC Warfarin Sodium (Coumadin) 5 mg 1X WARF ONCE PO ; Start 01/08/17 at 16:00; Stop 01/08/17 at 16:01; Status DC Sodium Monofluorophosphate (Fleet Adult) 133 ml 1X ONCE IA Last administered on 01/08/17 14:52; Start 01/08/17 at 14:30; Stop 01/08/17 at 14:34; Status DC Amino Acids/ Glycerin/ Electrolytes 1,000 ml @ 50 mls/hr Q20H IV Last administered on 01/10/17 05:43; Start 01/08/17 at 15:00; Stop 01/11/17 at 19 :39; Status DC Furosemide (Lasix) 20 mg DAILY IVP Last administered on 01/12/17 12:49; Start 01/08/17 at 15:30; Stop 01/12/17 at 20:23; Status DC Lidocaine/Sodium Bicarbonate (Buffered Lidocaine 1%) 20 ml STK-MED ONCE IJ ; Start 01/03/17 at 14:59; Stop 01/09/17 at 10:45; Status DC Iohexol (Omnipaque 300 Mg/ml) 100 ml STK-MED ONCE .ROUTE ; Start 01/04/17 at 13 :57; Stop 01/09/17 at 11:11; Status DC Propofol 20 ml @ As Directed STK-MED ONCE IV ; Start 01/04/17 at 14:49; Stop 01/09/17 at 11:12; Status DC Dexamethasone Sodium Phosphate (Decadron) 20 mg STK-MED ONCE .ROUTE ; Start at 14:49; Stop 01/09/17 at 11:12; Status DC Lidocaine HCl (Lidocaine Pf 2% Vial) 5 ml STK-MED ONCE .ROUTE ; Start 01/04/17 at 14:49; Stop 01/09/17 at 11:12; Status DC Ondansetron HCl (Zofran) 4 mg STK-MED ONCE .ROUTE ; Start 01/04/17 at 14:49; Stop 01/09/17 at 11:12; Status DC Fentanyl Citrate (Fentanyl 2ml Vial) 100 mcg STK-MED ONCE .ROUTE ; Start at 14:49; Stop 01/09/17 at 11:12; Status DC Ephedrine Sulfate (Akovaz) 50 mg STK-MED ONCE .ROUTE ; Start 01/04/17 at 16:26 ; Stop 01/09/17 at 11:13; Status DC Furosemide (Lasix) 20 mg STK-MED ONCE .ROUTE ; Start 01/04/17 at 16:30; Stop 01/09/17 at 11:13; Status DC Sevoflurane (Ultane) 90 ml STK-MED ONCE IH ; Start 01/04/17 at 17:42; Stop at 11:13; Status DC Warfarin Sodium (Coumadin) 5 mg 1X WARF ONCE PO ; Start 01/09/17 at 16:00; Stop 01/09/17 at 16:00; Status DC Ringer's Solution 1,000 ml @ 75 mls/hr 1X ONCE IV Last administered on t 11:58; Start 01/10/17 at 12:00; Stop 01/11/17 at 01:19; Status DC Propofol 20 ml @ As Directed STK-MED ONCE IV ; Start 01/10/17 at 12:36; Stop 01/10/17 at 12:37; Status DC Lidocaine HCl (Lidocaine Pf 2% Vial) 5 ml STK-MED ONCE .ROUTE ; Start 01/10/17 at 12:36; Stop 01/10/17 at 12:37; Status DC Morphine Sulfate 2 mg STK-MED ONCE .ROUTE ; Start 01/10/17 at 13:08; Stop at 13:09; Status DC Morphine Sulfate 2 mg STK-MED ONCE .ROUTE ; Start 01/10/17 at 13:10; Stop at 13:11; Status DC Oxycodone/ Acetaminophen (Percocet 10/325) 1 tab PRN Q6HRS PRN PO SEVERE PAIN Last administered on 01/18/17t 11:55; Start 01/11/17 at 01:45; Stop 01/18/17 at 15:31; Status DC Oxycodone/ Acetaminophen (Percocet 5/325) 1 tab PRN Q6HRS PRN PO MODERATE PAIN Last administered on 01/12/17 04:42; Start 01/11/17 at 01:45; Stop 01/18/17 at 15:31; Status DC Clonidine HCl (Catapres) 0.1 mg PRN Q1HR PRN PO HYPERTENSION, SEE COMMENTS; Start 01/11/17 at 06:00; Status Cancel Warfarin Sodium (Coumadin) 4 mg 1X WARF ONCE PO Last administered on 17:30; Start 01/12/17 at 17:00; Stop 01/12/17 at 17:01; Status DC Warfarin Sodium (Coumadin Per Pharmacy) 1 each PRN DAILY PRN MC SEE COMMENTS Last administered on 01/18/17 10:24; Start 01/12/17 at 17:00; Stop 01/18/17 at 15:31; Status DC Furosemide (Lasix) 40 mg DAILY PO Last administered on 01/18/17 09:00; Start 01/13/17 at 09:00; Stop 01/18/17 at 15:31; Status DC Nystatin (Nystop) 1 deborah TID TP Last administered on 01/18/17 09:02; Start at 23:30; Stop 01/18/17 at 15:31; Status DC Warfarin Sodium (Coumadin) 4 mg 1X WARF ONCE PO Last administered on 16:21; Start 01/13/17 at 16:00; Stop 01/13/17 at 16:01; Status DC Warfarin Sodium (Coumadin) 4 mg 1X WARF ONCE PO ; Start 01/14/17 at 16:00; Stop 01/14/17 at 16:01; Status DC Lorazepam (Ativan) 0.5 mg PRN Q12HR PRN IV ANXIETY / AGITATION Last administered on 01/16/17 15:44; Start 01/14/17 at 17:15; Stop 01/18/17 at 15:31 ; Status DC Labetalol HCl (Normodyne) 10 mg Q6HRS IVP Last administered on 01/15/17 06:34 ; Start 01/14/17 at 18:00; Stop 01/18/17 at 15:31; Status DC Labetalol HCl (Normodyne) 10 mg PRN Q2HR PRN IVP HYPERTENSION, SEE COMMENTS; Start 01/14/17 at 20:45; Stop 01/18/17 at 15:31; Status DC Amino Acids/ Glycerin/ Electrolytes 1,000 ml @ 80 mls/hr [id number] IV Last administered on 01/16/17 23:30; Start 01/14/17 at 21:30; Stop 01/18/17 at 07:42 ; Status DC Warfarin Sodium (Coumadin) 4 mg 1X WARF ONCE PO Last administered on 18:03; Start 01/15/17 at 16:00; Stop 01/15/17 at 16:01; Status DC Warfarin Sodium (Coumadin) 5 mg 1X WARF ONCE PO Last administered on 18:22; Start 01/16/17 at 16:00; Stop 01/16/17 at 16:01; Status DC Info 1 each PRN DAILY PRN MC SEE COMMENTS Last administered on 01/16/17 14:30 ; Start 01/16/17 at 13:30; Stop 01/16/17 at 18:16; Status DC Sodium Chloride 90 meq/Potassium Chloride 50 meq/ Potassium Phosphate 13.6 mmol/ Magnesium Sulfate 10 meq/ Calcium Gluconate 10 meq/ Multivitamins 10 ml/Chromium / Copper/Manganese/ Seleni/Zn 1 ml/ Total Parenteral Nutrition/Amino Acids/ Dextrose/ Fat Emulsion Intravenous 1,512 ml @ 63 mls/hr TPN CONT IV ; Start 01/16/17 at 22:00; Stop 01/16/17 at 22:00; Status DC Phenyleph/Shark Oil/Min Oil/Petrol (Preparation H) 1 deborah PRN TID PRN RC RECTAL PAIN Last administered on 01/18/17 09:02; Start 01/16/17 at 19:15; Stop at 15:31; Status DC Magnesium Sulfate/ Dextrose 100 ml @ 25 mls/hr 1X ONCE IV Last administered on 01/17/17 10:24; Start 01/17/17 at 09:45; Stop 01/17/17 at 13:44; Status DC Warfarin Sodium (Coumadin) 4 mg 1X WARF ONCE PO Last administered on 17:03; Start 01/17/17 at 16:00; Stop 01/17/17 at 16:01; Status DC Warfarin Sodium (Coumadin) 5 mg 1X WARF ONCE PO ; Start 01/18/17 at 16:00; Stop 01/18/17 at 16:00; Status DC Active Scripts Active Tramadol Hcl 50 Mg Tablet 50 Mg PO PRN Q6HRS PRN Reported Warfarin Sodium 4 Mg Tablet 4 Mg PO DAILY Novolog Flexpen (Insulin Aspart) 100 Unit/1 Ml Insuln.pen 1 Unit SQ PRN TID PRN Duoneb 0.5-3(2.5) Mg/3 Ml (Albuterol/Ipratropium) 3 Ml Ampul.neb 3 Ml NEB PRN Q4HRS PRN Famotidine 20 Mg Tablet 20 Mg PO HS Trazodone Hcl 50 Mg Tablet 1 Tab PO QHS Tamsulosin Hcl 0.4 Mg Cap.er.24h 0.4 Mg PO DAILY Melatonin 3 Mg Tablet 1 Tab PO QHS Losartan Potassium 100 Mg Tablet 100 Mg PO DAILY Colace Clear (Docusate Sodium) 50 Mg Capsule 50 Mg PO PRN DAILY PRN Aspirin 325 Mg Tablet 1 Tab PO DAILY Acetaminophen 500 Mg Tablet 500 Mg PO PRN Q6HRS PRN Vitamin D (Cholecalciferol (Vitamin D3)) 1,000 Unit Capsule 1 Cap PO DAILY Levothyroxine Sodium 112 Mcg Tablet 2 Tab PO HS Prilosec Otc (Omeprazole Magnesium) 20 Mg Tablet.dr 1 Tab PO DAILY Metformin Hcl Er (Metformin Hcl) 500 Mg Tab.er.24h 500 Mg PO BIDWMEALS Amlodipine Besylate 10 Mg Tablet 10 Mg PO HS Simvastatin 20 Mg Tablet 20 Mg PO HS Glimepiride 2 Mg Tablet 2 Mg PO DAILY Carvedilol 3.125 Mg Tablet 6.25 Mg PO BID Potassium Chloride 10 Meq Capsule.er 20 Meq PO DAILY Vitals/I & O Vital Sign - Last 24 Hours 01/17/17 01/17/17 01/17/17 01/17/17 17:02 17:30 17:47 19:45 Temp 99.5 99.5 Pulse 92 92 85 Resp 16 18 B/P (MAP) 114/76 (89) 114/76 123/75 (91) Pulse Ox 97 96 O2 Delivery Nasal Cannula Nasal Cannula Nasal Cannula O2 Flow Rate 3.0 3.0 01/17/17 01/17/17 01/17/17 01/17/17 20:00 21:42 21:43 23:21 Temp 97.8 97.8 Pulse 85 79 Resp 16 18 B/P (MAP) 123/75 114/83 (93) Pulse Ox 96 96 O2 Delivery Nasal Cannula Nasal Cannula Nasal Cannula O2 Flow Rate 3.0 3.0 3.0 01/18/17 01/18/17 01/18/17 01/18/17 01:50 03:10 04:58 05:58 Temp 98.1 98.1 Pulse 80 Resp 16 18 16 16 B/P (MAP) 120/78 (92) Pulse Ox 96 97 97 97 O2 Delivery Nasal Cannula Nasal Cannula Nasal Cannula O2 Flow Rate 3.0 3.0 3.0 01/18/17 01/18/17 01/18/17 01/18/17 06:00 07:00 07:45 09:01 Temp 98.2 98.2 Pulse 80 78 80 Resp 18 B/P (MAP) 120/78 118/69 (85) 120/78 Pulse Ox 98 O2 Delivery Nasal Cannula Nasal Cannula O2 Flow Rate 3.0 3.0 01/18/17 01/18/17 01/18/17 01/18/17 09:02 11:00 11:55 12:00 Temp 99.0 99.0 Pulse 70 80 Resp 18 B/P (MAP) 113/56 (75) 120/78 Pulse Ox 95 O2 Delivery Nasal Cannula Nasal Cannula Nasal Cannula O2 Flow Rate 3.0 3.0 3.0 01/18/17 01/18/17 13:51 13:51 Pulse Ox 95 O2 Delivery Nasal Cannula Nasal Cannula O2 Flow Rate 3.0 3.0 Intake and Output 01/17/17 01/17/17 01/18/17 15:00 23:00 07:00 Intake Total 320 ml Output Total 300 ml Balance -300 ml 320 ml Nutrition Consultation Dietary Evaluation: Recommendations by RD: Increase Calorie Intake, Protein supplementation Comments: continue diet and supplements at this time pt may benefit from mvi and vit c for wound healing Expected Outcomes/Goals: to meet > 50% est nutr needs with po intake - goal ongoing Malnutrition Findings: Malnutrition related to morbid: Weight 200% of ideal wt Malnutrition related to morbid: Yes Weight Status: Morbidly Obese MANDI DOW III DO Jan 18, 2017 15:56
[2017-01-18] MEDS ORDERED: WARFARIN 5 MG TABLET. PO ONE (16:00)
== END 2017-01-18 13:50 | DRG 853 ==
LOC: 4 NORTH 14:26 → 2 NORTH 01-04 19:13 → 4 NORTH 01-10 10:52
PROVIDERS: ADMIT Internal Medicine Hematology & Oncology; ATTEND Internal Medicine Hematology & Oncology
PROC: 02HV33Z Insertion of Infusion Device into Superior Vena Cava, Percutaneous Approach (ICD-10-PCS; 2017-01-03)
PROC: B5181ZA Fluoroscopy of Superior Vena Cava using Low Osmolar Contrast, Guidance (ICD-10-PCS; 2017-01-03)
PROC: B548ZZA Ultrasonography of Superior Vena Cava, Guidance (ICD-10-PCS; 2017-01-03)
PROC: 30233L1 Transfusion of Nonautologous Fresh Plasma into Peripheral Vein, Percutaneous Approach (ICD-10-PCS; 2017-01-04)
PROC: 30233N1 Transfusion of Nonautologous Red Blood Cells into Peripheral Vein, Percutaneous Approach (ICD-10-PCS; 2017-01-04)
PROC: 30233K1 Transfusion of Nonautologous Frozen Plasma into Peripheral Vein, Percutaneous Approach (ICD-10-PCS; 2017-01-04)
PROC: 0Y6D0Z2 Detachment at Left Upper Leg, Mid, Open Approach (ICD-10-PCS; principal; 2017-01-04 16:00)
PROC: 0D758ZZ Dilation of Esophagus, Via Natural or Artificial Opening Endoscopic (ICD-10-PCS; 2017-01-10)
DX: A41.9 Sepsis, unspecified organism (principal); E43 Unspecified severe protein-calorie malnutrition; E11.51 Type 2 diabetes mellitus with diabetic peripheral angiopathy without gangrene; E11.69 Type 2 diabetes mellitus with other specified complication; E66.01 Morbid (severe) obesity due to excess calories; I11.0 Hypertensive heart disease with heart failure; I48.2 Chronic atrial fibrillation; I50.9 Heart failure, unspecified; K22.2 Esophageal obstruction; T79.A0XA Compartment syndrome, unspecified, initial encounter; Z68.42 Body mass index [BMI] 45.0-49.9, adult; L03.116 Cellulitis of left lower limb; G45.9 Transient cerebral ischemic attack, unspecified; W18.39XA Other fall on same level, initial encounter; S82.402A Unspecified fracture of shaft of left fibula, initial encounter for closed fracture; S82.892A Other fracture of left lower leg, initial encounter for closed fracture; L08.9 Local infection of the skin and subcutaneous tissue, unspecified; E03.9 Hypothyroidism, unspecified; E78.5 Hyperlipidemia, unspecified; I89.0 Lymphedema, not elsewhere classified; I99.8 Other disorder of circulatory system; K21.9 Gastro-esophageal reflux disease without esophagitis; K44.9 Diaphragmatic hernia without obstruction or gangrene; K59.03 Drug induced constipation; R62.7 Adult failure to thrive; R79.1 Abnormal coagulation profile; Z66 Do not resuscitate; Z79.01 Long term (current) use of anticoagulants; Z79.4 Long term (current) use of insulin; Z79.82 Long term (current) use of aspirin; Z82.49 Family history of ischemic heart disease and other diseases of the circulatory system; Z89.512 Acquired absence of left leg below knee; Z96.652 Presence of left artificial knee joint; F32.9 Major depressive disorder, single episode, unspecified; K22.8 Other specified diseases of esophagus; G47.00 Insomnia, unspecified; G89.29 Other chronic pain; M54.9 Dorsalgia, unspecified; D64.9 Anemia, unspecified; Z90.49 Acquired absence of other specified parts of digestive tract; Y93.89 Activity, other specified; Y92.89 Other specified places as the place of occurrence of the external cause; Y99.8 Other external cause status; Z68.38 Body mass index [BMI] 38.0-38.9, adult; Z88.8 Allergy status to other drugs, medicaments and biological substances; I69.991 Dysphagia following unspecified cerebrovascular disease; R13.10 Dysphagia, unspecified
CPT/HCPCS: 36415; 36556; 36569; 70450; 71010; 74220; 76937; 77001; 80048; 80053; 82962; 83735; 83880; 84100; 84550; 85007; 85025; 85610; 86850; 86900; 86901; 86920; 86927; 87071; 87075; 87186; 87205; 87641; 88307; 93923; 93971; C1892; J0690; J1100; J1644; J1815; J1940; J2020; J2060; J2270; J2405; J2543; J2704; J3010; J3430; J3475; J3480; J3490; J7030; J7040; J7120; P9016; P9017; P9046; Q9967; 92526; 92610; 97110; 97140; 97530; 97535; J2001